=== PATIENT | female | born 1985 | race Caucasian/White ===

== ENCOUNTER 2019-09-25 16:41 | Outpatient (CLI) | payer OTHER, SELFPAY ==
--- NOTE | ~2019-09-25 | XR_ITS ---
EXAMINATION: XR chest 2V EXAM DATE: 09/25/2019 17:12 INDICATION: Shortness of breath. History of asthma. TECHNIQUE: Frontal and lateral projections of the chest obtained and reviewed. Comparison is made to prior examination from 03/27/2019. FINDINGS: The lungs are clear. There are no pleural effusions. The cardiomediastinal silhouette is within normal limits. There is no pneumothorax suspected. The bones and soft tissues are unremarkab le. There is no significant interval change. IMPRESSION: Normal chest x-ray exam. Reviewed, dictated and finalized at location A. IMPRESSION: Normal chest x-ray exam.
--- NOTE | 2019-09-25 16:51 | ECG_ITS ---
Measurements Intervals [place] Rate: 107 P: 54 MT: 156 QRS: 32 QRSD: 91 T: 44 QT: 311 QTc: 417 Interpretive Statements SINUS TACHYCARDIA NONSPECIFIC T-WAVE ABNORMALITY- INFERIOR LEADS ABNORMAL ECG Electronically Signed On 09-25-2019 17:32:06 CDT by Andrae Hdz D.O.
== END 2019-09-25 16:42 | disposition home or self-care (01) ==
LOC: ANHCARD 16:43
PROVIDERS: PCP Internal Medicine; Visit Provider Nurse Practitioner
DX: R06.02 Shortness of breath (principal); R94.31 Abnormal electrocardiogram [ECG] [EKG]
CPT/HCPCS: 71046; 93005

== ENCOUNTER 2019-10-14 08:39 | Outpatient (CLI) | payer OTHER, SELFPAY ==
--- NOTE | ~2019-10-14 | US_ITS ---
EXAMINATION: US venous doppler UE RT DATE: 10/14/2019 09:33 INDICATION: Acute deep venous thrombosis in the right upper limb. TECHNIQUE: Grayscale images without and with compression and Doppler images of the right upper extrem ity veins were obtained. COMPARISON: 03/27/2019 FINDINGS: The right internal jugular vein, subclavian vein, axillary vein, brachial vein, basilic vein, cephali c vein, radial vein, and ulnar vein are now patent. IMPRESSION: 1. Patent right upper extremity veins. No evidence of venous thrombosis. Reviewed, dictated and finalized at location A.
== END 2019-10-14 08:40 | disposition home or self-care (01) ==
PROVIDERS: PCP Internal Medicine; Visit Provider Internal Medicine Hematology & Oncology
DX: I82.621 Acute embolism and thrombosis of deep veins of right upper extremity (principal)
CPT/HCPCS: 93971

== ENCOUNTER 2019-11-13 13:03 | Outpatient (CLI) | payer OTHER, SELFPAY ==
[2019-11-15 00:50] LABS: Antithrombin III Activity 115 % activity (80-120)
[2019-11-15 13:38] LABS: Anti Cardio Antibody IgM <12 MPL (<=12); Anti Cardiolipin Antibody IgA <11 APL (<=11); Anti Cardiolipin Antibody IgG <14 GPL (<=14)
[2019-11-15 20:49] LABS: Lupus dRVVT 1:1 Mix Interpreta Not Indicated; Lupus dRVVT Screen 33 sec (<=45); PTT-LA Screen 25 sec (<=40)
[2019-11-17 09:44] LABS: Homocysteine 5.4 umol/L (<10.4)
== END 2019-11-13 13:04 | disposition home or self-care (01) ==
LOC: ANHVADLAB 13:07 → ANHLAB 13:29
PROVIDERS: PCP Internal Medicine; Visit Provider Internal Medicine Hematology & Oncology
DX: I82.621 Acute embolism and thrombosis of deep veins of right upper extremity (principal)
CPT/HCPCS: 36415; 83090; 85300; 85613; 85730; 86146; 86147

== ENCOUNTER 2020-10-25 16:39 | Emergency (ER) | payer OTHER, SELFPAY ==
--- NOTE | ~2020-10-25 | CT_ITS ---
EXAMINATION: CTA chest PE protocol DATE: 10/25/2020 18:18 INDICATION: Shortness of breath. Bilateral rib pain. Chest tightness. TECHNIQUE: Computed tomography angiography (CTA) of the chest was performed with 100 mL Omnipaque-350 intravenous contrast timed to evaluate the pulmonary arteries. Coronal maximum intensity projection 3D-reconstructions were created by the technologist. Automated exposure control and iterative reconst ruction technique were employed. The dose-length product was 1021.05 mGy-cm. COMPARISON: Chest CT 05/14/2019, CT abdomen and pelvis 12/16/2018 FINDINGS: There is minimal atelectasis in lingula. No pleural effusion. The heart size is normal. No pericardial effusion. There is no pulmonary embolus. There are changes of cholecystectomy. There is d iffuse hepatic steatosis. There are parenchymal calcifications in left kidney. There is a 16 mm mass in left adrenal gland that measured low-attenuation on prior imaging, consistent with an adenoma. The re is mild thoracic spondylosis. IMPRESSION: 1. No pulmonary embolus. Reviewed, dictated and finalized at location A. IMPRESSION: 1. No pulmonary embolus.
--- NOTE | ~2020-10-25 | XR_ITS ---
EXAMINATION: XR chest 2V DATE: 10/25/2020 17:41 INDICATION: Shortness of breath. Bilateral rib pain. TECHNIQUE: Frontal and lateral views of the chest were obtained. COMPARISON: Sam views 09/25/2019, chest CT 05/14/2019 FINDINGS: The chest demonstrates clear lungs without pneumonia, pleural effusion, or pneumothorax. Th e heart size is normal. IMPRESSION: 1. No acute cardiopulmonary disease. Reviewed, dictated and finalized at location A.
--- NOTE | 2020-10-25 17:06 | ECG_ITS ---
Measurements Intervals [place] Rate: 97 P: 62 MD: 145 QRS: 27 QRSD: 92 T: 41 QT: 310 QTc: 394 Interpretive Statements SINUS RHYTHM LOW QRS VOLTAGE IN PRECORDIAL LEADS BORDERLINE ST-T WAVE ABNORMALITY- INFERIOR LEADS BASELINE ARTIFACT- I, II, AVR BORDERLINE ECG Electronically Signed On 10-25-2020 20:33:48 CDT by Andrae Hdz D.O.
[2020-10-25 17:30] VITALS: PULSE 84; O2SAT 97
[2020-10-25 17:37] VITALS: BP 120/78; PULSE 100; RESP 19; TEMP 36.7; O2SAT 97
[2020-10-25 17:46] LABS: Basophils Absolute Auto 0.1 K/mm3 (0.0-0.1); Basophils Percent Auto 0.6 % (0.2-1.2); Eosinophils Absolute Auto 0.6 K/mm3 (0-0.3); Eosinophils Percent Auto 4.3 % (0-4.4); Hematocrit 39.2 % (37.0-47.0); Immature Granulocyte Absolute 0.08 K/mm3 (0.00-0.031); Immature Granulocyte Percent A 0.6 % (0-0.5); Lymphocytes Absolute Auto 4.53 K/mm3 (0.9-3.2); Lymphocytes Percent Auto 33.7 % (18.3-44.2); Mean Corpuscular HGB Conc 33.2 g/dl (32-36); Mean Corpuscular Volume 93.3 fl (80-100); Mean Platelet Volume 8.9 fl (7.4-10.4); Monocytes Absolute Auto 0.9 K/mm3 (0.1-0.6); Monocytes Percent Auto 6.6 % (2.6-8.5); Neutrophils Absolute Auto 7.3 K/mm3 (1.3-6.7); Neutrophils Percent Auto 54.2 % (45.5-73.1); Platelet Count Result 236 k/mm3 (150-375); Red Cell Distribution Width 12.7 % (11.5-14.5); White Blood Count 13.5 K/mm3 (4.5-10.0)
[2020-10-25 17:55] LABS: Anion Gap 6 mmol/L (8-16); Blood Urea Nitrogen 10 mg/dL (7-17); Calcium 8.6 mg/dL (8.4-10.2); Carbon Dioxide 22 mmol/L (22-30); Chloride 111 mmol/L (98-107); Estimated CRCL calculation 114 ml/min; Estimated Glomerular Filt Rate > 60; Glucose 92 mg/dL (65-105); Potassium 3.9 mmol/L (3.4-5.0); Sodium 139 mmol/L (137-145)
--- NOTE | 2020-10-25 18:05 | ED.GENADULT ---
HPI - General Adult General Chief complaint: Shortness of Breath/Dyspnea Stated complaint: sob Time Seen by Provider: 10/25/20 17:12 Source: patient History of Present Illness HPI narrative: Patient is a 35 y/o female complaining of mild SOB since yesterday. She states that her SOB is worse with exertion or prolonged walking. She has a mild chronic cough. She also has some bilateral rib pain. She denies any fever. She states that she was seen by her PCP and was instructed to come to ED to be evaluated for PE. She has history of arm DVT. Related Data Home Medications Medication Instructions Recorded Confirmed lisdexamfetamine 30 mg capsule 30 mg PO DAILY 05/03/20 10/25/20 vilazodone 20 mg tablet 20 mg PO DAILY 05/03/20 10/25/20 Allergies Allergy/AdvReac Type Severity Reaction Status Date / Time egg Allergy Severe anaphalaxis Verified 10/25/20 17:44 DUST Allergy Intermediate wheezing Uncoded 10/25/20 17:44 MILDEW Allergy Mild Wheezing Uncoded 10/25/20 17:44 MOLD Allergy Mild Wheezing Uncoded 10/25/20 17:44 SMOKE Allergy Mild Wheezing Uncoded 10/25/20 17:44 Review of Systems Constitutional: Constitutional: Denies chills, Denies fever(s), Denies headache(s) and Denies weakness Eyes: Eyes: Denies blurry vision ENT: Denies headache(s) and Denies neck pain Cardiovascular: Cardiovascular: Reports chest pain and Reports dyspnea Respiratory: Respiratory: Denies cough and Reports dyspnea Gastrointestinal: Gastrointestinal: Denies abdominal pain, Denies diarrhea, Denies nausea and Denies vomiting Genitourinary: Genitourinary: Denies hematuria and Denies dysuria Musculoskeletal: Musculoskeletal: Denies back pain and Denies neck pain Neurologic: Denies headache(s) and Denies weakness PMFSH Past Medical History Medical History Allergies Asthma Back pain Cholecystectomy planned Depression DVT (deep venous thrombosis) Migraine Surgical History Surgical History Previous section 2008, 2012 Family History Family History Father Hypertension Diabetes mellitus Mother Hypertension Diabetes mellitus Social History Social History Smoking status: Former smoker Smoking end date: 06/25/13 Alcohol intake: current Gender identity (if verbalized by the patient): Female Exam Const: General: no acute distress and well developed Orientation/consciousness: oriented to person, oriented to place, oriented to time and patient oriented x3 HENMT: Head: normocephalic Ears: external ears normal General nose exam: Normal external nose present Eyes: General: appearance normal, both eyes and all related structures Conjunctivae: conjunctivae normal Neck: Neck: normal visual inspection and full ROM Chest: Chest palpation & inspection: normal inspection of the chest and no tenderness Resp: Effort & Inspection: normal respiratory effort Auscultation: clear to auscultation bilaterally Cardio: Rate: regular rate Rhythm: regular rhythm GI: GI Palp: No abdominal tenderness and Yes Soft to palpation Skin: General skin exam: normal color and turgor normal Neuro: General: oriented to person, oriented to place, oriented to time and patient oriented x3 Cognition (Neuro): normal cognition Extrem: General: normal to inspection, full ROM and no pedal edema Psych: Appearance: grossly normal Mental Status: mental status grossly normal Affect: normal affect Course Vital Signs Vital signs: Vital Signs Pulse Rate 84 10/25/20 17:30 Pulse Oximetry 97 10/25/20 17:30 Temperature 36.7 C 10/25/20 17:37 Pulse Rate 100 10/25/20 17:37 Respiratory Rate 19 10/25/20 17:37 Blood Pressure 120/78 10/25/20 17:37 Pulse Oximetry 97 10/25/20 17:37 Medical Decision Making Vital Signs V
== END 2020-10-25 18:54 | disposition home or self-care (01) ==
PROVIDERS: Emergency Provider Emergency Medicine; PCP Internal Medicine
DX: R06.02 Shortness of breath (principal); J45.909 Unspecified asthma, uncomplicated; F32.9 Major depressive disorder, single episode, unspecified; Z86.718 Personal history of other venous thrombosis and embolism; Z87.891 Personal history of nicotine dependence
CPT/HCPCS: 36415; 71046; 71275; 80048; 81025; 85025; 93005; 99284; Q9967

== ENCOUNTER 2021-07-15 09:58 | Outpatient (CLI) | payer OTHER, SELFPAY ==
--- NOTE | ~2021-07-15 | XR_ITS ---
XR ankle LT 2V DATE: 07/15/2021 10:15 INDICATION: Left ankle pain TECHNIQUE: AP and lateral views COMPARISON: None FINDINGS: No fracture or dislocation of the ankle or disruption of the ankle mortise. Plantar calcaneal enthesopathy. IMPRESSION: Plantar calcaneal enthesopathy Reviewed, dictated and finalized at location A. C EDUCATOR
== END 2021-07-15 09:59 | disposition home or self-care (01) ==
LOC: ANHIMG 10:02
PROVIDERS: PCP Internal Medicine; Visit Provider Nurse Practitioner
DX: M25.572 Pain in left ankle and joints of left foot (principal); M77.32 Calcaneal spur, left foot
CPT/HCPCS: 73600

== ENCOUNTER 2021-08-02 17:12 | Outpatient (CLI) | payer OTHER, SELFPAY ==
--- NOTE | ~2021-08-02 | US_ITS ---
EXAMINATION: US venous doppler LE RT DATE: 08/02/2021 17:47 INDICATION: Right lower limb pain. TECHNIQUE: Grayscale ultrasound images without and with compression and Doppler ultrasound images of the right lower extremity veins were obtained. COMPARISON: None. FINDINGS: The visualized portions of right common femoral vein, profunda (deep) femoral vein, femoral vein, pop liteal vein, peroneal veins, posterior tibial veins, and greater saphenous vein outflow are patent. T here is a 3.2 x 1.1 cm predominantly solid hypoechoic mass in right foot. IMPRESSION: 1. No deep venous thrombosis. 2. 3.2 cm mass in right foot, most likely a hematoma. Clinical follow-up is recommended to confirm re solution and exclude rare causes of mass such as malignancy. Reviewed, dictated and finalized at location A. AN IMPRESSION: 1. No deep venous thrombosis. 2. 3.2 cm mass in right foot, most likely a hematoma. Clinical follow-up is rec ommended to confirm resolution and exclude rare causes of mass such as malignan cy.
== END 2021-08-02 17:13 | disposition home or self-care (01) ==
PROVIDERS: PCP Internal Medicine; Visit Provider Internal Medicine
DX: M79.606 Pain in leg, unspecified (principal); M79.89 Other specified soft tissue disorders
CPT/HCPCS: 93971

== ENCOUNTER 2022-01-24 07:49 | Outpatient (CLI) | payer OTHER, SELFPAY ==
--- NOTE | ~2022-01-24 | XR_ITS ---
EXAMINATION: XR chest 2V 01/24/2022 08:00 INDICATION: Cough PROCEDURE: 2 view chest COMPARISON: Comparison to multiple prior studies sequentially, with oldest reviewed study dated 10/19. FINDINGS: The lungs are clear. The cardiomediastinal silhouette is within normal limits. There are no pleural effusions. There is no pneumothorax suspected. IMPRESSION: 1: NO ACUTE CARDIOPULMONARY DISEASE. Reviewed, dictated and finalized at location A.
== END 2022-01-24 07:50 | disposition home or self-care (01) ==
LOC: ANHIMG 07:50
PROVIDERS: PCP Internal Medicine; Visit Provider Nurse Practitioner
DX: R05.9 Cough, unspecified (principal)
CPT/HCPCS: 71046

== ENCOUNTER 2022-03-13 08:57 | Outpatient (CLI) | payer OTHER, SELFPAY ==
--- NOTE | 2022-03-13 14:29 | WPDPFTINT ---
PFT Procedure Performed PFT Procedure Performed Spirometry with Pre/Post Bronchodilator Plethysmography (Lung Vol) Diffusing Cap (DLCO) Flow Vol Loop PFT Interpretation This is a pulmonary function test with pre and post-bronchodilator spirometry, plethysmography and diffusing capacity. The test was performed and results interpreted in accordance with the 2019 and 2005 ATS/ERS Task Force guidelines respectively using the Global Lung Function Initiative-2012 reference equations. Patient demonstrated good effort and cooperation. Reproducibility criteria were met. The quality of the pre bronchodilator spirometry maneuver was Grade A and post bronchodilator spirometry maneuver was Grade A. Findings: Spirometry: The contour the inspiratory and expiratory flow tracing are normal. The pre bronchodilator FVC is 3.38 L, 94% predicted. The pre bronchodilator FEV1 is 2.72 L, 91% predicted. The pre bronchodilator FEV1: FVC ratio was 80%. The post bronchodilator FVC is 3.43 L, representing 1% increase. The post bronchodilator FEV1 is 2.79 L, representing a 2% increase. The post bronchodilator FEV1: FVC ratio was 81%. Plethysmography: The total lung capacity is 4.49 L, 91% predicted. The functional residual capacity is 1.78 L, 66% predicted. The residual volume is 1.11 L, 75% predicted. Diffusion capacity: The diffusion capacity unadjusted for hemoglobin and carboxyhemoglobin is 20.8, 87% predicted. The diffusing capacity adjusted for alveolar volume is 5.17, 107% predicted. Impression: The spirometry is normal without evidence of an obstructive abnormality. There is no significant improvement after inhaling a single dose of albuterol. The lung volumes are normal. The diffusing capacity is normal. There are no prior studies for comparison
== END 2022-03-13 08:58 | disposition home or self-care (01) ==
PROVIDERS: PCP Internal Medicine; Visit Provider Physician Assistant
DX: J45.909 Unspecified asthma, uncomplicated (principal); R05.9 Cough, unspecified
CPT/HCPCS: 94060; 94726; 94729

== ENCOUNTER 2022-05-08 07:34 | Outpatient (CLI) | payer OTHER, SELFPAY ==
--- NOTE | 2022-05-08 07:46 | ECHO_ITS ---
Patient Info Name: Sarai Marie Age: 36 years : 1985 Gender: Female Ht: 63 in Wt: 300 lbs BSA: 2.55 m2 HR: 94 bpm BP: 131 / 93 mmHg Technical Quality: Poor Exam Date: 05/08/2022 8:23 AM Exam Location: [facility] Patient Status: Outpatient Admit Date: 05/08/2022 Staff Ordering Physician: Annita Key MD Piece Work Checker: Rob Mckinley RDCS, RT Attending Provider: Annita Key MD Referring Physician: Shahid VELASQUEZ; Exam Type: CA echo doppler color flow Study Info Indications R06.02 - Shortness of breath Complete two-dimensional, color flow and Doppler transthoracic echocardiogram is performed. Strain analysis performed. Summary 1. Complete two-dimensional, color flow and Doppler transthoracic echocardiogram is performed. 2. Technically suboptimal study due to poor sonographic images. 3. Left ventricular chamber dimension is normal. 4. Left ventricular systolic function is normal, estimated at 60-65%. 5. There is moderately increased left ventricular wall thickness. 6. The left ventricular diastolic function is grade I diastolic dysfunction. 7. E/e' 8 is minimally elevated. 8. Global longitudinal strain is abnormal at -15.9%. 9. There is trivial pericardial effusion. Left Ventricle E/e' 8 is minimally elevated. Global longitudinal strain is abnormal at -15.9%. Technically suboptimal study due to poor sonographic images. Left ventricular chamber dimension is normal. Left ventricular systolic function is normal, estimated at 60-65%. There is moderately increased left ventricular wall thickness. The left ventricular diastolic function is grade I diastolic dysfunction. Right Ventricle Right ventricular systolic function is normal and with normal TAPSE 2.2 cm. Right ventricular chamber dimension is normal. Left Atria Left atrial chamber dimension is normal. Right Atria Right atrial chamber dimension is normal. Aortic Valve The aortic valve is probable trileaflet. There is no aortic valve stenosis. There is no aortic valve regurgitation. Pulmonic Valve There is no pulmonic regurgitation. Mitral Valve There is no mitral valve stenosis. There is no mitral valve regurgitation. Tricuspid Valve There is no tricuspid valve regurgitation. Pericardium/Pleural There is trivial pericardial effusion. Inferior Vena Cava Normal inferior vena cava with >50% collapse upon inspiration consistent with normal right atrial pressure, 5 mmHg. Aorta The aortic root size at the sinus of Valsalva is normal. Left Ventricular Outflow Tract Name Value Normal LVOT 2D LVOT Diameter 1.9 cm LVOT Doppler LVOT Peak Gradient 6 mmHg LVOT Mean Gradient 4 mmHg LVOT VTI 25 cm LVOT VTI/AV VTI Ratio 0.9 LVOT Stroke Volume 74 ml LVOT CO 7.2 l/min LVOT CI 2.8 l/min/m2 Mitral Valve Name
== END 2022-05-08 07:35 | disposition home or self-care (01) ==
LOC: ANHCARD 07:36
PROVIDERS: PCP Internal Medicine; Visit Provider Internal Medicine Critical Care Medicine
DX: R06.02 Shortness of breath (principal)
CPT/HCPCS: 93306

== ENCOUNTER 2022-05-31 08:08 | Outpatient (CLI) | payer OTHER, SELFPAY ==
--- NOTE | ~2022-05-31 | CT_ITS ---
EXAMINATION: CT abdomen wo/w con DATE: 05/31/2022 09:05 INDICATION: Adrenal mass TECHNIQUE: Computed tomography (CT) of the abdomen and pelvis was performed without and with 100 mL O mnipaque-350 intravenous contrast. Automated exposure control and iterative reconstruction technique were employed. The dose-length product was 2334.15 mGy-cm. COMPARISON: None FINDINGS: Minimal atelectasis at the bilateral lung bases. Heart size is normal. No pericardial or pleural effu lamar. Cholecystectomy clips the gallbladder fossa. Diffuse hepatic steatosis. Spleen, pancreas and ri ght adrenal gland are normal. 1.3 cm left adrenal nodule with noncontrast Hounsfield units of 4, abso lute washout of 73% and relative washout of 66%, each individually diagnostic of adrenal adenoma. Rig ht kidney is normal. A couple 4-5 mm calcifications at a small region of cortical scarring at the upp er pole of the left kidney. Visualized portion of the bowels including the appendix are normal. No pa thologically enlarged abdominal lymphadenopathy. IMPRESSION: 1. 1.3 cm left adrenal adenoma. 2. A couple 4-5 mm nonobstructing stones versus dystrophic calcification related to cortical scarring at the upper pole the left kidney. Reviewed, dictated and finalized at location A. L COURT JUSTICE IMPRESSION: 1. 1.3 cm left adrenal adenoma. 2. A couple 4-5 mm nonobstructing stones versus dystrophic calcification relate d to cortical scarring at the upper pole the left kidney.
[2022-05-31 08:31] LABS: Estimated Glomerular Filt Rate > 60
== END 2022-05-31 08:09 ==
LOC: MICIMG 08:09
PROVIDERS: PCP Internal Medicine; Visit Provider Nurse Practitioner
DX: E27.8 Other specified disorders of adrenal gland (principal); D35.02 Benign neoplasm of left adrenal gland; N20.0 Calculus of kidney
CPT/HCPCS: 74170; Q9967

== ENCOUNTER 2022-06-20 16:35 | Emergency (ER) | payer OTHER, SELFPAY ==
[2022-06-20 17:09] VITALS: BP 107/77; PULSE 102; RESP 16; TEMP 36.4; O2SAT 98
--- NOTE | 2022-06-20 17:44 | ED.URI ---
HPI - URI/Sore Throat General Chief Complaint: Upper Respiratory Infection Stated Complaint: congestion Time Seen by Provider: 06/20/22 17:44 Source: patient and RN notes reviewed Mode of arrival: ambulatory Limitations: no limitations History of Present Illness HPI Narrative: 36-year-old female with a history of asthma presented for complaint of chest congestion and sinus drainage worsening over the past 4 days. She endorses hoarse voice and fatigue. she is taking Trelegy as directed. She denies severe shortness of breath or wheezing. States her congestion is worsening her asthma, but states she feels ok. Also denies, vomiting, diarrhea, fever chills. Reports sick contacts. MD elicited complaint: cough Related Data Home Medications Medication Instructions Recorded Confirmed aripiprazole 5 mg tablet (Abilify) 7.5 mg PO DAILY 07/14/21 06/20/22 aspirin 81 mg tablet,delayed 81 mg PO DAILY 08/02/21 06/20/22 release (Adult Low Dose Aspirin) vilazodone 20 mg tablet 40 mg PO DAILY 01/12/22 06/20/22 lisdexamfetamine 30 mg capsule 60 mg PO DAILY 04/25/22 06/20/22 (Vyvanse) Allergies Allergy/AdvReac Type Severity Reaction Status Date / Time egg Allergy Severe anaphalaxis Verified 06/20/22 17:54 DUST Allergy Intermediate wheezing Uncoded 06/20/22 17:54 MILDEW Allergy Mild Wheezing Uncoded 06/20/22 17:54 MOLD Allergy Mild Wheezing Uncoded 06/20/22 17:54 SMOKE Allergy Mild Wheezing Uncoded 06/20/22 17:54 Review of Systems Review of Systems: per HPI PMF Past Medical History Medical History Allergies Asthma Back pain Cholecystectomy planned Depression DVT (deep venous thrombosis) Migraine Morbid obesity with BMI of 50.0-59.9, adult Surgical History Surgical History Previous section 2008, 2012 Family History Family History Father Hypertension Diabetes mellitus Mother Hypertension Diabetes mellitus Social History Social History Social History: Caffeine-daily Smoking packs per day: 1 Smoking cigarettes per day: 20.0 Years smoked: 5 Smoking pack-years: 5.00 Smoking status: Former smoker Tobacco type: cigarettes Second hand tobacco smoke exposure: Yes Smoking end date: 06/25/13 Alcohol intake: current Alcohol use details: rarely Lack of Transportation: No Lack of Food: Sometimes True Current Housing: I Have Housing Concerned About Future Housing: No Difficulty Paying Gas/Electric Bills: YES Difficulty Paying for Meds: No Currently Unemployed: No Education: High School Diploma/GED Difficulty w/ Childcare or Family Care: No Gender identity (if verbalized by the patient): Female Exam Narrative: GENERAL: Ill-appearing, nontoxic EYES: PERRLA, conjunctivae clear ENT: Mucous membranes moist. TMs pearly banks with dull light reflex bilaterally; no tragal tenderness. Oropharynx erythematous without lesions or exudate, no drooling, no hoarseness, no trismus, uvula midline. No tripod positioning, muffled voice, soft palate or pharyngeal wall bulging NECK: Supple. No lymphadenopathy CHEST: Lungs coarse with wheezing throughout. Right mid and lower lobe wheezing worse than left. No respiratory distress, speaks in full sentences. HEART: Regular rate and rhythm. No murmur heard. SKIN: Warm, dry, no rash. NEURO: Alert and oriented x3. PSYCH: Normal mood and affect Course Course Emergency Course: Patient is aware of diagnosis, understands and agrees to treatment plan. Anticipatory guidance given. Patient agrees to follow-up as directed and is aware of reasons to seek care at the emergency department. Portions of this record may have been created with voice recognition software Level of Care: Express Care Visit Vital Signs Vital
== END 2022-06-20 18:03 | disposition home or self-care (01) ==
PROVIDERS: Emergency Provider Nurse Practitioner Family; PCP Internal Medicine
DX: J40 Bronchitis, not specified as acute or chronic (principal); J45.909 Unspecified asthma, uncomplicated; Z86.718 Personal history of other venous thrombosis and embolism; E66.01 Morbid (severe) obesity due to excess calories; Z68.43 Body mass index [BMI] 50.0-59.9, adult; F32.A Depression, unspecified; Z79.82 Long term (current) use of aspirin; Z87.891 Personal history of nicotine dependence
CPT/HCPCS: 99213; G0463

== ENCOUNTER 2022-10-18 15:24 | Outpatient (CLI) | payer OTHER, SELFPAY ==
--- NOTE | 2022-10-23 16:26 | WPDHOLTEREM ---
Holter/Event Monitor Holter/Event Monitor Date of procedure: 10/18/22 Holter/Event Procedure: 48 Hr Holter Monitor Indications: Tachycardia Conclusion: 1. 48 hour holter monitor on 10/18/22. 2. Underlying rhythm is sinus rhythm. HR range 66-152 bpm; average HR 109 bpm. HR at 152 bpm was at 08:04. 3. No premature supraventricular complexes. No supraventricular tachycardia. 4. No premature ventricular complex. No ventricular tachycardia. 5. No sinoatrial or atrioventricular blocks. No significant pauses greater than 2 seconds. 6. No symptoms available for correlation.
== END 2022-10-18 15:25 | disposition home or self-care (01) ==
LOC: ANHCARD 15:25
PROVIDERS: PCP Internal Medicine; Visit Provider Nurse Practitioner
DX: R00.0 Tachycardia, unspecified (principal)
CPT/HCPCS: 93225; 93226

== ENCOUNTER 2022-11-02 09:30 | Outpatient (CLI) | payer OTHER, SELFPAY ==
--- NOTE | ~2022-11-02 | CT_ITS ---
CT Scan of the Chest without Contrast: Clinical Indication: Lung nodule Technique: Contiguous sections were acquired throughout the chest without intravenous contrast. Dose reduction technique was used on this scan by utilizing automated exposure control and iterative recon struction technique. The dose-length product (DLP) was 329.40 mGy-cm. COMPARISON: 10/25/2020 Findings: There is no evidence of any significant mediastinal, hilar or axillary lymphadenopathy. The mediastin al soft tissues appear normal. There is no evidence of pleural or pericardial effusion. Stable 2 mm right upper lobe pulmonary nodule. Right middle lobe scarring or atelectasis is noted. Images through the upper abdomen reveal no abnormalities. Impression: 2 mm upper lobe pulmonary nodule, unchanged. Right middle lobe scarring or atelectasis. Reviewed, dictated and finalized at [facility]. Impression: 2 mm upper lobe pulmonary nodule, unchanged. Right middle lobe scarring or atelectasis.
== END 2022-11-02 09:31 | disposition home or self-care (01) ==
PROVIDERS: PCP Internal Medicine; Visit Provider Nurse Practitioner Family
DX: R91.1 Solitary pulmonary nodule (principal)
CPT/HCPCS: 71250

== ENCOUNTER 2022-12-07 11:18 | Observation (INO) | payer OTHER, SELFPAY ==
[2022-12-07] VITALS (10 sets, daily range): BP systolic 118–143; BP diastolic 50–99; PULSE 102–121; RESP 13–34; TEMP 36.1–36.4; O2SAT 95–100
--- NOTE | ~2022-12-07 | XR_ITS ---
XR chest 2V 12/07/2022 12:02 Indication: Shortness of breath for one week. History of blood clots. Procedure: PA and lateral views of the chest Comparison: 01/24/2022 Findings: There is right middle lobe and lingular airspace disease, compatible with pneumonia. Heart size normal. No pleural effusion, edema or pneumothorax. No acute osseous abnormality. Impression: 1: Lingular and right middle lobe airspace disease, compatible with pneumonia. Reviewed, dictated and finalized at location L. Impression: 1: Lingular and right middle lobe airspace disease, compatible with pneumonia.
--- NOTE | ~2022-12-07 | CT_ITS ---
EXAMINATION: CTA chest PE protocol DATE: 12/07/2022 14:44 INDICATION: hx of DVT/factor V; tachy, SOB, CP TECHNIQUE: Computed tomography angiography (CTA) of the chest was performed with 100 mL Omnipaque-350 intravenous contrast timed to evaluate the pulmonary arteries. Coronal maximum intensity projection 3D-reconstructions were created by the technologist. The dose-length product (DLP) was 881.81 mGy-cm. Automated exposure control and iterative reconstruction technique were employed. COMPARISON: CT chest 11/02/2022 and 05/14/2019. FINDINGS: Lung parenchyma and airways: Centrilobular groundglass and tree-in-bud opacities affecting all lobes, most severe in the lower lobes. Right upper lobe fissural lymph node. Pleura: Unremarkable. Thoracic inlet, axillae and chest wall: Unremarkable. Thoracic aorta: Normal. Mediastinum: Borderline bilateral hilar and mediastinal lymphadenopathy. Heart and pericardium: Normal. Coronary artery calcifications: None. Upper abdomen: 16 mm 12 Hounsfield unit density left adrenal mass, likely adenoma. Bones: No acute osseous finding. Pulmonary arteries: Study quality: Adequate. No pulmonary emboli detected. IMPRESSION: No CT evidence of acute pulmonary embolus. Pulmonary opacities may represent infectious airways disea se/atypical infection, respiratory bronchiolitis, or hypersensitivity pneumonitis. Reviewed, dictated and finalized at location K. IMPRESSION: No CT evidence of acute pulmonary embolus. Pulmonary opacities may represent in fectious airways disease/atypical infection, respiratory bronchiolitis, or hype rsensitivity pneumonitis.
--- NOTE | 2022-12-07 11:20 | ECG_ITS ---
Measurements Intervals [place] Rate: 121 P: 53 UT: 131 QRS: 7 QRSD: 89 T: 31 QT: 338 QTc: 480 Interpretive Statements SINUS TACHYCARDIA LOW QRS VOLTAGE IN PRECORDIAL LEADS [QRS DEFLECTION < 1.0 mV IN CHEST LEADS] NONSPECIFIC T-WAVE ABNORMALITY ABNORMAL RHYTHM ECG COMPARED TO ECG 10/25/2020 17:17:41 SINUS TACHYCARDIA NOW PRESENT Electronically Signed On 12-07-2022 14:05:31 CDT by Annalisa Galvan M.D.
[2022-12-07 11:50] LABS: Basophils Absolute Auto 0.1 K/mm3 (0.0-0.1); Basophils Percent Auto 0.7 % (0.2-1.2); Eosinophils Absolute Auto 0.5 K/mm3 (0-0.3); Hematocrit 42.1 % (37.0-47.0); Hemoglobin 13.9 g/dL (12.0-15.0); Immature Granulocyte Absolute 0.12 K/mm3 (0.00-0.031); Immature Granulocyte Percent A 0.7 % (0-0.5); Lymphocytes Absolute Auto 4.08 K/mm3 (0.9-3.2); Lymphocytes Percent Auto 24.3 % (18.3-44.2); Mean Corpuscular Hemoglobin 30.5 pg (26-34); Mean Corpuscular Volume 92.5 fl (80-100); Mean Platelet Volume 8.6 fl (7.4-10.4); Monocytes Absolute Auto 1.1 K/mm3 (0.1-0.6); Monocytes Percent Auto 6.6 % (2.6-8.5); Neutrophils Absolute Auto 10.8 K/mm3 (1.3-6.7); Neutrophils Percent Auto 64.7 % (45.5-73.1); Platelet Count Result 270 k/mm3 (150-375); Red Blood Count 4.55 M/mm3 (4.2-5.4); Red Cell Distribution Width 12.6 % (11.5-14.5); White Blood Count 16.8 K/mm3 (4.5-10.0)
[2022-12-07 12:05] LABS: Alanine Aminotransferase 24 U/L (6-35); Alkaline Phosphatase 65 U/L (38-126); Anion Gap 7 mmol/L (8-16); Aspartate Amino Transferase 24 U/L (14-36); Bilirubin,Total 0.3 mg/dL (0.2-1.3); Blood Urea Nitrogen 8 mg/dL (7-17); Calcium 8.2 mg/dL (8.4-10.2); Carbon Dioxide 23 mmol/L (22-30); Chloride 107 mmol/L (98-107); Estimated CRCL calculation 117 ml/min; Estimated Glomerular Filt Rate > 60; Glucose 101 mg/dL (65-110); Potassium 4.1 mmol/L (3.4-5.0); Sodium 137 mmol/L (137-145)
--- NOTE | 2022-12-07 13:33 | ED.ARRPALP ---
HPI - Arrhythmia/Palpitations General Chief Complaint: Arrhythmia/Palpitations Stated Complaint: tachycardia Time Seen by Provider: 12/07/22 12:29 History of Present Illness HPI narrative: Patient is a 37-year-old female with a history of factor V Leiden on daily aspirin, DVT, hypertension, depression, asthma, GERD presenting with high heart rate and shortness of breath. Patient states that for the last several days her heart rate has been spiking up to the 140s and 150s with normal activity. States that she has been feeling increasingly short of breath. States that she has chest pain with deep breathing. Saw her PCP today who advised she come in for evaluation. States that she has had a productive cough as well. Denies headache, numbness or weakness, abdominal pain, nausea or vomiting, diarrhea, dysuria, leg swelling. Related Data Home Medications Medication Instructions Recorded Confirmed aripiprazole 5 mg tablet (Abilify) 7.5 mg PO DAILY 07/14/21 12/14/22 aspirin 81 mg tablet,delayed 81 mg PO DAILY 08/02/21 12/14/22 release (Adult Low Dose Aspirin) epinephrine 0.3 mg/0.3 mL 0.3 ml IM ONCE PRN 10/04/22 12/14/22 injection, auto-injector hypersensitivity reaction atomoxetine 25 mg capsule 25 mg PO BID 12/07/22 12/14/22 trazodone 100 mg tablet 200 mg PO HS 12/07/22 12/14/22 vilazodone 40 mg tablet 40 mg PO DAILY 12/07/22 12/14/22 Allergies Allergy/AdvReac Type Severity Reaction Status Date / Time egg Allergy Severe anaphalaxis Verified 12/14/22 08:27 DUST Allergy Intermediate wheezing Uncoded 12/14/22 08:27 MILDEW Allergy Mild Wheezing Uncoded 12/14/22 08:27 MOLD Allergy Mild Wheezing Uncoded 12/14/22 08:27 SMOKE Allergy Mild Wheezing Uncoded 12/14/22 08:27 Review of Systems Review of Systems: All systems reviewed & are unremarkable except as noted in HPI and below PMFSH Past Medical History Medical History Allergies Asthma Attention deficit Back pain Cholecystectomy planned Depression DVT (deep venous thrombosis) Factor V Leiden Migraine Morbid obesity with BMI of 50.0-59.9, adult Surgical History Surgical History Hx of cholecystectomy Previous section 2008, 2012 Family History Family History Father Hypertension Diabetes mellitus Mother Hypertension Diabetes mellitus Social History Social History Social History: Caffeine-daily the patient is single and she has 2 children. She works at [employer]. The patient continues to smoke. code status full code Smoking packs per day: 1 Smoking cigarettes per day: 20.0 Years smoked: 5 Smoking pack-years: 5.00 Smoking status: Never smoker Tobacco type: cigarettes Second hand tobacco smoke exposure: Yes Smoking end date: 06/25/13 Alcohol intake: never Alcohol use details: rarely Substance use: never Substance use type: does not use Lack of Transportation: No Lack of Food: Never True Current Housing: I Have Housing Concerned About Future Housing: No Difficulty Paying Gas/Electric Bills: No Difficulty Paying for Meds: No Currently Unemployed: No Education: Associate Degree Difficulty w/ Childcare or Family Care: No Gender identity (if verbalized by the patient): Female Spiritual care concerns: No Exam Narrative: GENERAL: Well-appearing, well-nourished, and in no acute distress. Pleasant and cooperative HEAD: Normocephalic, atraumatic. EYES: PERRLA and EOMI. ENT: Nares clear, no rhinorrhea or epistaxis. Mucous membranes moist. NECK: Supple. CHEST: Crackles bilaterally, worse in the lower lobes, no wheezing, no respiratory distress HEART: Tachycardic, regular rhythm, no murmur heard. Normal peripheral pulses. ABDOMEN: Soft, nontender, nondistended EXTREMITIES: Normal range of
[2022-12-07] MEDS: SODIUM CHLORIDE 0.9% IV 1,000 ML 999 ML IV CONT (14:26)
--- NOTE | 2022-12-07 14:28 | PC.NURSE ---
Pt to CT scan via stretcher at this time.
[2022-12-07 14:43] LABS: Lactic Acid Reflex 0.9 mmol/L (0.7-2.0)
[2022-12-07] MEDS: AZITHROMYCIN 500 MG/NS 250 ML 500 MG/250 ML BAG 250 MG IVPB (14:53)
[2022-12-07 17:56] LABS: Influenza A QL RT-PCR Negative (Negative); Influenza B QL RT-PCR Negative (Negative); SARS-CoV-2 RNA PCR Negative (Negative)
[2022-12-07 20:19] LABS: Glucose Point of Care 93 mg/dl (65-105)
--- NOTE | 2022-12-07 21:40 | PM.IMHP ---
H&P: HPI History of Present Illness Date/Time: 12/07/22 21:40 Chief Complaint: Arrhythmia palpitation Narrative: This is a 29-year-old female patient who has a history of DVT due to factor v leiden, hypertension depression asthma and GERD. The patient came to the emergency room due to a rapid heart rate and shortness of breath. She noticed that several days her heart rate was spiking up to 140s and 150s with arm activity. She had increasing shortness of breath. She also had some chest pain with deep breathing. And she came to the emergency room to be of it evaluated. She denied any fever chills. The patient stated that she has had less energy than normal. She has had a productive cough as well. Her white count is 16.8. Influenza A/B and COVID are all negative.chest x ray Lingular and right middle lobe airspace disease, compatible with pneumonia.chest cta Lung parenchyma and airways: Centrilobular groundglass and tree-in-bud opacities affecting all lobes, most severe in the lower lobes. Right upper lobe fissural lymph node. The patient was given IV fluids Rocephin and azithromycin. The patient is being admitted to observation status on the date of service 12/07/22. Review of Systems Review of Systems: All systems reviewed & are unremarkable except as noted in HPI and below Constitutional: Constitutional: Reports as per HPI and Reports no additional constitutional complaints Eyes: Eyes: Reports as per HPI and Reports no additional eye complaints ENT: Reports system reviewed and no additional complaints, except as documented and Reports Normal hearing present Cardiovascular: Cardiovascular: Reports no additional cardiovascular complaints Respiratory: Respiratory: Reports no additional respiratory complaints and Reports no additional respiratory complaints Gastrointestinal: Gastrointestinal: Reports as per HPI and Reports no additional gastrointestinal complaints Musculoskeletal: Musculoskeletal: Reports no additional musculoskeletal complaints Integumentary/Breasts: Skin/Breast: Reports system reviewed and no additional complaints, except as docu and Reports as per HPI Neurologic: Reports system reviewed and no additional complaints, except as documented, Reports as per HPI and Reports Normal hearing present Psychiatric: Psychiatric: Reports no additional psychiatric complaints and Reports as per HPI Endocrine: Endocrine: Reports no additional endocrine complaints Hematologic/Lymphatic: Hematologic/Lymphatic: Reports no additional hematologic/lymphatic complaints Allergic/Immunologic: Allergic/Immunologic: Reports no additional allergic/immunologic complaints [facility] Past Medical History Medical History (Updated 12/08/22 @ 00:48 by Terri Huitron NP) Allergies Asthma Attention deficit Back pain Cholecystectomy planned Depression DVT (deep venous thrombosis) Factor V Leiden Migraine Morbid obesity with BMI of 50.0-59.9, adult Surgical History Surgical History (Updated 12/08/22 @ 00:30 by Terri Huitron NP) Hx of cholecystectomy Previous section 2008, 2012 Family History Family History Father Hypertension Diabetes mellitus Mother Hypertension Diabetes mellitus Social History Social History (Updated 12/08/22 @ 00:31 by Terri Huitron NP) Social History: Caffeine-daily the patient is single and she has 2 children. She works at [employer]. The patient continues to smoke. code status full code Smoking packs per day: 1 Smoking cigarettes per day: 20.0 Years smoked: 5 Smoking pack-years: 5.00 Smoking status: Never smoker Tobacco type: cigarettes Second hand tobacco smoke exposure: Yes Smoking end date: 06/25/13 Alcohol intake: never Alcohol use details: rarely Substance use: never Substance use type: does not use Lack of Transportation: No Lack of Food: Never True Current Housing: I Have Hous
[2022-12-08] VITALS (11 sets, daily range): BP systolic 114–116; BP diastolic 67–81; PULSE 100–122; RESP 18–22; TEMP 36.6; O2SAT 92–96
[2022-12-08] MEDS: TOPIRAMATE 25 MG TABLET PO ×2 (01:15→09:04)
[2022-12-08] MEDS: busPIRone HCL 10 MG TABLET 20 MG PO ×4 (01:15→17:00)
[2022-12-08] MEDS: traZODone HCL 50 MG TABLET 200 MG PO (01:15)
[2022-12-08] MEDS: IPRATROPIUM BR 0.02% INH SOLN 0.5 MG/2.5 ML VIAL INHALATION ×3 (02:07→13:10)
[2022-12-08] MEDS: LEVALBUTEROL NEB 1.25 MG/3 ML INHALATION ×3 (02:07→13:10)
[2022-12-08 06:19] LABS: Basophils Absolute Auto 0.1 K/mm3 (0.0-0.1); Basophils Percent Auto 0.7 % (0.2-1.2); Eosinophils Absolute Auto 0.5 K/mm3 (0-0.3); Eosinophils Percent Auto 3.7 % (0-4.4); Hematocrit 39.5 % (37.0-47.0); Hemoglobin 12.8 g/dL (12.0-15.0); Immature Granulocyte Absolute 0.08 K/mm3 (0.00-0.031); Immature Granulocyte Percent A 0.6 % (0-0.5); Lymphocytes Absolute Auto 3.86 K/mm3 (0.9-3.2); Lymphocytes Percent Auto 29.9 % (18.3-44.2); Mean Corpuscular HGB Conc 32.4 g/dl (32-36); Mean Corpuscular Hemoglobin 30.6 pg (26-34); Mean Corpuscular Volume 94.5 fl (80-100); Mean Platelet Volume 8.8 fl (7.4-10.4); Monocytes Absolute Auto 0.9 K/mm3 (0.1-0.6); Monocytes Percent Auto 6.6 % (2.6-8.5); Neutrophils Absolute Auto 7.5 K/mm3 (1.3-6.7); Neutrophils Percent Auto 58.5 % (45.5-73.1); Platelet Count Result 262 k/mm3 (150-375); Red Blood Count 4.18 M/mm3 (4.2-5.4); Red Cell Distribution Width 12.7 % (11.5-14.5); White Blood Count 12.9 K/mm3 (4.5-10.0)
[2022-12-08 06:28] LABS: Alanine Aminotransferase 22 U/L (6-35); Albumin Level 3.7 g/dL (3.5-5.1); Alkaline Phosphatase 63 U/L (38-126); Anion Gap 6 mmol/L (8-16); Aspartate Amino Transferase 25 U/L (14-36); Bilirubin,Total 0.3 mg/dL (0.2-1.3); Blood Urea Nitrogen 8 mg/dL (7-17); Carbon Dioxide 19 mmol/L (22-30); Chloride 111 mmol/L (98-107); Estimated CRCL calculation 117 ml/min; Estimated Glomerular Filt Rate > 60; Glucose 91 mg/dL (65-110); Lactate Dehydrogenase 183 U/L (120-246); Magnesium 2.2 mg/dL (1.6-2.3); Sodium 136 mmol/L (137-145)
[2022-12-08 06:59] LABS: Thyroid Stimulating Hormone Reflex 0.682 uIU/mL (0.465-4.68)
[2022-12-08 07:30] LABS: Glucose Point of Care 95 mg/dl (65-105)
[2022-12-08] MEDS: ASPIRIN 81 MG ENTERIC TABLET PO (09:03)
[2022-12-08] MEDS: ARIPiprazole 2.5 MG TABLET 7.5 MG PO (09:03)
[2022-12-08] MEDS: MULTIVITAMINS THERAPEUTIC TAB (*BKC) 1 TABLET PO (09:04)
[2022-12-08] MEDS: PANTOPRAZOLE 40 MG TABLET PO (09:04)
[2022-12-08] MEDS: lisinopriL 5 MG TABLET BY MOUTH (09:04)
[2022-12-08] MEDS: lisinopriL 10 MG TABLET BY MOUTH (09:04)
--- NOTE | 2022-12-08 11:47 | PM.IMPN ---
Progress Note: A&P Assessment and Plan (1) Pneumonia: Code(s): J18.9 - Pneumonia, unspecified organism Status: Acute Assessment and Plan: Continue with DuoNeb Continue with azithromycin Rocephin Sputum and blood culture (2) Asthma: Qualifiers: Asthma severity: mild Asthma persistence: intermittent Asthma complication type: with acute exacerbation Qualified Code(s): J45.21 - Mild intermittent asthma with (acute) exacerbation Code(s): J45.909 - Unspecified asthma, uncomplicated Status: Acute Assessment and Plan: Continue with DuoNebs and her inhalers from home. (3) History of DVT (deep vein thrombosis): Code(s): Z86.718 - Personal history of other venous thrombosis and embolism Status: Acute Assessment and Plan: The patient is not currently on any anticoagulation. (4) Factor V Leiden: Code(s): D68.51 - Activated protein C resistance Status: Acute Assessment and Plan: The patient is not currently on any anticoagulation. (5) Attention deficit: Code(s): R41.840 - Attention and concentration deficit Status: Acute Assessment and Plan: Medications are on hold at this time. (6) Depression: Code(s): F32.9 - Major depressive disorder, single episode, unspecified Status: Acute Assessment and Plan: Continue with her home medications. Her home medications are non formulary she may bring those from home. Plan DVT prophylaxis with SCDs GI prophylaxis not indicated Code status full code Subjective Date/time seen: 12/08/22 11:47 Interval history: No overnight events noted. No chest pain or shortness of breath. No nausea, vomiting or diarrhea. No fevers or chills. Review of Systems Review of Systems: 12 point review of systems was assessed and was negative except as noted in the HPI Exam Narrative: General: No acute distress, alert and oriented per baseline HEENT: Atraumatic, normocephalic, mucous membranes moist CV: Sinus tachycardia, S1, S2 Lungs: Crackles heard throughout right side, diminished at bases, no wheeze Abdomen: Soft, nontender, nondistended Extremities: Normal to inspection Skin: No rashes noted, no lesions or wounds seen Psych: Euthymic, normal affect Objective Data Vital Signs Vital Signs: Vital Signs - 24 hr 12/07/22 13:22 12/07/22 14:04 12/07/22 14:58 Temperature Pulse Rate 118 H 114 H 112 H Respiratory Rate 25 H 29 H 34 H Blood Pressure 119/80 127/69 Pulse Oximetry 99 95 98 Oxygen Delivery 12/07/22 13:30 12/07/22 16:28 12/07/22 17:52 Temperature Pulse Rate 108 H 104 H Respiratory Rate 18 13 Blood Pressure 121/78 125/50 L Pulse Oximetry 96 99 99 Oxygen Delivery Room Air 12/07/22 20:18 12/07/22 20:00 12/08/22 02:08 Temperature 97 F L Pulse Rate 102 H 105 H Respiratory Rate 18 18 Blood Pressure 118/78 Pulse Oximetry 97 98 Oxygen Delivery Room Air 12/08/22 02:10 12/08/22 02:22 12/08/22 05:41 Temperature 97.9 F Pulse Rate 109 H 103 H Respiratory Rate 18 18 Blood Pressure 116/67 Pulse Oximetry 94 96 Oxygen Delivery Room Air 12/08/22 08:20 12/08/22 08:27 12/08/22 08:36 Temperature Pulse Rate 102 H 100 Respiratory Rate 18 18 Blood Pressure Pulse Oximetry 95 Oxygen Delivery Room Air 12/08/22 09:05 Temperature Pulse Rate 122 H Respiratory Rate Blood Pressure Pulse Oximetry 92 Oxygen Delivery Room Air Intake/Output Intake/Output: Intake & Output 12/05/22 12/06/22 12/07/22 12/08/22 23:59 23:59 23:59 23:59 Intake Total 1300 360 Balance 1300 360 Meds/Results Medications: Active Medications Generic Name Dose Route Start Last Admin Trade Name Irvin PRN Reason Stop Dose Admin Aripiprazole 7.5 mg 12/08/22 09:00 12/08/22 09:03 Aripiprazole 2.5 Mg Tablet PO 7.5 mg DAILY COLLEEN Administration Aspirin 81 mg 12/08/22 09:
[2022-12-08] MEDS: FLUTICASONE/UMECLIDIN/VILANTER 200-62.5-25 MCG ELLIPTA 1 PUFF INHALATION (13:10)
[2022-12-08] MEDS: SODIUM CHLORIDE 0.9% IV 1,000 ML 999 ML IV CONT (13:23)
[2022-12-08] MEDS: AZITHROMYCIN 500 MG/NS 250 ML 500 MG/250 ML BAG 250 MG IVPB (15:10)
[2022-12-08] MEDS: ACETAMINOPHEN 500 MG TABLET 1000 MG PO (15:58)
--- NOTE | 2022-12-09 08:49 | PM.DS ---
DS: Admitting Diagnosis Discharge Date 12/08/22 Admitting Diagnosis sob DS: Discharge Diagnosis Discharge Diagnosis (1) Pneumonia: Code(s): J18.9 - Pneumonia, unspecified organism Status: Acute Assessment and Plan: Continue with DuoNeb Continue with azithromycin Rocephin Sputum and blood culture (2) Asthma: Qualifiers: Asthma severity: mild Asthma persistence: intermittent Asthma complication type: with acute exacerbation Qualified Code(s): J45.21 - Mild intermittent asthma with (acute) exacerbation Code(s): J45.909 - Unspecified asthma, uncomplicated Status: Acute Assessment and Plan: Continue with DuoNebs and her inhalers from home. (3) History of DVT (deep vein thrombosis): Code(s): Z86.718 - Personal history of other venous thrombosis and embolism Status: Acute Assessment and Plan: The patient is not currently on any anticoagulation. (4) Factor V Leiden: Code(s): D68.51 - Activated protein C resistance Status: Acute Assessment and Plan: The patient is not currently on any anticoagulation. (5) Attention deficit: Code(s): R41.840 - Attention and concentration deficit Status: Acute Assessment and Plan: Medications are on hold at this time. (6) Depression: Code(s): F32.9 - Major depressive disorder, single episode, unspecified Status: Acute Assessment and Plan: Continue with her home medications. Her home medications are non formulary she may bring those from home. Plan DVT prophylaxis with SCDs GI prophylaxis not indicated Code status full code DS: Summary Hospital Course Hospital Course: 37-year-old female with history factor 5 Leiden, hypertension, depression, asthma and GERD is presenting with palpitations and shortness of breath. She was found to have multifocal pneumonia. She completed a course of Augmentin outpatient and got a little better. However, a few days after stopping the antibiotics, her symptoms got worse. Chest x-ray positive for multifocal pneumonia. She was started on Rocephin azithromycin and symptoms improved significantly. She also was noted to have supraventricular tachycardia that resolved with IV fluid administration. She was discharged in stable condition on azithromycin. Rocephin was not continued since she had completed a course of Augmentin and the etiology was thought to be due to an atypical pneumonia. Time Spent with Patient Time attestation: Total time spent providing and/or coordinating discharge services: Exam Narrative: General: No acute distress, alert and oriented per baseline HEENT: Atraumatic, normocephalic, mucous membranes moist CV: Sinus tachycardia, S1, S2 Lungs: Crackles heard throughout right side, diminished at bases, no wheeze Abdomen: Soft, nontender, nondistended Extremities: Normal to inspection Skin: No rashes noted, no lesions or wounds seen Psych: Euthymic, normal affect DS: Data Data Completed and Pending Labs on day of discharge: Preliminary micro results at discharge 12/07/22 14:26 Blood Culture - Preliminary Blood 12/07/22 14:26 Blood Culture - Preliminary Blood Discharge Plan Discharge Attending physician on discharge: Mamie Beasley Discharging Clinician: Mamie Beasley Patient Disposition: Home, Self-Care Activity: as tolerated Diet: regular Discharge Instructions: push oral fluids. come back to the emergency room if symptoms don't resolve. Patient Instructions: Antibiotic Form, How to Stop Smoking (DC) Stand Alone Forms: General Discharge Information Follow-up/Referrals: Heraclio Cleveland DO [Primary Care Provider] - 1 Week Discharge Medications: New azithromycin [Zithromax] 250 mg Tablet 250 mg PO DAILY Qty: 4 0RF Continued omeprazole 20 mg capsule,delayed release(DR/EC) 20 mg PO DAILY Qty: 180 1RF multi
== END 2022-12-08 18:45 | disposition home or self-care (01) ==
LOC: ANHED 12:36 → ANH3MEDSUR 12-08 01:24
PROVIDERS: General Practice; Nurse Practitioner; Admitting Provider Internal Medicine; Emergency Provider Emergency Medicine; PCP Internal Medicine; Visit Provider Student in an Organized Health Care Education/Training Program
DX: J18.9 Pneumonia, unspecified organism (principal); J45.21 Mild intermittent asthma with (acute) exacerbation; Z86.718 Personal history of other venous thrombosis and embolism; D68.51 Activated protein C resistance; R41.840 Attention and concentration deficit; F32.9 Major depressive disorder, single episode, unspecified; R00.0 Tachycardia, unspecified; Z20.822 Contact with and (suspected) exposure to COVID-19; R06.02 Shortness of breath; R07.1 Chest pain on breathing; I82.409 Acute embolism and thrombosis of unspecified deep veins of unspecified lower extremity; R07.9 Chest pain, unspecified; R05.9 Cough, unspecified; I10 Essential (primary) hypertension; R09.3 Abnormal sputum; B96.89 Other specified bacterial agents as the cause of diseases classified elsewhere; G43.909 Migraine, unspecified, not intractable, without status migrainosus; E66.01 Morbid (severe) obesity due to excess calories; Z68.42 Body mass index [BMI] 45.0-49.9, adult; F32.A Depression, unspecified; R94.31 Abnormal electrocardiogram [ECG] [EKG]; K21.9 Gastro-esophageal reflux disease without esophagitis; Z87.891 Personal history of nicotine dependence; F10.90 Alcohol use, unspecified, uncomplicated; Z79.82 Long term (current) use of aspirin; Z79.899 Other long term (current) drug therapy
CPT/HCPCS: 36415; 71046; 71275; 80053; 82948; 83605; 83615; 83735; 84443; 85025; 87040; 87070; 87077; 87186; 87205; 87636; 93005; 94640; 96365; 96367; 96375; 99285; A9270; G0378; J0456; J0696; J7030; Q9967

== ENCOUNTER → 2023-03-01 11:14 | Outpatient (CLI) | payer OTHER, SELFPAY ==
--- NOTE | ~2023-03-01 | XR_ITS ---
EXAMINATION: XR chest 2V DATE: 03/01/2023 11:23 INDICATION: Cough, congestion and shortness of breath TECHNIQUE: frontal and lateral views of the chest were obtained. COMPARISON: Chest radiograph dated 11/27/22 and 01/24/2022 FINDINGS: The lungs are clear with no focal airspace opacities, pulmonary edema, pleural effusion or pneumothor ax. The cardiomediastinal silhouette is normal. Visualized bones and soft tissues are unremarkable. IMPRESSION: 1. No acute cardiopulmonary disease. Reviewed, dictated and finalized at location A.
== END ==
PROVIDERS: PCP Nurse Practitioner; Visit Provider Nurse Practitioner
DX: R05.9 Cough, unspecified (principal); R06.02 Shortness of breath
CPT/HCPCS: 71046

== ENCOUNTER 2023-03-14 08:11 | Emergency (ER) | payer OTHER, SELFPAY ==
--- NOTE | 2023-03-14 08:15 | ED.FEMALEGU ---
HPI - Female Genitourinary General Chief complaint: Urogenital-Female Stated complaint: UTI Source: patient and RN notes reviewed Mode of arrival: ambulatory Limitations: no limitations History of Present Illness MD elicited complaint: UTI Related Data Home Medications Medication Instructions Recorded Confirmed aripiprazole 5 mg tablet (Abilify) 7.5 mg PO DAILY 07/14/21 03/14/23 aspirin 81 mg tablet,delayed 81 mg PO DAILY 08/02/21 03/14/23 release (Adult Low Dose Aspirin) epinephrine 0.3 mg/0.3 mL 0.3 ml IM ONCE PRN 10/04/22 03/14/23 injection, auto-injector hypersensitivity reaction atomoxetine 25 mg capsule 25 mg PO BID 12/07/22 03/14/23 trazodone 100 mg tablet 200 mg PO HS 12/07/22 03/01/23 vilazodone 40 mg tablet 40 mg PO DAILY 12/07/22 03/01/23 Allergies Allergy/AdvReac Type Severity Reaction Status Date / Time egg Allergy Severe anaphalaxis Verified 03/14/23 08:14 DUST Allergy Intermediate wheezing Uncoded 03/14/23 08:14 MILDEW Allergy Mild Wheezing Uncoded 03/14/23 08:14 MOLD Allergy Mild Wheezing Uncoded 03/14/23 08:14 SMOKE Allergy Mild Wheezing Uncoded 03/14/23 08:14 Review of Systems Review of Systems: CONSTITUTIONAL: Denies malaise, chills, sweats, or fever. CARDIOVASCULAR: Denies chest pain, palpitations, or edema. RESPIRATORY: Denies cough or dyspnea. GASTROINTESTINAL: Denies abdominal pain, nausea, vomiting, diarrhea GENITOURINARY: Reports dysuria, frequency, urgency, suprapubic pressure. Denies flank pain or hematuria. SKIN: Denies rash or itching. MUSCULOSKELETAL: Denies back pain or myalgia. All systems reviewed & are unremarkable except as noted in HPI and below PMFSH Past Medical History Medical History Allergies Asthma Attention deficit Back pain Cholecystectomy planned Depression DVT (deep venous thrombosis) Factor V Leiden Migraine Morbid obesity with BMI of 50.0-59.9, adult Surgical History Surgical History Hx of cholecystectomy Previous section 2012 Family History Family History (Updated 03/01/23 @ 10:55 by Mckenna Cruz CMA) Father Hypertension Diabetes mellitus Mother Hypertension Diabetes mellitus Other Breast cancer Social History Social History (Updated 03/01/23 @ 11:04 by Mckenna Cruz [facility]) Social History: Caffeine-daily the patient is single and she has 2 children. She works at [employer]. code status full code Smoking packs per day: 1 Smoking cigarettes per day: 20.0 Years smoked: 5 Smoking pack-years: 5.00 Smoking status: Former smoker Tobacco type: cigarettes Second hand tobacco smoke exposure: Yes Smoking end date: 06/25/13 Alcohol intake: never Alcohol use details: rarely Substance use: never Substance use type: does not use Lack of Transportation: No Lack of Food: Never True Current Housing: I Have Housing Concerned About Future Housing: No Difficulty Paying Gas/Electric Bills: YES Difficulty Paying for Meds: No Currently Unemployed: No Education: Associate Degree Difficulty w/ Childcare or Family Care: No Gender identity (if verbalized by the patient): Female Spiritual care concerns: No Comments At time of signature, agree with nursing past medical, surgical, social and family history. There is no relevant family history pertinent to the presenting complaint Exam Narrative: GENERAL: Well-appearing, well-nourished, and in no acute distress. HEAD: Normocephalic. EYES: PERRLA, conjunctivae clear. NECK: Supple. No lymphadenopathy CHEST: Clear to auscultation. No respiratory distress. HEART: Regular rate and rhythm. ABDOMEN: Soft, nontender upon palpation, nondistended, normal active bowel sounds, no palpable or pulsatile masses, no guarding. No CVA tenderness SKIN: Warm, dry, no rash. NEURO: Alert and oriented x3. PSYCH: Normal mood and aff
[2023-03-14 08:22] VITALS: BP 144/99; PULSE 111; RESP 18; TEMP 37.6; O2SAT 100
--- NOTE | 2023-03-14 08:25 | ED.FEMALEGU ---
HPI - Female Genitourinary General Chief complaint: Urogenital-Female Stated complaint: UTI Source: patient and RN notes reviewed Mode of arrival: ambulatory Limitations: no limitations History of Present Illness HPI Narrative: 37-year-old female presenting for complaint of cloudy urine today. Endorses pain across the lower back for a few days. Denies history of frequent UTIs. Denies abdominal pain, flank pain, nausea, vomiting, diarrhea, fevers or chills. Denies hematuria, urgency, hematuria or concern for STD. Not taking anything for symptoms. Related Data Home Medications Medication Instructions Recorded Confirmed aripiprazole 5 mg tablet (Abilify) 7.5 mg PO DAILY 07/14/21 03/14/23 aspirin 81 mg tablet,delayed 81 mg PO DAILY 08/02/21 03/14/23 release (Adult Low Dose Aspirin) epinephrine 0.3 mg/0.3 mL 0.3 ml IM ONCE PRN 10/04/22 03/14/23 injection, auto-injector hypersensitivity reaction atomoxetine 25 mg capsule 25 mg PO BID 12/07/22 03/14/23 trazodone 100 mg tablet 200 mg PO HS 12/07/22 03/14/23 vilazodone 40 mg tablet 40 mg PO DAILY 12/07/22 03/14/23 Allergies Allergy/AdvReac Type Severity Reaction Status Date / Time egg Allergy Severe anaphalaxis Verified 03/14/23 08:14 DUST Allergy Intermediate wheezing Uncoded 03/14/23 08:14 MILDEW Allergy Mild Wheezing Uncoded 03/14/23 08:14 MOLD Allergy Mild Wheezing Uncoded 03/14/23 08:14 SMOKE Allergy Mild Wheezing Uncoded 03/14/23 08:14 Review of Systems Review of Systems: CONSTITUTIONAL: Denies body aches, fever, chills, or sweats. CARDIOVASCULAR: Denies chest pain, palpitations, or edema. RESPIRATORY: Denies cough or dyspnea. GASTROINTESTINAL: Denies abdominal pain, nausea, vomiting, or diarrhea. GENITOURINARY: Reports cloudy urine denies dysuria, frequency, urgency, hematuria, flank pain SKIN: Denies rash, itching, or wounds. MUSCULOSKELETAL: Denies back pain or myalgia. [facility] Past Medical History Medical History Allergies Asthma Attention deficit Back pain Cholecystectomy planned Depression DVT (deep venous thrombosis) Factor V Leiden Migraine Morbid obesity with BMI of 50.0-59.9, adult Surgical History Surgical History Hx of cholecystectomy Previous section 2008, 2012 Family History Family History Father Hypertension Diabetes mellitus Mother Hypertension Diabetes mellitus Other Breast cancer Social History Social History Social History: Caffeine-daily the patient is single and she has 2 children. She works at [employer] code status full code Smoking packs per day: 1 Smoking cigarettes per day: 20.0 Years smoked: 5 Smoking pack-years: 5.00 Smoking status: Former smoker Tobacco type: cigarettes Second hand tobacco smoke exposure: Yes Smoking end date: 06/25/13 Alcohol intake: never Alcohol use details: rarely Substance use: never Substance use type: does not use Lack of Transportation: No Lack of Food: Never True Current Housing: I Have Housing Concerned About Future Housing: No Difficulty Paying Gas/Electric Bills: YES Difficulty Paying for Meds: No Currently Unemployed: No Education: Associate Degree Difficulty w/ Childcare or Family Care: No Gender identity (if verbalized by the patient): Female Spiritual care concerns: No Comments At time of signature, I have reviewed and agree with nursing past medical, surgical, social and family history unless otherwise noted. Please see nursing chart for further information. There is no relevant family history pertinent to the presenting complaint Exam Narrative: GENERAL: Well-appearing and in no acute distress. HEAD: Normocephalic EYES: EOMI. . ENT: Mucous membranes pink and moist. NECK
== END 2023-03-14 08:25 | disposition home or self-care (01) ==
PROVIDERS: Emergency Provider Nurse Practitioner Family; PCP Nurse Practitioner
DX: R30.0 Dysuria (principal); Z79.899 Other long term (current) drug therapy; Z79.82 Long term (current) use of aspirin; Z86.718 Personal history of other venous thrombosis and embolism; Z87.891 Personal history of nicotine dependence
CPT/HCPCS: 81003; 99212; G0463

== ENCOUNTER 2023-05-16 08:11 | Emergency (ER) | payer OTHER, SELFPAY ==
[2023-05-16 08:23] VITALS: BP 111/81; PULSE 103; RESP 16; TEMP 37.2; O2SAT 100
--- NOTE | 2023-05-16 08:42 | ED.URI ---
HPI - URI/Sore Throat General Chief Complaint: Upper Respiratory Infection Stated Complaint: wheezing , white blood cells high Time Seen by Provider: 05/16/23 08:18 Source: patient Mode of arrival: ambulatory Limitations: no limitations History of Present Illness HPI Narrative: 37-year-old female with a history of asthma presented for complaints of increased wheezing and sob with exertion, over the past few days. Reports occasional productive cough. She states she had double pneumonia in the spring, and since has had increased wheezing and shortness of breath intermittently throughout the year, requiring antibiotics or steroids. She states symptoms appear to be worse with allergies. She has been compliant with Zyrtec and nasal spray. Compliant with Trelegy and albuterol inhaler. Denies increased use of albuterol. Denies Fatigue or lethargy, chest pain, palpitations, nausea, vomiting, fevers or chills. Related Data Home Medications Medication Instructions Recorded Confirmed aripiprazole 5 mg tablet (Abilify) 7.5 mg PO DAILY 07/14/21 05/16/23 aspirin 81 mg tablet,delayed 81 mg PO DAILY 08/02/21 05/16/23 release (Adult Low Dose Aspirin) epinephrine 0.3 mg/0.3 mL 0.3 ml IM ONCE PRN 10/04/22 05/16/23 injection, auto-injector hypersensitivity reaction trazodone 100 mg tablet 200 mg PO HS 12/07/22 05/16/23 vilazodone 40 mg tablet 40 mg PO DAILY 12/07/22 05/16/23 Allergies Allergy/AdvReac Type Severity Reaction Status Date / Time egg Allergy Severe anaphalaxis Verified 05/16/23 08:28 DUST Allergy Intermediate wheezing Uncoded 05/16/23 08:28 MILDEW Allergy Mild Wheezing Uncoded 05/16/23 08:28 MOLD Allergy Mild Wheezing Uncoded 05/16/23 08:28 SMOKE Allergy Mild Wheezing Uncoded 05/16/23 08:28 Review of Systems Review of Systems: CONSTITUTIONAL: Denies body aches, fever, chills, or sweats. EYES: Denies visual changes, redness, or discharge. ENT: Denies rhinorrhea, congestion, sore throat, or otalgia. CARDIOVASCULAR: Denies chest pain, palpitations, or edema. RESPIRATORY: Reports cough, sob, wheezing. GASTROINTESTINAL: Denies abdominal pain, nausea, vomiting, or diarrhea. GENITOURINARY: Denies dysuria or hematuria. SKIN: Denies rash, itching, or wounds. MUSCULOSKELETAL: Denies back pain, joint pain, or myalgia. NEUROLOGIC: Denies headache, numbness, tingling, or weakness. All systems reviewed & are unremarkable except as noted in HPI and below PMFSH Past Medical History Medical History Allergies Asthma Attention deficit Back pain Cholecystectomy planned Depression DVT (deep venous thrombosis) Factor V Leiden Migraine Morbid obesity with BMI of 50.0-59.9, adult Surgical History Surgical History Hx of cholecystectomy Previous section 2012 Family History Family History Father Hypertension Diabetes mellitus Mother Hypertension Diabetes mellitus Other Breast cancer Social History Social History Social History: Caffeine-daily the patient is single and she has 2 children. She works at [employer]. code status full code Smoking packs per day: 1 Smoking cigarettes per day: 20.0 Years smoked: 5 Smoking pack-years: 5.00 Smoking status: Former smoker Tobacco type: cigarettes Second hand tobacco smoke exposure: Yes Smoking end date: 06/25/13 Alcohol intake: never Alcohol use details: rarely Substance use: never Substance use type: does not use Lack of Transportation: No Lack of Food: Never True Current Housing: I Have Housing Concerned About Future Housing: No Difficulty Paying Gas/Electric Bills: YES Difficulty Paying for Meds: No Currently Unemployed: No Education: Associate Degree Difficulty w/ Childcare or Family C
== END 2023-05-16 08:49 | disposition home or self-care (01) ==
PROVIDERS: Emergency Provider Nurse Practitioner Family; PCP Nurse Practitioner
DX: J40 Bronchitis, not specified as acute or chronic (principal); Z79.82 Long term (current) use of aspirin; Z79.899 Other long term (current) drug therapy; Z86.718 Personal history of other venous thrombosis and embolism; Z87.891 Personal history of nicotine dependence
CPT/HCPCS: 99213; G0463

== ENCOUNTER 2023-07-16 16:13 | Emergency (ER) | payer OTHER, SELFPAY ==
[2023-07-16 16:21] VITALS: BP 117/63; PULSE 91; RESP 16; TEMP 36.3; O2SAT 100
--- NOTE | 2023-07-16 17:43 | ED.FEMALEGU ---
HPI - Female Genitourinary General Chief complaint: Urogenital-Female Stated complaint: Left Side Body Pain Time Seen by Provider: 07/16/23 17:27 Source: patient and RN notes reviewed Mode of arrival: ambulatory Limitations: no limitations History of Present Illness HPI Narrative: Patient presents today with a one-week history of left flank pain, dark and malodorous urine. Denies any additional symptoms to include fever, nausea vomiting, sweats or chills, abdominal pain. She has not tried any [id number] medication for symptoms prior to arrival. Patient had gastric bypass approximately 1 month ago. 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 Related Data Home Medications Medication Instructions Recorded Confirmed aripiprazole 5 mg tablet (Abilify) 7.5 mg PO DAILY 07/14/21 07/10/23 epinephrine 0.3 mg/0.3 mL 0.3 ml IM ONCE PRN 10/04/22 07/10/23 injection, auto-injector hypersensitivity reaction trazodone 100 mg tablet 200 mg PO HS 12/07/22 07/10/23 vilazodone 40 mg tablet 40 mg PO DAILY 12/07/22 07/10/23 pantoprazole 40 mg tablet,delayed 40 mg PO QAM 06/20/23 07/10/23 release bupropion HCl 100 mg tablet,12 hr 100 mg PO DAILY 07/10/23 07/10/23 sustained-release lisinopril 5 mg tablet 5 mg PO DAILY 07/10/23 07/10/23 Allergies Allergy/AdvReac Type Severity Reaction Status Date / Time egg Allergy Severe anaphalaxis Verified 07/10/23 09:07 DUST Allergy Intermediate wheezing Uncoded 07/10/23 09:07 MILDEW Allergy Mild Wheezing Uncoded 07/10/23 09:07 MOLD Allergy Mild Wheezing Uncoded 07/10/23 09:07 SMOKE Allergy Mild Wheezing Uncoded 07/10/23 09:07 Review of Systems Review of Systems: CONSTITUTIONAL: Denies body aches, fever, chills, or sweats. EYES: Denies visual changes, redness, or discharge. ENT: Denies rhinorrhea, congestion, sore throat, or otalgia. CARDIOVASCULAR: Denies chest pain, palpitations, or edema. RESPIRATORY: Denies cough or dyspnea. GASTROINTESTINAL: Denies abdominal pain, nausea, vomiting, or diarrhea.+ left flank pain GENITOURINARY: Denies dysuria or hematuria.+ dark and malodorous urine SKIN: Denies rash, itching, or wounds. MUSCULOSKELETAL: Denies back pain, joint pain, or myalgia. NEUROLOGIC: Denies headache, numbness, tingling, or weakness. PSYCH: Denies depression or anxiety. [facility] Past Medical History Medical History Allergies Asthma Attention deficit Back pain Cholecystectomy planned Depression DVT (deep venous thrombosis) Factor V Leiden Migraine Morbid obesity with BMI of 50.0-59.9, adult Surgical History Surgical History Gastric bypass status for obesity Hx of cholecystectomy Previous section 2008, 2012 Family History Family History Father Hypertension Diabetes mellitus Mother Hypertension Diabetes mellitus Other Breast cancer Social History Social History Social History: Caffeine-daily the patient is single and she has 2 children. She works at [employer]. code status full code Smoking packs per day: 1 Smoking cigarettes per day: 20.0 Years smoked: 5 Smoking pack-years: 5.00 Smoking status: Former smoker Tobacco type: cigarettes Second hand tobacco smoke exposure: Yes Smoking end date: 06/25/13 Alcohol intake: never Alcohol use details: rarely Substance use: never Substance use type: does not use Lack of Transportation: No Lack of Food: Never True Current Housing: I Have Housing Concerned About Future Housing: No Difficulty Paying Gas/Electric Bills: YES Difficulty Paying for Meds: No Currently Unemployed: No Education: Associate Degree Difficulty w/ Childcare or Family Care:
== END 2023-07-16 17:55 | disposition home or self-care (01) ==
PROVIDERS: Emergency Provider Nurse Practitioner; PCP Internal Medicine
DX: N30.01 Acute cystitis with hematuria (principal); Z87.891 Personal history of nicotine dependence; J45.909 Unspecified asthma, uncomplicated; Z86.718 Personal history of other venous thrombosis and embolism; D68.51 Activated protein C resistance; E66.01 Morbid (severe) obesity due to excess calories; Z68.42 Body mass index [BMI] 45.0-49.9, adult; Z98.84 Bariatric surgery status; F32.A Depression, unspecified
CPT/HCPCS: 81003; 87086; 99213; G0463

== ENCOUNTER 2023-08-21 10:07 | Outpatient (CLI) | payer OTHER, SELFPAY ==
[2023-08-27 16:08] VITALS: BMI 43.9
--- NOTE | 2023-08-27 16:08 | WPDHOMESLEEP ---
Sleep Study - Home Unattended Date of Study: 08/21/23 Ordering Provider: Annita Key MD Interpreting Provider: Sandy Barrera, DO Home Sleep Study Type: Watch PAT Height: 1.6 m Weight: 112.491 kg Body Mass Index: 43.9 Neck Circumference (inches): 14.5 [place]: 10 Reason for Sleep Study Worsening asthma, difficulty staying asleep Sleep History The patient is a 38-year-old female with anxiety, depression, ADHD, asthma, GERD, seasonal allergies, morbid obesity and history of tobacco use that had a sleep study ordered by her mixer pigment for evaluation of sleep apnea. 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 The patient denies awakening from sleep short of breath. She denies awakening at night with heartburn, belching or cough. She rarely snores but it is never loud enough that others complain. She occasionally has trouble sleeping when she has a cold. She denies waking up gasping for air throughout the night. She denies having breathing problems at night observed by herself or others. She denies sweating excessively at night. She denies having heart palpitations or irregular heartbeats during the night. She constantly falls asleep during the day but never while driving. She denies cataplexy. She rarely has trouble at school or work due to sleepiness. She rarely feels unable to move while waking up or falling asleep. She rarely experiences vivid dreamlike scenes upon awakening or falling asleep. She denies feeling afraid of going to sleep. She occasionally has nightmares. She constantly remembers her dreams. She occasionally has thoughts racing through her mind. She occasionally feels sad, depressed and anxious. She denies having muscular tension. She occasionally notices parts of her body jerk. She denies kicking during the night. She occasionally has crawling and aching feelings in her legs and occasionally has leg pain during the night. She rarely grinds her teeth during sleep but never awakens with morning jaw pain. She denies being bothered by pain during the day and denies being awakened by pain during the night. She denies waking up feeling stiff in the morning. She denies waking up with sore or achy muscles. She denies waking up with pain in the neck, spine and other joints. She goes to bed at 9:00 p.m. on weekdays and at 10:00 p.m. on the weekends. It takes her 5 minutes to fall asleep. She wakes up 6-7 times throughout the night to adjust position and is able to fall back asleep immediately. She wakes up at 5:00 a.m. on weekdays and at 7:00 a.m. on the weekends. She typically gets 8 hours of sleep per night. She will stay in bed for 5-15 minutes after waking up in the morning. She currently lives with her 2 children. She denies consuming any caffeinated beverages within 2 hours of bedtime. She denies engaging in physical exercise before bedtime. He denies reading and watching television before falling asleep. She will take naps in the afternoon or the evening but they are not refreshing. She denies consuming caffeinated beverages throughout the day. She quit smoking cigarettes 10 years ago. She denies alcohol and recreational drug use. [facility] Past Medical History Medical History Allergies Asthma Attention deficit Back pain Cholecystectomy planned Depression DVT (deep venous thrombosis) Factor V Leiden Migraine Morbid obesity with BMI of 50.0-59.9, adult Surgical History Surgical History Gastric bypass status for obesity Hx of cholecystectomy Previous section 2008, 2012 Family History Family History Father Hypertension Diabetes mellitus Mother Hypertension Diabetes mellitus Other Breast cancer Social History Social History Social Histor
== END 2023-08-22 07:30 | disposition home or self-care (01) ==
LOC: ANHCSM 10:09
PROVIDERS: PCP Internal Medicine; Visit Provider Internal Medicine Critical Care Medicine
DX: G47.10 Hypersomnia, unspecified (principal)
CPT/HCPCS: 95800

== ENCOUNTER 2023-09-06 09:48 | Outpatient (CLI) | payer OTHER, SELFPAY ==
--- NOTE | 2023-09-24 16:29 | WPDSLEEPSTUD ---
Sleep Study Date of Study: 09/06/23 Ordering Provider: Annita Key MD Interpreting Physician: Sandy Barrera, Sleep Study Type: Polysomnogram Height: 1.6 m Weight: 114.305 kg Body Mass Index: 44.6 Neck Circumference (inches): 14.5 [place]: 10 Reason for Sleep Study Home sleep test on 08/21/2023 showed AHI of 1.1 but RDI of 11 Sleep History The patient is a 38-year-old female with anxiety, depression, ADHD, asthma, GERD, seasonal allergies, morbid obesity and history of tobacco use that had a sleep study ordered by her water proofer for evaluation of sleep apnea.? 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 The patient denies awakening from sleep short of breath.? She denies awakening at night with heartburn, belching or cough.? She rarely snores but it is never loud enough that others complain.? She occasionally has trouble sleeping when she has a cold.? She denies waking up gasping for air throughout the night.? She denies having breathing problems at night observed by herself or others.? She denies sweating excessively at night.? She denies having heart palpitations or irregular heartbeats during the night.? She constantly falls asleep during the day but never while driving.? She denies cataplexy.? She rarely has trouble at school or work due to sleepiness.? She rarely feels unable to move while waking up or falling asleep.? She rarely experiences vivid dreamlike scenes upon awakening or falling asleep.? She denies feeling afraid of going to sleep.? She occasionally has nightmares.? She constantly remembers her dreams.? She occasionally has thoughts racing through her mind.? She occasionally feels sad, depressed and anxious.? She denies having muscular tension.? She occasionally notices parts of her body jerk.? She denies kicking during the night.? She occasionally has crawling and aching feelings in her legs and occasionally has leg pain during the night.? She rarely grinds her teeth during sleep but never awakens with morning jaw pain.? She denies being bothered by pain during the day and denies being awakened by pain during the night.? She denies waking up feeling stiff in the morning.? She denies waking up with sore or achy muscles.? She denies waking up with pain in the neck, spine and other joints.? She goes to bed at 9:00 p.m. on weekdays and at 10:00 p.m. on the weekends.? It takes her 5 minutes to fall asleep.? She wakes up 6-7 times throughout the night to adjust position and is able to fall back asleep immediately.? She wakes up at 5:00 a.m. on weekdays and at 7:00 a.m. on the weekends.? She typically gets 8 hours of sleep per night.? She will stay in bed for 5-15 minutes after waking up in the morning.? She currently lives with her 2 children.? She denies consuming any caffeinated beverages within 2 hours of bedtime.? She denies engaging in physical exercise before bedtime.? He denies reading and watching television before falling asleep.? She will take naps in the afternoon or the evening but they are not refreshing.? She denies consuming caffeinated beverages throughout the day.? She quit smoking cigarettes 10 years ago.? She denies alcohol and recreational drug use. [facility] Past Medical History Medical History Allergies Asthma Attention deficit Back pain Cholecystectomy planned Depression DVT (deep venous thrombosis) Factor V Leiden Migraine Morbid obesity with BMI of 50.0-59.9, adult Surgical History Surgical History Gastric bypass status for obesity Hx of cholecystectomy Previous section 2008, 2012 Family History Family History Father Hypertension Diabetes mellitus Mother Hypertension Diabetes mellitus Other Breast cancer Social History Social History Social History:
[2023-09-24 16:36] VITALS: BMI 44.6
== END 2023-09-07 06:39 | disposition home or self-care (01) ==
LOC: ANHCSM 09:49
PROVIDERS: PCP Internal Medicine; Visit Provider Internal Medicine Critical Care Medicine
DX: G47.10 Hypersomnia, unspecified (principal); R06.83 Snoring
CPT/HCPCS: 95810

== ENCOUNTER 2023-10-03 09:37 | Outpatient (CLI) | payer OTHER, SELFPAY ==
--- NOTE | ~2023-10-03 | CT_ITS ---
EXAMINATION: CT abdomen pelvis w con DATE: 10/03/2023 10:40 INDICATION: Left lower quadrant abdominal pain. TECHNIQUE: Computed tomography (CT) of the abdomen and pelvis was performed with 100 mL Omnipaque 350 intravenous contrast. Automated exposure control and iterative reconstruction technique were employe d. The dose-length product was 1145.69 mGy-cm. COMPARISON: CT abdomen 05/31/2022 FINDINGS: The visualized portions of the lung bases demonstrate centrilobular nodules, tree-in-bud op acities, groundglass opacities, and airspace opacities in the lower lobes and right middle lobe and t ree-in-bud opacities in right upper lobe, consistent with pneumonia. No pleural effusion. The heart s ize is normal. No pericardial effusion. There are changes of gastric bypass procedure. The liver is n ormal. There are changes of cholecystectomy. The spleen, pancreas, and right adrenal gland are normal . There is a chronic 1.7 cm mass in left adrenal gland measuring soft tissue attenuation, likely an a denoma. Right kidney is normal. There is a parenchymal calcification in left kidney. There is a 4 mm cyst in left kidney. There are no dilated loops of bowel. The appendix is normal. There are no pathol ogically enlarged lymph nodes. There is no free intraperitoneal fluid. There is mild thoracic and lum bar spondylosis. IMPRESSION: 1. Bilateral pneumonia. Reviewed, dictated and finalized at location A. IMPRESSION: 1. Bilateral pneumonia.
== END 2023-10-03 09:38 | disposition home or self-care (01) ==
PROVIDERS: PCP Internal Medicine; Visit Provider Clinical Nurse Specialist
DX: R10.32 Left lower quadrant pain (principal); Z98.84 Bariatric surgery status; J18.9 Pneumonia, unspecified organism
CPT/HCPCS: 74177; Q9967

== ENCOUNTER 2023-10-24 15:14 | Outpatient (CLI) | payer OTHER, SELFPAY ==
--- NOTE | ~2023-10-24 | XR_ITS ---
EXAMINATION: XR chest 2V 10/24/2023 15:25 INDICATION: Pneumonia PROCEDURE: 2 view chest COMPARISON: Comparison to multiple prior studies sequentially, with oldest reviewed study dated 08/2020. FINDINGS: The lungs are clear. The cardiomediastinal silhouette is within normal limits. There are no pleural effusions. There is no pneumothorax suspected. IMPRESSION: 1: NO ACUTE CARDIOPULMONARY DISEASE. Reviewed, dictated and finalized at location B.
== END 2023-10-24 15:15 | disposition home or self-care (01) ==
LOC: ANHIMG 15:16
PROVIDERS: PCP Internal Medicine; Visit Provider Clinical Nurse Specialist
DX: J18.9 Pneumonia, unspecified organism (principal)
CPT/HCPCS: 71046

== ENCOUNTER 2023-12-07 14:59 | Emergency (ER) | payer OTHER, SELFPAY ==
[2023-12-07 15:08] VITALS: BP 136/86; PULSE 94; RESP 18; TEMP 36.6; O2SAT 100
[2023-12-07 15:09] VITALS: BP 136/86; PULSE 94; RESP 18; TEMP 36.6; O2SAT 100
--- NOTE | 2023-12-07 15:23 | ED.BACK ---
HPI - Back Pain/Injury General Chief Complaint: Back Pain/Injury Stated Complaint: back pain Time Seen by Provider: 12/07/23 15:17 Source: patient and RN notes reviewed Mode of arrival: ambulatory Limitations: no limitations History of Present Illness HPI Narrative: Patient presents today complaining of a 3 day history of low back pain. Patient states it might have started due to lifting some heavy boxes at work from height below her waist. Denies radiation of the pain, loss of bowel or bladder control, numbness or tingling in the extremities or genitalia. Currently rates her pain 5/10 and has been taking Tylenol with mild relief. Describes the pain as a dull ache. Related Data Home Medications Medication Instructions Recorded Confirmed aripiprazole 5 mg tablet (Abilify) 7.5 mg PO DAILY 07/14/21 12/07/23 epinephrine 0.3 mg/0.3 mL 0.3 ml IM ONCE PRN 10/04/22 12/07/23 injection, auto-injector hypersensitivity reaction trazodone 100 mg tablet 200 mg PO HS 12/07/22 12/07/23 vilazodone 40 mg tablet 40 mg PO DAILY 12/07/22 12/07/23 viloxazine 100 mg capsule,extended 100 mg PO DAILY 08/10/23 12/07/23 release 24 hr (Qelbree) Allergies Allergy/AdvReac Type Severity Reaction Status Date / Time egg Allergy Severe anaphalaxis Verified 12/07/23 15:07 DUST Allergy Intermediate wheezing Uncoded 12/07/23 15:07 MILDEW Allergy Mild Wheezing Uncoded 12/07/23 15:07 MOLD Allergy Mild Wheezing Uncoded 12/07/23 15:07 SMOKE Allergy Mild Wheezing Uncoded 12/07/23 15:07 Review of Systems Review of Systems: CONSTITUTIONAL: Denies body aches, fever, chills, or sweats. EYES: Denies visual changes, redness, or discharge. ENT: Denies rhinorrhea, congestion, sore throat, or otalgia. CARDIOVASCULAR: Denies chest pain, palpitations, or edema. RESPIRATORY: Denies cough or dyspnea. GASTROINTESTINAL: Denies abdominal pain, nausea, vomiting, or diarrhea. GENITOURINARY: Denies dysuria or hematuria. SKIN: Denies rash, itching, or wounds. MUSCULOSKELETAL: Denies joint pain, or myalgia.+ low back pain NEUROLOGIC: Denies headache, numbness, tingling, or weakness. PSYCH: Denies depression or anxiety. [facility] Past Medical History Medical History Allergies Asthma Attention deficit Back pain Cholecystectomy planned Depression DVT (deep venous thrombosis) Factor V Leiden Migraine Morbid obesity with BMI of 50.0-59.9, adult Surgical History Surgical History Gastric bypass status for obesity Hx of cholecystectomy Previous section 2008, 2012 Family History Family History Father Hypertension Diabetes mellitus Mother Hypertension Diabetes mellitus Other Breast cancer Social History Social History Social History: Caffeine-daily the patient is single and she has 2 children. She works at [employer]. code status full code Smoking packs per day: 1 Smoking cigarettes per day: 20.0 Years smoked: 5 Smoking pack-years: 5.00 Smoking status: Former smoker Tobacco type: cigarettes Second hand tobacco smoke exposure: Yes Smoking end date: 06/25/13 Alcohol intake: never Alcohol use details: rarely Substance use: never Substance use type: does not use Lack of Transportation: No Lack of Food: Never True Current Housing: I Have Housing Concerned About Future Housing: No Difficulty Paying Gas/Electric Bills: YES Difficulty Paying for Meds: No Currently Unemployed: No Education: Associate Degree Difficulty w/ Childcare or Family Care: No Gender identity (if verbalized by the patient): Female Spiritual care concerns: No Comments At time of signature, I have reviewed and agree with nursing past medical, surgical, social and family history unless
== END 2023-12-07 15:25 | disposition home or self-care (01) ==
PROVIDERS: Emergency Provider Nurse Practitioner; PCP Internal Medicine
DX: S39.012A Strain of muscle, fascia and tendon of lower back, initial encounter (principal); X58.XXXA Exposure to other specified factors, initial encounter; Z87.891 Personal history of nicotine dependence; J45.909 Unspecified asthma, uncomplicated; F98.8 Other specified behavioral and emotional disorders with onset usually occurring in childhood and adolescence; F32.A Depression, unspecified; Z86.718 Personal history of other venous thrombosis and embolism; D68.51 Activated protein C resistance; E66.01 Morbid (severe) obesity due to excess calories; Z68.41 Body mass index [BMI] 40.0-44.9, adult; Z98.84 Bariatric surgery status
CPT/HCPCS: 99213; G0463

== ENCOUNTER 2023-12-13 13:51 | Outpatient (CLI) | payer OTHER, SELFPAY ==
--- NOTE | ~2023-12-13 | XR_ITS ---
EXAMINATION: XR lumbar spine min 4V DATE: 12/13/2023 14:07 INDICATION: Low back pain after picking up box one week prior TECHNIQUE: Anteroposterior, lateral, and bilateral oblique views of the lumbar spine, and cone-down l ateral view of the lumbosacral junction were obtained. COMPARISON: CT abdomen and pelvis dated 10/03/2023 FINDINGS: Alignment is normal. Vertebral body heights are normal. Disc heights are normal. Moderate left and se rg right facet osteoarthritis at L5-S1. Minimal to mild facet osteoarthritis in the more cephalad l umbar spine. No pars interarticularis defects. Sacral arches are intact. Mild right sacroiliac osteoa rthritis. A couple 4-5 mm left renal stones. Cholecystectomy clips in right upper quadrant. IMPRESSION: 1. Moderate left and severe right facet osteoarthritis at L5-S1. Reviewed, dictated and finalized at location A.
== END 2023-12-13 13:52 ==
LOC: GOSHIMG 13:52
PROVIDERS: PCP Internal Medicine; Visit Provider Nurse Practitioner
DX: M47.897 Other spondylosis, lumbosacral region (principal)
CPT/HCPCS: 72110

== ENCOUNTER 2024-03-10 08:43 | Emergency (ER) | payer OTHER, SELFPAY ==
--- NOTE | ~2024-03-10 | XR_ITS ---
XR chest 2V Ordering provider: Rubens Bruno APRN History: 38 years Female with . Chest pain/cough/congestion . Comparison: October 24, 2023 FINDINGS: MEDIASTINUM: The cardiac silhouette is not enlarged. Slightly prominent left hilum LUNGS: No effusions or pneumothorax. Minimal opacification in the lung bases more on the left side me dially suggestive of atelectasis versus pneumonia. OTHER: No free air under the diaphragm. IMPRESSION: Bibasilar atelectasis versus pneumonia. Reviewed, dictated and finalized at location A.
[2024-03-10 08:48] VITALS: BP 136/89; PULSE 101; RESP 20; TEMP 36.6; O2SAT 98
--- NOTE | 2024-03-10 08:52 | ED.URI ---
HPI - URI/Sore Throat General Chief Complaint: Upper Respiratory Infection Stated Complaint: cough,chest tight Time Seen by Provider: 03/10/24 08:55 Source: patient Mode of arrival: ambulatory Limitations: no limitations History of Present Illness HPI Narrative: Sarai is a 38-year-old female patient presenting to the clinic today with complaints of chest tightness, chest burning/aching with inspiration, and cough. She reports the cough/shortness breath is worse when lying flat. Has been taking her albuterol inhaler and this has helped her symptoms. History of asthma, factor 5 Leiden, and DVT. MD elicited complaint: cough, nasal congestion and other (Chest tightness, chest pain) Related Data Home Medications Medication Instructions Recorded Confirmed aripiprazole 5 mg tablet (Abilify) 7.5 mg PO DAILY 07/14/21 03/10/24 epinephrine 0.3 mg/0.3 mL 0.3 ml IM ONCE PRN 10/04/22 03/10/24 injection, auto-injector hypersensitivity reaction vilazodone 40 mg tablet 40 mg PO DAILY 12/07/22 03/10/24 viloxazine 100 mg capsule,extended 100 mg PO DAILY 08/10/23 03/10/24 release 24 hr (Qelbree) trazodone 100 mg tablet 100 mg PO HS 12/13/23 03/10/24 omeprazole 20 mg capsule,delayed 20 mg PO DAILY 01/22/24 03/10/24 release benralizumab 30 mg/mL subcutaneous 30 mg subcut .Q2mo 02/07/24 03/10/24 syringe (Fasenra) Allergies Allergy/AdvReac Type Severity Reaction Status Date / Time egg Allergy Severe anaphalaxis Verified 03/10/24 08:55 DUST Allergy Intermediate wheezing Uncoded 03/10/24 08:55 MILDEW Allergy Mild Wheezing Uncoded 03/10/24 08:55 MOLD Allergy Mild Wheezing Uncoded 03/10/24 08:55 SMOKE Allergy Mild Wheezing Uncoded 03/10/24 08:55 Review of Systems Review of Systems: Pertinent positives per HPI. Patient denies any fever, chills, rash, headache, visual changes, dizziness, palpitations, nausea, vomiting, diarrhea, constipation, abdominal pain, or any urinary issues. [facility] Past Medical History Medical History Allergies Asthma Attention deficit Back pain Cholecystectomy planned Depression DVT (deep venous thrombosis) Factor V Leiden Migraine Morbid obesity with BMI of 50.0-59.9, adult Surgical History Surgical History Gastric bypass status for obesity Hx of cholecystectomy Previous section 2008, 2012 Family History Family History Father Hypertension Diabetes mellitus Mother Hypertension Diabetes mellitus Other Breast cancer Social History Social History Social History: Caffeine-daily the patient is single and she has 2 children. She works at [employer]. code status full code Smoking packs per day: 1 Smoking cigarettes per day: 20.0 Years smoked: 5 Smoking pack-years: 5.00 Smoking status: Former smoker Tobacco type: cigarettes Second hand tobacco smoke exposure: Yes Smoking end date: 06/25/13 Alcohol intake: never Alcohol use details: rarely Substance use: never Substance use type: does not use Do You Feel Safe in your Home?: Yes Lack of Transportation: No Lack of Food: Never True Current Housing: I Have Housing Concerned About Future Housing: No Difficulty Paying Gas/Electric Bills: YES Difficulty Paying for Meds: No Currently Unemployed: No Education: Associate Degree Difficulty w/ Childcare or Family Care: No Gender identity (if verbalized by the patient): Female Spiritual care concerns: No Comments At the time of my signature, I reviewed and agree with the nursing past medical, surgical, social, and family history. There is no relevant family history pertinent to the patient complaint. Exam Narrative: General: Well-developed, obese, in no apparent distress Head: Normocephalic, atraum
[2024-03-10 08:55] VITALS: PULSE 101; RESP 20; O2SAT 98
--- NOTE | 2024-03-10 08:57 | ECG_ITS ---
Test Date: 2024-03-10 09:13:09 Measurements Intervals [place] Rate: 94 P: 54 MA: 146 QRS: 31 QRSD: 93 T: 37 QT: 345 QTc: 432 Interpretive Statements SINUS RHYTHM BORDERLINE ST-T WAVE ABNORMALITY- INFERIOR LEADS BORDERLINE ECG No previous ECG available for comparison Electronically Signed On 03-10-2024 09:37:26 CDT by Andrae Hdz D.O.
== END 2024-03-10 09:30 | disposition home or self-care (01) ==
PROVIDERS: Emergency Provider Nurse Practitioner Family; PCP Internal Medicine
DX: R07.89 Other chest pain (principal); J45.909 Unspecified asthma, uncomplicated; Z86.718 Personal history of other venous thrombosis and embolism; D68.51 Activated protein C resistance; Z98.84 Bariatric surgery status; Z87.891 Personal history of nicotine dependence
CPT/HCPCS: 71046; 93005; 99213; G0463

== ENCOUNTER 2024-03-10 09:52 | Emergency (ER) | payer OTHER, SELFPAY ==
--- NOTE | ~2024-03-10 | CT_ITS ---
EXAMINATION: CTA chest PE protocol DATE: 03/10/2024 13:00 INDICATION: Shortness of breath. TECHNIQUE: Computed tomography angiography (CTA) of the chest was performed with 100 mL Omnipaque-350 intravenous contrast timed to evaluate the pulmonary arteries. Coronal maximum intensity projection 3D-reconstructions were created by the technologist. Automated exposure control and iterative reconst ruction technique were employed. The dose-length product was 332.70 mGy-cm. COMPARISON: Chest CT 12/07/2022 FINDINGS: There are patchy airspace opacities and centrilobular nodules in the lower lobes, right mid dle lobe, lingula, and right upper lobe, consistent with pneumonia. No pleural effusion. The heart si ze is normal. No pericardial effusion. There is mild mediastinal and bilateral hilar lymphadenopathy, likely reactive. There is no pulmonary embolus. There are surgical changes in the stomach. Partially visualized is a 1.7 cm mass in left adrenal gland without change in size, likely an adenoma. There i s mild thoracic spondylosis. IMPRESSION: 1. No pulmonary embolus. 2. Bilateral pneumonia, worst in the lower lobes. 3. Mild mediastinal and bilateral hilar lymphadenopathy, likely reactive. Reviewed, dictated and finalized at location A.
--- NOTE | 2024-03-10 10:04 | ECG_ITS ---
Test Date: 2024-03-10 09:58:43 Measurements Intervals [place] Rate: 99 P: 47 MO: 141 QRS: 24 QRSD: 102 T: 26 QT: 334 QTc: 429 Interpretive Statements SINUS RHYTHM NONSPECIFIC T-WAVE ABNORMALITY- INFERIOR LEADS BASELINE ARTIFACT- I, II, III, AVR, AVL BORDERLINE ECG Compared to ECG 03/10/2024 09:13:09 NO SIGNIFICANT CHANGE Electronically Signed On 03-10-2024 10:29:46 CDT by Andrae Hdz D.O.
[2024-03-10 10:05] VITALS: BP 135/66; PULSE 97; RESP 14; TEMP 36.6; O2SAT 98
[2024-03-10 10:27] LABS: Basophils Percent Auto 0.2 % (0.2-1.2); Hemoglobin 14.1 g/dL (12.0-15.0); Immature Granulocyte Absolute 0.06 K/mm3 (0.00-0.031); Immature Granulocyte Percent A 0.4 % (0-0.5); Lymphocytes Absolute Auto 3.84 K/mm3 (0.9-3.2); Mean Corpuscular HGB Conc 34.4 g/dl (32-36); Mean Corpuscular Hemoglobin 31.8 pg (26-34); Mean Corpuscular Volume 92.3 fl (80-100); Mean Platelet Volume 9.1 fl (7.4-10.4); Monocytes Absolute Auto 1.2 K/mm3 (0.1-0.6); Monocytes Percent Auto 7.7 % (2.6-8.5); Neutrophils Absolute Auto 10.3 K/mm3 (1.3-6.7); Neutrophils Percent Auto 66.7 % (45.5-73.1); Platelet Count Result 238 k/mm3 (150-375); Red Blood Count 4.44 M/mm3 (4.2-5.4); White Blood Count 15.4 K/mm3 (4.5-10.0)
[2024-03-10 10:39] LABS: Alanine Aminotransferase 15 U/L (6-35); Albumin Level 4.1 g/dL (3.5-5.1); Alkaline Phosphatase 100 U/L (38-126); Anion Gap 10 mmol/L (4-12); Aspartate Amino Transferase 21 U/L (14-36); Bilirubin,Total 0.3 mg/dL (0.2-1.3); Blood Urea Nitrogen 7 mg/dL (7-17); Calcium 8.4 mg/dL (8.4-10.2); Carbon Dioxide 17 mmol/L (22-30); Chloride 112 mmol/L (98-107); Estimated CRCL calculation 101 ml/min; Estimated Glomerular Filt Rate > 60; Glucose 96 mg/dL (65-110); Lipase 49 U/L (23-300); Potassium 3.7 mmol/L (3.4-5.0); Sodium 139 mmol/L (137-145)
[2024-03-10 10:43] LABS: INR 1.1; Partial Thromboplastin Time 30.3 Seconds (22.3-36.8)
[2024-03-10 10:50] LABS: Troponin I < 0.012 ng/mL (0.000-0.034)
[2024-03-10 10:59] VITALS: O2SAT 98
[2024-03-10 11:02] VITALS: BP 117/81; PULSE 92; PULSE 96; RESP 16; O2SAT 99
[2024-03-10] MEDS: ASPIRIN 81 MG CHEWABLE TABLET 324 MG PO (11:05)
[2024-03-10 12:04] LABS: D Dimer 0.62 ug/mL (<0.48)
--- NOTE | 2024-03-10 13:02 | ECG_ITS ---
Test Date: 2024-03-10 13:26:25 Measurements Intervals [place] Rate: 85 P: 46 MA: 146 QRS: 18 QRSD: 91 T: 19 QT: 349 QTc: 416 Interpretive Statements SINUS RHYTHM NONSPECIFIC T-WAVE ABNORMALITY- INFERIOR LEADS BASELINE ARTIFACT- I, II, III, AVR, AVL, AVF, V1 BORDERLINE ECG Compared to ECG 03/10/2024 09:58:43 NO SIGNIFICANT CHANGE Electronically Signed On 03-10-2024 13:32:34 CDT by Andrae Hdz D.O.
[2024-03-10] MEDS: SODIUM CHLORIDE 0.9% IV 1,000 ML 999 ML IV CONT (13:41)
--- NOTE | 2024-03-10 13:42 | ED.SOB ---
HPI - SOB/Dyspnea General Chief Complaint: Shortness of Breath/Dyspnea Stated Complaint: SOB, CP, COUGH Time Seen by Provider: 03/10/24 10:47 Source: patient Mode of arrival: ambulatory Limitations: no limitations History of Present Illness HPI Narrative: Patient is a 38-year-old female presents to the ER shortness of breath. She reports her symptoms started Sunday. Her symptoms have included cough, shortness of breast, and chest tightness. She denies any fevers. Patient has a history Factor 5 Leiden, blood clots, and gastric bypass surgery. She is not on blood thinners d/t her gastric bypass and has no history of asthma. Patient went to urgent care this morning in the advised her to come into the ER for evaluation. Related Data Home Medications Medication Instructions Recorded Confirmed aripiprazole 5 mg tablet (Abilify) 7.5 mg PO DAILY 07/14/21 03/10/24 epinephrine 0.3 mg/0.3 mL 0.3 ml IM ONCE PRN 10/04/22 03/10/24 injection, auto-injector hypersensitivity reaction vilazodone 40 mg tablet 40 mg PO DAILY 12/07/22 03/10/24 viloxazine 100 mg capsule,extended 100 mg PO DAILY 08/10/23 03/10/24 release 24 hr (Qelbree) trazodone 100 mg tablet 100 mg PO HS 12/13/23 03/10/24 omeprazole 20 mg capsule,delayed 20 mg PO DAILY 01/22/24 03/10/24 release benralizumab 30 mg/mL subcutaneous 30 mg subcut .Q2mo 02/07/24 03/10/24 syringe (Fasenra) Allergies Allergy/AdvReac Type Severity Reaction Status Date / Time egg Allergy Severe anaphalaxis Verified 03/10/24 08:55 DUST Allergy Intermediate wheezing Uncoded 03/10/24 08:55 MILDEW Allergy Mild Wheezing Uncoded 03/10/24 08:55 MOLD Allergy Mild Wheezing Uncoded 03/10/24 08:55 SMOKE Allergy Mild Wheezing Uncoded 03/10/24 08:55 Review of Systems Review of Systems: All systems reviewed & are unremarkable except as noted in HPI and below PMFSH Past Medical History Medical History Allergies Asthma Attention deficit Back pain Cholecystectomy planned Depression DVT (deep venous thrombosis) Factor V Leiden Migraine Morbid obesity with BMI of 50.0-59.9, adult Surgical History Surgical History Gastric bypass status for obesity Hx of cholecystectomy Previous section 2008, 2012 Family History Family History Father Hypertension Diabetes mellitus Mother Hypertension Diabetes mellitus Other Breast cancer Social History Social History Social History: Caffeine-daily the patient is single and she has 2 children. She works at [employer]. code status full code Smoking packs per day: 1 Smoking cigarettes per day: 20.0 Years smoked: 5 Smoking pack-years: 5.00 Smoking status: Former smoker Tobacco type: cigarettes Second hand tobacco smoke exposure: Yes Smoking end date: 06/25/13 Alcohol intake: never Alcohol use details: rarely Substance use: never Substance use type: does not use Do You Feel Safe in your Home?: Yes Lack of Transportation: No Lack of Food: Never True Current Housing: I Have Housing Concerned About Future Housing: No Difficulty Paying Gas/Electric Bills: YES Difficulty Paying for Meds: No Currently Unemployed: No Education: Associate Degree Difficulty w/ Childcare or Family Care: No Gender identity (if verbalized by the patient): Female Spiritual care concerns: No Exam Narrative: GENERAL: Well appearing, well-nourished, non-toxic, in no acute distress. HEAD: Normocephalic, atraumatic. NECK: Supple. No adenopathy, no masses. RESPIRATORY: Airway patent, respirations mildly labored. Coarse bilateral lower lung sounds. CARDIOVASCULAR: Mildly tachycardic regular rhythm without murmurs, rubs, or gallops. Peripheral pulses 2+ and equal bilaterally
[2024-03-10 14:00] LABS: Lactic Acid Reflex 0.7 mmol/L (0.7-2.0)
[2024-03-10 14:07] LABS: Troponin I < 0.012 ng/mL (0.000-0.034)
[2024-03-10 14:58] VITALS: BP 122/70; PULSE 87; RESP 18; TEMP 36.6; O2SAT 100
== END 2024-03-10 14:58 | disposition home or self-care (01) ==
PROVIDERS: Emergency Medicine; Emergency Provider Registered Nurse; PCP Internal Medicine
DX: J18.9 Pneumonia, unspecified organism (principal); D68.51 Activated protein C resistance; F98.8 Other specified behavioral and emotional disorders with onset usually occurring in childhood and adolescence; F32.A Depression, unspecified; Z98.84 Bariatric surgery status; Z90.49 Acquired absence of other specified parts of digestive tract; Z86.718 Personal history of other venous thrombosis and embolism; Z87.891 Personal history of nicotine dependence; Z79.899 Other long term (current) drug therapy; R94.31 Abnormal electrocardiogram [ECG] [EKG]
CPT/HCPCS: 36415; 71046; 71275; 80053; 83605; 83690; 84484; 85025; 85380; 85610; 85730; 87040; 93005; 96365; 99284; A9270; J0696; J7030; Q9967

== ENCOUNTER 2024-03-13 00:35 | Inpatient (IN) | payer OTHER, SELFPAY ==
[2024-03-13] VITALS (24 sets, daily range): BP systolic 105–124; BP diastolic 68–82; PULSE 84–128; RESP 16–31; TEMP 36.6–37; O2SAT 94–100; BMI 36.4
--- NOTE | ~2024-03-13 | XR_ITS ---
Clinical Indication: Shortness of breath PA and lateral views of the chest: Comparison: 03/10/2024 Findings: There is bibasilar airspace disease, left worse than right. Cardiomediastinal silhouette i s within normal limits. Bones and soft tissues are unremarkable. Impression: Bibasilar atelectasis versus pneumonia. Correlate clinically. Reviewed, dictated and finalized at location . Impression: Bibasilar atelectasis versus pneumonia. Correlate clinically.
--- NOTE | 2024-03-13 00:46 | ECG_ITS ---
Test Date: 2024-03-13 00:49:58 Measurements Intervals [place] Rate: 116 P: 46 [place]: 145 QRS: 16 QRSD: 96 T: 31 QT: 275 QTc: 383 Interpretive Statements SINUS TACHYCARDIA NONSPECIFIC ST & T-WAVE ABNORMALITY- DIFFUSE LEADS ABNORMAL ECG Compared to ECG 03/10/2024 13:26:25 HEART RATE HAS INCREASED Electronically Signed On 03-13-2024 05:37:40 CDT by Andrae Hdz D.O.
[2024-03-13 00:55] LABS: Basophils Absolute Auto 0.1 K/mm3 (0.0-0.1); Basophils Percent Auto 0.3 % (0.2-1.2); Hematocrit 36.3 % (37.0-47.0); Hemoglobin 12.4 g/dL (12.0-15.0); Immature Granulocyte Absolute 0.15 K/mm3 (0.00-0.031); Immature Granulocyte Percent A 0.6 % (0-0.5); Lymphocytes Absolute Auto 4.61 K/mm3 (0.9-3.2); Mean Corpuscular HGB Conc 34.2 g/dl (32-36); Mean Corpuscular Hemoglobin 31.2 pg (26-34); Mean Corpuscular Volume 91.4 fl (80-100); Monocytes Absolute Auto 1.6 K/mm3 (0.1-0.6); Monocytes Percent Auto 7.1 % (2.6-8.5); Neutrophils Absolute Auto 16.6 K/mm3 (1.3-6.7); Platelet Count Result 246 k/mm3 (150-375); Red Blood Count 3.97 M/mm3 (4.2-5.4); White Blood Count 23.1 K/mm3 (4.5-10.0)
--- NOTE | 2024-03-13 01:01 | ED.URI ---
HPI - URI/Sore Throat General Chief Complaint: Upper Respiratory Infection <CHARISMA Pham Last Filed: 03/13/24 02:57> Stated Complaint: cough, cp, pneumonia <Zohreh Britton PA-C - Last Filed: 03/13/24 02:57> Time Seen by Provider: 03/13/24 00:40 <CHARISMA Pham Last Filed: 03/13/24 02:57> Source: patient and old records reviewed <CHARISMA hPam Last Filed: 03/13/24 02:57> Mode of arrival: ambulatory <CHARISMA Pham Last Filed: 03/13/24 02:57> Limitations: no limitations <CHARISMA Pham Last Filed: 03/13/24 02:57> History of Present Illness HPI Narrative: Patient is a 38-year-old female who presents to the ED with report of shortness of breath. Patient reports she was seen in the ED here on Sunday for cough, shortness of breath, chest tightness. She was diagnosed with bilateral pneumonia. Given dose of IV antibiotics in the ED and discharged on doxycycline with a steroid dose pack. Patient reports she has been taking the antibiotics as prescribed, but is feeling better. She reports having worsening shortness breath, persistent chest tightness, persistent cough. Denies known fevers. Denies lower extremity pain or swelling. Patient has history of asthma. Has been using her inhaler and nebulizer at home without much improvement. She does also have history of factor 5 Leiden. Has had 1 previous blood clot in her arm. She is not currently on any anticoagulation. <CHARISMA Pham Last Filed: 03/13/24 02:57> Related Data Home Medications: Home Medications Medication Instructions Recorded Confirmed aripiprazole 5 mg tablet (Abilify) 7.5 mg PO DAILY 07/14/21 03/13/24 epinephrine 0.3 mg/0.3 mL 0.3 ml IM ONCE PRN 10/04/22 03/13/24 injection, auto-injector hypersensitivity reaction vilazodone 40 mg tablet 40 mg PO DAILY 12/07/22 03/13/24 viloxazine 100 mg capsule,extended 100 mg PO DAILY 08/10/23 03/13/24 release 24 hr (Qelbree) trazodone 100 mg tablet 100 mg PO HS 12/13/23 03/13/24 omeprazole 20 mg capsule,delayed 20 mg PO DAILY 01/22/24 03/13/24 release benralizumab 30 mg/mL subcutaneous 30 mg subcut .Q2mo 02/07/24 03/13/24 syringe (Fasenra) <Zohreh Britton PA-C - Last Filed: 03/13/24 02:57> Allergies/Adverse Reactions: Allergies Allergy/AdvReac Type Severity Reaction Status Date / Time egg Allergy Severe anaphalaxis Verified 03/13/24 00:47 DUST Allergy Intermediate wheezing Uncoded 03/13/24 00:47 MILDEW Allergy Mild Wheezing Uncoded 03/13/24 00:47 MOLD Allergy Mild Wheezing Uncoded 03/13/24 00:47 SMOKE Allergy Mild Wheezing Uncoded 03/13/24 00:47 <Zohreh Britton PA-C - Last Filed: 03/13/24 02:57> Review of Systems Review of Systems: All systems reviewed & are unremarkable except as noted in HPI. <Zohreh Britotn PA-C - Last Filed: 03/13/24 02:57> All systems reviewed & are unremarkable except as noted in HPI and below <Zohreh Britton PA-C - Last Filed: 03/13/24 02:57> [facility] Past Medical History Medical History: Medical History Allergies Asthma Attention deficit Back pain Cholecystectomy planned Depression DVT (deep venous thrombosis) Factor V Leiden Migraine Morbid obesity with BMI of 50.0-59.9, adult <CHARISMA Pham Last Filed: 03/13/24 02:57> Surgical History Surgical History: Surgical History Gastric bypass status for obesity Hx of cholecystectomy Previous section 2008, 2012 <CHARISMA Pham Last Filed: 03/13/24 02:57> Family History Family History: Family History Father Hypertension Diabetes mellitus Mother Hypertension Diabetes mellitus Other Breast cancer <Zohreh Kramer
[2024-03-13] MEDS: SODIUM CHLORIDE 0.9% IV 1,000 ML 999 ML IV CONT (01:11)
[2024-03-13 01:23] LABS: Alanine Aminotransferase 15 U/L (6-35); Albumin Level 3.9 g/dL (3.5-5.1); Alkaline Phosphatase 93 U/L (38-126); Anion Gap 13 mmol/L (4-12); Aspartate Amino Transferase 22 U/L (14-36); Bilirubin,Total 0.3 mg/dL (0.2-1.3); Blood Urea Nitrogen 9 mg/dL (7-17); Calcium 8.9 mg/dL (8.4-10.2); Carbon Dioxide 15 mmol/L (22-30); Chloride 110 mmol/L (98-107); Estimated CRCL calculation 102 ml/min; Estimated Glomerular Filt Rate > 60; Glucose 112 mg/dL (65-110); Potassium 3.1 mmol/L (3.4-5.0); Sodium 138 mmol/L (137-145)
[2024-03-13 01:32] LABS: Influenza A QL RT-PCR Negative (Negative); Influenza B QL RT-PCR Negative (Negative); RSV RNA, RT-PCR Negative (Negative); SARS-CoV-2 RNA PCR Negative (Negative)
[2024-03-13] MEDS: KCL 20 MEQ/SW 100 ML 100 ML 50 MEQ IVPB (01:45)
[2024-03-13] MEDS: SODIUM CHLORIDE 0.9% IV 1,000 ML 100 ML (01:46)
[2024-03-13] MEDS: POTASSIUM CHLORIDE 20 MEQ ER TABLET 40 MEQ PO (01:46)
--- NOTE | 2024-03-13 01:46 | PC.NURSE ---
ns given with iv potassium as it was burning the iv site.
[2024-03-13 01:48] LABS: Magnesium 1.8 mg/dL (1.6-2.3)
[2024-03-13] MEDS: IPRATROPIUM BR 0.02% INH SOLN 0.5 MG/2.5 ML VIAL 1.5 MG INHALATION (01:52)
[2024-03-13] MEDS: LEVALBUTEROL NEB 1.25 MG/3 ML 2.5 MG INHALATION (01:52)
[2024-03-13 02:01] LABS: NT Pro B Type Natriuretic Pept 28 pg/mL (19.9-100); Troponin I < 0.012 ng/mL (0.000-0.034)
--- NOTE | 2024-03-13 02:30 | PC.NURSE ---
blood cultures drawn x 2 with kurin device and sent to lab. ABX started after blood drawn.
[2024-03-13] MEDS: AZITHROMYCIN 500 MG/NS 250 ML 500 MG/250 ML BAG 250 MG IVPB (02:31)
[2024-03-13 02:45] LABS: Lactic Acid Reflex 1.1 mmol/L (0.7-2.0)
--- NOTE | 2024-03-13 04:38 | PC.NURSE ---
This patient, Sarai Marie, was admitted to [facility] Surg Room 326-01. Patient/family oriented to hospital policies and general routines including ID bracelet, bed and alarms, visiting hours, pain management, procedures, bathroom and other care routines, personal items, smoking policy, room service/diet, and visiting hours. Information on how to activate the Rapid Response Team has been discussed. Patient/Family are encouraged to report perceived risks to care and to ask questions if they do not understand what they are told or what they should do.
[2024-03-13] MEDS: LEVALBUTEROL NEB 1.25 MG/3 ML 0.63 MG INHALATION ×3 (07:06→20:32)
[2024-03-13] MEDS: IPRATROPIUM BR 0.02% INH SOLN 0.5 MG/2.5 ML VIAL INHALATION ×3 (07:07→20:32)
[2024-03-13 07:48] LABS: Anion Gap 7 mmol/L (4-12); Blood Urea Nitrogen 7 mg/dL (7-17); Calcium 7.9 mg/dL (8.4-10.2); Carbon Dioxide 18 mmol/L (22-30); Chloride 111 mmol/L (98-107); Estimated CRCL calculation 116 ml/min; Estimated Glomerular Filt Rate > 60; Glucose 109 mg/dL (65-110); Magnesium 1.8 mg/dL (1.6-2.3); Potassium 3.9 mmol/L (3.4-5.0); Sodium 136 mmol/L (137-145)
[2024-03-13 08:22] LABS: Basophils Absolute Auto 0.1 K/mm3 (0.0-0.1); Basophils Percent Auto 0.3 % (0.2-1.2); Hematocrit 32.5 % (37.0-47.0); Hemoglobin 10.6 g/dL (12.0-15.0); Immature Granulocyte Percent A 0.6 % (0-0.5); Lymphocytes Absolute Auto 3.65 K/mm3 (0.9-3.2); Lymphocytes Percent Auto 21.2 % (18.3-44.2); Mean Corpuscular HGB Conc 32.6 g/dl (32-36); Mean Corpuscular Hemoglobin 30.8 pg (26-34); Mean Corpuscular Volume 94.5 fl (80-100); Mean Platelet Volume 9.4 fl (7.4-10.4); Monocytes Absolute Auto 1.3 K/mm3 (0.1-0.6); Monocytes Percent Auto 7.6 % (2.6-8.5); Neutrophils Absolute Auto 12.1 K/mm3 (1.3-6.7); Neutrophils Percent Auto 70.3 % (45.5-73.1); Platelet Count Result 220 k/mm3 (150-375); Red Blood Count 3.44 M/mm3 (4.2-5.4); Red Cell Distribution Width 13.3 % (11.5-14.5); White Blood Count 17.2 K/mm3 (4.5-10.0)
--- NOTE | 2024-03-13 08:30 | PM.IMHP ---
H&P: HPI History of Present Illness Date/Time: 03/13/24 08:30 Chief Complaint: shortness of breath Narrative: Patient is a 38 year old female with past medical history of Asthma, Factor V leiden, blood clot in arm, Anxiety, ADHD, and Depression. Patient presented to the ED with report of shortness of breath. Patient reports she was seen in the ED here on Sunday for cough, shortness of breath, chest tightness. She was diagnosed with bilateral pneumonia. Given dose of IV antibiotics in the ED and discharged on doxycycline with a steroid dose pack. Patient reports she has been taking the antibiotics as prescribed, but is feeling better. She reports having worsening shortness breath, persistent chest tightness, persistent cough. Denies known fevers. Denies lower extremity pain or swelling. Patient has history of asthma. Has been using her inhaler and nebulizer at home without much improvement. She does also have history of factor 5 Leiden. Has had 1 previous blood clot in her arm. She is not currently on any anticoagulation. Patient reports that she has been coughing up yellow phlegm. Reports feeling better with IV antibiotics and fluids. WBC trending down from 23.1 to 17.2. Review of Systems Review of Systems: All systems reviewed & are unremarkable except as noted in HPI and below PMFSH Past Medical History Medical History Allergies Asthma Attention deficit Back pain Cholecystectomy planned Depression DVT (deep venous thrombosis) Factor V Leiden Migraine Morbid obesity with BMI of 50.0-59.9, adult Surgical History Surgical History Gastric bypass status for obesity Hx of cholecystectomy Previous section 2008, 2012 Family History Family History Father Hypertension Diabetes mellitus Mother Hypertension Diabetes mellitus Other Breast cancer Social History Social History Social History: Caffeine-daily the patient is single and she has 2 children. She works at [employer]. code status full code Smoking packs per day: 0.5 Smoking cigarettes per day: 10.0 Years smoked: 5 Smoking pack-years: 2.50 Smoking status: Former smoker Tobacco type: cigarettes Second hand tobacco smoke exposure: Yes Smoking end date: 06/25/13 Alcohol intake: never Alcohol use details: rarely Substance use: never Substance use type: does not use Do You Feel Safe in your Home?: Yes Lack of Transportation: No Lack of Food: Never True Current Housing: I Have Housing Concerned About Future Housing: No Difficulty Paying Gas/Electric Bills: No Difficulty Paying for Meds: No Currently Unemployed: No Education: High School Diploma/GED Difficulty w/ Childcare or Family Care: No Gender identity (if verbalized by the patient): Female Spiritual care concerns: No Meds Home Medications and Allergies Home Medications Medication Instructions Recorded Confirmed Type buspirone 10 mg tablet 20 mg PO TID #90 tabs 04/28/19 03/13/24 Rx multivitamin 1 tablet PO DAILY #30 tabs 04/28/19 03/13/24 Rx aripiprazole 5 mg tablet (Abilify) 7.5 mg PO DAILY 07/14/21 03/13/24 History albuterol sulfate 90 mcg/actuation 2 puff inhalation Q4-6H PRN 02/21/22 03/13/24 Rx aerosol inhaler shortness of breath or wheezing #8.5 grams epinephrine 0.3 mg/0.3 mL 0.3 ml IM ONCE PRN 10/04/22 03/13/24 History injection, auto-injector hypersensitivity reaction vilazodone 40 mg tablet 40 mg PO DAILY 12/07/22 03/13/24 History viloxazine 100 mg capsule,extended 400 mg PO DAILY 08/10/23 03/13/24 History release 24 hr (Qelbree) trazodone 100 mg tablet 100 mg PO HS 12/13/23 03/13/24 History topiramate 25 mg tablet (Topamax) 25 mg PO BID #60 tabs 01/15
[2024-03-13 09:52] LABS: Procalcitonin 0.1 ng/mL
[2024-03-13] MEDS: FLUTICASONE PROPIONATE 0.05% NA SPR 16 GM BTL (*BKC) 1 SPRAY NASAL (10:10)
[2024-03-13] MEDS: AZELASTINE HCL NASAL 0.1% 137 MCG/SPR 30 ML BTL 1 SPRAY NASAL (10:11)
[2024-03-13] MEDS: PANTOPRAZOLE 40 MG TABLET PO (10:13)
[2024-03-13] MEDS: LORATADINE 10 MG TABLET PO (10:13)
[2024-03-13] MEDS: TOPIRAMATE 25 MG TABLET PO ×2 (10:13→16:32)
[2024-03-13] MEDS: MULTIVITAMINS THERAPEUTIC TAB (*BKC) 1 TABLET PO (10:13)
[2024-03-13] MEDS: busPIRone HCL 10 MG TABLET 20 MG PO ×3 (10:14→16:32)
[2024-03-13] MEDS: ARIPiprazole 2.5 MG TABLET 7.5 MG PO (10:14)
[2024-03-13 12:44] LABS: MRSA (PCR) NOT DETECTED (NOT DETECTE)
[2024-03-13] MEDS: SODIUM CHLORIDE 0.9% IV 1,000 ML 100 ML IV CONT (15:51)
[2024-03-13] MEDS: traZODone HCL 50 MG TABLET 100 MG PO (20:25)
[2024-03-14] VITALS (16 sets, daily range): BP systolic 129–133; BP diastolic 82–88; PULSE 75–97; RESP 16–20; TEMP 36–36.9; O2SAT 96–99
[2024-03-14] MEDS: AZITHROMYCIN 500 MG/NS 250 ML 500 MG/250 ML BAG 250 MG IVPB (01:27)
[2024-03-14] MEDS: SODIUM CHLORIDE 0.9% IV 1,000 ML 100 ML IV CONT (01:28)
[2024-03-14] MEDS: LEVALBUTEROL NEB 1.25 MG/3 ML 0.63 MG INHALATION ×4 (02:04→20:41)
[2024-03-14] MEDS: IPRATROPIUM BR 0.02% INH SOLN 0.5 MG/2.5 ML VIAL INHALATION ×4 (02:04→20:41)
[2024-03-14 06:36] LABS: Basophils Absolute Auto 0.1 K/mm3 (0.0-0.1); Basophils Percent Auto 0.4 % (0.2-1.2); Hematocrit 34.8 % (37.0-47.0); Hemoglobin 11.3 g/dL (12.0-15.0); Immature Granulocyte Absolute 0.08 K/mm3 (0.00-0.031); Immature Granulocyte Percent A 0.6 % (0-0.5); Lymphocytes Absolute Auto 3.91 K/mm3 (0.9-3.2); Lymphocytes Percent Auto 30.1 % (18.3-44.2); Mean Corpuscular HGB Conc 32.5 g/dl (32-36); Mean Corpuscular Hemoglobin 30.6 pg (26-34); Mean Corpuscular Volume 94.3 fl (80-100); Mean Platelet Volume 9.1 fl (7.4-10.4); Monocytes Absolute Auto 0.9 K/mm3 (0.1-0.6); Monocytes Percent Auto 6.9 % (2.6-8.5); Neutrophils Absolute Auto 8.1 K/mm3 (1.3-6.7); Platelet Count Result 233 k/mm3 (150-375); Red Blood Count 3.69 M/mm3 (4.2-5.4); Red Cell Distribution Width 13.2 % (11.5-14.5)
[2024-03-14 06:47] LABS: Sodium 133 mmol/L (137-145)
[2024-03-14 06:50] LABS: Alanine Aminotransferase 12 U/L (6-35); Albumin Level 3.2 g/dL (3.5-5.1); Alkaline Phosphatase 85 U/L (38-126); Anion Gap 10 mmol/L (4-12); Aspartate Amino Transferase 22 U/L (14-36); Bilirubin,Total 0.2 mg/dL (0.2-1.3); Blood Urea Nitrogen 5 mg/dL (7-17); Calcium 8.1 mg/dL (8.4-10.2); Carbon Dioxide 17 mmol/L (22-30); Chloride 106 mmol/L (98-107); Estimated CRCL calculation 116 ml/min; Estimated Glomerular Filt Rate > 60; Glucose 88 mg/dL (65-110); Potassium 3.7 mmol/L (3.4-5.0)
[2024-03-14] MEDS: PANTOPRAZOLE 40 MG TABLET PO (08:19)
[2024-03-14] MEDS: ARIPiprazole 2.5 MG TABLET 7.5 MG PO (08:19)
[2024-03-14] MEDS: TOPIRAMATE 25 MG TABLET PO ×2 (08:20→16:33)
[2024-03-14] MEDS: LORATADINE 10 MG TABLET PO (08:20)
[2024-03-14] MEDS: MULTIVITAMINS THERAPEUTIC TAB (*BKC) 1 TABLET PO (08:20)
[2024-03-14] MEDS: busPIRone HCL 10 MG TABLET 20 MG PO ×3 (08:20→16:33)
[2024-03-14] MEDS: ACETAMINOPHEN 325 MG TABLET 650 MG PO (08:45)
[2024-03-14] MEDS: FLUTICASONE/UMECLIDIN/VILANTER 100-62.5-25 MCG ELLIPTA 1 PUFF INHALATION (09:09)
--- NOTE | 2024-03-14 09:30 | PM.IMPN ---
Progress Note: A&P Assessment and Plan (1) Pneumonia: Qualifiers: Laterality: bilateral Lung location: lower lobe of lung Pneumonia type: due to unspecified organism Qualified Code(s): J18.9 - Pneumonia, unspecified organism Code(s): J18.9 - Pneumonia, unspecified organism Status: Acute Assessment and Plan: - Azithromycin 500 mg IVPB daily. - Ceftriaxone 1 gm IVPB daily. - NS @ 100 cc/hr. - Nebulizer treatment q 6. - PEP therapy - Blood cultures pending. --Sputum sent, growing GNB's--follow culture (2) Hypokalemia: Code(s): E87.6 - Hypokalemia Status: Acute Assessment and Plan: -Potassium 3.1 in the ER. Patient supplemented with Potassium Chloride 20 meq IVPB and Potassium chloride 40 meq PO. -Repeat potassium 3.9. -Monitor labs. (3) Acute dehydration: Code(s): E86.0 - Dehydration Status: Acute Assessment and Plan: -NS @ 100cc/hr--stop -Encourage hydration. Time Spent With Patient Time: 48 minutes Subjective Date/time seen: 03/14/24 17:05 Interval history: Coughing frequently, breathing treatments helping. Mild shortness of breath with activity Otherwise no fevers, nausea, vomiting, or diarrhea. Review of Systems Review of Systems: 12 point ROS negative except as noted above All systems reviewed & are unremarkable except as noted in HPI and below Exam Narrative: General - Awake and alert. No acute distress Eyes - PERRLA, EOM intact ENT - No thrush, No erythema Neck - No noticeable or palpable swelling Lymph Nodes - No lymphadenopathy Cardiovascular - RRR no m/r/g, no JVD Lungs: Crackles, some expiratory wheezing, use of accessory muscles Skin - Skin warm and dry, no wounds or rashes Abdomen - Normal bowel sounds, abdomen soft and nontender Extremities - No edema, cyanosis or clubbing Musculoskeletal - 5/5 strength, normal range of motion, no swollen or erythematous joints. Neurological ? Alert and oriented x 3, CN 2-12 grossly intact. Psych: Normal mood and affect Objective Data Vital Signs Vital Signs: Vital Signs - 24 hr 03/13/24 12:00 03/13/24 13:05 03/13/24 13:15 Temperature Pulse Rate 96 84 88 Respiratory Rate 18 18 Blood Pressure Pulse Oximetry Oxygen Delivery 03/13/24 14:00 03/13/24 15:58 03/13/24 20:33 Temperature 98.3 F Pulse Rate 90 92 Respiratory Rate 16 Blood Pressure 111/81 Pulse Oximetry 98 96 Oxygen Delivery Room Air 03/13/24 20:33 03/13/24 20:00 03/13/24 20:35 Temperature 98.1 F Pulse Rate 86 86 Respiratory Rate 18 18 Blood Pressure 124/73 Pulse Oximetry 100 Oxygen Delivery Room Air 03/14/24 02:06 03/13/24 20:43 03/14/24 02:14 Temperature Pulse Rate 87 89 88 Respiratory Rate 16 18 16 Blood Pressure Pulse Oximetry Oxygen Delivery 03/13/24 20:00 03/14/24 00:00 03/14/24 04:00 Temperature Pulse Rate 89 91 84 Respiratory Rate Blood Pressure Pulse Oximetry Oxygen Delivery 03/14/24 05:30 03/14/24 09:00 03/14/24 09:17 Temperature 98.5 F Pulse Rate 96 90 88 Respiratory Rate 20 16 16 Blood Pressure 133/88 Pulse Oximetry 97 Oxygen Delivery Intake/Output Intake/Output: Intake & Output 03/11/24 03/12/24 03/13/24 03/14/24 23:59 23:59 23:59 23:59 Intake Total 2764.3 1611.7 Output Total 800 Balance 1964.3 1611.7 Meds/Results Medications: Active Medications Generic Name Dose Route Start Last Admin Trade Name Freq PRN Reason Stop Dose Admin Acetaminophen 650 mg 03/13/24 02:46 03/14/24 08:45 Acetaminophen 325 Mg Tablet PO 650 mg Q4H PRN Administration Mild Pain (1-3) or Fever Albuterol 2 puff 03/13/24 08:26 Albuterol Sulfate (*Sp) Aerosol 1 Puff INHALATION Q4-6H PRN shortness of breath or wheezing Aripiprazole 7.5 mg 03/13/24 09:00 03/14/24 08:19 Aripiprazole 2.5 Mg Tablet PO 7.5 mg DAILY COLLEEN Administration
--- NOTE | 2024-03-14 11:20 | PHAR ---
Pharmacy verified home meds: * Use from home * Vilazodone 40 mg tablet take 1 tablet by mouth once daily * Use from home * Viloxazine [Qelbree] 200 mg capsule,extended release 24hr take 2 capsules by mouth once daily in the morning
[2024-03-14] MEDS: SUMAtriptan SUCCINATE 25 MG TABLET 50 MG PO (11:53)
[2024-03-14] MEDS: traZODone HCL 50 MG TABLET 100 MG PO (20:41)
[2024-03-14] MEDS: ENOXAPARIN 40 MG/0.4 ML SYRINGE SUB-Q (20:45)
[2024-03-15] VITALS (8 sets, daily range): BP systolic 109; BP diastolic 63; PULSE 73–110; RESP 16–20; TEMP 36.1; O2SAT 96–97
[2024-03-15] MEDS: IPRATROPIUM BR 0.02% INH SOLN 0.5 MG/2.5 ML VIAL INHALATION ×2 (01:39→08:49)
[2024-03-15] MEDS: LEVALBUTEROL NEB 1.25 MG/3 ML 0.63 MG INHALATION ×2 (01:40→08:50)
[2024-03-15] MEDS: AZITHROMYCIN 500 MG/NS 250 ML 500 MG/250 ML BAG 250 MG IVPB (02:18)
[2024-03-15 06:18] LABS: Basophils Percent Auto 0.3 % (0.2-1.2); Hematocrit 34.6 % (37.0-47.0); Hemoglobin 11.5 g/dL (12.0-15.0); Immature Granulocyte Absolute 0.08 K/mm3 (0.00-0.031); Immature Granulocyte Percent A 0.7 % (0-0.5); Lymphocytes Absolute Auto 3.85 K/mm3 (0.9-3.2); Lymphocytes Percent Auto 34.9 % (18.3-44.2); Mean Corpuscular HGB Conc 33.2 g/dl (32-36); Mean Corpuscular Hemoglobin 31.3 pg (26-34); Mean Corpuscular Volume 94.3 fl (80-100); Monocytes Absolute Auto 0.7 K/mm3 (0.1-0.6); Monocytes Percent Auto 6.1 % (2.6-8.5); Neutrophils Absolute Auto 6.4 K/mm3 (1.3-6.7); Platelet Count Result 237 k/mm3 (150-375); Red Blood Count 3.67 M/mm3 (4.2-5.4)
[2024-03-15 06:31] LABS: Alanine Aminotransferase 11 U/L (6-35); Albumin Level 3.2 g/dL (3.5-5.1); Alkaline Phosphatase 72 U/L (38-126); Anion Gap 9 mmol/L (4-12); Aspartate Amino Transferase 16 U/L (14-36); Bilirubin,Total 0.2 mg/dL (0.2-1.3); Blood Urea Nitrogen 7 mg/dL (7-17); Calcium 8.2 mg/dL (8.4-10.2); Carbon Dioxide 18 mmol/L (22-30); Chloride 108 mmol/L (98-107); Estimated CRCL calculation 116 ml/min; Estimated Glomerular Filt Rate > 60; Glucose 88 mg/dL (65-110); Magnesium 2.1 mg/dL (1.6-2.3); Potassium 3.7 mmol/L (3.4-5.0); Sodium 135 mmol/L (137-145)
[2024-03-15] MEDS: FLUTICASONE/UMECLIDIN/VILANTER 100-62.5-25 MCG ELLIPTA 1 PUFF INHALATION (09:02)
[2024-03-15] MEDS: MULTIVITAMINS THERAPEUTIC TAB (*BKC) 1 TABLET PO (09:22)
[2024-03-15] MEDS: ARIPiprazole 2.5 MG TABLET 7.5 MG PO (09:22)
[2024-03-15] MEDS: TOPIRAMATE 25 MG TABLET PO (09:22)
[2024-03-15] MEDS: PANTOPRAZOLE 40 MG TABLET PO (09:22)
[2024-03-15] MEDS: busPIRone HCL 10 MG TABLET 20 MG PO (09:22)
[2024-03-15] MEDS: LORATADINE 10 MG TABLET PO (09:22)
[2024-03-15] MEDS: SUMAtriptan SUCCINATE 25 MG TABLET 50 MG PO (09:28)
--- NOTE | 2024-03-15 10:01 | PM.DS ---
DS: Admitting Diagnosis Discharge Date 03/15/2024 Admitting Diagnosis pneumonia DS: Discharge Diagnosis Discharge Diagnosis (1) Pneumonia: Qualifiers: Laterality: bilateral Lung location: lower lobe of lung Pneumonia type: due to unspecified organism Qualified Code(s): J18.9 - Pneumonia, unspecified organism Code(s): J18.9 - Pneumonia, unspecified organism Status: Acute Assessment and Plan: - Azithromycin 500 mg IVPB daily + Ceftriaxone 1 gm IVPB daily 03/14-03/15. --Sputum sent, growing GNB's -- 03/15 cefdinir and doxycycline 03/16-03/18 (5 days total antibx therapy) (2) Hypokalemia: Code(s): E87.6 - Hypokalemia Status: Acute Assessment and Plan: Resolved (3) Asthma: Qualifiers: Asthma severity: severe Asthma persistence: persistent Asthma complication type: with acute exacerbation Qualified Code(s): J45.51 - Severe persistent asthma with (acute) exacerbation Code(s): J45.909 - Unspecified asthma, uncomplicated Status: Acute Assessment and Plan: - Added Prednisone 40 mg 03/15, then 20 mg daily for 5 days due to hx of asthma and continued dry cough and coarse BS (recently completed Medrol Dosepak). (4) Acute dehydration: Code(s): E86.0 - Dehydration Status: Acute Assessment and Plan: Resolved Plan I have confirmed that the patient's Advanced Care Plan is present, code status is documented, or surrogate decision maker is listed in patient medical record.: Yes DS: Summary Hospital Course Hospital Course: 38-year-old female presented with cough burning and chest shortness of breath on March 13. Had been seen in ED March 10 atelectasis versus was admitted treated with ceftriaxone and azithromycin which were started in the digital solution architect hours of March 14. She also received nebulizer therapy potassium supplementation for hypokalemia and IV fluids for dehydration. By March 15 she was feeling much better, tolerating her diet, up and about in the room without dyspnea. Dry cough persisted but was much to go home and complete her antibiotics as an outpatient. 03/15 K 3.7, WBC 11.0 03/13 CXR: Bibasilar atelectasis versus pneumonia. Time Spent with Patient Time attestation: Total time spent providing and/or coordinating discharge services: Exam Narrative: General - Awake and alert. No acute distress Eyes - PERRLA, sclerae anicteric ENT - No thrush, No erythema Neck - No JVD Cardiovascular - RRR no m/r/g, no JVD Lungs: Slightly coarse BS w/o crackles or wheezes Skin - Skin warm and dry, no wounds or rashes Abdomen - Normal bowel sounds, abdomen soft and nontender Extremities - No edema, cyanosis or clubbing Musculoskeletal - 5/5 strength, no swollen or erythematous joints. Neurological ? Alert and oriented x 3, CN 2-12 grossly intact to visual inspection. Psych: Normal mood and affect. A/O x 4. DS: Data Data Completed and Pending Labs on day of discharge: Labs from last 24 hours 03/15/24 06:02 WBC 11.0 H RBC 3.67 L Hgb 11.5 L Hct 34.6 L MCV 94.3 MCH 31.3 MCHC 33.2 RDW 13.0 Plt Count 237 MPV 9.0 Immature Gran % (Auto) 0.7 H Neut % (Auto) 58.0 Lymph % (Auto) 34.9 [place] % (Auto) 6.1 Eos % (Auto) 0.0 Baso % (Auto) 0.3 Lymph # (Auto) 3.85 H [place] # (Auto) 0.7 H Eos # (Auto) 0.0 Baso # (Auto) 0.0 Abs Immat Gran (auto) 0.08 H Absolute Neuts (auto) 6.4 Absolute Nucleated RBC 0.000 Nucleated RBC % 0.0 Sodium 135 L Potassium 3.7 Chloride 108 H Carbon Dioxide 18 L Anion Gap 9 BUN 7 Creatinine 0.60 L Estim Creat Clear Calc 116 Estimated GFR > 60 Glucose 88 Calcium 8.2 L Magnesium 2.1 Total Bilirubin 0.2 AST 16 ALT 11 Alkaline Phosphatase 72 Total Protein 6.0 L Albumin 3.2 L Preliminary micro results at discharge 03/13/24 18:10 Sputum Culture - Preliminary Sputum Pseudomonas aeruginosa 03/13/24 02:29 Blood Culture - Preliminar
[2024-03-15] MEDS: predniSONE 20 MG TABLET 40 MG PO (11:25)
[2024-03-17 18:28] LABS: Pneumococcal Antigen Urine NOT DETECTED
[2024-03-18 02:38] LABS: Legionella pneumophila Ag Ur NOT DETECTED
== END 2024-03-15 14:14 | disposition home or self-care (01) | DRG 194 ==
LOC: ANHED 02:57 → ANH3MEDSUR 04:22
PROVIDERS: Nurse Practitioner Family; Admitting Provider General Practice; Emergency Provider Physician Assistant; PCP Internal Medicine; Visit Provider Nurse Practitioner Acute Care
DX: J18.9 Pneumonia, unspecified organism (principal); D68.51 Activated protein C resistance; E87.6 Hypokalemia; J45.909 Unspecified asthma, uncomplicated; E86.0 Dehydration; F41.9 Anxiety disorder, unspecified; F32.A Depression, unspecified; F90.9 Attention-deficit hyperactivity disorder, unspecified type; E66.01 Morbid (severe) obesity due to excess calories; Z68.36 Body mass index [BMI] 36.0-36.9, adult; Z86.718 Personal history of other venous thrombosis and embolism; Z90.49 Acquired absence of other specified parts of digestive tract; Z98.84 Bariatric surgery status; Z87.891 Personal history of nicotine dependence
CPT/HCPCS: 36415; 71046; 80048; 80053; 83605; 83735; 83880; 84145; 84484; 85025; 87040; 87070; 87077; 87186; 87205; 87449; 87637; 87641; 87899; 93005; 94640; 94667; 96360; 99285; A9270; J0456; J0696; J1650; J3480; J7030; J7512

== ENCOUNTER 2024-04-07 09:52 | Outpatient (CLI) | payer OTHER, SELFPAY ==
[2024-04-07 14:50] LABS: Basophils Percent Auto 0.3 % (0.2-1.2); Hematocrit 42.7 % (37.0-47.0); Hemoglobin 13.6 g/dL (12.0-15.0); Immature Granulocyte Absolute 0.04 K/mm3 (0.00-0.031); Immature Granulocyte Percent A 0.3 % (0-0.5); Lymphocytes Absolute Auto 3.44 K/mm3 (0.9-3.2); Lymphocytes Percent Auto 29.6 % (18.3-44.2); Mean Corpuscular HGB Conc 31.9 g/dl (32-36); Mean Corpuscular Hemoglobin 30.2 pg (26-34); Mean Corpuscular Volume 94.9 fl (80-100); Mean Platelet Volume 10.6 fl (7.4-10.4); Monocytes Absolute Auto 0.8 K/mm3 (0.1-0.6); Monocytes Percent Auto 6.7 % (2.6-8.5); Neutrophils Absolute Auto 7.3 K/mm3 (1.3-6.7); Neutrophils Percent Auto 63.1 % (45.5-73.1); Platelet Count Result 234 k/mm3 (150-375); Red Cell Distribution Width 13.2 % (11.5-14.5); White Blood Count 11.6 K/mm3 (4.5-10.0)
== END 2024-04-07 09:53 | disposition home or self-care (01) ==
LOC: ANHGOSHLAB 09:53
PROVIDERS: PCP Internal Medicine; Visit Provider Nurse Practitioner
DX: J18.9 Pneumonia, unspecified organism (principal); J45.901 Unspecified asthma with (acute) exacerbation
CPT/HCPCS: 36415; 85025

== ENCOUNTER 2024-04-07 10:14 | Outpatient (CLI) | payer OTHER, SELFPAY ==
--- NOTE | ~2024-04-07 | XR_ITS ---
Clinical Indication: Pneumonia PA and lateral views of the chest: Comparison: 03/13/2024 Findings: The lungs are clear, without evidence of focal consolidation or pleural effusion. Cardiome diastinal silhouette is within normal limits. Bones and soft tissues are unremarkable. Impression: Normal chest. Reviewed, dictated and finalized at location . Impression: Normal chest.
== END 2024-04-07 10:15 | disposition home or self-care (01) ==
LOC: GOSHIMG 10:16
PROVIDERS: PCP Internal Medicine; Visit Provider Nurse Practitioner
DX: J18.9 Pneumonia, unspecified organism (principal); J45.901 Unspecified asthma with (acute) exacerbation
CPT/HCPCS: 71046

== ENCOUNTER 2024-04-15 07:45 | Outpatient (CLI) | payer OTHER, SELFPAY ==
--- NOTE | 2024-05-05 11:01 | P.SLEEP_ITS ---
Sleep Study Date of Study: 04/15/24 Ordering Provider: Annita Key MD Interpreting Physician: Annita Key MD Sleep Study Type: Multiple Sleep Latency Test Height: 1.6 m Weight: 92.986 kg Body Mass Index: 36.3 Neck Circumference (inches): 14 [place]: 10 Reason for Sleep Study Hypersomnia * 09/06/2023 polysomnogram; apnea-hypopnea index 2.3, desaturation 89%, snoring with arousals * 08/21/2023, home sleep test with apnea-hypopnea index 1.1, RDI 11 Sleep History Sarai Marie is a 38-year-old female who had a basic nocturnal polysomnogram on September 06, 2023 for excessive daytime sleepiness. Her apnea-hypopnea index was 2.3 with desaturation to 89%, not consistent with sleep disordered breathing although she did have snoring. She has anxiety and depression. She returns now for a basic nocturnal polysomnogram and multiple sleep latency test for evaluation of narcolepsy a, and was referred by her psychiatrist specifically for this testing. 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 She gets 8-10 hours of sleep at night yet still feels sleepy during the day. Weight loss has not helped her hypersomnolence. There is a strong family history of narcolepsy without cataplexy in family members including her father, brother and cousin. The remainder of her sleep history is taken from her September 05 sleep questionnaire. Other medical co-morbidities include anxiety, depression, ADHD, asthma, GERD, seasonal allergies, morbid obesity and history of tobacco use. 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 The patient denies awakening from sleep short of breath.? She denies awakening at night with heartburn, belching or cough.? She rarely snores but it is never loud enough that others complain.? She occasionally has trouble sleeping when she has a cold.? She denies waking up gasping for air throughout the night.? She denies having breathing problems at night observed by herself or others.? She denies sweating excessively at night.? She denies having heart palpitations or irregular heartbeats during the night.? She constantly falls asleep during the day but never while driving.? She denies cataplexy.? She rarely has trouble at school or work due to sleepiness.? She rarely feels unable to move while waking up or falling asleep.? She rarely experiences vivid dreamlike scenes upon awakening or falling asleep.? She denies feeling afraid of going to sleep.? She occasionally has nightmares.? She constantly remembers her dreams.? She occasionally has thoughts racing through her mind.? She occasionally feels sad, depressed and anxious.? She denies having muscular tension.? She occasionally notices parts of her body jerk.? She denies kicking during the night.? She occasionally has crawling and aching feelings in her legs and occasionally has leg pain during the night.? She rarely grinds her teeth during sleep but never awakens with morning jaw pain.? She denies being bothered by pain during the day and denies being awakened by pain during the night.? She denies waking up feeling stiff in the morning.? She denies waking up with sore or achy muscles.? She denies waking up with pain in the neck, spine and other joints.? She goes to bed at 9:00 p.m. on weekdays and at 10:00 p.m. on the weekends.? It takes her 5 minutes to fall asleep.? She wakes up 6-7 times throughout the night to adjust position and is able to fall back asleep immediately.? She wakes up at 5:00 a.m. on weekdays and at 7:00 a.m. on the weekends.? She typically gets 8 hours of sleep per night.? She will stay in bed for 5-15 minutes after waking up in the morning.? She currently lives with her 2 children.? She denies consuming any caffeinated beverages within 2 hours of bedtime.? She denies engaging in physical exercise before bedtime.? He denies reading and watching television before falling asleep.? She will take naps in the afternoon or the evening but they are not refreshing.? She denies consuming caffeinated beverages throughout the day.? She quit smoking cigarettes 10 years ago.? She denies alcohol and recreational drug use. FOR[facility]LY [facility] Past Medical History Medical History (Updated 05/05/24 @ 11:16 by Annita Key MD) Allergies Asthma Attention deficit Back pain Cholecystectomy planned Depression DVT (deep venous thrombosis) Factor V Leiden Hypersomnolence Migraine Morbid obesity with BMI of 50.0-59.9, adult Surgical History Surgical History Gastric bypass status for obesity Hx of cholecystectomy Previous section 2008, 2012 Family History Family History Father Hypertension Diabetes mellitus Mother Hypertension Diabetes mellitus Other Breast cancer Social History Social History Social History: Caffeine-daily the patient is single and she has 2 children. She works at [employer]. code status full code Smoking packs per day: 0.5 Smoking cigarettes per day: 10.0 Years smoked: 5 Smoking pack-years: 2.50 Smoking status: Former smoker Tobacco type: cigarettes Second hand tobacco smoke exposure: Yes Smoking end date: 06/25/13 Alcohol intake: never Alcohol use details: rarely Substance use: never Substance use type: does not use Do You Feel Safe in your Home?: Yes Lack of Transportation: No Lack of Food: Never True Current Housing: I Have Housing Concerned About Future Housing: No Difficulty Paying Gas/Electric Bills: No Difficulty Paying for Meds: No Currently Unemployed: No Education: High School Diploma/GED Difficulty w/ Childcare or Family Care: No Gender identity (if verbalized by the patient): Female Spiritual care concerns: No Medications Home Medications Medication Instructions Recorded Confirmed Type buspirone 10 mg tablet 20 mg PO TID #90 tabs 04/28/19 03/19/24 Rx multivitamin 1 tablet PO DAILY #30 tabs 04/28/19 03/19/24 Rx aripiprazole 5 mg tablet (Abilify) 7.5 mg PO DAILY 07/14/21 03/19/24 History albuterol sulfate 90 mcg/actuation 2 puff inhalation Q4-6H PRN 02/21/22 03/19/24 Rx aerosol inhaler shortness of breath or wheezing #8.5 grams epinephrine 0.3 mg/0.3 mL 0.3 ml IM ONCE PRN 10/04/22 03/19/24 History injection, auto-injector hypersensitivity reaction vilazodone 40 mg tablet 40 mg PO DAILY 12/07/22 03/19/24 History viloxazine 100 mg capsule,extended 400 mg PO DAILY 08/10/23 03/19/24 History release 24 hr (Qelbree) trazodone 100 mg tablet 100 mg PO HS 12/13/23 03/19/24 History topiramate 25 mg tablet (Topamax) 25 mg PO BID #60 tabs 01/16/24 03/19/24 Rx omeprazole 20 mg capsule,delayed 20 mg PO DAILY 01/22/24 03/19/24 History release ondansetron 4 mg disintegrating 4 mg PO Q8H PRN nausea and 01/22/24 03/19/24 Rx tablet vomiting #20 tabs benralizumab 30 mg/mL subcutaneous 30 mg subcut .Q2mo 02/07/24 03/19/24 History syringe (Fasenra) Trelegy Ellipta 100 mcg-62.5 1 inh inhalation Q24H 1 month #60 02/12/24 03/19/24 Rx mcg-25 mcg powder for inhalation ea (txujssevqtb-ylhkaayrd-rehjwfsh) azelastine 137 mcg-fluticasone 50 1 spray intranasal BID PRN Allergy 03/13/24 03/19/24 History mcg/spray nasal spray Symptoms cetirizine 10 mg tablet (Zyrtec) 10 mg PO DAILY 03/13/24 03/19/24 History prednisone 20 mg tablet 20 mg PO DAILY #5 tabs 03/15/24 03/19/24 Rx sumatriptan succinate 50 mg tablet 50 mg PO DAILY PRN Migraine 05/05/24 Rx Headache #9 tabs Sleep Procedure A full night polysomnogram using the [employer] multi-channel system recorded the standard physiologic parameters including EEG, EOG, submentalis EMG, anterior tibialis EMG, EKG, body position, nasal and oral airflow using nasal pressure sensor and thermistor. Respiratory parameters of chest and abdominal movements were recorded with Respiratory Inductance Plethysmography belts. Oxygen saturation was recorded by pulse oximetry. Video monitoring was also performed. Sleep stages, periodic limb movements, and EEG arousals were scored in 30 second epochs according to the criteria of the AASM Scoring Manual. The Apnea-Hypopnea Index was calculated using CMS guidelines for definition of hypopnea with 4% O2 desaturations while scoring respiratory events. The patient self-administered Trazodone 200 mg at the start of the study. Sleep Architecture The total recording time was 494.5 minutes. The total sleep time was 454.5 m inutes. Sleep latency was 6.5 minutes. REM latency was 197.0 minutes. Sleep efficiency was 91.9%. The patient had 30 awakenings for an awakening index of 4.0. Wake after sleep onset time was 33.5 minutes. The patient spent 37.0 minutes, 8.1% of total sleep time in Stage N1. The patient spent 318.0 minutes, 70.0% in Stage N2. The patient spent 10.0 minutes, 2.2% in Stage N3. The patient spent 89.5 minutes, 19.7% in Stage REM sleep. Respiratory Analysis The patient had no hypopneas, no obstructive apneas, no mixed apneas, and 6 central apneas for an overall Apnea Hypopnea Index of 0.8. The REM Apnea Hypopnea Index was 4.0. The NREM Apnea Hypopnea Index was 0.2. The patient had a Central Apnea Hypopnea Index of 0.8. There were no Respiratory Effort Related Arousals resulting in a RERA index of 0 events per hour. The Respiratory Disturbance Index is 0.9 events per hour. There was no evidence of Jono-Perdomo Respirations. Arousals There were 127 total arousals for an arousal index of 16.8. There were 84 spontaneous arousals for an index of 11.1. There were - arousals due to respiratory events for an index of -. There were 11 arousals due to periodic limb movements for an index of 1.5. There were 31 arousals due to isolated limb movements for an index of 4.1. Periodic Limb Movements The patient had 64 isolated limb movements with an index of 8.4. The patient had 42 periodic limb movements with an index of 5.5. Patient had a total of 106 limb movements with a total limb movement index of 14.0. Oximetry Data The patient had an average oxygen saturation of 95.1% in sleep with a minimum oxygen saturation of 88% and a maximum oxygen saturation of 99%. The patient had 4 oxygen desaturations that were 4% or greater resulting in an Oxygen Desaturation Index of 0.5. The patient spent no time with a saturation below 88%. Snoring Profile Snoring was very mild. Cardiac Profile EKg showed an average pulse rate of 75.8 bpm with a minimum pulse of rate of 57 bpm and a maximum pulse rate of 101 bpm without arrhythmia. EEG Profile EEG did not show seizure activity, however alpha delta sleep was present. Assessment and Plan Assessment and Plan (1) Hypersomnolence: Code(s): G47.10 - Hypersomnia, unspecified Status: Acute Assessment and Plan: This basic nocturnal polysomnogram on Apr 15, 2024 was performed to evaluate for hypersomnolence, and no significant sleep disordered breathing was identified. The apnea-hypopnea index is 0.8, the lowest saturation was 88%. The patient did not have arousals from any cause that were significant enough to lead to excessive daytime sleepiness. The patient proceeded with a multiple sleep latency test the following morning. She has anxiety and depression and alpha delta sleep was found on this study. Alpha delta sleep can be found in people with mood disorders. She is currently being treated for anxiety and depression. Treatment joann underlying mood disorders is the cornerstone of management for alpha delta sleep. BMI is 36, and she had had significant weight loss after bariatric surgery. Data The data obtained during this sleep study is adequate for interpretation. Certification This sleep study has been reviewed by a board certified sleep medicine physician.
[2024-05-05 11:23] VITALS: BMI 36.3
--- NOTE | 2024-05-05 11:23 | WPDSLEEPSTUD ---
Sleep Study Date of Study: 04/15/24 Ordering Provider: Annita Key MD Interpreting Physician: Annita Key MD Sleep Study Type: Multiple Sleep Latency Test Height: 1.6 m Weight: 92.986 kg Body Mass Index: 36.3 Neck Circumference (inches): 14 [place]: 10 Reason for Sleep Study Hypersomnolence, negative overnight polysomnogram Sleep History see history from polysomnogram ON LICENSE OF [facility] Past Medical History Medical History Allergies Asthma Attention deficit Back pain Cholecystectomy planned Depression DVT (deep venous thrombosis) Factor V Leiden Hypersomnolence Migraine Morbid obesity with BMI of 50.0-59.9, adult Surgical History Surgical History Gastric bypass status for obesity Hx of cholecystectomy Previous section 2008, 2012 Family History Family History Father Hypertension Diabetes mellitus Mother Hypertension Diabetes mellitus Other Breast cancer Social History Social History Social History: Caffeine-daily the patient is single and she has 2 children. She works at [employer]. code status full code Smoking packs per day: 0.5 Smoking cigarettes per day: 10.0 Years smoked: 5 Smoking pack-years: 2.50 Smoking status: Former smoker Tobacco type: cigarettes Second hand tobacco smoke exposure: Yes Smoking end date: 06/25/13 Alcohol intake: never Alcohol use details: rarely Substance use: never Substance use type: does not use Do You Feel Safe in your Home?: Yes Lack of Transportation: No Lack of Food: Never True Current Housing: I Have Housing Concerned About Future Housing: No Difficulty Paying Gas/Electric Bills: No Difficulty Paying for Meds: No Currently Unemployed: No Education: High School Diploma/GED Difficulty w/ Childcare or Family Care: No Gender identity (if verbalized by the patient): Female Spiritual care concerns: No Medications Home Medications Medication Instructions Recorded Confirmed Type buspirone 10 mg tablet 20 mg PO TID #90 tabs 04/28/19 03/19/24 Rx multivitamin 1 tablet PO DAILY #30 tabs 04/28/19 03/19/24 Rx aripiprazole 5 mg tablet (Abilify) 7.5 mg PO DAILY 07/14/21 03/19/24 History albuterol sulfate 90 mcg/actuation 2 puff inhalation Q4-6H PRN 02/21/22 03/19/24 Rx aerosol inhaler shortness of breath or wheezing #8.5 grams epinephrine 0.3 mg/0.3 mL 0.3 ml IM ONCE PRN 10/04/22 03/19/24 History injection, auto-injector hypersensitivity reaction vilazodone 40 mg tablet 40 mg PO DAILY 12/07/22 03/19/24 History viloxazine 100 mg capsule,extended 400 mg PO DAILY 08/10/23 03/19/24 History release 24 hr (Qelbree) trazodone 100 mg tablet 100 mg PO HS 12/13/23 03/19/24 History topiramate 25 mg tablet (Topamax) 25 mg PO BID #60 tabs 01/16/24 03/19/24 Rx omeprazole 20 mg capsule,delayed 20 mg PO DAILY 01/22/24 03/19/24 History release ondansetron 4 mg disintegrating 4 mg PO Q8H PRN nausea and 01/22/24 03/19/24 Rx tablet vomiting #20 tabs benralizumab 30 mg/mL subcutaneous 30 mg subcut .Q2mo 02/07/24 03/19/24 History syringe (Fasenra) Trelegy Ellipta 100 mcg-62.5 1 inh inhalation Q24H 1 month #60 02/12/24 03/19/24 Rx mcg-25 mcg powder for inhalation ea (aootjwrdupm-uupxqoscn-pgskfatq) azelastine 137 mcg-fluticasone 50 1 spray intranasal BID PRN Allergy 03/13/24 03/19/24 History mcg/spray nasal spray Symptoms cetirizine 10 mg tablet (Zyrtec) 10 mg PO DAILY 03/13/24 03/19/24 History prednisone 20 mg tablet 20 mg PO DAILY #5 tabs 03/15/24 03/19/24 Rx sumatriptan succinate 50 mg tablet 50 mg PO DAILY PRN Migraine 05/05/24 Rx Headache #9 tabs Sleep Procedure The recording montage for the MSLT includes central EEG (C3-A2, C4-A1) and occipital (O1-A2, O2-A1) derivations, left and right eye electrooculograms (EOGs), mental/submental electromyogram (EMG), and electrocardiogram (EKG). Nap Summary: Study started at 07:15:02 AM. Nap 1 sleep latency was 2.0 minutes, REM sleep was not present. The patient said that sleep occurred. The patient reported dreaming. Nap 2 sleep latency was 4.0 minutes, REM sleep was not present. The patient said that sleep occurred. The patient reported dreaming. Nap 3 sleep latency was 6.3 minutes, REM sleep was not present. The patient said that sleep occurred. The patient reported dreaming. Nap 4 sleep latency was 11.8 minutes, REM sleep was not present. The patient said that sleep occurred. The patient reported dreaming. Nap 5 sleep latency was 14.9 minutes, REM sleep was present. The patient said that sleep occurred however the patient said that she did not dream. There were 5 nap opportunities with a mean sleep latency of 7.8 minutes. The patient slept on 5 naps and REM sleep (SOREM) was present in 1 nap. Sleep Architecture NA Respiratory Analysis NA Arousals NA Periodic Limb Movements NA Oximetry Data Na Snoring Profile NA Cardiac Profile NA EEG Profile NA Assessment and Plan Assessment and Plan (1) Hypersomnolence: Code(s): G47.10 - Hypersomnia, unspecified Status: Acute Assessment and Plan: The patient had a mean sleep latency of 7.8 minutes which is marginally below the limit of normal, and is consistent with excessive daytime sleepiness. She slept on 5 with REM on the 5th nap only. This is not consistent with narcolepsy. Her REM latency on the nocturnal polysomnogram the night before was not short, her REM latency was 197 minutes. The patient is on medications that may have suppressed REM and these medications also may be contributing to her daytime sleepiness. She has alpha delta sleep which is seen in people with mood disorders and can be associated with excessive daytime sleepiness. Clinical correlation is recommended. Data The data obtained during this sleep study is adequate for interpretation. Certification This sleep study has been reviewed by a board certified sleep medicine physician.
[2024-05-05 11:30] VITALS: BMI 36.3
== END 2024-04-16 16:35 | disposition home or self-care (01) ==
LOC: ANHCSM 07:46
PROVIDERS: PCP Internal Medicine; Visit Provider Internal Medicine Critical Care Medicine
DX: G47.10 Hypersomnia, unspecified (principal)
CPT/HCPCS: 95805; 95810

== ENCOUNTER 2024-05-19 09:05 | Emergency (ER) | payer OTHER, SELFPAY ==
--- NOTE | ~2024-05-19 | XR_ITS ---
EXAMINATION: XR chest 2V DATE: 05/19/2024 10:06 INDICATION: Cough and wheezing. TECHNIQUE: Frontal and lateral views of the chest were obtained. COMPARISON: Chest 2 views 04/07/2024, chest CT 03/10/2024 FINDINGS: There are airspace opacities in lingula. No pleural effusion or pneumothorax. The heart siz e is normal. Surgical clips in the right upper quadrant are likely from cholecystectomy. IMPRESSION: 1. Airspace opacities in lingula, consistent with atelectasis versus pneumonia. Reviewed, dictated and finalized at location A. TEACHER
[2024-05-19 09:15] VITALS: BP 119/87; PULSE 103; RESP 16; TEMP 35.9; O2SAT 98
--- NOTE | 2024-05-19 09:54 | ED_ITS ---
HPI - URI/Sore Throat General Chief Complaint: Upper Respiratory Infection Stated Complaint: sore throat,chest congestion,sharp pain w/breath Time Seen by Provider: 05/19/24 09:54 Source: patient, RN notes reviewed and old records reviewed Mode of arrival: ambulatory Limitations: no limitations History of Present Illness HPI Narrative: 38-year-old female presents to the [facility] with complaints of sore throat, chest congestion. For 2 days. Patient reports that she has been using her albuterol inhaler. No other treatment prior to arrival Onset (ago): day(s) (2) Treatments prior to arrival: other (Inhaler) Related Data Home Medications Medication Instructions Recorded Confirmed aripiprazole 5 mg tablet (Abilify) 7.5 mg PO DAILY 07/14/21 05/19/24 epinephrine 0.3 mg/0.3 mL 0.3 ml IM ONCE PRN 10/04/22 05/19/24 injection, auto-injector hypersensitivity reaction vilazodone 40 mg tablet 40 mg PO DAILY 12/07/22 05/19/24 viloxazine 100 mg capsule,extended 400 mg PO DAILY 08/10/23 05/19/24 release 24 hr (Qelbree) trazodone 100 mg tablet 100 mg PO HS 12/13/23 05/19/24 omeprazole 20 mg capsule,delayed 20 mg PO DAILY 01/22/24 05/19/24 release benralizumab 30 mg/mL subcutaneous 30 mg subcut .Q2mo 02/07/24 05/19/24 syringe (Fasenra) azelastine 137 mcg-fluticasone 50 1 spray intranasal BID PRN Allergy 03/13/24 05/19/24 mcg/spray nasal spray Symptoms cetirizine 10 mg tablet (Zyrtec) 10 mg PO DAILY 03/13/24 05/19/24 Allergies Allergy/AdvReac Type Severity Reaction Status Date / Time egg Allergy Severe anaphalaxis Verified 05/19/24 09:42 DUST Allergy Intermediate wheezing Uncoded 05/19/24 09:42 MILDEW Allergy Mild Wheezing Uncoded 05/19/24 09:42 MOLD Allergy Mild Wheezing Uncoded 05/19/24 09:42 SMOKE Allergy Mild Wheezing Uncoded 05/19/24 09:42 Review of Systems Review of Systems: All systems reviewed & are unremarkable except as noted in HPI and below Constitutional: Constitutional: Reports no additional constitutional complaints ENT: Reports as per HPI and Reports sore throat Cardiovascular: Cardiovascular: Reports no additional cardiovascular complaints, Denies chest pain and Denies dyspnea Respiratory: Respiratory: Reports as per HPI, Reports chest congestion, Reports cough and Denies dyspnea Gastrointestinal: Gastrointestinal: Reports no additional gastrointestinal complaints, Denies abdominal pain, Denies nausea and Denies vomiting Musculoskeletal: Musculoskeletal: Reports no additional musculoskeletal complaints Integumentary/Breasts: Skin/Breast: Reports system reviewed and no additional complaints, except as docu [facility] Past Medical History Medical History Allergies Asthma Attention deficit Back pain Cholecystectomy planned Depression DVT (deep venous thrombosis) Factor V Leiden Hypersomnolence Migraine Morbid obesity with BMI of 50.0-59.9, adult Surgical History Surgical History Gastric bypass status for obesity Hx of cholecystectomy Previous section 2008, 2012 Family History Family History Father Hypertension Diabetes mellitus Mother Hypertension Diabetes mellitus Other Breast cancer Social History Social History Social History: Caffeine-daily the patient is single and she has 2 children. She works at [employer]. code status full code Smoking packs per day: 0.5 Smoking cigarettes per day: 10.0 Years smoked: 5 Smoking pack-years: 2.50 Smoking status: Former smoker Tobacco type: cigarettes Second hand tobacco smoke exposure: Yes Smoking end date: 06/25/13 Alcohol intake: never Alcohol use details: rarely Substance use: never Substance use type: does not use Do You Feel Safe in your Home?: Yes Lack of Transportation: No Lack of Food: Never True Current Housing: I Have Housing Concerned About Future Housing: No Difficulty Paying Gas/Electric Bills: No Difficulty Paying for Meds: No Currently Unemployed: No Education: High School Diploma/GED Difficulty w/ Childcare or Family Care: No Gender identity (if verbalized by the patient): Female Spiritual care concerns: No Comments At the time of my signature, I reviewed and agree with the nursing past medical, surgical, social, and family history. There is no relevant family history pertinent to the patient complaint. Exam Const: General: cooperative, healthy appearing, comfortable, no acute distress, well developed, alert and well nourished Nutritional Appearance: well nourished Orientation/consciousness: patient oriented x3 Limitations: no limitations HENMT: Head: normal to inspection Ears: hearing grossly normal bilaterally, external ears normal, TM's normal bilaterally, EAC's normal, mastoids normal and no periauricular adenopathy Face/Nose/Sinus: Normal external nose present, normal facial exam and face symmetric Face and sinus: normal facial exam and face symmetric Mouth: Yes Normal oral and palatal mucosa present, Yes lip normal and Yes tongue normal Throat: uvula midline, postnasal drainage and no uvular edema Eyes: General: appearance normal, both eyes and all related structures Alignment and Position: alignment normal Periorbital: periorbital findings normal Neck: Neck: normal visual inspection, full ROM, no lymphadenopathy and no meningeal signs Chest: Chest palpation & inspection: normal inspection of the chest Resp: Effort & Inspection: normal respiratory effort and able to speak in co mplete sentences Auscultation: clear to auscultation bilaterally, no crackles, no rales, no rhonchi and wheezes expiratory wheezes and throughout Cardio: Rate: regular rate Skin: General skin exam: normal color and no rashes or lesions noted Lesions: no lesions Rashes: no rashes Wounds: no wounds Neuro: General: patient oriented x3, gait normal, tone normal, moves all extremities and no meningeal signs Cognition (Neuro): normal cognition Speech: normal speech Gait exam (Neuro): Normal gait present Extrem: General: normal to inspection, full ROM, capillary refill normal and normal gait Psych: Appearance: grossly normal and well kempt Mental Status: mental status grossly normal Speech and movement: Normal speech and movement present and Clear speech present Affect: normal affect Attitude: cooperative Course Course Level of Care: Express Care Visit Vital Signs Vital signs: Vital Signs Temperature 96.7 F L 05/19/24 09:15 Pulse Rate 103 H 05/19/24 09:15 Respiratory Rate 16 05/19/24 09:15 Blood Pressure 119/87 05/19/24 09:15 Pulse Oximetry 98 05/19/24 09:15 Oxygen Delivery Room Air 05/19/24 09:15 Temperature 96.7 F L 05/19/24 09:15 Pulse Rate 103 H 05/19/24 09:15 Respiratory Rate 16 05/19/24 09:15 Blood Pressure 119/87 05/19/24 09:15 Pulse Oximetry 98 05/19/24 09:15 Oxygen Delivery Room Air 05/19/24 09:15 Reviewed MDM - URI/Sore Throat MDM Narrative Medical decision making narrative: Patient sitting comfortably in exam room. Patient is nontoxic, vitals stable. Patient in no acute distress Patient presents with 2 day history of sore throat, cough Chest x-ray shows atelectasis pneumonia, will treat with antibiotic patient reports that she has enough albuterol at home to continue to use. Strep test is negative, culture sent Patient appropriate for outpatient treatment with follow-up. Strict signs and symptoms go the emergency room discussed with patient which she verbalized understand Discharge instructions reviewed with patient, as well as provided in writing per nursing staff. The instructions also include specific and strict return/GO TO THE ER as well as f/u information. All questions have been answered, and the patient deny any further questions with discharge and discharge plan. Some parts of this dictation were generated by voice recognition software and may contain typographical and/or grammatical inaccuracies. Differential Diagnosis Differential diagnosis: Likely upper respiratory infection, otitis media, sinusitis, viral infection, bronchitis, influenza and pharyngitis Lab Data Labs: Lab Results 05/19/24 Range/Units 10:23 POC Grp A Strep Screen Negative (Negative) Reviewed Imaging Data Radiologist's impression: EXAMINATION: XR chest 2V DATE: 05/19/2024 10:06 INDICATION: Cough and wheezing. TECHNIQUE: Frontal and lateral views of the chest were obtained. COMPARISON: Chest 2 views 04/07/2024, chest CT 03/10/2024 FINDINGS: There are airspace opacities in lingula. No pleural effusion or pneumothorax. The heart size is normal. Surgical clips in the right upper quadrant are likely from cholecystectomy. IMPRESSION: 1. Airspace opacities in lingula, consistent with atelectasis versus pneumonia. Critical Care Time Critical Care Time Critical Care Time: No Discharge Plan Discharge Clinical Impression: Pneumonia, Atelectasis Patient Disposition: Home, Self-Care Condition: Stable Instructions: Antibiotic Form, Pneumonia (ED), Atelectasis (ED) Additional Instructions: Your rapid strep swab was negative today at [facility]. A throat culture will be sent to the laboratory for further testing. If the test is positive, you will receive a phone call within 48 hours and an appropriate antibiotic will be initiated at that time. Your x-ray showed both pneumonia and atelectasis. Is important that you take 10 deep breaths every hour while awake. Unfortunately the cough from this can li nger for couple of weeks. It is very important to treat your symptoms. Drink Plenty of water, Gatorade, Pedialyte, ice pops or Jell-O. -Alternate Tylenol and Motrin per package directions for fever or pain. You can alternate every 4 hours -Antihistamine medication such as Benadryl at night and Zyrtec/Claritin/Vanessa during the day can help improve symptoms. -doing daily nasal irrigations can help relieve pressure your sinuses. Things like a Neti pot -Use Flonase twice a day for 5 days then daily to help reduce the inflammation and dry up your sinuses. -You can also use Mucinex. Be sure to drink plenty of water with this medication at least 8 ounces with every dose and it is important to drink 8 to 10 glasses of water per day. Water is a natural decongestant -Eat and drink things that are easy to swallow, like tea or soup, or popsicles. -Oral rinses such as: Salt water gargles and/or may use topical anesthetic (eg. Chloraseptic spray) or lozenges to relieve dryness or throat pain). -Frequent hand washing or hand coffee break attendant is one of the best ways to prevent spread of infection. -Using a vaporizer or humidifier at night will also help thin secretions and help with coughing up phlegm. -Follow up with primary care provider in 7-10 days if condition is not improving - For new or worsening symptoms go directly to the nearest ER Patient Language: Mohawk Prescriptions: New prednisone 20 mg tablet See Rx Instructions .Route .COMPLEX Qty: 9 0RF Rx Instructions: Take 40 mg daily for 3 days, 20 mg daily for 3 days doxycycline monohydrate 100 mg tablet 100 mg PO BID Qty: 14 0RF No Action Fasenra 30 mg/mL syringe 30 mg subcut .Q2mo Rx Instructions: Prescribed by Dr. Altamirano: Senior Corporate Strategy Manager omeprazole 20 mg capsule,delayed release(DR/EC) 20 mg PO DAILY ondansetron 4 mg tablet,disintegrating 4 mg PO Q8H PRN (Reason: nausea and vomiting) Qty: 20 2RF trazodone 100 mg tablet 100 mg PO HS multivitamin Tablet 1 tablet PO DAILY Qty: 30 0RF buspirone 10 mg tablet 20 mg PO TID Qty: 90 0RF aripiprazole [Abilify] 5 mg tablet 7.5 mg PO DAILY albuterol sulfate 90 mcg/actuation HFA aerosol inhaler 2 puff INHALATION Q4-6H PRN (Reason: shortness of breath or wheezing) Qty: 8.5 2RF epinephrine 0.3 mg/0.3 mL auto-injector 0.3 ml IM ONCE PRN (Reason: hypersensitivity reaction) Qelbree 100 mg capsule,extended release 24hr 400 mg PO DAILY Trelegy Ellipta 100-62.5-25 mcg blister with device 1 inh inhalation Q24H 30 Days Qty: 60 5RF Rx Instructions: rinse and spit after use vilazodone 40 mg tablet 40 mg PO DAILY cetirizine [Zyrtec] 10 mg Tablet 10 mg PO DAILY azelastine-fluticasone 137-50 mcg/spray spray,non-aerosol 1 spray intranasal BID PRN (Reason: Allergy Symptoms) prednisone 20 mg tablet 20 mg PO DAILY Qty: 5 0RF topiramate [Topamax] 25 mg tablet 25 mg PO BID Qty: 60 5RF sumatriptan succinate 50 mg tablet 50 mg PO DAILY PRN (Reason: Migraine Headache) Qty: 9 5RF Follow-up/Referrals: Heraclio [place] DO [Primary Care Provider] - 1 Week ([facility] follow-up) Stand Alone Forms: Work/School Release IP Time of Disposition: 10:39
[2024-05-19 10:25] LABS: EDSTREPNEGPOS1 Negative (Negative)
== END 2024-05-19 10:45 | disposition home or self-care (01) ==
PROVIDERS: Emergency Provider Nurse Practitioner; PCP Internal Medicine
DX: J18.9 Pneumonia, unspecified organism (principal); J98.11 Atelectasis; Z87.891 Personal history of nicotine dependence; J45.909 Unspecified asthma, uncomplicated; F32.A Depression, unspecified; Z86.718 Personal history of other venous thrombosis and embolism; D68.51 Activated protein C resistance; E66.01 Morbid (severe) obesity due to excess calories; Z68.35 Body mass index [BMI] 35.0-35.9, adult; Z98.84 Bariatric surgery status
CPT/HCPCS: 71046; 87081; 87880; 99213; G0463

== ENCOUNTER 2024-09-04 09:12 | Outpatient (CLI) | payer OTHER, SELFPAY ==
--- NOTE | ~2024-09-04 | XR_ITS ---
CHEST RADIOGRAPH, PA AND LATERAL CLINICAL HISTORY: J18.9 - Pneumonia, unspecified organism FOLLOW UP . COMPARISON: 05/19/2024 TECHNIQUE: PA and lateral views of the chest. FINDINGS The cardiomediastinal silhouette is unremarkable. Patchy opacification of the left lung base for which dense atelectasis versus an infiltrate is suspec salma. The remainder of the lungs are clear. IMPRESSION: Dense atelectasis versus infiltrate within the left lung base, as detailed above. This was not present on the April 2024 examination. Reviewed, dictated and finalized at location A. IMPRESSION: Dense atelectasis versus infiltrate within the left lung base, as detailed abov lety. This was not present on the April 2024 examination.
--- OUTSIDE RECORDS SUMMARY | 2024-09-04 10:21 | XMS_ITS ---
Author Organization [facility] Address [address] [place] [address] Care Team Providers Care Vice President Of Consulting Services Name Role Phone RadhaHeraclio jefferson Primary Care Provider Unavailab Mely Esquivel Unavailable [phone] REASON FOR VISIT RX Encounters Encounter Location Date Provider Diagnosis [address] [address] 07/08/2024 Mely Jay Plan Of Treatment Next Appt Details Provider Name:Mely hallman, 09/10/2024 08:15:00 AM, [address] [facility], [address], [address], Progress Notes * Sarai MOYERDOB:[birth year] (38 yo F)Acc No.[id number]:07/08/2024 Patient: Eder Sarai BACA :1985 A ge:38 Y S ex:Female Address:[address] [place] [address], [id number] * true * Date: Generated for Printi ng/Faxing/eTransmitting on: 0 09/04/2024 10:21 AM CDT
--- OUTSIDE RECORDS SUMMARY | 2024-09-04 10:21 | XMS_ITS ---
Author Organization [facility] Address [address] [place] [address] Care Team Providers Care Stock Letterer Name Role Phone Svetlanalui Heraclio Primary Care Provider Unavailab Mely Esquivel Unavailable [phone] Allergies No Known Allergies Results Component Value Reference Range Notes -Pneumococcal Ab (23 Serotyp e) Reviewed date:06/04/2024 04:13:38 PM Interpretation:Normal Performing Lab:[facility], [address] [place] [address], [facility] [address], [place] [id number], Phone - [phone], Director - PhDBCNeil Notes/Report: Pneumo Ab Type 1* 0.3 >1.3 ug/mL Pneumo Ab Type 3* 0.7 >1.3 ug/mL Pneumo Ab Type 4* 1.8 >1.3 ug/mL Pneumo Ab Type 8* 18.2 >1.3 ug/mL Pneumo Ab Type 9 (9N)* 11.2 >1.3 ug/mL Pneumo Ab Type 12 (12F)* 4.8 >1.3 ug/mL Pneumo Ab Type 14* 16.1 >1.3 ug/mL Pneumo Ab Type 17 (17F)* 2.0 >1.3 ug/mL Pneumo Ab Type 19 (19F)* 10.8 >1.3 ug/mL Pneumo Ab Type 2* 5.9 >1.3 ug/mL Pneumo Ab Type 20* 26.5 >1.3 ug/mL Pneumo Ab Type 22 (22F)* 6.8 >1.3 ug/mL Pneumo Ab Type 23 (23F)* 4.6 >1.3 ug/mL Pneumo Ab Type 26 (6B)* 5.1 >1.3 ug/mL Pneumo Ab Type 34 (10A)* 4.3 >1.3 ug/mL Pneumo Ab Type 43 (11A)* 1.5 >1.3 ug/mL Pneumo Ab Type 5* 1.3 >1.3 ug/mL Pneumo Ab Type 51 (7F)* 6.1 >1.3 ug/mL Pneumo Ab Type 54 (15B)* 25.5 >1.3 ug/mL Pneumo Ab Type 56 (18C)* 0.3 >1.3 ug/mL Pneumo Ab Type 57 (19A)* 2.0 >1.3 ug/mL Pneumo Ab Type 68 (9V)* 8.2 >1.3 ug/mL Pneumo Ab Type 70 (33F)* 8.7 >1.3 ug/mL *This test was developed and its performance characteristics determined by [facility]. It has not been cleared or approved by the U.S. Food and Drug Administration. FLAG Interpretation: A = Abnormal, H = High, L = Low REASON FOR VISIT Asthma follow-up - recent diagnosis of walking pneumonia Medications Medication SIG (Take, Route, Frequency, Duration) Notes Start Date End Date Status ASPIRIN 81 mg 1 tab(s) chewed once a day for 30 day(s) Not-Taking VYVANSE 60 mg 1 cap(s) orally once a day (in the morning) for 30 day(s) Not-Taking OMEPRAZOLE 20 mg 1 cap(s) orally once a day for 30 day(s) Not-Taking LISINOPRIL 5 mg 1 tab(s) orally once a day for 30 day(s) takes 15mg daily Not-Taking MOUNJARO 2.5 mg/0.5 mL as directed subcutaneously once a week Not-Taking TOPIRAMATE 25 mg 1 tab(s) orally 2 times a day for 30 day(s) Not-Taking ABILIFY 5 mg 1.5 tab(s) orally once a day for 30 days takes 7.5mg daily Not-Taking ZYRTEC 10 mg 1 tab(s) orally once a day Not-Taking ZYRTEC 10 mg 1 tab(s) orally once a day Not-Taking TRAZADONE 50MG 1 BY MOUTH AT BEDTIME 200mg nightly *Please review for potential replacement for e-prescription and drug interaction check* Not-Taking QELBREE 100 mg 1 cap(s) orally once a day 200 mg Not-Taking PRILOSEC Not-Taking TRELEGY ELLIPTA 200 mcg/62.5mcg/25mcg 1 puff inhaled once a day Not-Taking VIIBRYD 40 mg 1 tab(s) orally once a day for 8 week(s) Not-Taking BUSPIRONE 10 mg 1 tab(s) orally 2 times a day for 30 day(s) 20mg three times daily Not-Taking Abilify 5 MG 1.5 tab(s) orally once a day for 30 days takes 7.5mg daily Active Viibryd 40 MG 1 tab(s) orally once a day for 8 week(s) Active Dymista 137-50 MCG/ACT 1 spray(s) intranasally 2 times a day Active Topiramate 25 MG 1 tab(s) orally 2 times a day for 30 day(s) Active TRAZODONE 100 mg 1 by mouth at bedtime 200mg nightly Not-Taking Doxycycline Monohydrate 100 MG 1 capsule Orally Once a day Active ALBUTEROL (EQV-PROAIR HFA) 90 mcg/inh 2 puff(s) inhaled every 6 hours for 30 days Active FASENRA PREFILLED SYRINGE 30 mg/mL inject, as directed subcutaneously every 8 weeks for 365 days Active predniSONE 20 MG 1 tablet Orally Once a day Active Trelegy Ellipta 200-62.5-25 MCG/ACT 1 puff Inhalation Once a day Active Mounjaro 2.5 MG/0.5 ML DIRECTED SUBCUTANEOUSLY ONCE A WEEK *Please review and pick correct strength-formula tion from [employer] options. If intended option is not shown, discontinue and re-order from Quick Search* Not-Taking TRELEGY ELLIPTA 200 mcg/62.5mcg/25mcg 1 puff inhaled once a day Active CETIRIZINE HYDROCHLORIDE 10 mg 1 tab(s) orally once a day Active DYMISTA 137 mcg-50 mcg/inh 1 spray(s) intranasally 2 times a day Active EPINEPHRINE AUTO-INJECTOR 0.3 mg as directed intramuscularly once for 1 days Active Aspirin 81 MG 1 tab(s) chewed once a day for 30 day(s) Not-Taking ZyrTEC Allergy 10 MG 1 tab(s) orally once a day Not-Taking Omeprazole 20 MG 1 cap(s) orally once a day for 30 day(s) Not-Taking Lisinopril 5 MG 1 tab(s) orally once a day for 30 day(s) takes 15mg daily Not-Taking Vyvanse 60 MG 1 cap(s) orally once a day (in the morning) for 30 day(s) Not-Taking EPINEPHRINE AUTO-INJECTOR 0.3 MG DIRECTED INTRAMUSCULARLY ONCE for 1 DAY *Please review for potential replacement for e-prescription and drug interaction check* Not-Taking traZODone HCl 100 MG 1 by mouth at bedtime 200mg nightly Not-Taking Social History Tobacco Use: Social History Observation Description Date Details (start date - stop date) Never Smoker NA - NA Smoking Smart Form: Question Answer Notes Are you a: former smoker Tobacco Control (Standard) Question Answer Notes Tobacco use: Nonsmoker Vital Signs Blood pressure systolic 132 mm Hg 05/21/20 24 Blood pressure diastolic 89 mm Hg 024 Height 63 in 05/21/2024 Weight 197.4 lbs 05/21/2024 BMI 34.96 kg/m2 05/21/2024 Oximetry 99 % 05/21/2024 Encounters Encounter Location Date Provider Diagnosis [facility] [address] [place] [id number] 05/21/2024 Mely Jay Allergic rhinitis du e to pollen J30.1 ; Severe persistent asthma, uncomplicated J45.50 ; 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 Accordingly, we have introduced a new, aggressive medication regimen, discussed nasal washes and allergy-specific avoidance measures. We also discussed adjunctive therapies including subcutaneous, specific allergen immunotherapy as relates to the treatment and prevention of atopic disease. Recommend mold intradermal testing before starting immunotherapy in the future. 05/21/2024 Severe persistent asthma, uncomplicated (ICD-10 - J45.50) Spirometry earlier this year showed obstruction with FEV1 74%. ACT 22. Due to continued symptoms and use of prednisone 2-3 times a year despite high dose therapy with Trelegy and albuterol, started Fasenra. IgE 727, AEC 300, PFTs normal in 2021. Immunodeficiency evaluation was normal, but needs pneumococcal titers rechecked. Consider switching biologics since two recent episodes of pneumonia. 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 If symptoms persist, consider adding additional medications including intraocular antihistamine/mast cell stabilizer, PRN 05/21/2024 Allergy to eggs (ICD-10 - Z91.012) History of asthma flares with exposure to lightly cooked egg products. Skin testing to egg negative at her initial visit. We discussed having EpiPen available at all times given history. 05/21/2024 Other pneumonia, unspecified organism (ICD-10 - J18.8) 05/21/2024 Other Plan Of Treatment Medication Medication Name Sig Start Date Stop Date Notes ALBUTEROL (EQV-PROAIR HFA) 90 mcg/inh 2 puff(s) inhaled every 6 hours for 30 days FASENRA PREFILLED SYRINGE 30 mg/mL inject, as directed subcutaneously every 8 weeks for 365 days TRELEGY ELLIPTA 200 mcg/62.5mcg/25mcg 1 puff inhaled once a day CETIRIZINE HYDROCHLORIDE 10 mg 1 tab(s) orally once a day DYMISTA 137 mcg-50 mcg/inh 1 spray(s) in tranasally 2 times a day EPINEPHRINE AUTO-INJECTOR 0.3 mg as directed intramuscularly once for 1 days Treatment Notes Assessment Notes Allergic rhinitis due to pollen Sarai clearly suffers from atopic disease based upon our skin testing and clinical history. Accordingly, we have introduced a new, aggressive medication regimen, discussed nasal washes and allergy-specific avoidance measures. We also discussed adjunctive therapies including subcutaneous, specific allergen immunotherapy as relates to the treatment and prevention of atopic disease. Recommend mold intradermal testing before starting immunotherapy in the future. Severe persistent asthma, uncomplicated Spirometry earlier this year showed obstruction with FEV1 74%. ACT 22. Due to continued symptoms and use of prednisone 2-3 times a year despite high dose therapy with Trelegy and albuterol, started Fasenra. IgE 727, AEC 300, PFTs normal in 2021. Immunodeficiency evaluation was normal, but needs pneumococcal titers rechecked. Consider switching biologics since two recent episodes of pneumonia. 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 The patient has had inadequate control of asthma symptoms after a minimum of 3 months of compliant use of inhaled corticosteriods and long-acting beta2-agonist or inhaled corticosteroids The patient has had an eosinophil count in the past 90 days or 12 months as documented in this medical record, Other chronic allergic conjunctivitis Gi tanner ocular signs and symptoms I encouraged allergy avoidance measures and meds as above. If symptoms persist, consider adding additional medications including intraocular antihistamine/mast cell stabilizer, PRN Allergy to eggs History of asthma fl rambo with exposure to lightly cooked egg products. Skin testing to egg negative at her initial visit. We discussed having EpiPen available at all times given history. Next Appt Details Follow Up: 8 weeks, Reason: Fasenra,Spirometry/Flow Volume Loop Provider Name:Mely hallman, 09/10/2024 08:15:00 AM, [address] [employer], [address], [address], Procedure Notes * Category Sub-Category Detail Notes FASENRA (benralizumab) Administration Dosage Subcutaneous administration: : 30 mg (30 units) Frequency Interval: every 4 weeks x 3 Location Arm: Left upper Dosing Time / Lot Number / Expiration Ti me of administration; Nallely Henry 05/21/2024 08:54 AM [employer] >; Lot Number: [id number]; Expiration Date03/2026 Reaction Local: None Post-procedural check-out: Vitals taken 30 minutes after dosing administration: BP: , P: , O2: Medication Source FASENRA Source: Spec ialty Pharmacy (Insurance-provided) Medical necessity for in-off ice administration: The patient or caregiver is not suitable , not competent or is physically unable to administer the FASENRA product FDA-labeled for self-administration for the following reason(s):: patient or caregiver needs initial training on device Progress Notes * Sarai MOYERDOB:[birth year] (38 yo F)Acc No.[id number]:05/21/2024 FASENRA 2 Patient: Sarai SPENCER Provider: Angel Jay MD :[id number] A ge:38 Y S ex:Female Date:05/21/2024 Address:[address] [place], [place] [id number] Pcp:Heraclio [place] Subjective: * Chief Complaints: * A sthma follow-up - recent diagnosis of walking pneumonia * HPI: * Introduction: I had the pleasure of seeing Angel Moyer, a 38 year old with Factor V Leiden deficiency, Asthma, egg allergy and depression presenting for f/u evaluation of asthma. She was last evaluated 03-26-2024. She was evaluated in urgent care and diagnosed with walking pneumonia. She is currently taking doxycycline and prednisone. She was also hospitalized at [facility] February [address] pneumonia. CXR and CT confirmed pneumonia per her report. She continues Fasenra, Trelegy and prn albuterol. She was also diagnosed with pneumonia in September [address] chest for left sided pain. She did not require steroids. She has received Prevnar. Prior to starting Fasenra, she was treated with s teroids 2-3 times a year for asthma. She follows with Dr. Key and recommended immunotherapy or a biologic to help with asthma control.? S he was diagnosed with asthma at 18 months of age. P FTs were performed in 2021 and normal per her normal. She has a history of constant congestion and rhinorrhea which is occurring throughout the year without regard to season. No decrease in sense of smell. Drainage is clear. S he has cats at home which sleep in her bedroom. Skin testing at a young age showed sensitivity to egg, dust mite, and pollen. She eats baked egg products, but avoids scrambled and raw egg products. She developed wheezing after eating funnel cake and raw egg touching her skin causes a rash. Today, she reports no fevers, chills, night sweats or other constitutional symptoms,. * ROS: A LLERGY: Positive p er the HPI and history, otherwise unremarkable.? S PECIAL SENSES: Positve for n one. C ONSTITUTIONAL: Positive for n one. E NT: Positive p er the HPI and history, otherwise unremarkable.? R ESPIRATORY: Positive p er the HPI and history, otherwise unremakable.? O PHTHALMOLOGY: Positive for p er the HPI and history, otherwise unremarkable. E NDOCRINOLOGY: Positive for n one. C ARDIOLOGY: Positive for n one. G ASTROENTEROLOGY: Positive for n one. U ROLOGY: Positive for n one. D ERMATOLOGY: Positive for p er the HPI and history, otherwise unremakable. N EUROLOGY: Positive for n one. H EMATOLOGY/LYMPH: Positive for n one. M USCULOSKELETAL: Positive for n one. P SYCHOLOGY: Positive for n one. A ll other review of systems per the HPI and history, otherwise unremarkable. * Medical History: * Surgical History: C section 2013Csection 2006cholecystectomy 2013gastric bypass 06/06/23 * Hospitalization/Major Diagno stic Procedure: A sthma 1986pneumonia 3pneumonia 02/2024 * Family History: F ather: alive, diagnosed with Diabetes, Hypertension. M other: alive, diagnosed with Diabetes, Hypertension. Mom and Dad Hypercholesterolemia Mom has COPD. * Social History: M arital Status What is your marital status? d ivorced A lcohol Screening Do you ever drink alcoholic beverages? N o S moking Are you a : n ever smoker S moking Smart Form Are you a: f ormer smoker R ecreational drug use Have you ever used recreational drugs? Y es What kind of drugs? m arijuana,cocaine D etails on consumption of certain products? Do you regularly consume products with aspartame; Equal or NutraSweet? N o Do you regularly consume products with artificial coloring??Yes Have you ever noticed worsening of your rash with these food items? N o E xercise What kind(s) of exercise do you perform regularly? w alking How often do you perform this exercise? m onthly A re any of the following personal care products containing fragrance, dye or preservatives used regularly? Shampoo: Y es Conditioner: N o Soap: Y es Laundry Detergent: Y es Fabric Softener: Y es Deodorant: Y es Perfume, cologne, after shave: Y es Air freshners or other scented products: Y es Hair coloring dyes or rinses: Y es Other: N o O ccupation Are you currenly employed? Y es Employment status? 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 number of years?2 Do you believe that your current or previous occupation has any bearing on your illness? N o How much work have you missed due to breathing difficulty within the past year? 1 or 2 days Do you have any pending or planned legal action against your current or former employer which pertains to your medical illness? N o Do you anticipate that your evaluation will be used in any legal action against your current employer or former employer? N o Have you had any job with high exposure to fumes, chemicals, dust or other noxious substances? N o Are you currently a student? N o E nvironmental History Living environment: p rivate home Where is the home located? [place] Age of home: 4 0 How long have you lived there? 2 -4 years How many people live in the home? 3 H ome description Basement: N o Any water damage in basement? N o Smokers in the home? N o Smokers outside the home? N o Air Conditioning? Y es Central Air? Y es Forced air heating? Y es Gas or electric? e lectric Fireplace? N o Wood burning stove? N o Do you vacuum the home? Y es Air purification systems? N o Pillow and mattress dust-proof encasings? N o Do you use a humidifier? N o Do you own any pets? Y es What kind(s)? (click all that apply) c ats Where do your pets sleep? a nywhere in the house Fabric softeners used? Y es Plants in the home? N o Is there carpeting in your bedroom? Y es Age of carpet? 5 Do you have xjmh-op-bryc carpeting? N o What is the age of your mattress (years)? 3 What material(s) are used to manufacture your bedding and pillow? s ynthetic What is the age of your pillow (years)? 2 What material are your bedding items made of? s ynthetic Do you sleep with quilts or blankets or a duvet? Y es What material? n atural fiber (e.g. cotton) How many cats? 2 T obacco Control (Standard) Tobacco use: N onsmoker * Medications: T akingTrelegy Ellipta 200-62.5-25 MCG/ACT Aerosol Powder Breath Activated 1 puff Inhalation Once a day predniSONE 20 MG Tablet 1 tablet Orally Once a day Doxycycline Monohydrate 100 MG Capsule 1 capsule Orally Once a day Dymista 137-50 MCG/ACT Suspension 1 spray(s) intranasally 2 times a day Viibryd 40 MG Tablet 1 tab(s) orally once a day Abilify 5 MG Tablet 1.5 tab(s) orally once a day , Notes to Pharmacist: takes 7.5mg dailyTopiramate 25 MG Tablet 1 tab(s) orally 2 times a day Taking Trelegy Ellipta 200-62.5-25 MCG/ACT Aerosol Powder Breath Activated 1 puff Inhalation Once a day Taking predniSONE 20 MG Tablet 1 tablet Orally Once a day Taking Doxycycline Monohydrate 100 MG Capsule 1 capsule Orally Once a day Taking Dymista 137-50 MCG/ACT Suspension 1 spray(s) intranasally 2 times a day Taking Viibryd 40 MG Tablet 1 tab(s) orally once a day Taking Abilify 5 MG Tablet 1.5 tab(s) orally once a day , Notes to Pharmacist: takes 7.5mg dailyTaking Topiramate 25 MG Tablet 1 tab(s) orally 2 times a day Not-Taking/PRNEPINEPHRINE AUTO-INJECTOR 0.3 mg kit as directed intramuscularly once DYMISTA 137 mcg-50 mcg/inh spray 1 spray(s) intranasally 2 times a day CETIRIZINE HYDROCHLORIDE 10 mg tablet 1 tab(s) orally once a day TRELEGY ELLIPTA 200 mcg/62.5mcg/25mcg powder 1 puff inhaled once a day FASENRA PREFILLED SYRINGE 30 mg/mL solution inject, as directed subcutaneously every 8 weeks ALBUTEROL (EQV-PROAIR HFA) 90 mcg/inh aerosol 2 puff(s) inhaled every 6 hours TRAZODONE 100 mg tablet 1 by mouth at bedtime , Notes to Pharmacist: 200mg nightlyTRELEGY ELLIPTA 200 mcg/62.5mcg/25mcg powder 1 puff inhaled once a day PRILOSEC QELBREE 100 mg capsule, extended release 1 cap(s) orally once a day 200 mgBUSPIRONE 10 mg tablet 1 tab(s) orally 2 times a day , Notes to Pharmacist: 20mg three times dailyVIIBRYD 40 mg tablet 1 tab(s) orally once a day ABILIFY 5 mg tablet 1.5 tab(s) orally once a day , Notes to Pharmacist: takes 7.5mg dailyTOPIRAMATE 25 mg tablet 1 tab(s) orally 2 times a day TRAZADONE 50MG 1 BY MOUTH AT BEDTIME , Notes to Pharmacist: 200mg nightly *Please review for potential replacement for e-prescription and drug interaction check*ZYRTEC 10 mg tablet 1 tab(s) orally once a day ZYRTEC 10 mg tablet 1 tab(s) orally once a day LISINOPRIL 5 mg tablet 1 tab(s) orally once a day , Notes to Pharmacist: takes 15mg dailyOMEPRAZOLE 20 mg delayed release capsule 1 cap(s) orally once a day VYVANSE 60 mg capsule 1 cap(s) orally once a day (in the morning) ASPIRIN 81 mg tablet, chewable 1 tab(s) chewed once a day MOUNJARO 2.5 mg/0.5 mL solution as directed subcutaneously once a week traZODone HCl 100 MG Tablet 1 by mouth at bedtime , Notes to Pharmacist: 200mg nightlyEPINEPHRINE AUTO-INJECTOR 0.3 MG KIT DIRECTED INTRAMUSCULARLY ONCE , Notes to Pharmacist: *Please review for potential replacement for e-prescription and drug interaction check*ZyrTEC Allergy 10 MG Tablet 1 tab(s) orally once a day Lisinopril 5 MG Tablet 1 tab(s) orally once a day , Notes to Pharmacist: takes 15mg dailyOmeprazole 20 MG Capsule Delayed Release 1 cap(s) orally once a day Vyvanse 60 MG Capsule 1 cap(s) orally once a day (in the morning) Aspirin 81 MG Tablet Chewable 1 tab(s) chewed once a day Mounjaro 2.5 MG/0.5 ML SOLUTION DIRECTED SUBCUTANEOUSLY ONCE A WEEK , Notes to Pharmacist: *Please review and pick correct strength-formulation from [facility] options. If intended option is not shown, discontinue and re-order from Quick Search*Medication List reviewed and reconciled with the patientNot-Taking/PRN EPINEPHRINE AUTO-INJECTOR 0.3 mg kit as directed intramuscularly once Not-Taking/PRN DYMISTA 137 mcg-50 mcg/inh spray 1 spray(s) intranasally 2 times a day Not-Taking/PRN CETIRIZINE HYDROCHLORIDE 10 mg tablet 1 tab(s) orally once a day Not-Taking/PRN TRELEGY ELLIPTA 200 mcg/62.5mcg/25mcg powder 1 puff inhaled once a day Not-Taking/PRN FASENRA PREFILLED SYRINGE 30 mg/mL solution inject, as directed subcutaneously every 8 weeks Not-Taking/PRN ALBUTEROL (EQV- PROAIR HFA) 90 mcg/inh aerosol 2 puff(s) inhaled every 6 hours Not-Taking/PRN TRAZODONE 100 mg tablet 1 by mouth at bedtime , Notes to Pharmacist: 200mg nightlyNot- Taking/PRN TRELEGY ELLIPTA 200 mcg/62.5mcg/25mcg powder 1 puff inhaled once a day Not- Taking/PRN PRILOSEC Not-Taking/PRN QELBREE 100 mg capsule, extended release 1 cap(s) orally once a day 200 mgNot-Taking/PRN BUSPIRONE 10 mg tablet 1 tab(s) orally 2 times a day , Notes to Pharmacist: 20mg three times dailyNot-Taking/PRN VIIBRYD 40 mg tablet 1 tab(s) orally once a day Not-Taking/PRN ABILIFY 5 mg tablet 1.5 tab(s) orally once a day , Notes to Pharmacist: takes 7.5mg dailyNot-Taking/PRN TOPIRAMATE 25 mg tablet 1 tab(s) orally 2 times a day Not-Taking/PRN TRAZADONE 50MG 1 BY MOUTH AT BEDTIME , Notes to Pharmacist: 200mg nightly *Please review for potential replacement for e-prescription and drug interaction check*Not-Taking/PRN ZYRTEC 10 mg tablet 1 tab(s) orally once a day Not-Taking/PRN ZYRTEC 10 mg tablet 1 tab(s) orally once a day Not-Taking/PRN LISINOPRIL 5 mg tablet 1 tab(s) orally once a day , Notes to Pharmacist: takes 15mg dailyNot-Taking/PRN OMEPRAZOLE 20 mg delayed release capsule 1 cap(s) orally once a day Not-Taking/PRN VYVANSE 60 mg capsule 1 cap(s) orally once a day (in the morning) Not-Taking/PRN ASPIRIN 81 mg tablet, chewable 1 tab(s) chewed once a day Not-Taking/PRN MOUNJARO 2.5 mg/0.5 mL solution as directed subcutaneously once a week Not-Taking/PRN traZODone HCl 100 MG Tablet 1 by mouth at bedtime , Notes to Pharmacist: 200mg nightlyNot-Taking/PRN EPINEPHRINE AUTO-INJECTOR 0.3 MG KIT DIRECTED INTRAMUSCULARLY ONCE , Notes to Pharmacist: *Please review for potential replacement for e-prescription and drug interaction check*Not-Taking/PRN ZyrTEC Allergy 10 MG Tablet 1 tab(s) orally once a day Not-Taking/PRN Lisinopril 5 MG Tablet 1 tab(s) orally once a day , Notes to Pharmacist: takes 15mg dailyNot-Taking/PRN Omeprazole 20 MG Capsule Delayed Release 1 cap(s) orally once a day Not- Taking/PRN Vyvanse 60 MG Capsule 1 cap(s) orally once a day (in the morning) Not-Taking/PRN Aspirin 81 MG Tablet Chewable 1 tab(s) chewed once a day Not-Taking/PRN Mounjaro 2.5 MG/0.5 ML SOLUTION DIRECTED SUBCUTANEOUSLY ONCE A WEEK , Notes to Pharmacist: *Please review and pick correct strength-formulation from [employer] options. If intended option is not shown, discontinue and re-order from Quick Search*Medication List reviewed and reconciled with the patient * Allergies: N .K.D.A.no[Allergies Verified] Objective: * Vitals: B P:132/89mm Hg, HR:94/min, Pulse Oximetry:99%, ACT:22, Ht: 63 in, Wt: 197.4 lbs, BMI:34.96Index. * Examination: G eneral examination: General appearance: p leasant, well-developed, well-nourished. HEENT: c onjunctiva are clear bilaterally, no tenderness to palpation of the sinuses, TM's without evidence of acute infection, turbinates with pink mucosa, clear rhinorrhea is present, no polyps noted, no septal perforation, posterior oropharynx is clear, no exudates, no tongue swelling, and uvula is midline. Oral cavity: n ormal, no lesions. Neck, thyroid : s upple, non-tender, no anterior cervical lymphadenopathy. Breasts : n ot performed. Heart: R RR, S1-S2, no murmurs, no rubs, no gallops. Lungs: c lear to auscultation and percussion in all lung ruiz, no wheezes or crackles. Neurologic exam: u nremarkable. Skin: n ormal, no rash, dermatographism, urticaria, angioedema. Peripheral pulses: n ormal (2+) bilaterally. Back: n ormal. Extremities: n ormal ROM, no clubbing, no cyanosis, no edema. Genitalia: n ot performed. Assessment: * Assessment: 1. S evere persistent asthma, uncomplicated - J45.50 (Primary) 2 . A llergic rhinitis due to pollen - J30.1 3 . 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 A llergic rhinitis due to animal (cat) (dog) hair and dander - J30.81 5 . Other allergic rhinitis - J30.89 6 . O ther chronic allergic conjunctivitis - H10.45 7 . A llergy to eggs - Z91.012 8 . O ther pneumonia, unspecified organism - J18.8 Plan: * Treatment: 2. A llergic rhinitis due to pollen Continue DYMISTA spray, 137 mcg-50 mcg/inh, 1 spray(s), intranasally, 2 times a day; C ontinue CETIRIZINE HYDROCHLORIDE tablet, 10 mg, 1 tab(s), orally, once a day. Notes: Sraai clearly suffers from atopic disease based upon our skin testing and clinical history. Accordingly, we have introduced a new, aggressive medication regimen, discussed nasal washes and allergy-specific avoidance measures. We also discussed adjunctive therapies including subcutaneous, specific allergen immunotherapy as relates to the treatment and prevention of atopic disease. Recommend mold intradermal testing before starting immunotherapy in the future. 3. O ther chronic allergic conjunctivitis Notes: Given ocular signs and symptoms I encouraged allergy avoidance measures and meds as above. If symptoms persist, consider adding additional medications including intraocular antihistamine/mast cell stabilizer, PRN 4. A llergy to eggs Continue EPINEPHRINE AUTO-INJECTOR kit, 0.3 mg, as directed, intramuscularly, once, 1 days, 1, Refills 0. Notes: History of asthma flares with exposure to lightly cooked egg products. Skin testing to egg negative at her initial visit. We discussed having EpiPen available at all times given history. 5. 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 Reaction L ocal N one Post-procedural check-out: V itals taken 30 minutes after dosing administration: BP: , P: , O2: . Medication Source F ASENRA [facility] (Insurance-provided) Medical necessity for in-office machines sales representative: T he patient or caregiver is not suitable, not competent or is physically unable to administer the FASENRA product FDA-labeled for self-administration for the following reason(s): p atient or caregiver needs initial training on device * Procedure Codes: 9 6160 PT-FOCUSED HLTH RISK [id number] DOC MEDS VERIFIED W/PT OR [id number] CHEMO, ANTI-NEOPL, SQ/IM * Preventive Medicine: Counseling: M edication instruction: W atch for side effects of prescribed medications, Nasal steroid/antihistamine instruction: avoid septum. E ducation: G ENERAL EDUCATION: Our staff spent an additional 30 minutes in direct contact with the patient educating them on their current diagnoses and proper treatment and prevention of symptoms and the proper use of medications. E ducation 2: A RC EDUCATION: Our staff discussed the appropriate allergen avoidance measures and medication utilization including upper airway hygiene with daily nasal washes given the patient's clinical status and diagnoses.. P atient education material sent to portal? Y es C are goal follow up plan BMI management provided Y es Exercise Counseling Provided- Y es Nutrition/Dietary Counseling provided?Yes Above Normal BMI Follow-up D ietary management education, guidance, and counseling B P Management: FIRST HYPERTENSIVE BP READING FOLLOW-UP PLAN: F ollow-up 1 month REFERRAL TO ALTERNATIVE / PRIMARY CARE PROVIDER: Shelbi batesal to general physician * Follow Up: 8 weeks (Reason: Fasenra,Spirometry/Flow Volume Loop) * Billing Information: * Visit Code: 79526 Office Visit, Est Pt., Level 4. Modifiers: 25 * Procedure Codes: 80888 PT-FOCUSED HLTH RISK ASSMT. G8427 DOC MEDS VERIFIED W/[place]. [address] CHEMO, ANTI-NEOPL, SQ/IM. * D WASTE ENGINEER Sign off status: Completed true * Provider: Angel Jay MD Date: 1 07/21/2023 Generated for Printi ng/Falinhg/eTransmitting on: 0 09/04/2024 10:21 AM CDT History and Physical Notes * HPI (History of Present Illness) Category Sub-Category Detail Notes Category Not es *Introduction I had the pleasure o f seeing Sarai Moyer, a 38 year old with Factor V Leiden deficiency, Asthma, egg allergy and depression presenting for f/u evaluation of asthma. She was last evaluated 03-26-2024. She was evaluated in urgent care and diagnosed with walking pneumonia. She is currently taking doxycycline and prednisone. She was also hospitalized at [facility] February [address] for pneumonia. CXR and CT confirmed pneumonia per her report. She continues Fasenra, Trelegy and prn albuterol. She was also diagnosed with pneumonia in September [address] chest for left sided pain. She did not require steroids. She has received Prevnar. Prior to starting Fasenra, she was treated with steroids 2-3 times a year for asthma. She follows with Dr. Key and recommended immunotherapy or a biologic to help with asthma control. She was diagnosed with asthma at 18 months of age. PFTs were performed in 2021 and normal per her normal. She has a history of constant congestion and rhinorrhea which is occurring throughout the year without regard to season. No decrease in sense of smell. Drainage is clear. She has cats at home which sleep in her bedroom. Skin testing at a young age showed sensitivity to egg, dust mite, and pollen. She eats baked egg products, but avoids scrambled and raw egg products. She developed wheezing after eating funnel cake and raw egg touching her skin causes a rash. Today, she reports no fevers, chills, night sweats or other constitutional symptoms, Examination Category Sub-Category Detail Notes Category Not es General examination HEENT: conjunctiva are clear bilaterally, no tenderness to palpation of the sinuses, TM's without evidence of acute infection, turbinates with pink mucosa, clear rhinorrhea is present, no polyps noted, no septal perforation, posterior oropharynx is clear, no exudates, no tongue swelling, and uvula is midline Neck, thyroid : supple, non-tender, no anterior cervical lymphadenopathy Heart: RRR, S1-S2, no murmu rs, no rubs, no gallops Lungs: clear to auscultatio n and percussion in all lung ruiz, no wheezes or crackles Abdomen: Extremities: normal ROM, no clubb ing, no cyanosis, no edema General appearance: pleasant, well-devel oped, well-nourished Skin: normal, no rash, av matographism, urticaria, angioedema Neurologic exam: unremarkable Oral cavity: normal, no lesions Breasts : not performed Peripheral pulses: normal (2+) bilatera lly Back: normal Genitalia: not performed
--- OUTSIDE RECORDS SUMMARY | 2024-09-04 10:21 | XMS_ITS ---
Author Organization [facility] Address [address] [place] [address] Care Team Providers Care Environmental Engineering Technician Name Role Phone Heraclio Cleveland DO Primary Care Provider Edith Barrios Unavailable [phone] Allergies Allergen (clinical drug ingredient) Drug/Non Drug Allergy documented on EMR Reaction Allergy Type Onset Date Status Eggs or Egg-derived Products Unknown Drug Allergy Active REASON FOR VISIT Follow-up for medication management Medications Medication SIG (Take, Route, Frequency, Duration) Notes Start Date End Date Status Albuterol Sulfate HFA 108 (90 Base) MCG/ACT INHALE 2 PUFFS BY MOUTH EVERY 6 HOURS FOR 30 DAYS Inhalation for 25 Days Active SUMAtriptan Succinate 50 MG Oral for 30 Days Active Topiramate 25 MG Oral for 30 Days Active Trelegy Ellipta 200-62.5-25 MCG/ACT Inhalation for 30 Days Active Fasenra 30 MG/ML Subcutaneous for 30 Days Active Amphetamine-Dextroamphet ER 10 MG 1 capsule in the morning Orally Once a day for 30 days 08/04/2024 Active Vilazodone HCl 40 MG 1 tablet with food Oral Once a day Active traZODone HCl 100 MG 2 tablet at bedtime Oral Once a day As needed Active Ondansetron 4 MG DISSOLVE 1 TABLET IN MOUTH EVERY 8 HOURS NEEDED FOR NAUSEA AND VOMITING Oral for 6 Days Active Modafinil 100 MG 1 tablet in the morn ing Orally Once a day Active busPIRone HCl 10 MG 2 tablets Oral three times a day Active ARIPiprazole 5 MG 1 tablet Oral Once a day for 30 days Active Social History Tobacco Use: Social History Observation Description Date Details (start date - stop date) Former Smoker 11/24/2003 - 11/23/2009 Sex Assigned At : Social History Observation Description Sex Assigned At Female Tobacco Control (Standard) Question Answer Notes Tobacco use: Former smoker When did you start smoking? 11/24/2003 When did you stop smoking? 11/23/2009 How long has it been since you last smoked? Grea ter than 10 years AUDIT-C (Standard) Question Answer Notes Did you have a drink contain ing alcohol in the past year? Yes How often did you have six o r more drinks on one occasion in the past year? Never (0 point) How many drinks did you have on a typical day when you were drinking in the past year? 1 or 2 drinks (0 point) How often did you have a dri nk containing alcohol in the past year? Monthly or less (1 point) Section Notes: Lives in [place] with 2 kids. Grew up in [place], has 1 sister. 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 Vital Signs Blood pressure systolic 109 mm Hg 08/04/19 25 Blood pressure diastolic 75 mm Hg 025 Heart Rate 81 /min 08/04/2024 Height 63 in 08/04/2024 Weight 182 lbs 08/04/2024 BMI 32.24 kg/m2 08/04/2024 Height-cm 160.02 cm 08/04/2024 Weight-kg 82.55 kg 08/04/2024 Encounters Encounter Location Date Provider Diagnosis [facility] [address] [address] 08/04/2024 Edith Molina Major depressive disorder, recurrent, mild F33.0 ; Attention-deficit hyperactivity disorder, combined type F90.2 ; Generalized anxiety disorder F41.1 ; Panic attacks F41.0 ; Chronic fatigue syndrome G93.32 and Chronic insomnia F51.04 Assessments Encounter Date Diagnosis (ICD Code) Assessment Notes Treatment Notes Treatment Clinical Notes Section Notes 08/04/2024 Major depressive disorder, recurrent, mild (ICD-10 - F33.0) Depression - Reports mood has iproved since last visit, content with current medication regimen Plan: - Continue Abilify 5 mg daily - Cont Vilazodone 40 mg daily ADHD - Stable Plan: - Cont Adderall XR 10 mg daily Anxiety - Good control with occasional anxiety but manageable, no panic attacks Plan: - Continue buspirone 10 mg twice a day - Cont other current medications as discussed Insomnia - Difficulty staying asleep, trazodone helpful Plan: - Continue trazodone 100 mg at bedtime for sleep Chronic Fatigue - Improved slightly, has pulmonology appointment next month - Alarm Installation Technician encouraged continuing Adderall with modafinil Plan: - Continue treatment plan with auto appraiser Follow-up in 2 months, sooner if concerns arise 08/04/2024 Attention-deficit hyperactivity disorder, combined type (ICD-10 - F90.2) Depression - Reports mood has iproved since last visit, content with current medication regimen Plan: - Continue Abilify 5 mg daily - Cont Vilazodone 40 mg daily ADHD - Stable Plan: - Cont Adderall XR 10 mg daily Anxiety - Good control with occasional anxiety but manageable, no panic attacks Plan: - Continue buspirone 10 mg twice a day - Cont other current medications as discussed Insomnia - Difficulty staying asleep, trazodone helpful Plan: - Continue trazodone 100 mg at bedtime for sleep Chronic Fatigue - Improved slightly, has pulmonology appointment next month - Alarm Installation Technician encouraged continuing Adderall with modafinil Plan: - Continue treatment plan with auto appraiser Follow-up in 2 months, sooner if concerns arise 08/04/2024 Generalized anxiety disorder (ICD-10 - F41.1) Depression - Reports mood has iproved since last visit, content with current medication regimen Plan: - Continue Abilify 5 mg daily - Cont Vilazodone 40 mg daily ADHD - Stable Plan: - Cont Adderall XR 10 mg daily Anxiety - Good control with occasional anxiety but manageable, no panic attacks Plan: - Continue buspirone 10 mg twice a day - Cont other current medications as discussed Insomnia - Difficulty staying asleep, trazodone helpful Plan: - Continue trazodone 100 mg at bedtime for sleep Chronic Fatigue - Improved slightly, has pulmonology appointment next month - Alarm Installation Technician encouraged continuing Adderall with modafinil Plan: - Continue treatment plan with auto appraiser Follow-up in 2 months, sooner if concerns arise 08/04/2024 Panic attacks (ICD-10 - F41.0) Depression - Reports mood has iproved since last visit, content with current medication regimen Plan: - Continue Abilify 5 mg daily - Cont Vilazodone 40 mg daily ADHD - Stable Plan: - Cont Adderall XR 10 mg daily Anxiety - Good control with occasional anxiety but manageable, no panic attacks Plan: - Continue buspirone 10 mg twice a day - Cont other current medications as discussed Insomnia - Difficulty staying asleep, trazodone helpful Plan: - Continue trazodone 100 mg at bedtime for sleep Chronic Fatigue - Improved slightly, has pulmonology appointment next month - Alarm Installation Technician encouraged continuing Adderall with modafinil Plan: - Continue treatment plan with auto appraiser Follow-up in 2 months, sooner if concerns arise 08/04/2024 Chronic fatigue syndrome (ICD-10 - G93.32) Depression - Reports mood has iproved since last visit, content with current medication regimen Plan: - Continue Abilify 5 mg daily - Cont Vilazodone 40 mg daily ADHD - Stable Plan: - Cont Adderall XR 10 mg daily Anxiety - Good control with occasional anxiety but manageable, no panic attacks Plan: - Continue buspirone 10 mg twice a day - Cont other current medications as discussed Insomnia - Difficulty staying asleep, trazodone helpful Plan: - Continue trazodone 100 mg at bedtime for sleep Chronic Fatigue - Improved slightly, has pulmonology appointment next month - Alarm Installation Technician encouraged continuing Adderall with modafinil Plan: - Continue treatment plan with auto appraiser Follow-up in 2 months, sooner if concerns arise 08/04/2024 Chronic insomnia (ICD-10 - F51.04) Depression - Reports mood has iproved since last visit, content with current medication regimen Plan: - Continue Abilify 5 mg daily - Cont Vilazodone 40 mg daily ADHD - Stable Plan: - Cont Adderall XR 10 mg daily Anxiety - Good control with occasional anxiety but manageable, no panic attacks Plan: - Continue buspirone 10 mg twice a day - Cont other current medications as discussed Insomnia - Difficulty staying asleep, trazodone helpful Plan: - Continue trazodone 100 mg at bedtime for sleep Chronic Fatigue - Improved slightly, has pulmonology appointment next month - Alarm Installation Technician encouraged continuing Adderall with modafinil Plan: - Continue treatment plan with auto appraiser Follow-up in 2 months, sooner if concerns arise 08/04/2024 Other no refills needed except on adderall Depression - Reports mood has iproved since last visit, content with current medication regimen Plan: - Continue Abilify 5 mg daily - Cont Vilazodone 40 mg daily ADHD - Stable Plan: - Cont Adderall XR 10 mg daily Anxiety - Good control with occasional anxiety but manageable, no panic attacks Plan: - Continue buspirone 10 mg twice a day - Cont other current medications as discussed Insomnia - Difficulty staying asleep, trazodone helpful Plan: - Continue trazodone 100 mg at bedtime for sleep Chronic Fatigue - Improved slightly, has pulmonology appointment next month - Alarm Installation Technician encouraged continuing Adderall with modafinil Plan: - Continue treatment plan with auto appraiser Follow-up in 2 months, sooner if concerns arise Plan Of Treatment Medication Medication Name Sig Start Date Stop Date Notes Amphetamine-Dextroamphet ER 10 MG 1 capsule in the morning Orally Once a day for 30 days 08/04/2024 Vilazodone HCl 40 MG 1 tablet with food Oral Once a day traZODone HCl 100 MG 2 tablet at bedtime Oral Once a day busPIRone HCl 10 MG 2 tablets Oral three times a day ARIPiprazole 5 MG 1 tablet Oral Once a day for 30 days Treatment Notes Assessment Notes Other no refills needed ex cept on adderall Next Appt Details Follow Up: 2 Months, Reason: Provider Name:Edith gabriel, 09/29/2024 08:30:00 AM, [facility] [address], [facility] [address], [address], Progress Notes * Sarai MOYERDOB:[birth year] (38 yo F)Acc No.[id number]:08/04/2024 Patient: Sarai SPENCER Provider: Michael Molina :1985 A ge:38 Y S ex:Female Date:08/04/2024 Phone: Address:[address] [place], [place] [id number] Pcp:Heraclio Cleveland DO Subjective: * Chief Complaints: * F ollow-up for medication management * HPI: D epression Screening: MARY-7 (2018 Edition) F eeling nervous, anxious, or on edge?Not at all, N ot being able to stop or control worrying N ot at all, W orrying too much about different things N ot at all, T rouble relaxing N ot at all, B eing so restless that it is hard to sit still S ever, B ecoming easily annoyed or irritable?Several days, F eeling afraid as if something awful might happen N ot at all, T otal MARY-7 Score 2 , I f you checked any problems, how difficult have they made it for you to do your work, take care of things at home, or get along with other people? N ot difficult at all,?Interpretation of Total ( 0 to 4) No Anxiety. C [place]-Suicide Severity Rating Scale: Suicide Risk (CSRS-screener) i n the past one month Have you wished you were or wished you could go to sleep and not wake up? N o, i n the past one month Have you actually had any thoughts of killing yourself? N o. D epression screening: PHQ-9 L ittle interest or pleasure in doing things N ot at all, F eeling down, depressed, or hopeless S everal , T rouble falling or staying asleep, or sleeping too much N ot at all, F eeling tired or having little energy S ever, P oor appetite or overeating N ot at all, F eeling bad about yourself or that you are a failure, or have let yourself or your family down S everal , T rouble concentrating on things, such as reading the newspaper or watching television S ever, M oving or speaking so slowly that other people could have noticed; or the opposite, being so fidgety or restless that you have been moving around a lot more than usual N ot at all, T houghts that you would be better off or of hurting yourself in some way N ot at all, T otal Score 4 , I nterpretation M inimal Depression. I ntervention D epression Screening Findings N egative, S uicide Risk Assessment Performed . H istory of Presenting Problem: This note is transcribed using speech recognition software. It is a reflection of a visit with the patient. It might have some inaccuracy, including medication names and transcribing errors, though efforts have been made to correct them. 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 Last visit decreased aripiprazole to 5 mg with concerns the 7.5 mg was making her feel dull . Reports overall improvement in mood and energy levels, though still experiences some fatigue, particularly when sedentary. Notes energy is better than previously, but not optimal. Anxiety has been well-controlled. Has not noticed significant changes since decreasing Abilify dose one month ago. Sleep has been adequate with the use of trazodone. Denies current concerns with depressed mood. Reports low energy levels contribute to her low motivation and interest, but overall she feels stable and content Mentions ongoing fatigue, which has been addressed by auto appraiser. Reports some improvement, but still experiences tiredness, especially when inactive. No new pulmonary medications initiated at this time. ongoing notes: - also has topiramate 25mg-for migraines from PCP This note is transcribed using speech recognition software. It is a reflection of a visit with the patient. It might have some inaccuracy, including medication names and transcribing errors, though efforts have been made to correct them. P ast Psychiatric Medications: fluoxetine-made worse, paxil-involuntary muscle movements, citalopram, escitalopram, rexulti-cost. adderall for 4-5 yrs stopped 1.5yrs ago as had pneumonia and heart rate too high, vyvanse, atomoxetine, guanfacine, bupropion, qelbree. The nonstimulants didn't seem to work very well. (no past sertraline, duloxetine, effexor, trintellix, lithium, lamotrigine). * ROS: G eneral / Constitutional: Patient complains of f atigue. C ardiovascular: Patient denies c hest pain, dizziness, palpitations. ? G astrointestinal: Patient denies n ausea, vomiting, change in bowel habits.? N eurologic: Patient denies c onfusion, tic, tremor. P sychiatric: Patient denies s uicidal thoughts, auditory / visual hallucinations, delusions, psychosis, involuntary movements. P erformance Met: N ormal blood pressure reading documented, follow-up not required ( G8783)See HPI. * Medical History: * Surgical History: c sections galbladder removal 2012gastric bypass 05/2023 * Hospitalization/Major Diagno stic Procedure: p neumonia 2022 * Family History: P aternal Grandfather: Alcohol Abuse, diagnosed with Essential hypertension. P aternal Grandmother: Bipolar Disorder, diagnosed with Essential hypertension. M aternal Grandfather: Alcohol Abuse, diagnosed with Essential hypertension. S ister: Major Depressive Episode. S on: ADHD. D aughter: Anxiety Disorder,Major Depressive Episode. F ather: diagnosed with Essential hypertension, Type 2 diabetes mellitus without complication, unspecified whether skilled nursing insulin use. M aternal Grandmother: diagnosed with Essential hypertension. * Social History: T obacco Use: T obacco Control (Standard) T obacco use: F ormer smoker, W hen did you start smoking? 0 11/24/2003, W hen did you stop smoking? 0 11/23/2009, H ow long has it been since you last smoked? G reater than 10 years. D rug/Alcohol: D rugs H ave you used drugs other than those for medical reasons in the past 12 months??No. A RASHEED-C (Standard) D id you have a drink containing alcohol in the past year? Y es, H ow often did you have six or more drinks on one occasion in the past year? N ever (0 point), H ow many drinks did you have on a typical day when you were drinking in the past year? 1 or 2 drinks (0 point), H ow often did you have a drink containing alcohol in the past year? M onthly or less (1 point). 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 Safety issues A re there any firearms in the house? N o. A dvance Care Planning A re you your own decision-maker Y es, D o you have Power of Agronomy Advisor for Health or Medical? N o. S ocial History: H ousehold M ermatal Status: D ivorced, N umber of Adults in household: 1 ,?Number of Children in Household: 2 , L evel of Education: N ot Finished College. L meredith in [place] with 2 kids. Grew up in [place], has 1 sister. 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 * Medications: T akingModafinil 100 MG Tablet 1 tablet in the morning Orally Once a day Ondansetron 4 MG Tablet Disintegrating DISSOLVE 1 TABLET IN MOUTH EVERY 8 HOURS NEEDED FOR NAUSEA AND VOMITING Oral Fasenra 30 MG/ML Solution Prefilled Syringe Subcutaneous Trelegy Ellipta 200-62.5-25 MCG/ACT Aerosol Powder Breath Activated Inhalation Topiramate 25 MG Tablet Oral SUMAtriptan Succinate 50 MG Tablet Oral Albuterol Sulfate HFA 108 (90 Base) MCG/ACT Aerosol Solution INHALE 2 PUFFS BY MOUTH EVERY 6 HOURS FOR 30 DAYS Inhalation ARIPiprazole 5 MG Tablet 0.5 tab Oral Once a day busPIRone HCl 10 MG Tablet 2 tablets Oral three times a day traZODone HCl 100 MG Tablet 2 tablet at bedtime Oral Once a day As neededVilazodone HCl 40 MG Tablet 1 tablet with food Oral Once a day Amphetamine-Dextroamphet ER 10 MG Capsule Extended Release 24 Hour 1 capsule in the morning Orally Once a day Medication List reviewed and reconciled with the patientTaking Modafinil 100 MG Tablet 1 tablet in the morning Orally Once a day Taking Ondansetron 4 MG Tablet Disintegrating DISSOLVE 1 TABLET IN MOUTH EVERY 8 HOURS NEEDED FOR NAUSEA AND VOMITING Oral Taking Fasenra 30 MG/ML Solution Prefilled Syringe Subcutaneous Taking Trelegy Ellipta 200-62.5-25 MCG/ACT Aerosol Powder Breath Activated Inhalation Taking Topiramate 25 MG Tablet Oral Taking SUMAtriptan Succinate 50 MG Tablet Oral Taking Albuterol Sulfate HFA 108 (90 Base) MCG/ACT Aerosol Solution INHALE 2 PUFFS BY MOUTH EVERY 6 HOURS FOR 30 DAYS Inhalation Taking ARIPiprazole 5 MG Tablet 0.5 tab Oral Once a day Taking busPIRone HCl 10 MG Tablet 2 tablets Oral three times a day Taking traZODone HCl 100 MG Tablet 2 tablet at bedtime Oral Once a day As neededTaking Vilazodone HCl 40 MG Tablet 1 tablet with food Oral Once a day Taking Amphetamine-Dextroamphet ER 10 MG Capsule Extended Release 24 Hour 1 capsule in the morning Orally Once a day Medication List reviewed and reconciled with the patient * Allergies: E ggs or Egg-derived Productsno[Allergies Verified] Objective: * Vitals: B P:109/75mm Hg, HR:81/min, Wt:182lbs, Wt-k.55 kg, Ht: 63 in, Ht-cm: 160.02 cm, BMI:32.24Index, Body Surface Area: 1.91. * Examination: P sychiatry: Appearance: a lert, groomed, a ppears well rested. In no acute distress. Abnormal body movements: n one noted. Affect / mood: f ull range, appropriate. Attention: n ormal in conversation. Attitude: c ooperative. Homicidal ideation: n one. Suicidal ideation: n one. Memory status: n o impairment noted. Degree of awareness of surroundings: w ithin normal limits.? Delusions: n o. Hallucinations: n o. Insight: g ood. Intellectual functioning: n o impairment noted. Judgement: g ood. Orientation: a wake, alert and oriented x 3. Psychomotor activity: w ithin normal range. Speech / language: c lear and coherent, appropriate pitch/modulation, normal rate, volume, and articulation (RVR), proper grammar used. Thought content: a ppropriate. Thought process: i ntact. Assessment: * Assessment: 1. M ajor depressive disorder, recurrent, mild - F33.0 (Primary) 2 . A ttention-deficit hyperactivity disorder, combined type - F90.2 3 . G eneralized anxiety disorder - F41.1 4 . P anic attacks - F41.0 5 . C hronic fatigue syndrome - G93.32 6 . C hronic insomnia - F51.04 Depression - Reports mood has iproved since last visit, content with current medication regimen Plan: - Continue Abilify 5 mg daily - Cont Vilazodone 40 mg daily ADHD - Stable Plan: - Cont Adderall XR 10 mg daily Anxiety - Good control with occasional anxiety but manageable, no panic attacks Plan: - Continue buspirone 10 mg twice a day - Cont other current medications as discussed Insomnia - Difficulty staying asleep, trazodone helpful Plan: - Continue trazodone 100 mg at bedtime for sleep Chronic Fatigue - Improved slightly, has pulmonology appointment next month - Alarm Installation Technician encouraged continuing Adderall with modafinil Plan: - Continue treatment plan with auto appraiser Follow-up in 2 months, sooner if concerns arise Plan: * Treatment: 2. A ttention-deficit hyperactivity disorder, combined type Refill Amphetamine-Dextroamphet ER Capsule Extended Release 24 Hour, 10 MG, 1 capsule in the morning, Orally, Once a day, 30 days, 30 Capsule, Refills 0. 3. G eneralized anxiety disorder Continue busPIRone HCl Tablet, 10 MG, 2 tablets, Oral, three times a day. 4. C hronic insomnia Continue traZODone HCl Tablet, 100 MG, 2 tablet at bedtime, Oral, Once a day As needed. 5. O thers Notes: no refills needed except on adderall * Procedure Codes: 9 6127 BEHAV ASSMT W/SCORE & DOCD/STAND [id number] NORMAL BP READING DOC F/U NOT [id number] VISIT COMPLEXITY INHERENT TO ONGOING CARE RELATED TO A PATIENT'S SINGLE, SERIOUS CONDITION OR A COMPLEX [id number] MOST RECENT SYSTOLIC BP < 140MM [id number] MOST RECENT DIASTOLIC BP < 90MM HG * Preventive Medicine: Counseling: P atient Education: G eneral Education A ssessment and plan reviewed with patient.Educated on diagnoses and recommended treatment options.Educated on risks/benefits of medications, including reason for medications and potential side effects.Alternatives and expected course without treatment reviewed.Education given regarding compliance with medication and expectations regarding adherence to or inconsistent usage of medication.Educated that it can take weeks to see full therapeutic benefits of psychotropic medications and encouraged to trust the process.Educated on good sleep hygiene and importance of adequate sleep on both mental and overall health and well-being.Patient asked appropriate questions, verbalized understanding, and agreed to the recommended treatment and to continue to be followed.Encouraged to reach out if problems, questions, or concerns arise.Educated on suicide hotlines, resources, and safety should suicidal thoughts occur.. * Follow Up: 2 Months * Billing Information: * Visit Code: 65805 OFFICE OUTPATIENT VISIT 25 MINUTES DETAILED HISTORY AND EXAM/MODERATE MEDICAL DECISION MAKING. * Procedure Codes: 29455 BEHAV ASSMT W/SCORE & DOCD/STAND INSTRUMENT. G8783 NORMAL BP READING DOC F/U NOT RQR. G2211 VISIT COMPLEXITY INHERENT TO ONGOING CARE RELATED TO A PATIENT'S SINGLE, SERIOUS CONDITION OR A COMPLEX CONDITION. G8752 MOST RECENT SYSTOLIC BP < 140MM HG. G8754 MOST RECENT DIASTOLIC BP < 90MM HG. * TING EQUIPMENT MECHANIC Sign off status: Completed true * Provider: Michael Molina Date: 0 08/04/2024 Generated for Cydney carson/Sylvester/Carlos on: 0 09/04/2024 10:21 AM CDT History and Physical Notes * HPI (History of Present Illness) Category Sub-Category Detail Notes Category Not es Depression screening PHQ-9 Little inte rest or pleasure in doing things: Not at all Feeling down, depressed, or hopeless: Se veral days Trouble falling or staying asleep, or sl eeping too much: Not at all Feeling tired or having little energy: S everal days Poor appetite or overeating: Not at all Feeling bad about yourself o r that you are a failure, or have let yourself or your family down: Several days Trouble concentrating on thi ngs, such as reading the newspaper or watching television: Several days Moving or speaking so slowly that other people could have noticed; or the opposite, being so fidgety or restless that you have been moving around a lot more than usual: Not at all Thoughts that you would be b rakan off or of hurting yourself in some way: Not at all Total Score: 4 Interpretation: Minimal Depression Intervention Depression Screening Findings: N egative Suicide Risk Assessment Performed: ____ Depression Screening MARY-7 (2018 Edition) Hanny g nervous, anxious, or on edge: Not at all Not being able to stop or control worryi ng: Not at all Worrying too much about different things : Not at all Trouble relaxing: Not at all Being so restless that it is hard to sit still: Several days Becoming easily annoyed or irritable: Se veral days Feeling afraid as if something awful mable ht happen: Not at all Total MARY-7 Score: 2 If you checked any problems, how difficult have they made it for you to do your work, take care of things at home, or get along with other people?: Not difficult at all Interpretation of Total: (0 to 4) No Anx iety Ocate-Suicide Severity Rating Scale Suicide Risk (CSRS-screener) in the past one month Have you wished you were or wished you could go to sleep and not wake up?: No in the past one month Have y ou actually had any thoughts of killing yourself?: No Examination Category Sub-Category Detail Notes Category Not es Psychiatry Appearance: alert, groomed, appears well rested. In no acute distress Attitude: cooperative Psychomotor activity: within normal rang e Abnormal body movements: none noted Attention: normal in conversati on Degree of awareness of surroundings: wit hin normal limits Orientation: awake, alert and vita ented x 3 Affect / mood: full range, appropri ate Speech / language: clear and coherent, appropriate pitch/modulation, normal rate, volume, and articulation (RVR), proper grammar used Insight: good Judgement: good Thought process: intact Thought content: appropriate Suicidal ideation: none Homicidal ideation: none Intellectual functioning: no impairment noted Memory status: no impairment noted Delusions: no Hallucinations: no
--- OUTSIDE RECORDS SUMMARY | 2024-09-04 10:21 | XMS_ITS | Clinical Summary ---
Author Organization [facility] Address [address] [place] [address] Care Team Providers Care Audio Visual Specialist Name Role Phone Heraclio Cleveland DO Primary Care Provider [phone] Heraclio Cleveland DO Unavailable [phone] Source Comments [facility],non-owned Affiliates and Associated Physician Practices is amultiple site organization consisting of ambulatory clinics and hospital sitesin [place], [place], [place] and [place]. This disclosure is being madepursuant to the Care Everywhere program and may not contain all information available regarding this patient. Last updated 18.[facility] Allergies Active Allergy Reactions Criticality Noted Date Comments Albumin 10/12/2016 Medications * Be aware that medications may not be up to date on this document. Alwaysverify current medications with the patient. Medication Sig Dispensed Refills Start Date End Date Status lisinopril (PRINIVIL; ZESTRIL) 10 MG tablet Take 10 mg by mouth once daily Active budesonide-formotero l (SYMBICORT) 160-4.5 MCG/ACT inhaler Inhale 2 Puffs by mouth 2 times daily Active omeprazole (PRILOSEC) 20 MG capsule Take 20 mg by mouth daily before breakfast Active citalopram (CELEXA) 40 MG tablet Take 40 mg by mouth once daily Active topiramate (TOPAMAX) 25 MG tablet Take 25 mg by mouth 2 times daily Active BUSPIRONE HCL PO Take by mouth 3 times daily Active SUMAtriptan (IMITREX) 50 MG tablet Take 50 mg by mouth once as needed for Migraine Active ALPRAZolam (XANAX) 0.5 MG tablet Take 0.5 mg by mouth 3 times daily as needed for Anxiety Active albuterol (PROVENTIL;VENTOLIN) (5 MG/ML) 0.5% nebulizer solution Inhale 2.5 mg by mouth 4 times daily as needed for Shortness of Breath or Wheezing Active Amphetamine-Dextroam phetamine (ADDERALL PO) Active albuterol HFA (VENTOLIN HFA) 108 (90 BASE) MCG/ACT inhalerIndications:A cute bronchitis, unspecified organism Inhale 2 puffs by mouth every 6 hours as needed 1 Inhaler 5 05/14/2017 Active norethindrone-ethiny l estradiol-iron (ESTROSTEP FE) 07-14/-30/1-35 MG-MCG tablet Take 1 tablet by mouth once daily Active ARIPiprazole (ABILIFY) 5 MG tablet Take 5 mg by mouth once daily Active Active Problems No known active problems Social History Tobacco Use Types Packs/Day Years Used Date Smoking Tobacco: Former Cigarettes Q uit: 2010 Smokeless Tobacco: Never Sex and Gender Information Value Date Recorded Sex Assigned at Not on file Gender Identity Not on file Sexual Orientation Not on file Last Filed Vital Signs Vital Sign Reading Time Taken Comments Blood Pressure 106/80 02/13/2020 6:26 PM CDT Pulse 115 02/13/2020 6:26 PM CDT Temperature 37.2 C (98.9 F) 02/13/2020 6:26 PM CDT Respiratory Rate 15 02/13/2020 6:26 PM CDT Oxygen Saturation 98% 02/13/2020 6:26 PM CDT Inhaled Oxygen Concentration - - Weight 117.9 kg (260 lb) 02/13/2020 6:26 PM CDT Height 160 cm (5' 3 ) 02/13/2020 6:26 PM CDT Body Mass Index 46.06 02/13/2020 6:26 PM CDT Plan of Treatment Health Maintenance Due Date Last Done Comments LIPID TESTING 1985 MAMMOGRAM 1985 PAP SMEAR 1985 HIV SCREENING 1999 HEPATITIS C SCREENING 08/16/2002 DTAP/TDAP/TD VACCINES (1 - Tdap) 2003 HEPATITIS B VACCINE (1 of 3 - 19+ 3-dose series) 2003 COVID-19 VACCINE (2023-2 5 season) 2024 INFLUENZA VACCINE (#1) 2024 DEPRESSION SCREENING 06/25/2024 ZOSTER VACCINE (1 of 2) 2034 HIB VACCINE Aged Out No longer eligi ble based on patient's age to complete this topic HPV VACCINE Aged Out No longer eligi ble based on patient's age to complete this topic MENINGOCOCCAL (Group B) VACC INE SHARED DECISION-MAKING Aged Out No longer eligibl e based on patient's age to complete this topic MENINGOCOCCAL GROUPS A/C/Y/W VACCINE Aged Out No longer eligible b ased on patient's age to complete this topic PNEUMOCOCCAL VACCINE Aged Out No long er eligible based on patient's age to complete this topic Care Teams Audio Visual Specialist Relationship Specialty Start Date End Date Heraclio Cleveland DO PCP - General Internal Medicine 10/12/16 Heraclio Cleveland DO Internal Medicine 10/12/16
--- OUTSIDE RECORDS SUMMARY | 2024-09-04 10:21 | XMS_ITS | Clinical Summary ---
[facility] Address [address] [place] [address] [place] [address] Care Team Providers Care Global Ceo Name Role Phone Heraclio Cleveland DO Primary Care Provider Allergies Active Allergy Reactions Criticality Noted Date Comments Egg Derived Anaphylaxis High 10/08/2019 Egg White Anaphylaxis High 10/12/2016 Shellfish Containing Products Anaphylaxis High 10/07 Medications traZODone (DESYREL) 100 mg tablet 0 Active topiramate (TOPAMAX) 25 mg tablet 0 Active SUMAtriptan (IMITREX) 50 mg tablet 0 Active omeprazole (PriLOSEC) 20 mg Capsule, Delayed Release(E.C.) 0 Active lisinopriL (PRINIVIL) 10 mg tablet 0 Active fluticasone propionate (FLONASE) 50 mcg/spray Hines, Suspension nasal inhaler fluticasone propionate 50 mcg/actuation nasal spray,suspension 9 Active SLYND 4 mg (28) Tablet 0 Active dextroamphetami ne-amphetamine (ADDERALL) 30 mg tablet 0 Active citalopram (CeleXA) 40 mg tablet 0 Active citalopram (CeleXA) 40 mg tablet citalopram 40 mg tablet 9 Active calcium carbonate + vitamin D (CALTRATE+D) 600 mg(1,500mg) -400 unit Tablet 2 times daily. Activ e busPIRone (BUSPAR) 10 mg tablet 0 Active SYMBICORT 160-4.5 mcg/actuation HFA Aerosol Inhaler 0 Active ARIPiprazole (ABILIFY) 5 mg tablet 0 Active ELIQUIS 5 mg tablet 0 Active albuterol HFA 90 mcg inhaler Proventil HFA 90 mcg/actuation aerosol inhaler Inhale 1 or 2 puffs by mouth twice a day to three times a day 7 Active omeprazole (PriLOSEC) 20 mg Capsule, Delayed Release(E.C.) omeprazole 20 mg capsule,delayed release 9 Active multivitamin (DAILY-NARESH) tablet every 24 hours. Acti ve Active Problems Problem Noted Date Diagnosed Date Secondary hypercoagulable state 10/08/2019 Family History Medical History Relation Name Comments Diabetes Father Heart Disease Father Diabetes Mother Heart Disease Mother Relation Name Status Comments Daughter Alive Father Alive Mother Alive Sister Alive Son Alive Social History Tobacco Use Types Packs/Day Years Used Date Smoking Tobacco: Former Cigarettes 0.5 3 0 10/07/2008 - 10/08/2011 Smokeless Tobacco: Never Alcohol Use Standard Drinks/Week Comments Not Currently 0 (1 standard drink = 0.6 oz pur e alcohol) MAYBE A FEW TIMES A YEAR Comments No Sex and Gender Information Value Date Recorded Sex Assigned at Not on file Legal Sex Female 8:28 AM [employer] Gender Identity Not on file Sexual Orientation Not on file Last Filed Vital Signs Vital Sign Reading Time Taken Comments Blood Pressure 122/86 11/14/2019 9:02 AM CDT 1st bp take 143/103 hr 117 Pulse 115 11/14/2019 9:02 AM CDT Temperature 36.6 C (97.9 F) 11/14/2019 9:02 AM CDT Respiratory Rate - - Oxygen Saturation 98% 11/14/2019 9:0 2 AM CDT Inhaled Oxygen Concentration - - Weight 121.3 kg (267 lb 8 oz) 11/14/2019 9:02 AM CDT Height 160 cm (5' 3 ) 11/14/2019 9:02 AM CDT Body Mass Index 47.39 11/14/2019 9:02 AM CDT Plan of Treatment Health Maintenance Due Date Last Done Comments DTAP/TDAP/TD VACCINES (1 - Tdap) 2003 HEPATITIS B VACCINES (1 of 3 - 19+ 3-dose series) 2003 CERVICAL CANCER SCREENING 2014 INFLUENZA VACCINE (#1) 2024 BREAST CANCER SCREENING 2024 HPV VACCINES Aged Out No longer eligi ble based on patient's age to complete this topic Care Teams Global Ceo Relationship Specialty Start Date End Date Heraclio Cleveland DO [facility] [address] [address] PCP - General Internal Medicine 08/29/19
--- OUTSIDE RECORDS SUMMARY | 2024-09-04 10:22 | XMS_ITS ---
Author Organization [facility] Address [facility] [address] [facility] [address] [place] [address] Care Team Providers Care Printer Apprentice Name Role Phone Heraclio Cleveland DO Primary Care Provider Edith Barrios Unavailable [phone] REASON FOR VISIT New Refill Request Medications Medication SIG (Take, Route, Frequency, Duration) Notes Start Date End Date Status Amphetamine-Dextroamphet ER 10 MG 1 capsule in the morning Orally Once a day for 30 days 09/01/2024 Active Social History Sex Assigned At : Social History Observation Description Sex Assigned At Female Encounters Encounter Location Date Provider Diagnosis [facility] [employer] [place] [id number] [facility] [address] [facility] [address] [place] [address] 09/01/2024 Edith Molina Attention-deficit hyperactivity disorder, combined type F90.2 Assessments Encounter Date Diagnosis (ICD Code) Assessment Notes Treatment Notes Treatment Clinical Notes Section Notes 09/01/2024 Attention-deficit hyperactivity disorder, combined type (ICD-10 - F90.2) Plan Of Treatment Medication Medication Name Sig Start Date Stop Date Notes Amphetamine-Dextroamphet ER 10 MG 1 capsule in the morning Orally Once a day for 30 days 09/01/2024 Next Appt Details Provider Name:Edith gabriel, 09/29/2024 08:30:00 AM, [address], [address], [place], [address], Progress Notes * Jami MOYER:[birth year] (39 yo F)Acc No.[id number]:09/01/2024 Patient: Sarai SPENCER :1985 A ge:39 Y S ex:Female Phone: Address:[address] [facility] [address] * Refills Refill Amphetamine-Dextroamphet ER Capsule Extended Release 24 Hour, 10 MG, Orally, 30 Capsule, 1 capsule in the morning, Once a day, 30 days, Refills=0 * true * Date: Generated for Cydney carson/Sylvester/Arnolitting on: 0 09/04/2024 10:22 AM CDT
--- OUTSIDE RECORDS SUMMARY | 2024-09-04 10:22 | XMS_ITS ---
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 Name Role Phone Heraclio Cleveland DO Primary Care Provider Edith Barrios Unavailable [phone] Allergies Allergen (clinical drug ingredient) Drug/Non Drug Allergy documented on EMR Reaction Allergy Type Onset Date Status Eggs or Egg-derived Products Unknown Drug Allergy Active Results Component Value Reference Range Notes UDT Reviewed date:07/07/2024 02:12:54 PM Interpretation: Performing Lab: Notes/Report: THC N 0 - 50 ng/ml Cocaine N 0 - 300 ng/ml Amphetamine N 0 - 1000 ng/ml Buprenorphine (BUP) N 0 - 10 ng/ml Secobarbital (Bar) N 0 - 300 ng/ml Oxazepam (BZO) N 0 - 300 ng/ml 9-ncfyzywpuv-5,2-oihlptas-3,3-diphenylpyrrolidine (GENEVIEVE P) N 0 - 300 ng/ml Methamphetamine (MET) N 0 - 1000 ng/ml Methylenedioxymethamphetamine (MDMA) N 0 - 500 ng/ml Morphine (MOP 300/[id number]) N 0 - 300 ng/ml Methadone (MTD) N 0 - 300 ng/ml Phencyclidine (PCP) N 0 - 25 ng/ml Nortriptyline (TCA) N 0 - 1000 ng/ml Oxycodone N 0 - 300 ng/ml x N 0 - 300 ng/ml REASON FOR VISIT Follow-up for medication management Medications Medication SIG (Take, Route, Frequency, Duration) Notes Start Date End Date Status Topiramate 25 MG Oral for 30 Days Active SUMAtriptan Succinate 50 MG Oral for 30 Days Active Ondansetron 4 MG DISSOLVE 1 TABLET IN MOUTH EVERY 8 HOURS NEEDED FOR NAUSEA AND VOMITING Oral for 6 Days Active Fasenra 30 MG/ML Subcutaneous for 30 Days Active Trelegy Ellipta 200-62.5-25 MCG/ACT Inhalation for 30 Days Active traZODone HCl 100 MG 2 tablet at bedtime Oral Once a day As needed Active Vilazodone HCl 40 MG 1 tablet with food Oral Once a day Active Amphetamine-Dextroamphet ER 10 MG 1 capsule in the morning Orally Once a day for 30 days 07/07/2024 Active Modafinil 100 MG 1 tablet in the morn ing Orally Once a day Active busPIRone HCl 10 MG 2 tablets Oral three times a day Active Albuterol Sulfate HFA 108 (90 Base) MCG/ACT INHALE 2 PUFFS BY MOUTH EVERY 6 HOURS FOR 30 DAYS Inhalation for 25 Days Active ARIPiprazole 5 MG 0.5 tab Oral Once a day for 30 days Active Social History Tobacco Use: Social History Observation Description Date Details (start date - stop date) Former Smoker 11/24/2003 - 12/23/2009 Sex Assigned At : Social History Observation Description Sex Assigned At Female Tobacco Control (Standard) Question Answer Notes Tobacco use: Former smoker When did you start smoking? 11/24/2003 When did you stop smoking? 12/23/2009 How long has it been since you last smoked? oSphie ter than 10 years AUDIT-C (Standard) Question [...] less (1 point) Section Notes: Lives in [place] with 2 kids. G[place] up in [place], has 1 sister. 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 Vital Signs Blood pressure systolic 113 mm Hg 07/07/19 25 Blood pressure diastolic 79 mm Hg 025 Heart Rate 83 /min 07/07/2024 Height 63 in 07/07/2024 Weight 185.0 lbs 07/07/2024 BMI 32.77 kg/m2 07/07/2024 Height-cm 160.02 cm 07/07/2024 Weight-kg 83.91 kg 07/07/2024 Encounters Encounter Location Date Provider Diagnosis [facility] [address] [place] [address] 07/07/2024 Edith Molina Attention-deficit hyperactivity disorder, combined type F90.2 ; Major depressive disorder, recurrent, mild F33.0 ; Generalized anxiety disorder F41.1 ; Panic attacks F41.0 ; Chronic fatigue syndrome G93.32 and Chronic insomnia F51.04 Assessments Encounter Date Diagnosis (ICD Code) Assessment Notes Treatment Notes Treatment Clinical Notes Section Notes 07/07/2024 Attention-deficit hyperactivity disorder, combined type (ICD-10 - F90.2) Depression - Feeling lonely and isolated, not necessarily depressed, but some lingering feelings of disinterst - Therapist believes patient may still be experiencing depression Plan: - Decrease Abilify to 5 mg daily - Cont Vilazodone 40 mg daily - Encourage patient to set goals for increased social interaction and discuss with therapist ADHD - Improvement with Adderall - No changes to current regimen Plan: - Cont Adderall XR 10 mg daily Anxiety - Good control with occasional amxiety but manageable, no panic attacks Plan: - Continue buspirone 10 mg twice a day - Cont other current medications as discussed Insomnia - Difficulty staying asleep, trazodone helpful Plan: - Continue trazodone for sleep Chroni c Fatigue - Recently started modafinil by a/c tech - [employer] encouraged continuing Adderall with modafinil Plan: - Continue modafinil as prescribed by a/c tech Follow-up in 6 weeks, sooner if concerns arise 07/07/2024 Major depressive disorder, recurrent, mild (ICD-10 - F33.0) Depression - Feeling lonely and isolated, not necessarily depressed, but some lingering feelings of disinterst - Therapist believes patient may still be experiencing depression Plan: - Decrease Abilify to 5 mg daily - Cont Vilazodone 40 mg daily - Encourage patient to set goals for increased social interaction and discuss with therapist ADHD - Improvement with Adderall - No changes to current regimen Plan: - Cont Adderall XR 10 mg daily Anxiety - Good control with occasional amxiety but manageable, no panic attacks Plan: - Continue buspirone 10 mg twice a day - Cont other current medications as discussed Insomnia - Difficulty staying asleep, trazodone helpful Plan: - Continue trazodone for sleep Chroni c Fatigue - Recently started modafinil by a/c tech - [employer] encouraged continuing Adderall with modafinil Plan: - Continue modafinil as prescribed by a/c tech Follow-up in 6 weeks, sooner if concerns arise 07/07/2024 Generalized anxiety disorder (ICD-10 - F41.1) Depression - Feeling lonely and isolated, not necessarily depressed, but some lingering feelings of disinterst - Therapist believes patient may still be experiencing depression Plan: - Decrease Abilify to 5 mg daily - Cont Vilazodone 40 mg daily - Encourage patient to set goals for increased social interaction and discuss with therapist ADHD - Improvement with Adderall - No changes to current regimen Plan: - Cont Adderall XR 10 mg daily Anxiety - Good control with occasional amxiety but manageable, no panic attacks Plan: - Continue buspirone 10 mg twice a day - Cont other current medications as discussed Insomnia - Difficulty staying asleep, trazodone helpful Plan: - Continue trazodone for sleep Chroni c Fatigue - Recently started modafinil by a/c tech - [employer] encouraged continuing Adderall with modafinil Plan: - Continue modafinil as prescribed by a/c tech Follow-up in 6 weeks, sooner if concerns arise 07/07/2024 Panic attacks (ICD-10 - F41.0) Depression - Feeling lonely and isolated, not necessarily depressed, but some lingering feelings of disinterst - Therapist believes patient may still be experiencing depression Plan: - Decrease Abilify to 5 mg daily - Cont Vilazodone 40 mg daily - Encourage patient to set goals for increased social interaction and discuss with therapist ADHD - Improvement with Adderall - No changes to current regimen Plan: - Cont Adderall XR 10 mg daily Anxiety - Good control with occasional amxiety but manageable, no panic attacks Plan: - Continue buspirone 10 mg twice a day - Cont other current medications as discussed Insomnia - Difficulty staying asleep, trazodone helpful Plan: - Continue trazodone for sleep Chroni c Fatigue - Recently started modafinil by a/c tech - [employer] encouraged continuing Adderall with modafinil Plan: - Continue modafinil as prescribed by a/c tech Follow-up in 6 weeks, sooner if concerns arise 07/07/2024 Chronic fatigue syndrome (ICD-10 - G93.32) Depression - Feeling lonely and isolated, not necessarily depressed, but some lingering feelings of disinterst - Therapist believes patient may still be experiencing depression Plan: - Decrease Abilify to 5 mg daily - Cont Vilazodone 40 mg daily - Encourage patient to set goals for increased social interaction and discuss with therapist ADHD - Improvement with Adderall - No changes to current regimen Plan: - Cont Adderall XR 10 mg daily Anxiety - Good control with occasional amxiety but manageable, no panic attacks Plan: - Continue buspirone 10 mg twice a day - Cont other current medications as discussed Insomnia - Difficulty staying asleep, trazodone helpful Plan: - Continue trazodone for sleep Chroni c Fatigue - Recently started modafinil by a/c tech - [employer] encouraged continuing Adderall with modafinil Plan: - Continue modafinil as prescribed by a/c tech Follow-up in 6 weeks, sooner if concerns arise 07/07/2024 Chronic insomnia (ICD-10 - F51.04) Depression - Feeling lonely and isolated, not necessarily depressed, but some lingering feelings of disinterst - Therapist believes patient may still be experiencing depression Plan: - Decrease Abilify to 5 mg daily - Cont Vilazodone 40 mg daily - Encourage patient to set goals for increased social interaction and discuss with therapist ADHD - Improvement with Adderall - No changes to current regimen Plan: - Cont Adderall XR 10 mg daily Anxiety - Good control with occasional amxiety but manageable, no panic attacks Plan: - Continue buspirone 10 mg twice a day - Cont other current medications as discussed Insomnia - Difficulty staying asleep, trazodone helpful Plan: - Continue trazodone for sleep Chroni c Fatigue - Recently started modafinil by a/c tech - [employer] encouraged continuing Adderall with modafinil Plan: - Continue modafinil as prescribed by a/c tech Follow-up in 6 weeks, sooner if concerns arise Plan Of Treatment Medication Medication Name Sig Start Date Stop Date Notes traZODone HCl 100 MG 2 tablet at bedtime Oral Once a day Vilazodone HCl 40 MG 1 tablet with food Oral Once a day Amphetamine-Dextroamphet ER 10 MG 1 capsule in the morning Orally Once a day for 30 days 07/07/2024 busPIRone HCl 10 MG 2 tablets Oral three times a day ARIPiprazole 5 MG 0.5 tab Oral Once a day for 30 days Next Appt Details Follow Up: 6 Weeks, Reason: Provider Name:Edith gabriel, 09/29/2024 08:30:00 AM, [address] [facility], [facility] [address], [place], [address], Progress Notes * Sarai MOYERDOB:[birth year] (38 yo F)Acc No.[id number]:07/07/2024 Patient: Eder ABHIANJU Sarai Provider: Michael Molina :1985 A ge:38 Y S ex:Female Date:07/07/2024 Phone: Address:[address] [place], [place] [id number] Pcp:Heraclio Cleveland DO Subjective: * Chief Complaints: * F ollow-up for medication management * HPI: H istory of Presenting Problem: This note is transcribed using speech recognition software. It is a reflection of a visit with the patient. It might have some inaccuracy, including medication names and transcribing errors, though efforts have been made to correct them. 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, here to follow up r/t depression, anxiety, panic attacks, insomnia, and ADHD, context chronic fatigue. Started Adderall for ADHD last visit, reports today t hat i s going pretty good. Recently started on modafinil by a/c tech to help with sleep, he encouraged her continue to take Adderall and discuss with me. Had taken Adderall with modafinil a few times before running out w ithout issues. Describes mood as pretty good, though therapist believes she may still be experiencing depression due to limited activities outside work and minimal social interaction. Acknowledges feeling lonely at times but struggles with making friends. Denies thoughts of self-harm. Reports anxiety has been good for the most part, with occasional paranoid thoughts but no panic attacks. No concerns with sleep or appetite. Mentions waking up frequently during the night, but trazodone helps. Acknowledges medications may be causing some dulling effect. Work going well, but does endorse limited social interaction. F eels she tends to be r eclusive and shy, lacks social interaction. Doesn't feel depressed but lacks interest in activities and feels lonely at times. Online therapy through her work with Susan Cheng, who notes her behaviors and feels it is still lingering depression. ongoing notes: - also has topiramate 25mg-for migraines from PCP. D epression Screening: MARY-7 (2018 Edition) F eeling nervous, anxious, or on edge?Several days, N ot being able to stop or control worrying N ot at all, W orrying too much about different things N ot at all, T rouble relaxing N ot at all, B eing so restless that it is hard to sit still N ot at all, B ecoming easily annoyed or irritable?Not at all, F eeling afraid as if something awful might happen S everal days, T otal MARY-7 Score 2 , I nterpretation of Total ( 0 to 4) No Anxiety. C [place]-Suicide Severity Rating Scale: Suicide Risk (CSRS-screener) i n the past one month Have you wished you were or wished you could go to sleep and not wake up? N o, i n the past one month Have you actually had any thoughts of killing yourself? N o, H ave you ever done anything, started to do anything, or prepared to do anything to end your life? N o. D epression screening: PHQ-9 L ittle interest or pleasure in doing things S everal days, F eeling down, depressed, or hopeless N ot at all, T rouble falling or staying asleep, or sleeping too much S everal days, F eeling tired or having little energy S everal days, P oor appetite or overeating N ot at all, F eeling bad about yourself or that you are a failure, or have let yourself or your family down S everal days, T rouble concentrating on things, such as reading the newspaper or watching television S , M oving or speaking so slowly that other people could have noticed; or the opposite, being so fidgety or restless that you have been moving around a lot more than usual N ot at all, T houghts that you would be better off or of hurting yourself in some way N ot at all, T otal Score 5, I nterpretation M ild Depression. I ntervention D epression Screening Findings?Positve, F ollow-Up for Depression M ental health treatment assessment, Patient follow-up to return when and if necessary, S uicide Risk Assessment Performed 0 07/07/2024 , A dditional Evaluation for Depression P sychiatric interview and evaluation, N joey of the standardized tool used for adult depression screening: [facility] (PHQ-9). P ast Psychiatric Hospitalizations: Previous psychiatric hospitalizations P revious Psychiatric Hospitalization Y es, H ow Many Psychiatry Hospitalizations Have You Had in the past? 1 , W hen were you last hospitalized? month and year 0 02/2004, W hat was the cause of your psychiatric hospitalizations? S uicidal attempt. P ast History of Suicidal attempt H ave you ever attempted suicide in the past Y es, M ethod of suicide attempt H anging.? P ast Psychiatric Medications: fluoxetine-made worse, paxil-involuntary [...] / visual hallucinations, delusions, psychosis, involuntary movements. [facility] for details. ? P atient not eligible due to active diagnosis of hypertension: Jennifer [phone]. * Medical History: * Surgical History: c [...] 2 diabetes mellitus without complication, unspecified whether [facility] insulin use. M aternal Grandmother: diagnosed with Essential hypertension. * Social History: T obacco Use: T obacco Control (Standard) T obacco use: F ormer smoker, W hen did you start smoking? 0 11/24/2003, W hen did you stop smoking? 0 12/23/2009, H ow long has it been since [...] less (1 point). 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 Safety issues A re there any firearms in the house? N o. A dvance Care Planning A re you your own decision-maker Y es, D o you have Power of Motion Picture Director for Health or Medical? N o. S ocial History: H ousehold M arital Status: D ivorced, N umber of Adults in household: 1 ,?Number of Children in Household: 2 , L evel of Education: N ot Finished College. L meredith in [place] with 2 kids. G[place] up in [place], has 1 sister. 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 * Medications: T akingModafinil [...] EVERY 6 HOURS FOR 30 DAYS Inhalation Amphetamine-Dextroamphet ER 10 MG Capsule Extended Release 24 Hour 1 capsule in the morning Orally Once a day ARIPiprazole 15 MG Tablet 0.5 tab Oral Once a day Vilazodone HCl 40 MG Tablet 1 tablet with food Oral Once a day traZODone HCl 100 MG Tablet 2 tablet at bedtime Oral Once a day As neededbusPIRone HCl 10 MG Tablet 2 tablets Oral three times a day , stop date 08/26/2024Medication List reviewed and reconciled with the patientTaking [...] 6 HOURS FOR 30 DAYS Inhalation Taking Amphetamine-Dextroamphet ER 10 MG Capsule Extended Release 24 Hour 1 capsule in the morning Orally Once a day Taking ARIPiprazole 15 MG Tablet 0.5 tab Oral Once a day Taking Vilazodone HCl 40 MG Tablet 1 tablet with food Oral Once a day Taking traZODone HCl 100 MG Tablet 2 tablet at bedtime Oral Once a day As neededTaking busPIRone HCl 10 MG Tablet 2 tablets Oral three times a day , stop date 08/26/2024Medication List reviewed and reconciled with the patient * Allergies: E ggs or Egg-derived Productsno[Allergies Verified] Objective: * Vitals: B P:113/79mm Hg, HR:83/min, Wt:185.0lbs, Wt-k.91 kg, Ht: 63 in, Ht-cm: 160.02 cm, BMI:32.77Index, Body Surface Area: 1.93. * Examination: P sychiatry: Appearance: a lert, groomed, a ppears well rested. In no acute distress. Abnormal body movements: n one noted. Affect / mood: f ull range, appropriate. Attention: n ormal in conversation. Attitude: c ooperative, open-minded with collaborative approach. Homicidal ideation: n one. Suicidal ideation: n [...] C hronic insomnia - F51.04 Depression - Feeling lonely and isolated, not necessarily depressed, but some lingering feelings of disinterst - Therapist believes patient may still be experiencing depression Plan: - Decrease Abilify to 5 mg daily - Cont Vilazodone 40 mg daily - Encourage patient to set goals for increased social interaction and discuss with therapist ADHD - Improvement with Adderall - No changes to current regimen Plan: - Cont Adderall XR 10 mg daily Anxiety - Good control with occasional amxiety but manageable, no panic attacks Plan: - Continue buspirone 10 mg twice a day - Cont other current medications as discussed Insomnia - Difficulty staying asleep, trazodone helpful Plan: - Continue trazodone for sleep Chroni c Fatigue - Recently started modafinil by a/c tech - [employer] encouraged continuing Adderall with modafinil Plan: - Continue modafinil as prescribed by a/c tech Follow-up in 6 weeks, sooner if concerns arise Plan: * Treatment: [...] bedtime, Oral, Once a day As needed. * Labs: * L ab: UDT (Collection Date & Time - 07/07/2024) Value Reference Range T HC N 0 - 50 ng/ml * C ocaine N 0 - 300 ng/ml * A mphetamine N 0 - 1000 ng/ml * B uprenorphine (BUP) N 0 - 10 ng/ml * S ecobarbital (Bar) N 0 - 300 ng/ml * O xazepam (BZO) N 0 - 300 ng/ml * 2 -ethylidene-1,4-cldcecdj-9,3-diphenylpyrrolidine (EDDP) N 0 - 300 ng/ml * M ethamphetamine (MET) N 0 - 1000 ng/ml * M ethylenedioxymethamphetamine (MDMA) N 0 - 500 ng/ml * M orphine (MOP 300/[id number]) N 0 - 300 ng/ml * M ethadone (MTD) N 0 - 300 ng/ml * P hencyclidine (PCP) N 0 - 25 ng/ml * P ropoxyphene (PPX) N 0 - 300 ng/ml * N ortriptyline (TCA) N 0 - 1000 ng/ml * O xycodone N 0 - 300 ng/ml * Procedure Codes: 9 6127 BEHAV ASSMT W/SCORE & DOCD/STAND [id number] Pt not markos d/t act dig [id number] DRUG TST PRSMV READ INSTRMNT ASSTD DIR OPT [id number] VISIT COMPLEXITY INHERENT TO ONGOING CARE RELATED TO A PATIENT'S SINGLE, SERIOUS CONDITION OR A COMPLEX CONDITION * Preventive Medicine: Counseling: P atient Education: [...] should suicidal thoughts occur.. * Follow Up: 6 Weeks * Billing Information: * Visit Code: [id number] OFFICE OUTPATIENT VISIT 25 MINUTES DETAILED HISTORY AND EXAM/MODERATE MEDICAL DECISION MAKING. * Procedure Codes: 02977 BEHAV ASSMT W/SCORE & DOCD/STAND INSTRUMENT. G9744 Pt [place] markos d/[place]. [address] DRUG TST PRSMV READ INSTRMNT ASSTD DIR OPT OBS. G2211 VISIT COMPLEXITY INHERENT TO ONGOING CARE RELATED TO A PATIENT'S SINGLE, SERIOUS CONDITION OR A COMPLEX CONDITION. * LEDGE MANAGEMENT ADVISOR Electronically co-signed by Jevon Ray MD on 07/09/2024 at 08:08 PM KNOWLEDGE MANAGEMENT ADVISOR Sign off status: Completed Addendum: * true * Provider: Michael Molina Date: 07/07/2024 Generated for Cydney Ibarra/Carlos on: 09/04/2024 10:21 AM CDT History and Physical Notes * HPI (History of Present Illness) Category Sub-Category Detail Notes Category Not es Past Psychiatric Hospitalizations Previous psychiatric hospitalizations Previous Psychiatric Hospitalization: Yes How Many Psychiatry Hospitalizations Have You Had in the past?: 1 When were you last hospitalized? month a nd year: 02/2004 What was the cause of your psychiatric h ospitalizations?: Suicidal attempt Past History of Suicidal attempt Have yo u ever attempted suicide in the past: Yes Method of suicide attempt: Hanging Depression screening PHQ-9 Little inte rest or pleasure in doing things: Several days Feeling down, depressed, or hopeless: No t at all Trouble falling or staying asleep, or sl eeping too much: Several days Feeling tired or having little energy: S [...] some way: Not at all Total Score: 5 Interpretation: Mild Depression Intervention Depression Screening Findings: P ositve Follow-Up for Depression: [facility] treatment assessment, Patient follow-up to return when and if necessary Suicide Risk Assessment Performed: 07/07 Additional Evaluation for De pression: Psychiatric interview and evaluation Name of the standardized too l used for adult depression screening:: Patient Health Questionnaire (PHQ-9) Depression Screening MARY-7 (2018 Edition) Feelin g nervous, anxious, or on edge: Several days Not being able to stop or control worryi ng: Not at all Worrying too much about different things : Not at all Trouble relaxing: Not at all Being so restless that it is hard to sit still: Not at all Becoming easily annoyed or irritable: No t at all Feeling afraid as if something awful mable ht happen: Several days Total MARY-7 Score: 2 Interpretation of Total: (0 to 4) No Anx iety [place]-Suicide Severity Rating Scale Suicide Risk (CSRS-screener) in the past one month Have you wished you were or wished you could go to sleep and not wake up?: No in the past one month Have y ou actually had any thoughts of killing yourself?: No Have you ever done anything, started to do anything, or prepared to do anything to end your life?: No Examination Category Sub-Category Detail Notes Category Not es Psychiatry Appearance: alert, groomed, appears well rested. In no acute distress Attitude: cooperative, open-mi nded with collaborative approach Psychomotor activity: within normal rang e Abnormal [...]
--- OUTSIDE RECORDS SUMMARY | 2024-09-04 10:22 | XMS_ITS | Patient Health Record ---
Author Organization [facility] [email or web address] Address [address] [place] [address] Care Team Providers Care Parole Board Member Name Role Phone Heraclio Cleveland DO Primary Care Provider Edith Barrios Unavailable [phone] Jevon Ray Unavailable [phone] Cleo Peters Unavailable [phone] Allergies Allergen (clinical drug ingredient) Drug/Non Drug [...] Oxazepam (BZO) N 0 - 300 ng/ml 5-pifirqijdz-3,5-oyqwsahm-6,3-diphenylpyrrolidine (GENEVIEVE P) N 0 - 300 ng/ml Methamphetamine (MET) N 0 - 1000 ng/ml Methylenedioxymethamphetamine (MDMA) N 0 - 500 ng/ml Morphine (MOP 300/[id number]) N 0 - 300 ng/ml Methadone (MTD) N 0 - 300 ng/ml Phencyclidine (PCP) N 0 - 25 ng/ml Nortriptyline (TCA) N 0 - 1000 ng/ml Oxycodone N 0 - 300 ng/ml x N 0 - 300 ng/ml UDT Reviewed date:02/28/2024 02:15:48 PM Interpretation: Performing Lab: Notes/Report: THC n 0 - 50 ng/ml Cocaine n 0 - 300 ng/ml Amphetamine p 0 - 1000 ng/ml Buprenorphine (BUP) n 0 - 10 ng/ml Secobarbital (Bar) n 0 - 300 ng/ml Oxazepam (BZO) p 0 - 300 ng/ml 3-qlgtbtamvy-0,4-dyxabyue-5,3-diphenylpyrrolidine (GENEVIEVE P) n 0 - 300 ng/ml Methamphetamine (MET) n 0 - 1000 ng/ml Methylenedioxymethamphetamine (MDMA) n 0 - 500 ng/ml Morphine (MOP 300/[id number]) n 0 - 300 ng/ml Methadone (MTD) n 0 - 300 ng/ml Phencyclidine (PCP) n 0 - 25 ng/ml Nortriptyline (TCA) n 0 - 1000 ng/ml Oxycodone n 0 - 300 ng/ml UDT Reviewed date:01/31/2024 10:13:50 AM Interpretation: Performing Lab: Notes/Report: THC neg 0 - 50 ng/ml Cocaine neg 0 - 300 ng/ml Amphetamine neg 0 - 1000 ng/ml Buprenorphine (BUP) neg 0 - 10 ng/ml Secobarbital (Bar) neg 0 - 300 ng/ml Oxazepam (BZO) neg 0 - 300 ng/ml 4-aoyzcvgsnf-4,5-qpivikdh-8,3-diphenylpyrrolidine (GENEVIEVE P) neg 0 - 300 ng/ml Methamphetamine (MET) neg 0 - 1000 ng/ml Methylenedioxymethamphetamine (MDMA) neg 0 - 500 ng/ml Morphine (MOP 300/[id number]) neg 0 - 300 ng/ml Methadone (MTD) neg 0 - 300 ng/ml Phencyclidine (PCP) neg 0 - 25 ng/ml Nortriptyline (TCA) neg 0 - 1000 ng/ml Oxycodone neg 0 - 300 ng/ml x neg 0 - 300 ng/ml Test, Urine Reviewed date:01/31/2024 10:13:50 AM Interpretation: Performing Lab: Notes/Report: Test, Urine neg Reason For Referral No Information Medications Medication SIG (Take, Route, Frequency, Duration) Notes Start Date End Date Status Vilazodone HCl 40 MG 1 tablet with food Oral Once a day Active traZODone HCl 100 MG 2 tablet at bedtime Oral Once a day As needed Active Amphetamine-Dextroamphet ER 10 MG 1 capsule in the morning Orally Once a day for 30 days 09/01/2024 Active busPIRone HCl 10 MG 2 tablets Oral three times a day Active ARIPiprazole 5 MG 1 tablet Oral Once a day for 30 days Active Albuterol Sulfate HFA 108 (90 Base) MCG/ACT INHALE 2 PUFFS BY MOUTH EVERY 6 HOURS FOR 30 DAYS Inhalation for 25 Days Active SUMAtriptan Succinate 50 MG Oral for 30 Days Active Topiramate 25 MG Oral for 30 Days Active Trelegy Ellipta 200-62.5-25 MCG/ACT Inhalation for 30 Days Active Fasenra 30 MG/ML Subcutaneous for 30 Days Active Ondansetron 4 MG DISSOLVE 1 TABLET IN MOUTH EVERY 8 HOURS NEEDED FOR NAUSEA AND VOMITING Oral for 6 Days Active Modafinil 100 MG 1 tablet in the morn ing Orally Once a day Active Social History Tobacco Use: Social History [...] has it been since you last smoked? Sophie ter than 10 years AUDIT-C (Standard) Question [...] less (1 point) Section Notes: Lives in [place] with 2 kids. Grew up in [place], has 1 sister. 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 Lives in [place] with 2 kids. Grew up in [place], has 1 sister. 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 Lives in [place] with 2 kids. Grew up in [place], has 1 sister. 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 Lives in [place] with 2 kids. Grew up in [place], has 1 sister. 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 Lives in [place] with 2 kids. Grew up in [place], has 1 sister. 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 Lives in [place] with 2 kids. Grew up in [place], has 1 sister. 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 Problems Problem Type SNOMED Code ICD Code Onset Dates Problem Status W/U Status Risk Notes Problem Mild recurrent major depression (69962016) Major depressive disorder, recurrent, mild (F33.0) Active confirmed Problem Moderate recurrent major depression (95377464) Major depressive disorder, recurrent, moderate (F33.1) Active confirmed Problem Generalized anxiety disorder (34228465) Generalized anxiety disorder (F41.1) Active confirmed Problem Attention deficit hyperactivity disorder, combined type (13980750) Attention-deficit hyperactivity disorder, combined type (F90.2) Active confirmed Problem Chronic insomnia (000241083) Chronic insomnia (F51.04) Active confirmed Problem Chronic fatigue syndrome (16779495) Chronic fatigue syndrome (G93.32) Active confirmed Problem Panic disorder (759324448) Panic attacks (F41.0) Active confirmed Problem Gastroesophageal reflux disease (862443562) Gastroesophageal reflux disease (K21.9) 022 Active confirmed Vital Signs Heart Rate 81 /min 08/04/2024 Height-cm 160.02 cm 08/04/2024 Blood pressure diastolic 75 mm Hg 08/04/2024 Weight-kg 82.55 kg 08/04/2024 Height 63 in 08/04/2024 Blood pressure systolic 109 mm Hg 08/04/2024 Weight 182 lbs 08/04/2024 BMI 32.24 kg/m2 08/04/2024 Encounters Encounter Location Date Provider Diagnosis [facility] [address] [facility] [address] [place] [address] 01/31/2024 Cleo Peters Major depressive disorder, recurrent, moderate F33.1 ; Generalized anxiety disorder F41.1 ; Attention-deficit hyperactivity disorder, combined type F90.2 ; Chronic insomnia F51.04 ; Panic attacks F41.0 and Chronic fatigue syndrome G93.32 [place] [id number] [facility] [address] [address] 02/26/2024 Jevon Ray ADHD (attention deficit hyperactivity disorder), combined type F90.[address] [address] 03/03/2024 Cleo Peters Major depressive disorder, recurrent, moderate F33.1 ; Attention-deficit hyperactivity disorder, combined type F90.2 ; Generalized anxiety disorder F41.1 ; Chronic insomnia F51.04 ; Panic attacks F41.0 and Chronic fatigue syndrome G93.[address] [address] 03/31/2024 Cleo Peters Major depressive disorder, recurrent, mild F33.0 ; Attention-deficit hyperactivity disorder, combined type F90.2 ; Generalized anxiety disorder F41.1 ; Chronic insomnia F51.04 ; Panic attacks F41.0 and Chronic fatigue syndrome G93.[address] [address] 04/23/2024 Cleo Peters Major depressive disorder, recurrent, mild F33.0 ; Attention-deficit hyperactivity disorder, combined type F90.2 ; Generalized anxiety disorder F41.1 ; Chronic insomnia F51.04 ; Panic attacks F41.0 and Chronic fatigue syndrome G93.[address] [address] 05/27/2024 Edith Molina Attention-deficit hyperactivity disorder, combined type F90.2 ; Major depressive disorder, recurrent, mild F33.0 ; Generalized anxiety disorder F41.1 ; Panic attacks F41.0 ; Chronic insomnia F51.04 and Chronic fatigue syndrome G93.[address] [address] 07/07/2024 Edith Molina Attention-deficit hyperactivity disorder, combined type F90.2 ; Major depressive disorder, recurrent, mild F33.0 ; Generalized anxiety disorder F41.1 ; Panic attacks F41.0 ; Chronic fatigue syndrome G93.32 and Chronic insomnia F51.04 [facility], [facility] [address] [place] [address] 08/04/2024 Edith Molina Major depressive disorder, recurrent, mild F33.0 ; Attention-deficit hyperactivity disorder, combined type F90.2 ; Generalized anxiety disorder F41.1 ; Panic attacks F41.0 ; Chronic fatigue syndrome G93.32 and Chronic insomnia F51.04 [facility], [facility] [address] [place] [address] 02/04/2024 Cleo Peters Attention-deficit hyperactivity disorder, combined type F90.2 [facility], [facility] [address] [place] [address] 02/04/2024 Cleo Peters [facility], [facility] [address] [place] [address] 02/05/2024 Cleo [email or web address][email or web address], [facility] [address] [place] [address] 02/08/2024 [email or web address], [facility] [address] [place] [address] 02/15/2024 Cleo Conyacs[facility]debhavana [facility], [facility] [address] [place] [address] 01/31/2024 Cleo Conyacsergio [facility], [facility] [address] [place] [address] 02/05/2024 Cleo Peters [facility], [facility] [address] [place] [address] 02/05/2024 Cleo [email or web address][email or web address] [facility], [facility] [address] [place] [address] 04/09/2024 Cleo Conyacsergio [facility], [facility] [address] [place] [address] 04/09/2024 Cleo Conyacsam[facility][email or web address] [facility], [facility] [address] [place] [address] 05/28/2024 Edith Molina [facility], [facility] [address] [place] [address] 05/28/2024 Edithalfredo Molina [facility] [employer] [address] [facility] [address] [place] [address] 09/01/2024 Edithalfredo Oakleyjose Attention-deficit hyperactivity disorder, combined type F90.2 Assessments Encounter Date Diagnosis (ICD Code) Assessment Notes Treatment Notes Treatment Clinical Notes Section Notes 01/31/2024 Major depressive disorder, recurrent, moderate (ICD-10 - F33.1) cont abilify 15mg, takes 1/2 tab daily cont vilazodone 40mg daily cont therapy dx: MDD, chronic insomnia, MARY, panic attacks diff: adhd, ptsd, bipolar (unclear hx dx) remote substance abuse hx chronic fatigue, hx gastric bypass reports hx of seizure with THC-never dx hx OD on xanax UDS neg discuss dx and tx considerations, usually taper off buspar if adding vilazodone, though has been on and is tolerating current combo. She wants to keep mood and anxiety medications the same and adjust ADHD if possible. Has tried a few meds, taken off adderall for medical that seems resolved per pt but wasn't put back on. Hold on this. Also has taken vyvanse, atomoxetine, guanfacine. For now stay with qelbree, is low dose so can increase. Will do ADHD testing as per policy. Review r/b/se of meds. cont therapy schedule adhd test ~4 wks (so used to med change), and f/u 6 wks; earlier if concerns 01/31/2024 Generalized anxiety disorder (ICD-10 - F41.1) cont buspar 20mg TID meds, therapy as above 02/26/2024 ADHD (attention deficit hyperactivity disorder), combined type (ICD-10 - F90.2) 03/03/2024 Major depressive disorder, recurrent, moderate (ICD-10 - F33.1) more mild cont abilify 15mg, takes 1/2 tab daily cont vilazodone 40mg daily cont therapy dx: MDD, chronic insomnia, MARY, panic attacks diff: adhd, ptsd, bipolar (unclear hx dx) remote substance abuse hx chronic fatigue, hx gastric bypass reports hx of seizure with THC-never dx hx OD on xanax initial UDS neg 03/31/2024 Major depressive disorder, recurrent, mild (ICD-10 - F33.0) cont abilify 15mg, takes 1/2 tab daily cont vilazodone 40mg daily cont therapy 03/03/2024 Attention-defic it hyperactivity disorder, combined type (ICD-10 - F90.2) cont qelbree 400mg qam-allow more time for benefit has adequate supply/refills of meds from last month visit ADHD/KHUSHBU testing supports ADHD dx had issue with insurance filling qelbree, so on 400mg for about 2.5wks only. Does feel improvement over no meds, but not as robust as stimulant. Also has been inadequate amount of time for full benefit on qelbree. Decision to cont, allow time, and if good benefit but not enough may try increase again, or if lacking considerable improvement may revisit stimulant. Had been on in past, reports taken off adderall due to high pulse when also had pneumonia, has also tried vyvanse. Could retry lower dose or methylphenidate product and monitor for side effects. cont other meds, cont therapy f/u 1 month, earlier if concerns 04/23/2024 Major depressive disorder, recurrent, mild (ICD-10 - F33.0) cont abilify 15mg, takes 1/2 tab daily cont vilazodone 40mg daily cont therapy 05/27/2024 Major depressive disorder, recurrent, mild (ICD-10 - F33.0) Assessment and Plan: 1. ADHD - Patient reports inadequate response to Qelbree, despite increase last visit - States adderall seemed to be most beneficial, was on it for years prior. But stopped because of HR issues. She states she was on Adderall 30 mg IR twice a day. Discussed the immediate release and high doses, more likely to have side effects. Plan: - Discontinue Qelbree, instructed to taper. - Start Adderall XR 10 mg daily. - Monitor heart rate 2. Depression - Patient reports stable mood with occasional mild depressed mood, manageable Plan: - Continue vilazodone 40 mg daily - continue Abilify 7.5 mg daily. 3. Anxiety/panic - Patient reports stable and minimal, manageable anxiety levels. Plan: - Continue BuSpar 20 mg three times daily. 4. Insomnia - reports adequate sleep with trazodone Plan: - Continue trazodone 200 mg nightly. 5. Fatigue - Patient reports ongoing fatigue and excessive daytime sleepiness. Plan: - follow up with qa automation architect and any recommeneded testing/provide rs recommended - monitor fatigue follow up 6 weeks, sooner if concerns arise 05/27/2024 Attention-defic it hyperactivity disorder, combined type (ICD-10 - F90.2) Assessment and Plan: 1. ADHD - Patient reports inadequate response to Qelbree, despite increase last visit - States adderall seemed to be most beneficial, was on it for years prior. But stopped because of HR issues. She states she was on Adderall 30 mg IR twice a day. Discussed the immediate release and high doses, more likely to have side effects. Plan: - Discontinue Qelbree, instructed to taper. - Start Adderall XR 10 mg daily. - Monitor heart rate 2. Depression - Patient reports stable mood with occasional mild depressed mood, manageable Plan: - Continue vilazodone 40 mg daily - continue Abilify 7.5 mg daily. 3. Anxiety/panic - Patient reports stable and minimal, manageable anxiety levels. Plan: - Continue BuSpar 20 mg three times daily. 4. Insomnia - reports adequate sleep with trazodone Plan: - Continue trazodone 200 mg nightly. 5. Fatigue - Patient reports ongoing fatigue and excessive daytime sleepiness. Plan: - follow up with qa automation architect and any recommeneded testing/provide rs recommended - monitor fatigue follow up 6 weeks, sooner if concerns arise 07/07/2024 [...] c Fatigue - Recently started modafinil by qa automation architect - Senior Account Director encouraged continuing Adderall with modafinil Plan: - Continue modafinil as prescribed by qa automation architect Follow-up in 6 weeks, sooner if concerns arise 07/07/2024 Attention-defic it hyperactivity disorder, combined type (ICD-10 - F90.2) [...] c Fatigue - Recently started modafinil by qa automation architect - Senior Account Director encouraged continuing Adderall with modafinil Plan: - Continue modafinil as prescribed by qa automation architect Follow-up in 6 weeks, sooner if concerns arise 08/04/2024 Major depressive disorder, recurrent, mild (ICD-10 [...] slightly, has pulmonology appointment next month - Senior Account Director encouraged continuing Adderall with modafinil Plan: - Continue treatment plan with qa automation architect Follow-up in 2 months, sooner if concerns arise 09/01/2024 Attention-defic it hyperactivity disorder, combined type (ICD-10 - F90.2) 08/04/2024 Attention-defic it hyperactivity disorder, combined type (ICD-10 - F90.2) [...] slightly, has pulmonology appointment next month - Senior Account Director encouraged continuing Adderall with modafinil Plan: - Continue treatment plan with qa automation architect Follow-up in 2 months, sooner if concerns arise 07/07/2024 Generalized anxiety [...] c Fatigue - Recently started modafinil by qa automation architect - Senior Account Director encouraged continuing Adderall with modafinil Plan: - Continue modafinil as prescribed by qa automation architect Follow-up in 6 weeks, sooner if concerns arise 05/27/2024 Generalized anxiety disorder (ICD-10 - F41.1) Assessment and Plan: 1. ADHD - Patient reports inadequate response to Qelbree, despite increase last visit - States adderall seemed to be most beneficial, was on it for years prior. But stopped because of HR issues. She states she was on Adderall 30 mg IR twice a day. Discussed the immediate release and high doses, more likely to have side effects. Plan: - Discontinue Qelbree, instructed to taper. - Start Adderall XR 10 mg daily. - Monitor heart rate 2. Depression - Patient reports stable mood with occasional mild depressed mood, manageable Plan: - Continue vilazodone 40 mg daily - continue Abilify 7.5 mg daily. 3. Anxiety/panic - Patient reports stable and minimal, manageable anxiety levels. Plan: - Continue BuSpar 20 mg three times daily. 4. Insomnia - reports adequate sleep with trazodone Plan: - Continue trazodone 200 mg nightly. 5. Fatigue - Patient reports ongoing fatigue and excessive daytime sleepiness. Plan: - follow up with qa automation architect and any recommeneded testing/provide rs recommended - monitor fatigue follow up 6 weeks, sooner if concerns arise 04/23/2024 Attention-defic it hyperactivity disorder, combined type (ICD-10 - F90.2) did not tolerate concerta 18mg qam-elevated heart rate increase qelbree to 600mg qam (also gave sample box) *if need PA again, note: currently already on qelbree, did not tolerate methylphenidate /concerta, past taken off adderall for tachycardia, also tried atomoxetine in past 100mg-reports ineffective *sent 90 day refills of other meds on 03/31 did not tolerate methylphenidate-t achycardia. attention complaints, discuss option to try qelbree increase. she agrees; review r/b/se. cont other meds cont therapy f/u 1 month, earlier if concerns -discussed transition to new provider here as I am leaving the practice after this month notes: ADHD/KHUSHBU testing supports ADHD dx diff: ptsd, bipolar (unclear hx dx) remote substance abuse hx chronic fatigue, hx gastric bypass reports hx of seizure with THC-never dx with seizure hx OD on xanax 03/31/2024 Generalized anxiety disorder (ICD-10 - F41.1) manageable cont buspar 20mg TID meds, therapy as above 03/31/2024 Attention-defic it hyperactivity disorder, combined type (ICD-10 - F90.2) start concerta 18mg qam cont qelbree 400mg qam some benefit but not much with qelbree, discuss options, will retry a stimulant, but concerta instead, review r/b/se, what to monitor for, controlled substance policy, monitor pulse if elevated/high or regularly over 100, then stop the stimulant and call office. Depending on response may increase and possibly taper qelbree cont other meds, cont therapy f/u 1 month, earlier if concerns notes: ADHD/KHUSHBU testing supports ADHD dx diff: ptsd, bipolar (unclear hx dx) remote substance abuse hx chronic fatigue, hx gastric bypass reports hx of seizure with THC-never dx hx OD on xanax initial UDS neg 03/03/2024 Generalized anxiety disorder (ICD-10 - F41.1) manageable cont buspar 20mg TID meds, therapy as above 01/31/2024 Attention-defic it hyperactivity disorder, combined type (ICD-10 - F90.2) increase qelbree to 400mg qam help rule in/out with KHUSHBU/ROSENBAUM testing per policy 01/31/2024 Chronic insomnia (ICD-10 - F51.04) cont trazodone 200mg qhs prn practice good sleep hygiene 02/04/2024 Attention-defic it hyperactivity disorder, combined type (ICD-10 - F90.2) Electronic Prior Authorization was requested for Qelbree 200 MG Capsule Extended Release 24 Hour. Provider can order medication once approval received. 03/31/2024 Chronic insomnia (ICD-10 - F51.04) cont trazodone 200mg qhs prn practice good sleep hygiene 03/03/2024 Chronic insomnia (ICD-10 - F51.04) cont trazodone 200mg qhs prn practice good sleep hygiene 04/23/2024 Generalized anxiety disorder (ICD-10 - F41.1) manageable cont buspar 20mg TID meds, therapy as above 05/27/2024 Panic attacks (ICD-10 - F41.0) Assessment and Plan: 1. ADHD - Patient reports inadequate response to Qelbree, despite increase last visit - States adderall seemed to be most beneficial, was on it for years prior. But stopped because of HR issues. She states she was on Adderall 30 mg IR twice a day. Discussed the immediate release and high doses, more likely to have side effects. Plan: - Discontinue Qelbree, instructed to taper. - Start Adderall XR 10 mg daily. - Monitor heart rate 2. Depression - Patient reports stable mood with occasional mild depressed mood, manageable Plan: - Continue vilazodone 40 mg daily - continue Abilify 7.5 mg daily. 3. Anxiety/panic - Patient reports stable and minimal, manageable anxiety levels. Plan: - Continue BuSpar 20 mg three times daily. 4. Insomnia - reports adequate sleep with trazodone Plan: - Continue trazodone 200 mg nightly. 5. Fatigue - Patient reports ongoing fatigue and excessive daytime sleepiness. Plan: - follow up with qa automation architect and any recommeneded testing/provide rs recommended - monitor fatigue follow up 6 weeks, sooner if concerns arise 07/07/2024 [...] c Fatigue - Recently started modafinil by qa automation architect - Senior Account Director encouraged continuing Adderall with modafinil Plan: - Continue modafinil as prescribed by qa automation architect Follow-up in 6 weeks, sooner if concerns arise 08/04/2024 Generalized anxiety [...] slightly, has pulmonology appointment next month - Senior Account Director encouraged continuing Adderall with modafinil Plan: - Continue treatment plan with qa automation architect Follow-up in 2 months, sooner if concerns [...] slightly, has pulmonology appointment next month - Senior Account Director encouraged continuing Adderall with modafinil Plan: - Continue treatment plan with qa automation architect Follow-up in 2 months, sooner if concerns arise 07/07/2024 Chronic fatigue [...] c Fatigue - Recently started modafinil by qa automation architect - Senior Account Director encouraged continuing Adderall with modafinil Plan: - Continue modafinil as prescribed by qa automation architect Follow-up in 6 weeks, sooner if concerns arise 04/23/2024 Chronic insomnia (ICD-10 - F51.04) cont trazodone 200mg qhs prn practice good sleep hygiene 05/27/2024 Chronic insomnia (ICD-10 - F51.04) Assessment and Plan: 1. ADHD - Patient reports inadequate response to Qelbree, despite increase last visit - States adderall seemed to be most beneficial, was on it for years prior. But stopped because of HR issues. She states she was on Adderall 30 mg IR twice a day. Discussed the immediate release and high doses, more likely to have side effects. Plan: - Discontinue Qelbree, instructed to taper. - Start Adderall XR 10 mg daily. - Monitor heart rate 2. Depression - Patient reports stable mood with occasional mild depressed mood, manageable Plan: - Continue vilazodone 40 mg daily - continue Abilify 7.5 mg daily. 3. Anxiety/panic - Patient reports stable and minimal, manageable anxiety levels. Plan: - Continue BuSpar 20 mg three times daily. 4. Insomnia - reports adequate sleep with trazodone Plan: - Continue trazodone 200 mg nightly. 5. Fatigue - Patient reports ongoing fatigue and excessive daytime sleepiness. Plan: - follow up with qa automation architect and any recommeneded testing/provide rs recommended - monitor fatigue follow up 6 weeks, sooner if concerns arise 03/03/2024 Panic attacks (ICD-10 - F41.0) manageable meds, therapy as above 03/31/2024 Panic attacks (ICD-10 - F41.0) manageable meds, therapy as above 01/31/2024 Panic attacks (ICD-10 - F41.0) manageable meds, therapy as above 01/31/2024 Chronic fatigue syndrome (ICD-10 - G93.32) impacts other sx 03/03/2024 Chronic fatigue syndrome (ICD-10 - G93.32) impacts other sx 03/31/2024 Chronic fatigue syndrome (ICD-10 - G93.32) impacts other sx 05/27/2024 Chronic fatigue syndrome (ICD-10 - G93.32) Assessment and Plan: 1. ADHD - Patient reports inadequate response to Qelbree, despite increase last visit - States adderall seemed to be most beneficial, was on it for years prior. But stopped because of HR issues. She states she was on Adderall 30 mg IR twice a day. Discussed the immediate release and high doses, more likely to have side effects. Plan: - Discontinue Qelbree, instructed to taper. - Start Adderall XR 10 mg daily. - Monitor heart rate 2. Depression - Patient reports stable mood with occasional mild depressed mood, manageable Plan: - Continue vilazodone 40 mg daily - continue Abilify 7.5 mg daily. 3. Anxiety/panic - Patient reports stable and minimal, manageable anxiety levels. Plan: - Continue BuSpar 20 mg three times daily. 4. Insomnia - reports adequate sleep with trazodone Plan: - Continue trazodone 200 mg nightly. 5. Fatigue - Patient reports ongoing fatigue and excessive daytime sleepiness. Plan: - follow up with qa automation architect and any recommeneded testing/provide rs recommended - monitor fatigue follow up 6 weeks, sooner if concerns arise 07/07/2024 [...] c Fatigue - Recently started modafinil by qa automation architect - Senior Account Director encouraged continuing Adderall with modafinil Plan: - Continue modafinil as prescribed by qa automation architect Follow-up in 6 weeks, sooner if concerns arise 04/23/2024 Panic attacks (ICD-10 - F41.0) manageable meds, therapy as above 08/04/2024 Chronic fatigue syndrome (ICD-10 - G93.32) [...] slightly, has pulmonology appointment next month - Senior Account Director encouraged continuing Adderall with modafinil Plan: - Continue treatment plan with qa automation architect Follow-up in 2 months, sooner if concerns [...] slightly, has pulmonology appointment next month - Senior Account Director encouraged continuing Adderall with modafinil Plan: - Continue treatment plan with qa automation architect Follow-up in 2 months, sooner if concerns arise 04/23/2024 Chronic fatigue syndrome (ICD-10 - G93.32) impacts other sx 01/31/2024 Other 08/04/2024 Other no refills needed except on [...] slightly, has pulmonology appointment next month - Senior Account Director encouraged continuing Adderall with modafinil Plan: - Continue treatment plan with qa automation architect Follow-up in 2 months, sooner if concerns arise Plan Of Treatment Next Appt Details Provider Name:Edith Oakleypawelamarjit harvey, 09/29/2024 08:30:00 AM, [address] [facility] [address], [facility] [address], [place], [address], Insurance Providers Payer Name Payer Address Payer Phone Subscriber Number Group Number Insured Name Patient Relationship to Insured Coverage Start Date Coverage End Date [facility] [address] [place] [phone] [id number] Sarai Marie Self - patient is the insured Medical (General) History Medical History History ICD Code chronic fatigue syndrome asthma hx DVT hx seizures Past Psychiatric History: Anxiety Disord er,Major Depressive Episode undefined Surgical History Surgery Date(Month/Year) c sections 2008- galbladder removal 2012 gastric bypass 05/2023 Hospitalization History Reason Date(Month/Year) pneumonia 2022
--- OUTSIDE RECORDS SUMMARY | 2024-09-04 10:22 | XMS_ITS | Clinical Summary ---
Author Organization [facility] Address [place] [address] Care Team Providers Care Telephone Cleaner Name Role Phone Heraclio Cleveland DO Primary Care Provider [phone] Allergies Active Allergy Reactions Criticality Noted Date Comments Egg Shellfish Containing Products Anaphylaxis High 10/07 Medications traZODone (DESYREL) 100 mg tablet Take 100 mg by mouth 2 (two) times a day Active topiramate (TOPAMAX) 25 mg tablet 9 Active omeprazole (PriLOSEC) 20 mg capsule 9 Active LORazepam (ATIVAN) 0.5 mg tablet 9 Active lisinopril (PRINIVIL,ZESTR IL) 10 mg tablet 9 Active cetirizine (ZyrTEC) 10 mg tablet Zyrtec 10 mg tablet Take 1 tablet as needed by oral route for 30 days. Active busPIRone (BUSPAR) 10 mg tablet 20 mg 9 Active SUMAtriptan (IMITREX) 50 mg tablet Imitrex 50 mg tablet Take by oral route. migraine headaches Active omeprazole (PriLOSEC) 20 mg capsule Take 1 capsule (20 mg total) by mouth every 12 (twelve) hours for 7 days 14 capsule 9 Active busPIRone (BUSPAR) 10 mg tablet Take by mouth 3 (three) times a day Active albuterol HFA (PROVENTIL HFA) 90 mcg/actuation inhaler Proventil HFA 90 mcg/actuation aerosol inhaler Inhale 1 or 2 puffs by mouth twice a day to three times a day 7 Active ARIPiprazole (ABILIFY) 15 mg tablet TAKE 1/2 (ONE-HALF) TABLET BY MOUTH NIGHTLY FOR 90 DAYS 2 Active Rexulti 1 mg tablet Take 1 mg by mouth daily for 30 days 2 Active calcium carbonate-vitam in D3 (CALTRATE 600 + D) 1500 mg (600 mg elemental) -400 units per tablet every 12 hours Activ e cyclobenzaprine (FLEXERIL) 5 mg tablet TAKE 1 TABLET BY MOUTH AT NIGHT NEEDED FOR MUSCLE SPASM 2 Active escitalopram (LEXAPRO) 20 mg tablet 0 Active fluticasone propion-salmete roL (AirDuo Digihaler) 113 mcg-14 mcg/actuation aero powdr breath act w/sensor 0 Active lisdexamfetamin e (Vyvanse) 40 mg capsule Vyvanse 40 mg capsule TAKE 1 CAPSULE BY MOUTH ONCE DAILY IN THE MORNING FOR 30 DAYS Active valACYclovir (VALTREX) 1 gram tablet valacyclovir 1 gram tablet Active Active Problems Problem Noted Date Diagnosed Date Gastroesophageal reflux disease 12/08/2021 Primary hypertension 12/08/2021 Other specified anxiety disorders 12/08/2021 Major depressive disorder, recurrent episode, mo derate 12/08/2021 BMI 50.0-59.9, adult 11/03/2021 Morbid obesity 01/22/2019 Surgical History Surgery Date Site/Laterality Comments CHOLECYSTECTOMY SECTION Medical History Medical History Date Comments Asthma Anxiety Depression GERD (gastroesophageal reflux disease) Hypertension ADD (attention deficit disorder) DVT of upper extremity (deep vein thrombosis) (H CC) 02/2019 Bipolar disorder (HCC) 2021 Morbid obesity (HCC) Family History Medical History Relation Name Comments Diabetes Father Bhavin Hypertension Father Bhavin Obesity Father Bhavin Sleep apnea Father Bhavin Diabetes Mother Marisel Hypertension Mother Marisel Obesity Mother Marisel Miscarriages / Stillbirths Sister Kimmie Mental illness Honorio Cuellar Relation Name Status Comments Father Bhavin Mother Marisel Sister Kimmie Cuellar Social History Tobacco Use Types Packs/Day Years Used Date Smoking Tobacco: Never Smokeless Tobacco: Never Alcohol Use Standard Drinks/Week Comments Yes 0 (1 standard drink = 0.6 oz pur e alcohol) rarely AUDIT-C Answer Date Recorded Frequency of Alcohol Consumption Never 01/22/2019 Average Number of Drinks Not on file 019 Frequency of Binge Drinking Not on file 12/25 Personal Safety Answer Date Recorded Getting School Help Needed Not on file 08/18 Comments Unknown Sex and Gender Information Value Date Recorded Sex Assigned at Not on file Legal Sex Female 8:29 AM GLOBAL PRESIDENT Gender Identity Female 10/31/2021 1:29 PM CDT Sexual Orientation Straight 10/31/2021 1: 29 PM CDT Obstetrics History Last Filed Vital Signs Vital Sign Reading Time Taken Comments Blood Pressure 114/81 11/11/2021 4:05 PM CDT Pulse 105 11/11/2021 4:05 PM CDT Temperature 36.6 C (97.8 F) 05/15/2019 2:01 PM GLOBAL PRESIDENT Respiratory Rate - - Oxygen Saturation 96% 11/11/2021 4:05 PM CDT Inhaled Oxygen Concentration - - Weight 118.8 kg (261 lb 12.8 oz) 05/15/2019 2:01 PM GLOBAL PRESIDENT Height 159.5 cm (5' 2.8 ) 05/15/2019 2:01 PM GLOBAL PRESIDENT Body Mass Index 46.67 05/15/2019 2:01 PM GLOBAL PRESIDENT Plan of Treatment Health Maintenance Due Date Last Done Comments Breast Cancer Screening-Mammogram 1984 Cervical Cancer Screening 1984 Depression Screening 1984 Hepatitis C Screening 1984 DTaP/Tdap/Td Vaccine (1 - Tdap) 1995 Varicella Vaccines (1 of 2 - 13+ 2-dose series) 1997 Hepatitis B Screening 2002 Regular Well Visit/Exam 18-64 2002 Pneumococcal vaccine <65 (1 of 2 - PCV) 2003 Influenza Vaccine (#1) 2024 HPV Vaccines Aged Out No longer eligi ble based on patient's age to complete this topic Insurance [facility] C[facility] Care Teams Telephone Cleaner Relationship Specialty Start Date End Date Heraclio Cleveland DO PCP - General Internal Medicine 12/10/18
--- OUTSIDE RECORDS SUMMARY | 2024-09-04 10:22 | XMS_ITS ---
Author Organization [facility] Address [address] [place] [id number] Care Team Providers Care Wharf Attendant Name Role Phone Heraclio Cleveland Primary Care Provider Unavailab Mely Esquivel Unavailable [phone] Allergies No Known Allergies Results Component Value Reference Range Notes Spirometry Reviewed date: Interpretation:Normal Performing Lab: Notes/Report: Normal SpiroPreBronchodilator_FVC 3.36 SpiroPostBronchodilator_FEF25_75 0 SpiroPreBronchodilator_FEF25_75 2.68 SpiroPreBronchodilator_FEV1 2.7 SpiroPrecentPredictionPost_FEF25_75 0 SpiroPrecentPredictionPost_FEV1 0 SpiroPrecentPredictionPost_FEV1_OVER_FVC 0 SpiroPrecentPredictionPost_FVC 0 SpiroPrecentPredictionPre_FEF25_75 80 SpiroPrecentPredictionPre_FEV1 93.1 SpiroPrecentPredictionPre_FEV1_OVER_FVC 94.9 SpiroPrecentPredictionPre_FVC 98.2 SpiroPredicted_FEF25_75 3.35 SpiroPreBronchodilator_FEV1_OVER_FVC 80.16 SpiroPreBronchodilator_PEF 4.67 SpiroPostBronchodilator_FVC 0 SpiroPostBronchodilator_FEV1 0 SpiroPostBronchodilator_FEV1_OVER_FVC 0 SpiroPostBronchodilator_PEF 0 SpiroPredicted_FVC 3.42 SpiroPredicted_FEV1 2.9 SpiroPredicted_FEV1_OVER_FVC 84.43 SpiroPredicted_PEF 6.13 REASON FOR VISIT Asthma follow-up - better control, no interval steroids Medications Medication SIG (Take, Route, Frequency, Duration) Notes Start Date End Date Status ALBUTEROL (EQV-PROAIR HFA) 90 mcg/inh 2 puff(s) inhaled every 6 hours for 30 days Active FASENRA PREFILLED SYRINGE 30 mg/mL inject, as directed subcutaneously every 8 weeks for 365 days Active DYMISTA 137 mcg-50 mcg/inh 1 spray(s) intranasally 2 times a day Active TRELEGY ELLIPTA 200 mcg/62.5mcg/25mcg 1 puff inhaled once a day Active CETIRIZINE HYDROCHLORIDE 10 mg 1 tab(s) orally once a day Active Mounjaro 2.5 MG/0.5 ML DIRECTED SUBCUTANEOUSLY ONCE A WEEK *Please review and pick correct strength-formula tion from [employer] options. If intended option is not shown, discontinue and re-order from Quick Search* Not-Taking EPINEPHRINE AUTO-INJECTOR 0.3 mg as directed intramuscularly once for 1 days Active Vyvanse 60 MG 1 cap(s) orally once a day (in the morning) for 30 day(s) Not-Taking Aspirin 81 MG 1 tab(s) chewed once a day for 30 day(s) Not-Taking traZODone HCl 100 MG 1 by mouth at bedtime 200mg nightly Not-Taking EPINEPHRINE AUTO-INJECTOR 0.3 MG DIRECTED INTRAMUSCULARLY ONCE for 1 DAY *Please review for potential replacement for e-prescription and drug interaction check* Not-Taking ZyrTEC Allergy 10 MG 1 tab(s) orally once a day Not-Taking Lisinopril 5 MG 1 tab(s) orally once a day for 30 day(s) takes 15mg daily Not-Taking Omeprazole 20 MG 1 cap(s) orally once a day for 30 day(s) Not-Taking OMEPRAZOLE 20 mg 1 cap(s) orally once a day for 30 day(s) Not-Taking VYVANSE 60 mg 1 cap(s) orally once a day (in the morning) for 30 day(s) Not-Taking ASPIRIN 81 mg 1 tab(s) chewed once a day for 30 day(s) Not-Taking MOUNJARO 2.5 mg/0.5 mL as directed subcutaneously once a week Not-Taking LISINOPRIL 5 mg 1 tab(s) orally once a day for 30 day(s) takes 15mg daily Not-Taking ABILIFY 5 mg 1.5 tab(s) orally once a day for 30 days takes 7.5mg daily Not-Taking TOPIRAMATE 25 mg 1 tab(s) orally 2 times a day for 30 day(s) Not-Taking TRAZADONE 50MG 1 BY MOUTH AT BEDTIME 200mg nightly *Please review for potential replacement for e-prescription and drug interaction check* Not-Taking ZYRTEC 10 mg 1 tab(s) orally once a day Not-Taking ZYRTEC 10 mg 1 tab(s) orally once a day Not-Taking TRELEGY ELLIPTA 200 mcg/62.5mcg/25mcg 1 puff inhaled once a day Not-Taking PRILOSEC Not-Taking QELBREE 100 mg 1 cap(s) orally once a day 200 mg Not-Taking BUSPIRONE 10 mg 1 tab(s) orally 2 times a day for 30 day(s) 20mg three times daily Not-Taking VIIBRYD 40 mg 1 tab(s) orally once a day for 8 week(s) Not-Taking Abilify 5 MG 1.5 tab(s) orally once a day for 30 days takes 7.5mg daily Active Topiramate 25 MG 1 tab(s) orally 2 times a day for 30 day(s) Active predniSONE 20 MG 1 tablet Orally Once a day Not-Taking Doxycycline Monohydrate 100 MG 1 capsule Orally Once a day Not-Taking TRAZODONE 100 mg 1 by mouth at bedtime 200mg nightly Not-Taking Trelegy Ellipta 200-62.5-25 MCG/ACT 1 puff Inhalation Once a day Active Dymista 137-50 MCG/ACT 1 spray(s) intranasally 2 times a day Active Viibryd 40 MG 1 tab(s) orally once a day for 8 week(s) Active traZODone HCl 100 MG 1 tablet at bedtime Orally Once a day Active busPIRone HCl 10 MG 1 tablet Orally Twice a day Active Adderall 10 MG 1 tablet Orally Twice a day Active Social History Tobacco Use: Social History Observation Description Date Details (start date - stop date) Never Smoker NA - NA Smoking Smart Form: Question Answer Notes Are you a: former smoker Tobacco Control (Standard) Question Answer Notes Tobacco use: Nonsmoker Vital Signs Blood pressure systolic 116 mm Hg 07/16/19 25 Blood pressure diastolic 81 mm Hg 025 Height 63 in 07/16/2024 Weight 186.8 lbs 07/16/2024 BMI 33.09 kg/m2 07/16/2024 Oximetry 98 % 07/16/2024 Encounters Encounter Location Date Provider Diagnosis [facility] [address] [address] 07/16/2024 Mely Jay Allergic rhinitis du e to [...] Treatment Notes Treatment Clinical Notes Section Notes 07/16/2024 Allergic rhinitis due to pollen (ICD-10 - J30.1) Sarai clearly suffers from atopic disease based upon our skin testing and clinical history. Accordingly, we have introduced a new, aggressive medication regimen, discussed nasal washes and allergy-specific avoidance measures. We also discussed adjunctive therapies including subcutaneous, specific allergen immunotherapy as relates to the treatment and prevention of atopic disease. Recommend mold intradermal testing before considering immunotherapy in the future. 07/16/2024 Severe persistent asthma, uncomplicated (ICD-10 - J45.50) Spirometry in 2023 showed obstruction with FEV1 74%. Spirometry is normal today. ACT 20. Due to continued symptoms and use of prednisone 2-3 times a year despite high dose therapy with Trelegy and albuterol, started Fasenra. IgE 727, AEC 300, PFTs normal in 2021. Immunodeficiency evaluation was normal after receiving Prevar and titers check. Consider switching biologics since two recent episodes of pneumonia. We discussed switching to Xolair. 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 If symptoms persist, consider adding additional medications including intraocular antihistamine/mast cell stabilizer, PRN 07/16/2024 Allergy to eggs (ICD-10 - Z91.012) History of asthma flares with exposure to lightly cooked egg products. Skin testing to egg negative at her initial visit. We discussed having EpiPen available at all times given history. 07/16/2024 Other pneumonia, unspecified organism (ICD-10 - J18.8) 07/16/2024 Other Plan Of Treatment Medication Medication Name Sig Start Date Stop Date Notes ALBUTEROL (EQV-PROAIR HFA) 90 mcg/inh 2 puff(s) inhaled every 6 hours for 30 days FASENRA PREFILLED SYRINGE 30 mg/mL inject, as directed subcutaneously every 8 weeks for 365 days DYMISTA 137 mcg-50 mcg/inh 1 spray(s) in tranasally 2 times a day TRELEGY ELLIPTA 200 mcg/62.5mcg/25mcg 1 puff inhaled once a day CETIRIZINE HYDROCHLORIDE 10 mg 1 tab(s) orally once a day EPINEPHRINE AUTO-INJECTOR 0.3 mg as [...] atopic disease. Recommend mold intradermal testing before considering immunotherapy in the future. Severe persistent asthma, uncomplicated Spirometry in 2023 showed obstruction with FEV1 74%. Spirometry is normal today. ACT 20. Due to continued symptoms and use of prednisone 2-3 times a year despite high dose therapy with Trelegy and albuterol, started Fasenra. IgE 727, AEC 300, PFTs normal in 2021. Immunodeficiency evaluation was normal after receiving Prevar and titers check. Consider switching biologics since two recent episodes of pneumonia. We discussed switching to Xolair. Sarai has severe asthma with an eosinophilic [...] Provider Name:Mely hallman, 09/10/2024 08:15:00 AM, [address] [facility], [address], [address], Procedure Notes * Category Sub-Category Detail Notes FASENRA (benralizumab) Administration Dosage Subcutaneous administration: : 30 mg (30 units) Frequency Interval: every 8 weeks Location Arm: Left upper Dosing Time / Lot Number / Expiration Ti me of administration, Jenn Chacon 07/16/2024 09:28:43 AM TILE LAYER DRAINAGE >, Lot [id number], Expiration [id number] Reaction Local: None Post-procedural check-out: Patient was d ischarged 30 minutes after dosing administration BP: 119/85 HR: 84 02:99 Medication Source FASENRA Source: [facility] (Insurance-provided) Source Verfication:: Who pulled drug (pl ease type name in notes)? JENN/LEE Progress Notes * Sarai MOYERDOB:[birth year] (38 yo F)Acc No.[id number]:07/16/2024 FASENRA 2 Patient: Sarai SPENCER Provider: Angel Jay MD :1985 A ge:38 Y S ex:Female Date:07/16/2024 Address:[address] [place] [address] [id number] Pcp:Heraclio Cleveland Subjective: * Chief Complaints: * A sthma follow-up - better control, no interval steroids * HPI: * Introduction: I had the pleasure of seeing Angel Moyer, a 38 year old with Factor V Leiden deficiency, Asthma, egg allergy and depression presenting for f/u evaluation of asthma. She was last evaluated 05-21-2024. Asthma has been flaring with cold weather. She is using albuterol a few times a week and continues Trelegy. No interval steroids. Two months ago, she was evaluated i n urgent care and diagnosed with walking pneumonia. She was also hospitalized at [facility] February [address]24 for pneumonia. CXR and CT confirmed pneumonia per her report. She was also diagnosed with pneumonia in September [address] chest for left sided pain. She did not require steroids.? She has received Prevnar. Prior to starting [...] * Surgical History: C section 2013Csection 2006cholecystectomy 2012gastric bypass 06/06/23 * Hospitalization/Major Diagno stic Procedure: [...] Age of carpet? 4 Do you have cijr-vv-zolp carpeting? N o What is the age [...] Tobacco use: N onsmoker * Medications: T akingAdderall 10 MG Tablet 1 tablet Orally Twice a day traZODone HCl 100 MG Tablet 1 tablet at bedtime Orally Once a day busPIRone HCl 10 MG Tablet 1 tablet Orally Twice a day EPINEPHRINE AUTO-INJECTOR 0.3 mg kit as directed intramuscularly once DYMISTA 137 mcg-50 mcg/inh spray 1 spray(s) intranasally 2 times a day CETIRIZINE HYDROCHLORIDE 10 mg tablet 1 tab(s) orally once a day FASENRA PREFILLED SYRINGE 30 mg/mL solution inject, as directed subcutaneously every 8 weeks ALBUTEROL (EQV- PROAIR HFA) 90 mcg/inh aerosol 2 puff(s) inhaled every 6 hours Trelegy Ellipta 200-62.5-25 MCG/ACT Aerosol Powder Breath Activated 1 puff Inhalation Once a day Dymista 137-50 MCG/ACT Suspension 1 spray(s) intranasally 2 times a day Viibryd 40 MG Tablet 1 tab(s) orally once a day Abilify 5 MG Tablet 1.5 tab(s) orally once a day , Notes to Pharmacist: takes 7.5mg dailyTopiramate 25 MG Tablet 1 tab(s) orally 2 times a day Taking Adderall 10 MG Tablet 1 tablet Orally Twice a day Taking traZODone HCl 100 MG Tablet 1 tablet at bedtime Orally Once a day Taking busPIRone HCl 10 MG Tablet 1 tablet Orally Twice a day Taking EPINEPHRINE AUTO-INJECTOR 0.3 mg kit as directed intramuscularly once Taking DYMISTA 137 mcg-50 mcg/inh spray 1 spray(s) intranasally 2 times a day Taking CETIRIZINE HYDROCHLORIDE 10 mg tablet 1 tab(s) orally once a day Taking FASENRA PREFILLED SYRINGE 30 mg/mL solution inject, as directed subcutaneously every 8 weeks Taking ALBUTEROL (EQV-PROAIR HFA) 90 mcg/inh aerosol 2 puff(s) inhaled every 6 hours Taking Trelegy Ellipta 200-62.5-25 MCG/ACT Aerosol Powder Breath Activated 1 puff Inhalation Once a day Taking Dymista 137-50 MCG/ACT Suspension 1 spray(s) intranasally 2 times a day Taking Viibryd 40 MG Tablet 1 tab(s) orally once a day Taking Abilify 5 MG Tablet 1.5 tab(s) orally once a day , Notes to Pharmacist: takes 7.5mg dailyTaking Topiramate 25 MG Tablet 1 tab(s) orally 2 times a day Not-Taking/PRNpredniSONE 20 MG Tablet 1 tablet Orally Once a day Doxycycline Monohydrate 100 MG Capsule 1 capsule Orally Once a day TRAZODONE 100 mg tablet 1 by mouth [...] *Please review and pick correct strength-formulation from [employer] options. If intended option is not shown, discontinue and re-order from Quick Search*Not-Taking/PRN predniSONE 20 MG Tablet 1 tablet Orally Once a day Not-Taking/PRN Doxycycline Monohydrate 100 MG Capsule 1 capsule Orally Once a day Not-Taking/PRN TRAZODONE 100 mg tablet 1 by mouth at bedtime , Notes to Pharmacist: 200mg nightlyNot-Taking/PRN TRELEGY ELLIPTA 200 mcg/62.5mcg/25mcg powder 1 puff inhaled once a day Not-Taking/PRN PRILOSEC Not-Taking/PRN QELBREE 100 mg capsule, extended [...] nightly *Please review for potential replacement for e- prescription and drug interaction check*Not-Taking/PRN ZYRTEC 10 mg [...] not shown, discontinue and re-order from Quick Search*DiscontinuedTRELEGY ELLIPTA 200 mcg/62.5mcg/25mcg powder 1 puff inhaled once a day Medication List reviewed and reconciled with the patientDiscontinued TRELEGY ELLIPTA 200 mcg/62.5mcg/25mcg powder 1 puff inhaled once a day Medication List reviewed and reconciled with the patient * Allergies: N .K.D.A.no[Allergies Verified] Objective: * Vitals: B P:116/81mm Hg, HR:91/min, Pulse Oximetry:98%, ACT:20, Ht: 63 in, Wt: 186.8 lbs, BMI:33.09Index. * Examination: G eneral examination: General appearance: [...] unspecified organism - J18.8 Plan: * Treatment: Value Reference Range S piroPreBronchodilator_FVC 3.36 * S piroPreBronchodilator_FEF25_75 2.68 * S piroPreBronchodilator_FEV1 2.7 * S piroPrecentPredictionPre_FEF25_75 80 * S piroPrecentPredictionPre_FEV1 93.1 * S piroPrecentPredictionPre_FEV1_OVER_FVC 94.9 * S piroPrecentPredictionPre_FVC 98.2 * S piroPredicted_FEF25_75 3.35 * S piroPreBronchodilator_FEV1_OVER_FVC 80.16 * S piroPreBronchodilator_PEF 4.67 * S piroPredicted_FVC 3.42 * S piroPredicted_FEV1 2.9 * S piroPredicted_FEV1_OVER_FVC 84.43 * S piroPredicted_PEF 6.13 * FEV1 and FVC within normal l imits. Normal FVL. Impression; normal spirometry Notes: Spirometry in 2023 showed obstruction with FEV1 74%. Spirometry is normal today. ACT 20. Dueto continued symptoms and use of prednisone 2-3 times a year despite high dose therapy with Trelegyand albuterol, started Fasenra. IgE 727, AEC 300, PFTs normal in 2021. Immunodeficiency evaluation was normal after receiving Prevar and titers check. Consider switching biologics since two recent episodes of pneumonia. We discussed switching to Xolair. 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 The patient has had inadequate control ofasthma symptoms after a minimum of 3 months of compliant use of inhaled corticosteriods and long-acting beta2-agonist or inhaled corticosteroids The patient has had an eosinophil count in the past 90days or 12 months as documented in this medical record, ??2.?Allergic rhinitis due to pollen? Continue DYMISTA spray, 137 mcg-50 mcg/inh, 1 spray(s), intranasally, 2 times a day;?Continue CETIRIZINE HYDROCHLORIDE tablet, 10 mg, 1 tab(s), orally, once a day.?? Notes: Sarai clearly suffers from atopic disease based upon our skin testing and clinical history. Accordingly, we have introduced a new, aggressive medication regimen, discussed nasal washes and allergy-specific avoidance measures. We also discussed adjunctive therapies including subcutaneous, sp ecific allergen immunotherapy as relates to the treatment and prevention of atopic disease. Recommend mold intradermal testing before considering immunotherapy in the future.??3.?Other chronic allergic conjunctivitis? Notes: Given ocular signs and symptoms I encouraged allergy avoidance measures and meds as above. If symptoms persist, consider adding additional medications including intraocular antihistamine/mast cell stabilizer, PRN ??4.?Allergy to eggs? Continue EPINEPHRINE AUTO-INJECTOR kit, 0.3 mg, as directed, intramuscularly, once, 1 days, 1, Refills 0.?? Notes: History of asthma flares with exposure to lightly cooked egg products. Skin testing to egg negative at her initial visit. We discussed having EpiPen available at all times given history. ?? * Procedures: F ASENRA (benralizumab) Administration: Dosage S ubcutaneous administration: 3 0 mg (30 units) Frequency I nterval e very 8 weeks Location A rm L eft upper Dosing Time / Lot Number / Expiration T lenny of administration, Jenn Chacon 07/16/2024 09:28:43 AM TILE LAYER DRAINAGE >, Lot [id number], Expiration [id number]. Reaction L ocal N one Post-procedural check-out: P atient was discharged 30 minutes after dosing administration BP: 119/85 H R: 84 02:99.? Medication Source F ASENRA Source S [facility] (Insurance-provided) S ource Verfication: W ho pulled drug (please type name in notes)? JENN/LEE * Procedure Codes: 9 6160 PT-FOCUSED HLTH RISK [id number] DOC MEDS VERIFIED W/PT OR [id number] CHEMO, ANTI-NEOPL, [id number] RESPIRATORY FLOW VOLUME LOOP * Preventive Medicine: Counseling: M edication instruction: [...] REFERRAL TO ALTERNATIVE / PRIMARY CARE PROVIDER: R eferral to general physician * Follow Up: 8 weeks (Reason: Fasenra,Spirometry/Flow Volume Loop) * Billing Information: * Visit Code: 80372 Office Visit, Est Pt., Level 4. Modifiers: 25 * Procedure Codes: 82650 PT-FOCUSED HLTH RISK ASSMT. G8427 DOC MEDS VERIFIED W/[place]. [address] CHEMO, ANTI-NEOPL, SQ/IM. A4617 Mouthpiece. 63052 RESPIRATORY FLOW VOLUME LOOP. * LAYER DRAINAGE Sign off status: Completed true * Provider: Angel Jay MD Date: 0 07/16/2024 Generated for Cydney carson/Sylvester/Arnolitting on: 0 09/04/2024 10:22 AM CDT History and Physical Notes * HPI (History of Present Illness) Category Sub-Category Detail Notes Category Not es *Introduction I had the pleasure o f seeing Sarai Moyer, a 38 year old with Factor V Leiden deficiency, Asthma, egg allergy and depression presenting for f/u evaluation of asthma. She was last evaluated 05-21-2024. Asthma has been flaring with cold weather. She is using albuterol a few times a week and continues Trelegy. No interval steroids. Two months ago, she was evaluated in urgent care and diagnosed with walking pneumonia. She was also hospitalized at [place] February 2024 for pneumonia. CXR and CT confirmed pneumonia per her report. She was also diagnosed with pneumonia in [...]
--- OUTSIDE RECORDS SUMMARY | 2024-09-04 10:22 | XMS_ITS | Referral Summary ---
Author Organization [facility] Address [facility] [place] [address] Care Team Providers Care Laminator Hand Name Role Phone Heraclio Cleveland DO Primary Care Provider [phone] Allergies Active Allergy Reactions Criticality Noted Date [...] BMI 50.0-59.9, adult 11/03/2021 Morbid obesity 01/22/2019 Social History Tobacco Use Types Packs/Day Years [...] on file Legal Sex Female 8:29 AM [employer] Gender Identity Female 10/31/2021 1:29 PM CDT Sexual Orientation Straight 10/31/2021 1: 29 PM CDT Last Filed Vital Signs Vital Sign Reading Time Taken Comments Blood Pressure 114/81 11/11/2021 4:05 PM CDT Pulse 105 11/11/2021 4:05 PM CDT Temperature 36.6 C (97.8 F) 05/15/2019 2:01 PM [employer] Respiratory Rate - - Oxygen Saturation 96% 11/11/2021 4:05 PM CDT Inhaled Oxygen Concentration - - Weight 118.8 kg (261 lb 12.8 oz) 05/15/2019 2:01 PM [employer] Height 159.5 cm (5' 2.8 ) 05/15/2019 2:01 PM [employer] Body Mass Index 46.67 05/15/2019 2:01 PM [employer] Plan of Treatment Not on file Insurance [facility] H[facility]/PPO Address: [address] [place] [address] Care Teams Laminator Hand Relationship Specialty Start Date End Date Heraclio Cleveland DO PCP - General Internal Medicine 12/10/18
--- OUTSIDE RECORDS SUMMARY | 2024-09-04 10:22 | XMS_ITS | Patient Health Record ---
Author Organization [facility] Address [address] [place] [address] Care Team Providers Care Chemist Physical Name Role Phone SvetlanaHeraclio poe Primary Care Provider Unavailab le Mely Jay Unavailable [phone] [facility], Provider Unavailable Unavailab le Allergies No Known Allergies Results Component Value Reference Range Notes -Pneumococcal Ab (23 Serotyp e) Reviewed date:06/04/2024 04:13:38 PM Interpretation:Normal Performing Lab:[facility], [address] [place] [address], [facility] [address], [place] [id number], Phone - [phone], Director - PhDBCNeil Notes/Report: Pneumo Ab Type [...] developed and its performance characteristics determined by [employer]. It has not been cleared or approved by the U.S. Food and Drug Administration. FLAG Interpretation: A = Abnormal, H = High, L = Low Spirometry Reviewed date: Interpretation:Normal Performing Lab: Notes/Report: Normal SpiroPreBronchodilator_FVC 3.36 SpiroPostBronchodilator_FEF25_75 0 SpiroPreBronchodilator_FEF25_75 2.68 SpiroPreBronchodilator_FEV1 2.7 SpiroPrecentPredictionPost_F EF25_ 75 0 SpiroPrecentPredictionPost_FEV1 0 SpiroPrecentPredictionPost_F EV1_O VER_FVC 0 SpiroPrecentPredictionPost_FVC 0 SpiroPrecentPredictionPre_FE F25_7 5 80 SpiroPrecentPredictionPre_FEV1 93.1 SpiroPrecentPredictionPre_FE V1_OV ER_FVC 94.9 SpiroPrecentPredictionPre_FVC 98.2 SpiroPredicted_FEF25_75 3.35 SpiroPreBronchodilator_FEV1_ OVER_ FVC 80.16 SpiroPreBronchodilator_PEF 4.67 SpiroPostBronchodilator_FVC 0 SpiroPostBronchodilator_FEV1 0 SpiroPostBronchodilator_FEV1 _OVER _FVC 0 SpiroPostBronchodilator_PEF 0 SpiroPredicted_FVC 3.42 SpiroPredicted_FEV1 2.9 SpiroPredicted_FEV1_OVER_FVC 84.43 SpiroPredicted_PEF 6.13 -Immunoglobulins A/E/G/M, Se rum Reviewed date:04/03/2024 12:25:32 PM Interpretation:Normal [facility]forming Lab[facility], [address], [place] [id number], Phone - [phone], Director - [facility] Notes/Report: Immunoglobulin G, Qn, Serum 513 131-3162 mg/d L Immunoglobulin A, Qn, Serum 296 87-352 mg/dL Immunoglobulin M, Qn, Serum 88 26-217 mg/dL Immunoglobulin E, Total 534 6-495 IU/mL -Haemophilus influenzae B Ig G Reviewed date:04/03/2024 12:37:02 PM Interpretation:Normal Performing Lab:[facility], [address] [place] [id number], Phone - [phone], Director - [facility] Notes/Report: Haemophilus influenzae B IgG 1.86 NOTE: An anti-Hib level of 0.15 ug/mL is generally accepted as the minimum level for protection. Optimal protection post-vaccination requires a level greater than 1.00 ug/mL. -Tetanus Antitoxoid IgG Ab Reviewed date:04/03/2024 12:25:18 PM Interpretation:Normal Performing Lab:[facility], [address] [place] [id number], Phone - [phone], Director - [facility] Notes/Report: Tetanus Antitoxoid IgG Ab 2.67 <0.10 IU/mL Interpretation: Non-Protective <0.10 Protective >=0.10 Results for this test are for research purposes only by the assay's health insurance assessor. The performance characteristics of this product have not been established. Results should not be used as a diagnostic procedure without confirmation of the diagnosis by another medically established diagnostic product or procedure. -Pneumococcal Ab (23 Serotyp e) Reviewed date:04/03/2024 12:25:10 PM Interpretation:Abnormal Performing Lab:[employer] [facility], [address], [address], [place], [place] [id number], Phone - [phone], Director - [facility] Notes/Report: Pneumo Ab Type 1* 0.3 >1.3 ug/mL Pneumo Ab Type 3* 0.2 >1.3 ug/mL Pneumo Ab Type 4* 0.8 >1.3 ug/mL Pneumo Ab Type 8* 3.0 >1.3 ug/mL Pneumo Ab Type 9 (9N)* 0.4 >1.3 ug/mL Pneumo Ab Type 12 (12F)* 0.3 >1.3 ug/mL Pneumo Ab Type 14* 15.4 >1.3 ug/mL Pneumo Ab Type 17 (17F)* 0.2 >1.3 ug/mL Pneumo Ab Type 19 (19F)* 6.9 >1.3 ug/mL Pneumo Ab Type 2* 4.0 >1.3 ug/mL Pneumo Ab Type 20* 1.4 >1.3 ug/mL Pneumo Ab Type 22 (22F)* 1.0 >1.3 ug/mL Pneumo Ab Type 23 (23F)* 1.9 >1.3 ug/mL Pneumo Ab Type 26 (6B)* 1.7 >1.3 ug/mL Pneumo Ab Type 34 (10A)* 1.7 >1.3 ug/mL Pneumo Ab Type 43 (11A)* 0.5 >1.3 ug/mL Pneumo Ab Type 5* 1.2 >1.3 ug/mL Pneumo Ab Type 51 (7F)* 2.7 >1.3 ug/mL Pneumo Ab Type 54 (15B)* 2.9 >1.3 ug/mL Pneumo Ab Type 56 (18C)* 0.2 >1.3 ug/mL Pneumo Ab Type 57 (19A)* 1.1 >1.3 ug/mL Pneumo Ab Type 68 (9V)* 0.8 >1.3 ug/mL Pneumo Ab Type 70 (33F)* 1.1 >1.3 ug/mL *This test was developed and its performance characteristics determined by [employer]. It has not been cleared or approved by the U.S. Food and Drug Administration. FLAG Interpretation: A = Abnormal, H = High, L = Low Reason For Referral Referral Organization [facility] Referring Provider First Name Mely Referring Provider Last Name Pierre Referring Provider Speciality Allergy/Im munology General Notes MonroeKaleigh Manolo 01:35:52 PM > PA submitted on [place], Rubin [id number]. Referral Priority Routine Medications Medication SIG (Take, Route, Frequency, Duration) Notes Start Date End Date Status ALBUTEROL (EQV-PROAIR HFA) 90 mcg/inh 2 puff(s) inhaled every 6 hours for 30 days Active FASENRA PREFILLED SYRINGE 30 mg/mL inject, as directed subcutaneously every 8 weeks for 365 days Active OMEPRAZOLE 20 mg 1 cap(s) orally once a day for 30 day(s) Not-Taking VYVANSE 60 mg 1 cap(s) orally once a day (in the morning) for 30 day(s) Not-Taking Trelegy Ellipta 200-62.5-25 MCG/ACT 1 puff Inhalation Once a day Active BUSPIRONE 10 mg 1 tab(s) orally 2 times a day for 30 day(s) 20mg three times daily Not-Taking VIIBRYD 40 mg 1 tab(s) orally once a day for 8 week(s) Not-Taking ABILIFY 5 mg 1.5 tab(s) orally once a day for 30 days takes 7.5mg daily Not-Taking Adderall 10 MG 1 tablet Orally Twice a day Active TOPIRAMATE 25 mg 1 tab(s) orally 2 times a day for 30 day(s) Not-Taking traZODone HCl 100 MG 1 tablet at bedtime Orally Once a day Active TRAZADONE 50MG 1 BY MOUTH AT BEDTIME 200mg nightly *Please review for potential replacement for e-prescription and drug interaction check* Not-Taking busPIRone HCl 10 MG 1 tablet Orally Twice a day Active ZYRTEC 10 mg 1 tab(s) orally once a day Not-Taking ZYRTEC 10 mg 1 tab(s) orally once a day Not-Taking LISINOPRIL 5 mg 1 tab(s) orally once a day for 30 day(s) takes 15mg daily Not-Taking ASPIRIN 81 mg 1 tab(s) chewed once a day for 30 day(s) Not-Taking TRELEGY ELLIPTA 200 mcg/62.5mcg/25mcg 1 puff inhaled once a day Not-Taking Mounjaro 2.5 MG/0.5 ML DIRECTED SUBCUTANEOUSLY ONCE A WEEK *Please review and pick correct strength-formula tion from Topple Track options. If intended option is not shown, discontinue and re-order from Quick Search* Not-Taking PRILOSEC Not-Taking QELBREE 100 mg 1 cap(s) orally once a day 200 mg Not-Taking DYMISTA 137 mcg-50 mcg/inh 1 spray(s) intranasally 2 times a day Active MOUNJARO 2.5 mg/0.5 mL as directed subcutaneously once a week Not-Taking EPINEPHRINE AUTO-INJECTOR 0.3 mg as directed intramuscularly once for 1 days Active Dymista 137-50 MCG/ACT 1 spray(s) intranasally 2 times a day Active traZODone HCl 100 MG 1 by mouth at bedtime 200mg nightly Not-Taking TRELEGY ELLIPTA 200 mcg/62.5mcg/25mcg 1 puff inhaled once a day Active Viibryd 40 MG 1 tab(s) orally once a day for 8 week(s) Active EPINEPHRINE AUTO-INJECTOR 0.3 MG DIRECTED INTRAMUSCULARLY ONCE for 1 DAY *Please review for potential replacement for e-prescription and drug interaction check* Not-Taking CETIRIZINE HYDROCHLORIDE 10 mg 1 tab(s) orally once a day Active Abilify 5 MG 1.5 tab(s) orally once a day for 30 days takes 7.5mg daily Active ZyrTEC Allergy 10 MG 1 tab(s) orally once a day Not-Taking Topiramate 25 MG 1 tab(s) orally 2 times a day for 30 day(s) Active Lisinopril 5 MG 1 tab(s) orally once a day for 30 day(s) takes 15mg daily Not-Taking predniSONE 20 MG 1 tablet Orally Once a day Not-Taking Omeprazole 20 MG 1 cap(s) orally once a day for 30 day(s) Not-Taking Doxycycline Monohydrate 100 MG 1 capsule Orally Once a day Not-Taking Vyvanse 60 MG 1 cap(s) orally once a day (in the morning) for 30 day(s) Not-Taking TRAZODONE 100 mg 1 by mouth at bedtime 200mg nightly Not-Taking Aspirin 81 MG 1 tab(s) chewed once a day for 30 day(s) Not-Taking Social History Tobacco Use: Social History Observation Description Date Details (start date - stop date) Never Smoker NA - NA Smoking Smart Form: Question Answer Notes Are you a: former smoker Tobacco Control (Standard) Question Answer Notes Tobacco use: Nonsmoker Problems Problem Type SNOMED Code ICD Code Onset Dates Problem Status W/U Status Risk Notes Problem Anxiety disorder (157979863) Anxiety disorder, unspecified (F41.9) Active confirmed Problem Chronic allergic conjunctivitis (38026651) Other chronic allergic conjunctivitis (H10.45) Active confirmed Problem Allergic rhinitis caused by pollen (disorder) (73249937) Allergic rhinitis due to pollen (J30.1) Active confirmed Problem Allergic rhinitis (18300693) Other allergic rhinitis (J30.89) Active confirmed Problem Uncomplicated moderate persistent asthma (817043558) Moderate persistent asthma, uncomplicated (J45.40) Active confirmed Problem Uncomplicated severe persistent asthma (570047813) Severe persistent asthma, uncomplicated (J45.50) Active confirmed Problem Gastro-esophageal reflux disease without esophagitis (480247229) Gastro-esophageal reflux disease without esophagitis (K21.9) Active confirmed Problem Allergic rhinitis caused by animal hair and dander (671647145897161) Allergic rhinitis due to animal (cat) (dog) hair and dander (J30.81) Active confirmed Problem Allergy to eggs (Z91.012) Active confirmed Problem Essential hypertension (01650565) Essential (primary) hypertension (I10) Active confirmed Problem Depression (710263546) Depression, unspecified (F32.A) Active confirmed Problem Eosinophilic asthma (810523976) 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) Active confirmed Vital Signs Respiratory Rate 16 /min 11/07/2023 Oximetry 98 % 07/16/2024 Blood pressure diastolic 81 mm Hg 07/16/2024 Height 63 in 07/16/2024 Blood pressure systolic 116 mm Hg 07/16/2024 Weight 186.8 lbs 07/16/2024 BMI 33.09 kg/m2 07/16/2024 Encounters Encounter Location Date Provider Diagnosis ARNAV Damon [address] [place] [id number] 12/08/2023 Provider [facility] Allergic rhinitis due to pollen J30.1 ; Severe persistent asthma, uncomplicated J45.50 and Allergy to eggs Z91.012 [facility] [address] [place] [address] 09/18/2023 Mely Jay Allergic rhinitis du e to pollen J30.1 ; Severe persistent asthma, uncomplicated J45.50 ; Eosinophilic asthma J82.83 ; Allergic rhinitis due to animal (cat) (dog) hair and dander J30.81 ; Other allergic rhinitis J30.89 ; Other chronic allergic conjunctivitis H10.45 and Allergy to eggs Z91.012 [facility] [address] [place] [address] 10/10/2023 Mely Jay Allergic rhinitis du e to pollen J30.1 ; Severe persistent asthma, uncomplicated J45.50 ; Eosinophilic asthma J82.83 ; Allergic rhinitis due to animal (cat) (dog) hair and dander J30.81 ; Other allergic rhinitis J30.89 ; Other chronic allergic conjunctivitis H10.45 and Allergy to eggs Z91.012 [facility] [address] [place] [phone] 11/07/2023 Mely Jay Allergic rhinitis du e to pollen J30.1 ; Severe persistent asthma, uncomplicated J45.50 ; Eosinophilic asthma J82.83 ; Allergic rhinitis due to animal (cat) (dog) hair and dander J30.81 ; Other allergic rhinitis J30.89 ; Other chronic allergic conjunctivitis H10.45 and Allergy to eggs Z91.012 [facility] [address] [place] [address] [place] [address] [address] 12/05/2023 Mely Jay Allergic rhinitis du e to pollen J30.1 ; Severe persistent asthma, uncomplicated J45.50 ; Eosinophilic asthma J82.83 ; Allergic rhinitis due to animal (cat) (dog) hair and dander J30.81 ; Other allergic rhinitis J30.89 ; Other chronic allergic conjunctivitis H10.45 and Allergy to eggs Z91.[address] [place] [address] [address] 01/30/2024 Mely Jay Allergic rhinitis du e to pollen J30.1 ; Severe persistent asthma, uncomplicated J45.50 ; Eosinophilic asthma J82.83 ; Allergic rhinitis due to animal (cat) (dog) hair and dander J30.81 ; Other allergic rhinitis J30.89 ; Other chronic allergic conjunctivitis H10.45 and Allergy to eggs Z91.012 [facility] [address] [place], [place] [address] [place] [address] [address] 03/26/2024 Mely Jay Allergic rhinitis du e to pollen J30.1 ; Severe persistent asthma, uncomplicated J45.50 ; Eosinophilic asthma J82.83 ; Allergic rhinitis due to animal (cat) (dog) hair and dander J30.81 ; Other allergic rhinitis J30.89 ; Other chronic allergic conjunctivitis H10.45 ; Allergy to eggs Z91.012 and Other pneumonia, unspecified organism J18.8 [facility] [address] [facility] [place] [address] [address] 05/21/2024 Mely Jay Allergic rhinitis du e to pollen J30.1 ; Severe persistent asthma, uncomplicated J45.50 ; Eosinophilic asthma J82.83 ; Allergic rhinitis due to animal (cat) (dog) hair and dander J30.81 ; Other allergic rhinitis J30.89 ; Other chronic allergic conjunctivitis H10.45 ; Allergy to eggs Z91.012 and Other pneumonia, unspecified organism J18.8 [facility] [address] [place] [address] [place] [address] [address] 07/16/2024 Mely Jay Allergic rhinitis du e to pollen J30.1 ; Severe persistent asthma, uncomplicated J45.50 ; Eosinophilic asthma J82.83 ; Allergic rhinitis due to animal (cat) (dog) hair and dander J30.81 ; Other allergic rhinitis J30.89 ; Other chronic allergic conjunctivitis H10.45 ; Allergy to eggs Z91.012 and Other pneumonia, unspecified organism J18.[address] [address] 10/01/2023 Mely Jay [address] [address] 10/03/2023 Mely Jay [facility] [address] [place] [address] 10/03/2023 Mely Jay [facility] [address] [place] [address] 04/03/2024 Mely Jay [facility] [address] [place] [address] 07/08/2024 Mely Jay [facility] [address] [facility] [address] [place] [address] 11/29/2023 Mely Jay Assessments Encounter Date Diagnosis (ICD Code) Assessment Notes Treatment Notes Treatment Clinical Notes Section Notes 09/18/2023 Allergic rhinitis due to pollen (ICD-10 - [...] testing before starting immunotherapy in the future. 09/18/2023 Severe persistent asthma, uncomplicated (ICD-10 - J45.50) Spiometry shows obstruction with FEV1 74%. ACT 20. Due to continued symptoms and use of prednisone 2-3 times a year despite high dose therapy with Trelegy and albuterol, recommend starting Fasenra. IgE 727, AEC 300 10/10/2023 Allergic rhinitis due to pollen (ICD-10 - [...] testing before starting immunotherapy in the future. 10/10/2023 Severe persistent asthma, uncomplicated (ICD-10 - J45.50) Spiometry last month showed obstruction with FEV1 74%. ACT 23. Due to continued symptoms and use of prednisone 2-3 times a year despite high dose therapy with Trelegy and albuterol, recommend starting Fasenra. 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 The patient has had inadequate control of asthma symptoms after a minimum of 3 months of compliant use of inhaled corticosteriods and long-acting beta2-agonist or inhaled corticosteroids The patient has had an eosinophil count in the past 90 days or 12 months as documented in this medical record, 11/07/2023 Allergic rhinitis due to pollen (ICD-10 - [...] testing before starting immunotherapy in the future. 11/07/2023 Severe persistent asthma, uncomplicated (ICD-10 - J45.50) Spiometry earlier this year showed obstruction with FEV1 74%. ACT 23. Due to continued symptoms and use of prednisone 2-3 times a year despite high dose therapy with Trelegy and albuterol, started Fasenra. IgE 727, AEC 300 PFTs normal in 2021. 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 The patient has had inadequate control of asthma symptoms after a minimum of 3 months of compliant use of inhaled corticosteriods and long-acting beta2-agonist or inhaled corticosteroids The patient has had an eosinophil count in the past 90 days or 12 months as documented in this medical record, 12/05/2023 Allergic rhinitis due to pollen (ICD-10 - [...] testing before starting immunotherapy in the future. 12/05/2023 Severe persistent asthma, uncomplicated (ICD-10 - J45.50) Spiometry earlier this year showed obstruction with FEV1 74%. ACT 22. Due to continued symptoms and use of prednisone 2-3 times a year despite high dose therapy with Trelegy and albuterol, started Fasenra. She reports a recent cough and instructed to start using albuterol. If no improvement call office for antibiotics or steroids. IgE 727, AEC 300 PFTs normal in 2021. 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 The patient has had inadequate control of asthma symptoms after a minimum of 3 months of compliant use of inhaled corticosteriods and long-acting beta2-agonist or inhaled corticosteroids The patient has had an eosinophil count in the past 90 days or 12 months as documented in this medical record, 12/08/2023 Allergic rhinitis due to pollen (ICD-10 - J30.1) 12/08/2023 Severe persistent asthma, uncomplicated (ICD-10 - J45.50) 01/30/2024 Allergic rhinitis due to pollen (ICD-10 - [...] testing before starting immunotherapy in the future. 01/30/2024 Severe persistent asthma, uncomplicated (ICD-10 - J45.50) Spiometry earlier this year showed obstruction with FEV1 74%. ACT 24. Due to continued symptoms and use of prednisone 2-3 times a year despite high dose therapy with Trelegy and albuterol, started Fasenra. IgE 727, AEC 300, PFTs normal in 2021. 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 The patient has had inadequate control of asthma symptoms after a minimum of 3 months of compliant use of inhaled corticosteriods and long-acting beta2-agonist or inhaled corticosteroids The patient has had an eosinophil count in the past 90 days or 12 months as documented in this medical record, 03/26/2024 Allergic rhinitis due to pollen (ICD-10 - [...] testing before starting immunotherapy in the future. 03/26/2024 Severe persistent asthma, uncomplicated (ICD-10 - J45.50) Spiometry earlier this year showed obstruction with FEV1 74%. ACT 17. Due to continued symptoms and use of prednisone 2-3 times a year despite high dose therapy with Trelegy and albuterol, started Fasenra. IgE 727, AEC 300, PFTs normal in 2021. Due to recent hospitalization, immunodeficiency evaluation ordered as above. She does not appear to need further steroids at this time. 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 The patient has had inadequate control of asthma symptoms after a minimum of 3 months of compliant use of inhaled corticosteriods and long-acting beta2-agonist or inhaled corticosteroids The patient has had an eosinophil count in the past 90 days or 12 months as documented in this medical record, 05/21/2024 Allergic rhinitis due to pollen (ICD-10 [...] as documented in this medical record, 07/16/2024 Allergic rhinitis due to pollen (ICD-10 [...] record, 05/21/2024 Eosinophilic asthma (ICD-10 - J82.83) 03/26/2024 Eosinophilic asthma (ICD-10 - J82.83) 01/30/2024 Eosinophilic asthma (ICD-10 - J82.83) 12/05/2023 Eosinophilic asthma (ICD-10 - J82.83) 11/07/2023 Eosinophilic asthma (ICD-10 - J82.83) 10/10/2023 Eosinophilic asthma (ICD-10 - J82.83) 09/18/2023 Eosinophilic asthma (ICD-10 - J82.83) 07/16/2024 Eosinophilic asthma (ICD-10 - J82.83) 09/18/2023 Allergic rhinitis due to animal (cat) (dog) hair and dander (ICD-10 - J30.81) 10/10/2023 Allergic rhinitis due to animal (cat) (dog) hair and dander (ICD-10 - J30.81) 11/07/2023 Allergic rhinitis due to animal (cat) (dog) hair and dander (ICD-10 - J30.81) 12/05/2023 Allergic rhinitis due to animal (cat) (dog) hair and dander (ICD-10 - J30.81) 01/30/2024 Allergic rhinitis due to animal (cat) (dog) hair and dander (ICD-10 - J30.81) 03/26/2024 Allergic rhinitis due to animal (cat) (dog) hair and dander (ICD-10 - J30.81) 05/21/2024 Allergic rhinitis due to animal (cat) (dog) hair and dander (ICD-10 - J30.81) 07/16/2024 Allergic rhinitis due to animal (cat) (dog) hair and dander (ICD-10 - J30.81) 07/16/2024 Other allergic rhinitis (ICD-10 - J30.89) 03/26/2024 Other allergic rhinitis (ICD-10 - J30.89) 05/21/2024 Other allergic rhinitis (ICD-10 - J30.89) 01/30/2024 Other allergic rhinitis (ICD-10 - J30.89) 12/05/2023 Other allergic rhinitis (ICD-10 - J30.89) 11/07/2023 Other allergic rhinitis (ICD-10 - J30.89) 09/18/2023 Other allergic rhinitis (ICD-10 - J30.89) 10/10/2023 Other allergic rhinitis (ICD-10 - J30.89) 09/18/2023 Other chronic allergic conjunctivitis (ICD-10 - H10.45) Given ocular signs and symptoms I encouraged allergy avoidance measures and meds as above. If symptoms persist, consider adding additional medications including intraocular antihistamine/mast cell stabilizer, PRN 10/10/2023 Other chronic allergic conjunctivitis (ICD-10 - H10.45) Given ocular signs and symptoms I encouraged allergy avoidance measures and meds as above. If symptoms persist, consider adding additional medications including intraocular antihistamine/mast cell stabilizer, PRN 11/07/2023 Other chronic allergic conjunctivitis (ICD-10 - H10.45) Given ocular signs and symptoms I encouraged allergy avoidance measures and meds as above. If symptoms persist, consider adding additional medications including intraocular antihistamine/mast cell stabilizer, PRN 12/05/2023 Other chronic allergic conjunctivitis (ICD-10 - H10.45) Given ocular signs and symptoms I encouraged allergy avoidance measures and meds as above. If symptoms persist, consider adding additional medications including intraocular antihistamine/mast cell stabilizer, PRN 03/26/2024 Other chronic allergic conjunctivitis (ICD-10 - H10.45) Given ocular signs and symptoms I encouraged allergy avoidance measures and meds as above. If symptoms persist, consider adding additional medications including intraocular antihistamine/mast cell stabilizer, PRN 05/21/2024 Other chronic allergic conjunctivitis (ICD-10 - H10.45) Given ocular signs and symptoms I encouraged allergy avoidance measures and meds as above. If symptoms persist, consider adding additional medications including intraocular antihistamine/mast cell stabilizer, PRN 07/16/2024 Other chronic allergic conjunctivitis (ICD-10 - H10.45) Given ocular signs and symptoms I encouraged allergy avoidance measures and meds as above. If symptoms persist, consider adding additional medications including intraocular antihistamine/mast cell stabilizer, PRN 01/30/2024 Other chronic allergic conjunctivitis (ICD-10 - H10.45) [...] available at all times given history. 07/16/2024 Allergy to eggs (ICD-10 - Z91.012) History of asthma flares with exposure to lightly cooked egg products. Skin testing to egg negative at her initial visit. We discussed having EpiPen available at all times given history. 03/26/2024 Allergy to eggs (ICD-10 - Z91.012) History of asthma flares with exposure to lightly cooked egg products. Skin testing to egg negative at her initial visit. We discussed having EpiPen available at all times given history. 01/30/2024 Allergy to eggs (ICD-10 - Z91.012) History of asthma flares with exposure to lightly cooked egg products. Skin testing to egg negative at her initial visit. We discussed having EpiPen available at all times given history. 12/08/2023 Allergy to eggs (ICD-10 - Z91.012) 12/05/2023 Allergy to eggs (ICD-10 - Z91.012) History of asthma flares with exposure to lightly cooked egg products. Skin testing to egg negative at her initial visit. We discussed having EpiPen available at all times given history. 10/10/2023 Allergy to eggs (ICD-10 - Z91.012) History of asthma flares with exposure to lightly cooked egg products. Skin testing to egg negative at her initial visit. We discussed having EpiPen available at all times given history. 11/07/2023 Allergy to eggs (ICD-10 - Z91.012) History of asthma flares with exposure to lightly cooked egg products. Skin testing to egg negative at her initial visit. We discussed having EpiPen available at all times given history. 09/18/2023 Allergy to eggs (ICD-10 - Z91.012) History of asthma flares with exposure to lightly cooked egg products. Skin testing to egg negative at her initial visit. We discussed having EpiPen available at all times given history. 03/26/2024 Other pneumonia, unspecified organism (ICD-10 - J18.8) 05/21/2024 Other pneumonia, unspecified organism (ICD-10 - J18.8) 07/16/2024 Other pneumonia, unspecified organism (ICD-10 - J18.8) 09/18/2023 Other 10/10/2023 Other 11/07/2023 Other 12/05/2023 Other 01/30/2024 Other 03/26/2024 Other 05/21/2024 Other 07/16/2024 Other Plan Of Treatment Next Appt Details Provider Name:Mely hallman, 09/10/2024 08:15:00 AM, 2022 [facility], [address], [address], Insurance Providers Payer Name Payer Address Payer Phone Subscriber Number Group Number Insured Name Patient Relationship to Insured Coverage Start Date Coverage End Date [facility] [address] [address] [place], [place] [id number] Sarai Marie Self - patient is the insured Medical (General) History Medical History History ICD Code ADHD Migraines insomnia Anxiety disorder, unspecified F41.9 Essential (primary) hypertension I10 Depression, unspecified F32.A Moderate persistent asthma, uncomplicate d J45.40 Gastro-esophageal reflux disease without esophagitis K21.9 Surgical History Surgery Date(Month/Year) C section 2013 Csection 2006 cholecystectomy 2013 gastric bypass 06/06/23 Hospitalization History Reason Date(Month/Year) pneumonia 02/2024 pneumonia 2022 Asthma 1986
--- OUTSIDE RECORDS SUMMARY | 2024-09-04 10:22 | XMS_ITS | Referral Summary ---
Author Organization [facility] Address [address] [place] [address] Care Team Providers Care Brush Washer Name Role Phone Heraclio Cleveland DO Primary Care Provider [phone] Heraclio Cleveland DO Unavailable [phone] Source Comments [facility],non-owned Affiliates and Associated Physician Practices is amultiple site organization consisting of ambulatory clinics and hospital sitesin [place], [place], [place] and [place]. This disclosure is being madepursuant to the Care Everywhere program and may not contain all information available regarding this patient. Last updated 18.[facility] Allergies Active Allergy Reactions Criticality Noted Date [...] 05/14/2017 Active norethindrone-ethiny l estradiol-iron (ESTROSTEP FE) -/-30/1-35 MG-MCG tablet Take 1 tablet by mouth [...] 02/13/2020 6:26 PM CDT Plan of Treatment Not on file Care Teams Brush Washer Relationship Specialty Start Date End Date Heraclio Cleveland DO PCP - General Internal Medicine 10/12/16 Heraclio Cleveland DO Internal Medicine 10/12/16
--- OUTSIDE RECORDS SUMMARY | 2024-09-04 10:22 | XMS_ITS | Data Portability ---
Author Organization [place] [facility] [employer], Main Office Address [address] [place] [address] Assessment No assessment recorded. Plan of Treatment Reminders Order Date Submit Date Provider Last Modified By Organization Details Last Modified Time Details Appointments None record ed. Lab None record ed. Referral None record ed. Procedures None record ed. Surgeries None record ed. Imaging None record ed. Medication Orders None record ed. Patient TargetsNo targets recorded. Patient InstructionsNo instructions recorded. Reason for Referral None Reported. Results Created Date Observation Date Name Description Value Unit Range Abnormal Flag Note LastModifiedBy Organization Detail LastModifiedTime 05/05/20 22 05/05/2022 urina lysis , dipst ick Nitrite (reference rage: negative mg/dl) negati ve Not Available [facility], [address], [address], 05/05/2022 16:45:07 05/05/20 22 05/05/2022 urina lysis , dipst ick Urobilinogen (reference range: 0.2-1 mg/dl) 0.2 Not Available Z_[facility] c_[address], [address], 05/05/2022 16:45:07 05/05/20 22 05/05/2022 urina lysis , dipst ick Protein (reference range: negative mg/dl) Negati ve Not Available Z_[facility]_[address], [address], 05/05/2022 16:45:07 05/05/20 22 05/05/2022 urina lysis , dipst ick pH (reference range: 5-7) 5.5 Not Available [address], [address], [address], 05/05/2022 16:45:07 05/05/20 22 05/05/2022 urina lysis , dipst ick Blood (reference range: negative Jorge/ l) Hemoly zed: Trace Not Available [address], [address], [address], 05/05/2022 16:45:07 05/05/20 22 05/05/2022 urina lysis , dipst ick Specific [place] (reference range: 1.005-1.030) 1.025 Not Available [address], [address], [address], 05/05/2022 16:45:07 07/07/19 23 07/07/2022 urina lysis , dipst ick Leukocytes (reference range: negative maria luisa/ l) Negati ve Not Available [address] [address], [place], [address], 07/07/2022 16:12:36 07/07/19 23 07/07/2022 urina lysis , dipst ick Nitrite (reference rage: negative mg/dl) negati ve Not Available [address], [address], 07/07/2022 16:12:36 07/07/19 23 07/07/2022 urina lysis , dipst ick Urobilinogen (reference range: 0.2-1 mg/dl) 0.2 Not Available [address], [address], 07/07/2022 16:12:36 07/07/19 23 07/07/2022 urina lysis , dipst ick Protein (reference range: negative mg/dl) Negati ve Not Available [address], [address], 07/07/2022 16:12:36 07/07/19 23 07/07/2022 urina lysis , dipst ick pH (reference range: 5-7) 7.5 Not Available Z_[address], [address], 07/07/2022 16:12:36 07/07/19 23 07/07/2022 urina lysis , dipst ick Blood (reference range: negative Jorge/ l) Negati ve Not Available [address] [address], [place], [address], 07/07/2022 16:12:36 07/07/19 23 07/07/2022 urina lysis , dipst ick Specific [place] (reference range: 1.005-1.030) 1.020 Not Available [address], [address], 07/07/2022 16:12:36 07/07/19 23 07/07/2022 urina lysis , dipst ick Ketone (reference range: negative mg/dl) Negati ve Not Available [address] [address], [place], [address], 07/07/2022 16:12:36 07/07/19 23 07/07/2022 urina lysis , dipst ick Bilirubin (reference range: negative mg/dl) Negati ve Not Available [address], [address], 07/07/2022 16:12:36 07/07/19 23 07/07/2022 urina lysis , dipst ick Glucose (reference range: negative mg/dl) Negati ve Not Available [address], [place] [address], [place], [address], 07/07/2022 16:12:36 07/07/19 23 07/07/2022 urina lysis , dipst ick Appearance Clear Not Available _[address], [place] [address], [place], [address], 07/07/2022 16:12:36 07/07/19 23 07/07/2022 urina lysis , dipst ick Color Yellow Not Available [address], [address], 07/07/2022 16:12:36 06/21/20 22 06/21/2022 US, renal No observ ation record ed. [id number] [facility] [address] [place], [address], 08/23/2022 15:57:40 Result Notes None recorded. Problems Name Problem SNOMED Code Status Onset Date Resolution Date Notes Provider Name and Address Organization Details Recorded Time Ureteric stone 76454555 Active 2021 Not Available [facility] 15:55:34 Acute urinary tract infection 256552489 Active 2021 Not Available [facility] 3 15:55:34 Acute cholecystitis 31420827 Active Not Available [facility] 3 15:55:35 Problem Notes None recorded. Procedures Surgical History Date Name Laterality Status Provider Name and Address Organization Details Recorded Time section completed Not Available [facility] 08/23/2022 15:54:13 Imaging Results Imaging Date Name Status LastModified by Organiz ation Details LastModified Time 06/21/2022 US, renal completed [id number] [facility] [address] [place], [address], 08/23/2022 15:57:40 Procedure Notes None recorded. Medical Equipment None Reported. Allergies Allergen ID Allergen Name Allergen Category Reaction Reaction Severity Criticality Documentation Date Start Date Code Code System Note Provider Name and Address Organization Details Recorded Time 87270 shellfish derived food,medi cation Not available Not available Not available 08/23/2022 84406 UNK Not Available [facility] 3 15:57:38 96438 house dust allergeni c extract environme nt,medica tion Not available Not available Not available 08/23/2022 42846 9 RxNorm Not Available [facility] 3 15:57:38 73520 egg extract food,medi cation Not available Not available Not available 08/23/2022 52023 15 RxNorm Not Available [facility] 3 15:57:38 Medications Name Sig Start Date Stop Date Status Note LastModified by Organization Details LastModified Time prednisone 10 mg tablet TAKE FOUR TABLETS BY MOUTH ONCE DAILY FOR 4 DAYS, THREE TABS DAILY FOR 3 DAYS, TWO TABS DAILY FOR 3 DAYS, THEN ONE TAB DAILY FOR 3 DAYS 07/07 completed Not Available Not Available Not Available citalopram 40 mg tablet Take 1 tablet every day by oral route. 07/07 completed Not Available Not Available Not Available fluconazol e 150 mg tablet TAKE 1 TABLET BY MOUTH EVERY 72 HOURS DIRECTED FOR 6 DAYS 07/07 completed Not Available Not Available Not Available ondansetro n HCl 4 mg tablet TAKE 1 TABLET BY MOUTH EVERY 8 HOURS 07/07 completed Not Available Not Available Not Available sumatripta n 50 mg tablet TAKE 1 TABLET BY MOUTH ONCE DAILY NEEDED FOR MIGRAINE HEADACHE active Not Available Not Available No t Available topiramate 25 mg tablet TAKE 1 TABLET BY MOUTH TWICE DAILY active Not Available Not Available No t Available ciprofloxa pio 500 mg tablet TAKE 1 TABLET BY MOUTH EVERY 12 HOURS FOR 7 DAYS 07/07 completed Not Available Not Available Not Available tramadol 50 mg tablet Take 1 tablet as needed by oral route. active Can take every 6 hours as needed for pain Not Available Not Available Not Available tamsulosin 0.4 mg capsule Take 1 capsule every day by oral route for 30 days. 07/07 completed Not Available Not Available Not Available trazodone 100 mg tablet TAKE 2 TABLETS BY MOUTH AT BEDTIME NEEDED FOR 90 DAYS active Not Available Not Available No t Available hydrocodon e 7.5 mg-acetami nophen 325 mg tablet TAKE 1 TABLET BY MOUTH EVERY 4 HOURS NEEDED NEEDED FOR PAIN active Not Available Not Available No t Available buspirone 10 mg tablet TAKE 2 TABLETS BY MOUTH THREE TIMES DAILY active Not Available Not Available No t Available lisinopril 10 mg tablet TAKE 1 TABLET BY MOUTH ONCE DAILY . TAKE WITH 5 MG TABLET TO EQUAL 15 MG DAILY active Not Available Not Available No t Available lisinopril 5 mg tablet TAKE 1 TABLET BY MOUTH ONCE DAILY TAKE WITH 10 MG TO EQUAL 15 MG DAILY active Not Available Not Available No t Available epinephrin e 0.3 mg/0.3 mL injection, auto-injec tor USE DIRECTED active Not Available Not Available No t Available methylpred nisolone 4 mg tablets in a dose pack TAKE BY MOUTH DIRECTED ON INSIDE OF PACKAGE 07/07 completed Not Available Not Available Not Available albuterol sulfate HFA 90 mcg/actuat ion aerosol inhaler active Not Available Not Available Not Available doxycyclin e hyclate 100 mg tablet TAKE 1 TABLET BY MOUTH TWICE DAILY FOR 7 DAYS active Not Available Not Available No t Available naproxen 500 mg tablet TAKE 1 TABLET BY MOUTH TWICE DAILY WITH FOOD FOR 10 DAYS 07/07 completed Not Available Not Available Not Available amoxicilli n 875 mg-potassi um clavulanat e 125 mg tablet TAKE 1 TABLET BY MOUTH TWICE DAILY 07/07 completed Not Available Not Available Not Available escitalopr am 20 mg tablet TAKE 1 TABLET BY MOUTH ONCE DAILY FOR 90 DAYS 07/07 completed Not Available Not Available Not Available aripiprazo le 15 mg tablet TAKE 1/2 (ONE-KELLY F) TABLET BY MOUTH ONCE DAILY active Not Available Not Available No t Available cyclobenza luis 5 mg tablet TAKE 1 TABLET BY MOUTH AT NIGHT NEEDED FOR MUSCLE SPASM 07/07 completed Not Available Not Available Not Available nitrofuran toin monohydrat e/macrocry stals 100 mg capsule TAKE 1 CAPSULE BY MOUTH TWICE DAILY FOR 5 DAYS 07/07 completed Not Available Not Available Not Available Flovent HFA 110 mcg/actuat ion aerosol inhaler Inhale 1 puff twice a day by inhalati on route. 07/07 completed Not Available Not Available Not Available Vyvanse 50 mg capsule TAKE 1 CAPSULE BY MOUTH ONCE DAILY IN THE MORNING FOR 30 DAYS 07/07 completed Not Available Not Available Not Available Vyvanse 60 mg capsule TAKE 1 CAPSULE BY MOUTH ONCE DAILY IN THE MORNING active Not Available Not Available No t Available vilazodone 40 mg tablet TAKE 1 TABLET BY MOUTH ONCE DAILY WITH FOOD active Not Available Not Available No t Available vilazodone 20 mg tablet TAKE 1 TABLET BY MOUTH ONCE DAILY WITH FOOD 07/07 completed Not Available Not Available Not Available azelastine 137 mcg-flutic asone 50 mcg/spray nasal spray USE 1 SPRAY INTRANAS ALLY TWICE DAILY INTO EACH NOSTRIL active Not Available Not Available No t Available Rexulti 1 mg tablet TAKE 1 TABLET BY MOUTH ONCE DAILY FOR 30 DAYS 07/07 completed Not Available Not Available Not Available Rexulti 2 mg tablet TAKE 1 TABLET BY MOUTH AT NIGHT 07/07 completed Not Available Not Available Not Available fluticason e 113 mcg-salmet hermilo 14 mcg/actuat ion breath activated powdr INHALE 1 PUFF EVERY 12 HOURS 07/07 completed Not Available Not Available Not Available Trelegy Ellipta 100 mcg-62.5 mcg-25 mcg powder for inhalation INHALE 1 PUFF ONCE DAILY RINSE AND SPIT AFTER EACH USE 07/07 completed Not Available Not Available Not Available Trelegy Ellipta 200 mcg-62.5 mcg-25 mcg powder for inhalation INHALE 1 PUFF ONCE DAILY RINSE AND SPIT AFTER EACH USE active Not Available Not Available No t Available BinaxNOW COVID-19 Ag Self Test kit Use as Directed on the Package 07/07 completed Not Available Not Available Not Available Mounjaro 7.5 mg/0.5 mL subcutaneo us pen injector INJECT 7.5 MG SUBCUTAN EOUSLY WEEKLY active Not Available Not Available No t Available Mounjaro 5 mg/0.5 mL subcutaneo us pen injector INJECT 5 SUBCUTAN EOUSLY ONCE A WEEK TO BE USED ON WEEKS 5-8 active Not Available Not Available No t Available Mounjaro 2.5 mg/0.5 mL subcutaneo us pen injector INJECT 2.5MG SUBCUTAN EOUSLY ONCE A WEEK FOR 4 WEEKS active Not Available Not Available No t Available Vitals Date Recorded Body mass index (BMI) Body height Oxygen saturation Oxygen saturation in Arterial blood by Pulse oximetry Heart rate Body temperature Body weight Systolic blood pressure Diastolic blood pressure Provider Name and Address Organization Details Last Updated DateTime 2 54.4 kg/m2 160.02 cm 98 % 98 % 84 /min 98.2 [degF] 526342. 86 g 134 mm[Hg] 91 mm[Hg] Not Available [facility] 3 15:55:06 Date Recorded Body mass index (BMI) Body height Oxygen saturation Oxygen saturation in Arterial blood by Pulse oximetry Heart rate Body temperature Body weight Provider Name and Address Organization Details Last Updated DateTime 3 54.2 kg/m2 160.02 cm 99 % 99 % 86 /min 97.7 [degF] 108947. 27 g Not Available [facility] 3 15:55:06 Social History Question Answer Notes LastModified by Organizat ion Details LastModified Time Tobacco Smoking Status Former Smoker Not Available [facility] 08/23/2022 15:54:06 What Is Your Level Of Alcohol Consumption? None [id number] Information not available 08/23/2022 What Is Your Level Of Caffeine Consumption? 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 6-10yearssinc elastcigarett e [id number] Information not available 08/23/2022 What Was The Date Of Your Most Recent Tobacco Screening? 05/05/2022 [id number] Information not available 08/23/2022 Do You Use Any Illicit Or Recreational Drugs? No [id number] Information not available 08/23/2022 Has Tobacco Cessation Counseling Been Provided? No [id number] Information not available 08/23/2022 Do You Or Have You Ever Used Any Other Forms Of Tobacco Or Nicotine? No [id number] Information not available 08/23/2022 Sex: Unknown Functional Status None recorded. Mental Status None recorded. Family History Relationship Description Onset Age of this Age Resolved Age Notes LastModified by Organization Details LastModified Time Father Diabetes mellitus [id number] Not available 08/23/2022 15:54:13 Father Hypertensive disorder [id number] Not available 08/23/2022 15:54:14 Mother Diabetes mellitus [id number] Not available 08/23/2022 15:54:14 Mother Kidney stone MIGRATION.0 30 [id number] Not available 08/23/2022 15:54:14 Mother Hypertensive disorder [id number] Not available 08/23/2022 15:54:14 Sister Kidney stone MIGRATION.0 30 [id number] Not available 08/23/2022 15:54:14 Notes:Both parents have diab etes, HTN. Both grandparents heart disease Medical History Condition Response URINARY/BLADDER/KIDNEY PROBLEMS Y KIDNEY STONES Y DEPRESSION (INCLUDING POST ) Y BLOOD CLOTS Y HYPERTENSION Y ASTHMA Y Gynecological HistoryNo gynecological history recorded. Obstetrics History GPAL:G 0 P 0 0 0 0 Past Encounters Encounter ID Performer Location Encounter Start Date Encounter Closed Date Diagnosis/Indication Diagnosis SNOMED-CT Code Diagnosis ICD10 Code Diagnosis Note [id number] [facility] [address] [address] 05/05/2022 00:00:00 05/05/2022 17:03:51 [id number] [facility] [address] [address] 07/07/2022 00:00:00 07/07/2022 16:29:53 Health Concerns Section Related Observation LastModified by Organization Detai ls LastModified Time None Recorded Concern Status LastModified by Organization Details LastModified Time None Recorded Advance Directives Directive None Recorded Payers None recorded. OBGyn Episode No OBEpisode recorded.
--- OUTSIDE RECORDS SUMMARY | 2024-09-04 10:22 | XMS_ITS | Patient Health Summary ---
Author Organization [facility] Address [address] [place] [address] Care Team Providers Care Developer Prover Upholstering Name Role Phone Heraclio Cleveland DO Primary Care Provider [phone] Heraclio Cleveland DO Unavailable [phone] Note from [facility],non-owned Affiliates and Associated Physician Practices is amultiple site organization consisting of ambulatory clinics and hospital sitesin [place], [place], [place] and [place]. This disclosure is being madepursuant to the Care Everywhere program and may not contain all information available regarding this patient. Last updated 18.[facility] Allergies * Albumin Medications * Be aware that medications may not be up to date on this document. Alwaysverify current medications with the patient. * lisinopril (PRINIVIL; ZESTRIL) 10 MG tablet Take 10 mg by mouth once daily * budesonide-formoterol (SYMBICORT) 160-4.5 MCG/ACT inhaler Inhale 2 Puffs by mouth 2 times daily * omeprazole (PRILOSEC) 20 MG capsule Take 20 mg by mouth daily before breakfast * citalopram (CELEXA) 40 MG tablet Take 40 mg by mouth once daily * topiramate (TOPAMAX) 25 MG tablet Take 25 mg by mouth 2 times daily * BUSPIRONE HCL PO Take by mouth 3 times daily * SUMAtriptan (IMITREX) 50 MG tablet Take 50 mg by mouth once as needed for Migraine * ALPRAZolam (XANAX) 0.5 MG tablet Take 0.5 mg by mouth 3 times daily as needed for Anxiety * albuterol (PROVENTIL;VENTOLIN) (5 MG/ML) 0.5% nebulizer solution Inhale 2.5 mg by mouth 4 times daily as needed for Shortness of Breath or Wheezing * Amphetamine-Dextroamphetamine (ADDERALL PO) * albuterol HFA (VENTOLIN HFA) 108 (90 BASE) MCG/ACT inhaler(Started 05/14/2017) Inhale 2 puffs by mouth every 6 hours as needed 5 refills remaining * norethindrone-ethinyl estradiol-iron (ESTROSTEP FE) 1-20/1-30/1-35 MG-MCG tablet Take 1 tablet by mouth once daily * ARIPiprazole (ABILIFY) 5 MG tablet Take 5 mg by mouth once daily Active Problems No known active problems Social [...] Mass Index 46.06 02/13/2020 6:26 PM CDT Procedures * URINALYSIS AUTO - POINT OF CARE (AMB) STL(Performed 04/22/2018) Performed for Cystitis * STREP A SCREEN - POINT OF CARE (AMB) STL(Performed 04/16/2018) Performed for Acute nasopharyngitis * STREP A SCREEN - POINT OF CARE (AMB) STL(Performed 05/14/2017) Performed for Acute sinusitis, recurrence not specified, unspecified location * STREP A SCREEN - POINT OF CARE (AMB) STL(Performed 04/01/2017) Performed for Acute streptococcal pharyngitis * URINALYSIS AUTO - POINT OF CARE (AMB) STL(Performed 02/25/2016) Performed for Urinary tract infection with hematuria, site unspecified Results * URINALYSIS AUTO - POINT OF CARE (AMB) STL (04/22/2018) Only the most recent of2 resultswithin the time period is included. Clarity UA POCT slighly cloudy Color UA POCT yellow Leukocyte UA 70 Negative Nitrite UA POCT negative Negative Urobilinogen UA 0.2 0.1 - 1.0 Protein UA POCT 15 Negative pH UA 5.0 5.0 - 8.0 pH units Blood UA 50 Negative Specific Drifting UA POCT 1.020 1.002 - 1.030 Ketone UA negative Negative Bilirubin UA POCT negative Negative Glucose UA negative Negative Expiration Date 10/02/19 Lot # [id number] QC Verified Yes Yes Urine URINE / Unknown 04/22/2018 Latrice Manolo Buzz [employer] - POINT OF CA RE ORDERABLES * STREP A SCREEN - POINT OF CARE (AMB) STL (04/16/2018) Only the most recent of3 resultswithin the time period is included. Strep A Rapid POCT Negative Negative Strep A Internal Control Present Lot # [id number] Expiration Date Throat ENTIRE THROAT (SURFACE REGION OF NECK) / Unknown 04/16/2018 Alfredo Zavala [employer] - POINT OF CARE ORDERABLES Care Teams Developer Prover Upholstering Relationship Specialty Start Date End Date Heraclio Cleveland DO PCP - General Internal Medicine 10/12/16 Heraclio Cleveland DO Internal Medicine 10/12/16
== END 2024-09-04 09:13 | disposition home or self-care (01) ==
LOC: ANHIMG 09:16
PROVIDERS: PCP Internal Medicine; Visit Provider Internal Medicine Critical Care Medicine
DX: J18.9 Pneumonia, unspecified organism (principal)
CPT/HCPCS: 71046

== ENCOUNTER 2024-09-25 10:02 | Outpatient (CLI) | payer OTHER, SELFPAY ==
--- NOTE | ~2024-09-25 | CT_ITS ---
CT Scan of the Chest without Contrast: Clinical Indication: Pneumonia Technique: Contiguous sections were acquired throughout the chest without intravenous contrast. Dose reduction technique was used on this scan by utilizing automated exposure control and iterative recon struction technique. The dose-length product (DLP) was 179.48 mGy-cm. COMPARISON: 03/10/2024 Findings: There is no evidence of any significant mediastinal, hilar or axillary lymphadenopathy. The mediastin al soft tissues appear normal. There is no evidence of pleural or pericardial effusion. There is patchy consolidation the left lower lobe with patchy groundglass opacities in tree-in-bud op acities in the bilateral lower lobes. Images through the upper abdomen reveal stable left adrenal nodule, likely adenoma. Impression: Patchy left lower lobe consolidation with additional patchy groundglass opacity and tree-in-bud opaci ties in the bilateral lower lobes. Findings are compatible with pneumonia/infectious process. Finding s overall are mildly improved from prior exam. Reviewed, dictated and finalized at location . Impression: Patchy left lower lobe consolidation with additional patchy groundglass opacity and tree-in-bud opacities in the bilateral lower lobes. Findings are compatibl e with pneumonia/infectious process. Findings overall are mildly improved from prior exam.
--- OUTSIDE RECORDS SUMMARY | 2024-09-25 10:44 | XMS_ITS ---
Author Organization [facility] Address [address] [place] [address] Care Team Providers Care Preassembler Printed Circuit Board Name Role Phone RadhaHeraclio jefferson Primary Care Provider Unavailab Mely Esquivel Unavailable [phone] REASON FOR VISIT RX Encounters Encounter Location Date Provider Diagnosis [address] [address] 07/08/2024 Mely Jay Plan Of Treatment Next Appt Details Provider Name:Mely hallman, 11/05/2024 08:45:00 AM, [address] [facility], [address], [address], Progress Notes * Sarai MOYERDOB:[birth year] (38 yo F)Acc No.[id number]:07/08/2024 Patient: Eder Sarai BACA :1985 A ge:38 Y S ex:Female Address:[address] [place] [address], [address] * true * Date: Generated for Printi ng/Faxing/eTransmitting on: 0 09/25/2024 10:44 AM CDT
--- OUTSIDE RECORDS SUMMARY | 2024-09-25 10:44 | XMS_ITS ---
Author Organization [facility] Address [address] [place] [address] Care Team Providers Care Library Supervisor Name Role Phone Heraclio Cleveland DO Primary Care Provider Edith Barrios Unavailable [phone] Allergies Allergen (clinical drug ingredient) Drug/Non Drug [...] less (1 point) Section Notes: Lives in [place] with 2 kids. Grew up in [place], has 1 sister. 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 Vital Signs Blood pressure systolic 109 mm Hg 08/04/19 25 Blood pressure diastolic 75 mm Hg 025 Heart Rate 81 /min 08/04/2024 Height 63 in 08/04/2024 Weight 182 lbs 08/04/2024 BMI 32.24 kg/m2 08/04/2024 Height-cm 160.02 cm 08/04/2024 Weight-kg 82.55 kg 08/04/2024 Encounters Encounter Location Date Provider Diagnosis [facility] [address] [address] 08/04/2024 Edith Molina Major depressive disorder, recurrent, [...] slightly, has pulmonology appointment next month - Plastic Manager encouraged continuing Adderall with modafinil Plan: - Continue treatment plan with wash oil pump operator helper Follow-up in 2 months, sooner if concerns [...] slightly, has pulmonology appointment next month - Plastic Manager encouraged continuing Adderall with modafinil Plan: - Continue treatment plan with wash oil pump operator helper Follow-up in 2 months, sooner if concerns [...] slightly, has pulmonology appointment next month - Plastic Manager encouraged continuing Adderall with modafinil Plan: - Continue treatment plan with wash oil pump operator helper Follow-up in 2 months, sooner if concerns [...] slightly, has pulmonology appointment next month - Plastic Manager encouraged continuing Adderall with modafinil Plan: - Continue treatment plan with wash oil pump operator helper Follow-up in 2 months, sooner if concerns [...] slightly, has pulmonology appointment next month - Plastic Manager encouraged continuing Adderall with modafinil Plan: - Continue treatment plan with wash oil pump operator helper Follow-up in 2 months, sooner if concerns [...] slightly, has pulmonology appointment next month - Plastic Manager encouraged continuing Adderall with modafinil Plan: - Continue treatment plan with wash oil pump operator helper Follow-up in 2 months, sooner if concerns [...] slightly, has pulmonology appointment next month - Plastic Manager encouraged continuing Adderall with modafinil Plan: - Continue treatment plan with wash oil pump operator helper Follow-up in 2 months, sooner if concerns [...] Follow Up: 2 Months, Reason: Provider Name:Edith gonzalez, 09/29/2024 08:30:00 AM, [address], [facility] [address], [place], [address], Progress Notes * Sarai MOYERDOB:[birth year] (38 yo F)Acc No.[id number]:08/04/2024 Patient: Angie SPENCERica Provider: Michael Molina :1985 A ge:38 Y S ex:Female Date:08/04/2024 Phone: Address:[address] [place], [place] [address] Pcp:Heraclio Cleveland DO Subjective: * Chief Complaints: [...] female, , 2 kids, 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 Reports some improvement, but still experiences tiredness, [...] * Surgical History: c sections galbladder removal 2013gastric bypass 05/2023 * Hospitalization/Major Diagno stic Procedure: [...] 2 diabetes mellitus without complication, unspecified whether medical terminologist insulin use. M aternal Grandmother: diagnosed with [...] less (1 point). 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 Safety issues A re there any firearms in the house? N o. A dvance Care Planning A re you your own decision-maker Y es, D o you have Power of Hospitality Director for Health or Medical? N o. S ocial History: H ousehold M arital Status: D ivorced, N umber of Adults in household: 1 ,?Number of Children in Household: 2 , L evel of Education: N ot Finished College. L meredith in [place] with 2 kids. Grew up in [place], has 1 sister. 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 * Medications: T akingModafinil [...] slightly, has pulmonology appointment next month - Plastic Manager encouraged continuing Adderall with modafinil Plan: - Continue treatment plan with wash oil pump operator helper Follow-up in 2 months, sooner if concerns [...] 9 6127 BEHAV ASSMT W/SCORE & DOCD/STAND [id number] NORMAL BP READING DOC F/U NOT [id number] VISIT COMPLEXITY INHERENT TO ONGOING CARE RELATED TO A PATIENT'S SINGLE, SERIOUS CONDITION OR A COMPLEX [id number] MOST RECENT SYSTOLIC BP < 140MM [id number] MOST RECENT DIASTOLIC BP < 90MM HG [...] Months * Billing Information: * Visit Code: 40969 OFFICE OUTPATIENT VISIT 25 MINUTES DETAILED HISTORY AND EXAM/MODERATE MEDICAL DECISION MAKING. * Procedure Codes: 82962 BEHAV ASSMT W/SCORE & DOCD/STAND INSTRUMENT. G8783 NORMAL BP READING DOC F/U NOT RQR. G2211 VISIT COMPLEXITY INHERENT TO ONGOING CARE RELATED TO A PATIENT'S SINGLE, SERIOUS CONDITION OR A COMPLEX CONDITION. G8752 MOST RECENT SYSTOLIC BP < 140MM HG. G8754 MOST RECENT DIASTOLIC BP < 90MM HG. * DROPPER Sign off status: Completed true * Provider: Michael Molina Date: 0 08/04/2024 Generated for Cydney carson/Sylvester/Carlos on: 0 09/25/2024 10:44 AM CDT History and Physical Notes * [...] Total: (0 to 4) No Anx iety Ness-Suicide Severity Rating Scale Suicide Risk (CSRS-screener) in [...]
--- OUTSIDE RECORDS SUMMARY | 2024-09-25 10:44 | XMS_ITS | Clinical Summary ---
Author Organization [facility] Address [address] [place] [address] Care Team Providers Care Exceptional Student Education Teacher Name Role Phone Heraclio Cleveladn DO Primary Care Provider [phone] Heraclio Cleveland DO Unavailable Source Comments [facility],non-owned Affiliates and Associated Physician Practices is amultiple site organization consisting of ambulatory clinics and hospital sitesin [place], [place], [place] and [place]. This disclosure is being madepursuant to the Care Everywhere program and may not contain all information available regarding this patient. Last updated 18.[facility] Allergies Active Allergy Reactions Criticality Noted Date [...] age to complete this topic Care Teams Exceptional Student Education Teacher Relationship Specialty Start Date End Date Heraclio Cleveland DO PCP - General Internal Medicine 10/12/16 Heraclio Cleveland DO Internal Medicine 10/12/16
--- OUTSIDE RECORDS SUMMARY | 2024-09-25 10:44 | XMS_ITS | Clinical Summary ---
[facility] Address [address] [place] [address] [place] [address] Care Team Providers Care Manager Eligibility Name Role Phone Heraclio Cleveland DO Primary [...] 0 Active fluticasone propionate (FLONASE) 50 mcg/spray [place], Suspension nasal inhaler fluticasone propionate 50 mcg/actuation [...] on file Legal Sex Female 8:28 AM MUCK MINER BLASTING Gender Identity Not on file Sexual Orientation [...] of 3 - 19+ 3-dose series) 2003 PAP SMEAR 2005 CERVICAL CANCER SCREENING 2014 HPV/Cotest (30-65) 2014 PAP SMEAR 2014 INFLUENZA VACCINE (#1) 2024 BREAST CANCER SCREENING 2024 HPV VACCINES Aged Out No longer eligi ble based on patient's age to complete this topic Care Teams Manager Eligibility Relationship Specialty Start Date End Date Heraclio Cleveland DO [address] [facility] [address] [place] [address] PCP - General Internal Medicine 08/29/19
--- OUTSIDE RECORDS SUMMARY | 2024-09-25 10:44 | XMS_ITS ---
Author Organization [facility] [employer] Address [address] [place] [address] Care Team Providers Care Patient Service Technician Pst Name Role Phone Heraclio Cleveland DO Primary Care Provider Edith Barrios Unavailable [phone] Allergies Allergen (clinical drug ingredient) Drug/Non Drug [...] Oxazepam (BZO) N 0 - 300 ng/ml 0-ludikwlogn-8,4-mrjjaedh-6,3-diphenylpyrrolidine (GENEVIEVE P) N 0 - 300 ng/ml Methamphetamine (MET) N 0 - 1000 ng/ml Methylenedioxymethamphetamine (MDMA) N 0 - 500 ng/ml Morphine (MOP 300/VSN9466) N 0 - 300 ng/ml Methadone (MTD) [...] less (1 point) Section Notes: Lives in [place] with 2 kids. Grew up in [place], has 1 sister. 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 Vital Signs Blood pressure systolic 113 mm Hg 07/07/19 25 Blood pressure diastolic 79 mm Hg 025 Heart Rate 83 /min 07/07/2024 Height 63 in 07/07/2024 Weight 185.0 lbs 07/07/2024 BMI 32.77 kg/m2 07/07/2024 Height-cm 160.02 cm 07/07/2024 Weight-kg 83.91 kg 07/07/2024 Encounters Encounter Location Date Provider Diagnosis [facility] [address] [place] [address] 07/07/2024 Edith Molina Attention-deficit hyperactivity disorder, combined [...] c Fatigue - Recently started modafinil by wool hat flanger - Mosaic Tile Maker encouraged continuing Adderall with modafinil Plan: - Continue modafinil as prescribed by wool hat flanger Follow-up in 6 weeks, sooner if concerns [...] c Fatigue - Recently started modafinil by wool hat flanger - Mosaic Tile Maker encouraged continuing Adderall with modafinil Plan: - Continue modafinil as prescribed by wool hat flanger Follow-up in 6 weeks, sooner if concerns [...] c Fatigue - Recently started modafinil by wool hat flanger - Mosaic Tile Maker encouraged continuing Adderall with modafinil Plan: - Continue modafinil as prescribed by wool hat flanger Follow-up in 6 weeks, sooner if concerns [...] c Fatigue - Recently started modafinil by wool hat flanger - Mosaic Tile Maker encouraged continuing Adderall with modafinil Plan: - Continue modafinil as prescribed by wool hat flanger Follow-up in 6 weeks, sooner if concerns [...] c Fatigue - Recently started modafinil by wool hat flanger - Mosaic Tile Maker encouraged continuing Adderall with modafinil Plan: - Continue modafinil as prescribed by wool hat flanger Follow-up in 6 weeks, sooner if concerns [...] c Fatigue - Recently started modafinil by wool hat flanger - Mosaic Tile Maker encouraged continuing Adderall with modafinil Plan: - Continue modafinil as prescribed by wool hat flanger Follow-up in 6 weeks, sooner if concerns [...] Follow Up: 6 Weeks, Reason: Provider Name:Edith gonzalez, 09/29/2024 08:30:00 AM, [address] [facility] [address] [facility] [address], [place], [address], Progress Notes * Sarai MOYERDOB:[birth year] (38 yo F)Acc No.[id number]:07/07/2024 Patient: Eder BACA Sarai Provider: Michael Molina :1985 A ge:38 Y S ex:Female Date:07/07/2024 Phone: Address:[address] [place], [place] [id number] Pcp:Heraclio Cleveland DO Subjective: * Chief Complaints: [...] y/o female, , 2 kids, 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 Started Adderall for ADHD last visit, reports today t hat i s going pretty good. Recently started on modafinil by wool hat flanger to help with sleep, he encouraged her [...] tool used for adult depression screening: [facility] P ast Psychiatric Hospitalizations: [...] hallucinations, delusions, psychosis, involuntary movements. Rhianna Gaines [facility] for details. ? P atient not [...] 2 diabetes mellitus without complication, unspecified whether longwall foreman insulin use. M aternal Grandmother: diagnosed with [...] (1 point). 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 Safety issues A re there any firearms in the house? N o. A dvance Care Planning A re you your own decision-maker Y es, D o you have Power of Clerk for Health or Medical? N o. S ocial History: H ousehold M arital Status: D ivorced, N umber of Adults in household: 1 ,?Number of Children in Household: 2 , L evel of Education: N ot Finished College. L meredith in [place] with 2 kids. Grew up in [place], has 1 sister. 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 * Medications: T akingModafinil [...] c Fatigue - Recently started modafinil by wool hat flanger - Mosaic Tile Maker encouraged continuing Adderall with modafinil Plan: - Continue modafinil as prescribed by wool hat flanger Follow-up in 6 weeks, sooner if concerns [...] N 0 - 300 ng/ml * 2 -ethylidene-1,6-gxqubrfy-0,3-diphenylpyrrolidine (EDDP) N 0 - 300 ng/ml * M ethamphetamine (MET) N 0 - 1000 ng/ml * M ethylenedioxymethamphetamine (MDMA) N 0 - 500 ng/ml * M orphine (MOP 300/KCO5216) N 0 - 300 ng/ml * M ethadone (MTD) N 0 - 300 ng/ml * P hencyclidine (PCP) N 0 - 25 ng/ml * P ropoxyphene (PPX) N 0 - 300 ng/ml * N ortriptyline (TCA) N 0 - 1000 ng/ml * O xycodone N 0 - 300 ng/ml * Procedure Codes: 9 6127 BEHAV ASSMT W/SCORE & DOCD/STAND [id number] Pt not markos d/t act dig [id number] DRUG TST PRSMV READ INSTRMNT ASSTD DIR OPT [id number] VISIT COMPLEXITY INHERENT TO ONGOING CARE RELATED [...] Weeks * Billing Information: * Visit Code: 93382 OFFICE OUTPATIENT VISIT 25 MINUTES DETAILED HISTORY AND EXAM/MODERATE MEDICAL DECISION MAKING. * Procedure Codes: 31262 BEHAV ASSMT W/SCORE & DOCD/STAND INSTRUMENT. G9744 Pt [place] markos d/[place]. [address] DRUG TST PRSMV READ INSTRMNT ASSTD DIR OPT OBS. G2211 VISIT COMPLEXITY INHERENT TO ONGOING CARE RELATED TO A PATIENT'S SINGLE, SERIOUS CONDITION OR A COMPLEX CONDITION. * E TOOLSETTER Electronically co-signed by Jevon Ray MD on 07/09/2024 at 08:08 PM SWAGE TOOLSETTER Sign off status: Completed Addendum: * true * Provider: Michael Molina Date: 0 07/07/2024 Generated for Cydney carson/Sylvester/Carlos on: 0 09/25/2024 [...] Screening Findings: P ositve Follow-Up for Depression: [facility] treatment assessment, Patient follow-up to return when [...] Total: (0 to 4) No Anx iety Kenedy-Suicide Severity Rating Scale Suicide Risk (CSRS-screener) in [...]
--- OUTSIDE RECORDS SUMMARY | 2024-09-25 10:45 | XMS_ITS | Referral Summary ---
Author Organization [facility] Address [facility] [place] [address] Care Team Providers Care Cafe Server Name Role Phone Heraclio Cleveland DO Primary Care Provider [phone] Allergies Active Allergy Reactions Criticality Noted Date [...] on file Legal Sex Female 8:29 AM ANALYTICAL CHEMIST Gender Identity Female 10/31/2021 1:29 PM CDT Sexual Orientation Straight 10/31/2021 1: 29 PM CDT Last Filed Vital Signs Vital Sign Reading Time Taken Comments Blood Pressure 114/81 11/11/2021 4:05 PM CDT Pulse 105 11/11/2021 4:05 PM CDT Temperature 36.6 C (97.8 F) 05/15/2019 2:01 PM ANALYTICAL CHEMIST Respiratory Rate - - Oxygen Saturation 96% 11/11/2021 4:05 PM CDT Inhaled Oxygen Concentration - - Weight 118.8 kg (261 lb 12.8 oz) 05/15/2019 2:01 PM ANALYTICAL CHEMIST Height 159.5 cm (5' 2.8 ) 05/15/2019 2:01 PM ANALYTICAL CHEMIST Body Mass Index 46.67 05/15/2019 2:01 PM ANALYTICAL CHEMIST Plan of Treatment Not on file Insurance [facility] H[facility]/PPO Address: [address] [place] [address] Care Teams Cafe Server Relationship Specialty Start Date End Date Heraclio Cleveland DO PCP - General Internal Medicine 12/10/18
--- OUTSIDE RECORDS SUMMARY | 2024-09-25 10:45 | XMS_ITS ---
Author Organization [facility] Address [address] [place] [id number] Care Team Providers Care Thermal Engineer Name Role Phone Heraclio Cleveland Primary Care Provider Unavailab Mely Esquivel Unavailable [phone] Allergies No Known Allergies Results Component Value Reference Range Notes Spirometry Reviewed date: Interpretation:Normal Performing Lab: Notes/Report: Normal SpiroPreBronchodilator_FVC 3.13 SpiroPostBronchodilator_FEF25_75 0 SpiroPreBronchodilator_FEF25_75 2.44 SpiroPreBronchodilator_FEV1 2.48 SpiroPrecentPredictionPost_FEF25_75 0 SpiroPrecentPredictionPost_FEV1 0 SpiroPrecentPredictionPost_FEV1_OVER_FVC 0 SpiroPrecentPredictionPost_FVC 0 SpiroPrecentPredictionPre_FEF25_75 73.7 SpiroPrecentPredictionPre_FEV1 86.4 SpiroPrecentPredictionPre_FEV1_OVER_FVC 94.2 SpiroPrecentPredictionPre_FVC 92.1 SpiroPredicted_FEF25_75 3.31 SpiroPreBronchodilator_FEV1_OVER_FVC 79.27 SpiroPreBronchodilator_PEF 4.15 SpiroPostBronchodilator_FVC 0 SpiroPostBronchodilator_FEV1 0 SpiroPostBronchodilator_FEV1_OVER_FVC 0 SpiroPostBronchodilator_PEF 0 SpiroPredicted_FVC 3.4 SpiroPredicted_FEV1 2.87 SpiroPredicted_FEV1_OVER_FVC 84.18 SpiroPredicted_PEF 6.11 REASON FOR VISIT Asthma follow-up - better control, no interval steroids Medications Medication SIG (Take, Route, Frequency, Duration) Notes Start Date End Date Status Mounjaro 2.5 MG/0.5 ML DIRECTED SUBCUTANEOUSLY ONCE A WEEK *Please review and pick correct strength-formula tion from [employer] options. If intended option is not shown, discontinue and re-order from Quick Search* Not-Taking Vyvanse 60 MG 1 cap(s) orally [...] by mouth at bedtime 200mg nightly Not-Taking ASPIRIN 81 mg 1 tab(s) chewed once a day for 30 day(s) Not-Taking MOUNJARO 2.5 mg/0.5 mL as directed subcutaneously once a week Not-Taking EPINEPHRINE AUTO-INJECTOR 0.3 MG DIRECTED INTRAMUSCULARLY ONCE for 1 DAY *Please review for potential replacement for e-prescription and drug interaction check* Not-Taking ZyrTEC Allergy 10 MG 1 tab(s) orally once a day Not-Taking OMEPRAZOLE 20 mg 1 cap(s) orally once a day for 30 day(s) Not-Taking VYVANSE 60 mg 1 cap(s) orally once a day (in the morning) for 30 day(s) Not-Taking ZYRTEC 10 mg 1 tab(s) orally once a day Not-Taking LISINOPRIL 5 mg 1 tab(s) orally once a day for 30 day(s) takes 15mg daily Not-Taking ZYRTEC 10 mg 1 tab(s) orally once a day Not-Taking TRAZADONE 50MG 1 BY MOUTH AT BEDTIME 200mg nightly *Please review for potential replacement for e-prescription and drug interaction check* Not-Taking ABILIFY 5 mg 1.5 tab(s) orally once a day for 30 days takes 7.5mg daily Not-Taking TOPIRAMATE 25 mg 1 tab(s) orally 2 times a day for 30 day(s) Not-Taking BUSPIRONE 10 mg 1 tab(s) orally 2 times a day for 30 day(s) 20mg three times daily Not-Taking VIIBRYD 40 mg 1 tab(s) orally once a day for 8 week(s) Not-Taking PRILOSEC Not-Taking QELBREE 100 mg 1 cap(s) orally once a day 200 mg Not-Taking TRAZODONE 100 mg 1 by mouth at bedtime 200mg nightly Not-Taking TRELEGY ELLIPTA 200 mcg/62.5mcg/25mcg 1 puff inhaled once a day Not-Taking Doxycycline Monohydrate 100 MG 1 capsule Orally Once a day Not-Taking Topiramate 25 MG 1 tab(s) orally 2 times a day for 30 day(s) Active Viibryd 40 MG 1 tab(s) orally once a day for 8 week(s) Active Abilify 5 MG 1.5 tab(s) orally once a day for 30 days takes 7.5mg daily Active predniSONE 20 MG 1 tablet Orally Once a day Not-Taking Dymista 137-50 MCG/ACT 1 spray(s) intranasally 2 times a day Active Trelegy Ellipta 200-62.5-25 MCG/ACT 1 puff Inhalation Once a day Active ALBUTEROL (EQV-PROAIR HFA) 90 mcg/inh 2 puff(s) inhaled every 6 hours for 30 days Active busPIRone HCl 10 MG 1 tablet Orally Twice a day Active Adderall 10 MG 1 tablet Orally Twice a day Active traZODone HCl 100 MG 1 tablet at bedtime Orally Once a day Active CETIRIZINE HYDROCHLORIDE 10 mg 1 tab(s) orally once a day Active DYMISTA 137 mcg-50 mcg/inh 1 spray(s) intranasally 2 times a day Active EPINEPHRINE AUTO-INJECTOR 0.3 mg as directed intramuscularly once for 1 days Active FASENRA PREFILLED SYRINGE 30 mg/mL inject, as directed subcutaneously every 8 weeks for 365 days Active TRELEGY ELLIPTA 200 mcg/62.5mcg/25mcg 1 puff inhaled once a day Active Social History Tobacco Use: Social History Observation Description Date Details (start date - stop date) Never Smoker NA - NA Smoking Smart Form: Question Answer Notes Are you a: former smoker Tobacco Control (Standard) Question Answer Notes Tobacco use: Nonsmoker Vital Signs Blood pressure systolic 117 mm Hg 09/11/19 25 Blood pressure diastolic 79 mm Hg 025 Height 63 in 09/10/2024 Weight 177.8 lbs 09/10/2024 BMI 31.49 kg/m2 09/10/2024 Oximetry 100 % 09/10/2024 Encounters Encounter Location Date Provider Diagnosis [facility] [address] [id number] 09/10/2024 Mely Jay Allergic rhinitis du e to [...] Treatment Notes Treatment Clinical Notes Section Notes 09/10/2024 Allergic rhinitis due to pollen (ICD-10 - [...] testing before considering immunotherapy in the future. 09/10/2024 Severe persistent asthma, uncomplicated (ICD-10 - J45.50) Spirometry in 2023 showed obstruction with FEV1 74%. Spirometry is normal today. ACT 21. Due to continued symptoms and use of prednisone 2-3 times a year despite high dose therapy with Trelegy and albuterol, started Fasenra. IgE 727, AEC 300, PFTs normal in 2021. Immunodeficiency evaluation was normal after receiving Prevar and titers check. Consider switching biologics and we have discussed Xolair. 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 If symptoms persist, consider adding additional medications including intraocular antihistamine/mast cell stabilizer, PRN 09/10/2024 Allergy to eggs (ICD-10 - Z91.012) History of asthma flares with exposure to lightly cooked egg products. Skin testing to egg negative at her initial visit. We discussed having EpiPen available at all times given history. 09/10/2024 Other pneumonia, unspecified organism (ICD-10 - J18.8) 09/10/2024 Other Plan Of Treatment Medication Medication Name Sig Start Date Stop Date Notes ALBUTEROL (EQV-PROAIR HFA) 90 mcg/inh 2 puff(s) inhaled every 6 hours for 30 days CETIRIZINE HYDROCHLORIDE 10 mg 1 tab(s) orally once a day DYMISTA 137 mcg-50 mcg/inh 1 spray(s) in tranasally 2 times a day EPINEPHRINE AUTO-INJECTOR 0.3 mg as directed intramuscularly once for 1 days FASENRA PREFILLED SYRINGE 30 mg/mL inject, as directed subcutaneously every 8 weeks for 365 days TRELEGY ELLIPTA 200 mcg/62.5mcg/25mcg 1 puff inhaled once a day Treatment Notes Assessment Notes Allergic rhinitis due [...] FEV1 74%. Spirometry is normal today. ACT 21. Due to continued symptoms and use of prednisone 2-3 times a year despite high dose therapy with Trelegy and albuterol, started Fasenra. IgE 727, AEC 300, PFTs normal in 2021. Immunodeficiency evaluation was normal after receiving Prevar and titers check. Consider switching biologics and we have discussed XolairClarissa Moon has severe asthma with an eosinophilic phenotype. [...] Appt Details Follow Up: 8 weeks, Reason: Fasenra Provider Name:Mely hallman, 11/05/2024 08:45:00 AM, [address]22 [facility], [address], [place], [address], Procedure Notes * Category Sub-Category Detail Notes FASENRA (benralizumab) Administration Dosage Subcutaneous administration: : 30 mg (30 units) Frequency Interval: every 4 weeks x 3 Location Arm: Left lower Dosing Time / Lot Number / Expiration Ti me of administration, Jamila Carr 09/10/2024 08:38:45 AM CDT >, Time of administration, Lot Number [id number], , Expiration Date Reaction Local: None Post-procedural check-out: ,Patient was discharged 30 minutes after dosing administration, Vitals taken 30 minutes after dosing administration: Medication Source FASENRA Source: [facility] Pharm[facility] (Insurance-provided) Source Verfication:: Yes Medical necessity for in-off ice administration: The patient or caregiver is not suitable , not competent or is physically unable to administer the FASENRA product FDA-labeled for self-administration for the following reason(s):: needle phobia Progress Notes * Jami MOYER:[birth year] (39 yo F)Acc No.[id number]:09/10/2024 FASENRA 2 Patient: Sarai SPENCER Provider: Angel Jay MD :1985 A ge:39 Y S ex:Female Date:09/10/2024 Address:[address] [place] [address] [address] [phone] Pcp:Heraclio [place] Subjective: * Chief Complaints: * A sthma follow-up - better control, no interval steroids * HPI: * Introduction: I had the pleasure of seeing Angel Moyer, a 39 year old with Factor V Leiden deficiency, Asthma, egg allergy and depression presenting for f/u evaluation of asthma. She was last evaluated 07-16-2024. No interval flares. She continues Trelegy 1 puff daily She is using albuterol every few weeks. She reports continued cough productive of yellow sputum. She reports months of productive sputum. She was evaluated by Dr. Key last week and CXR performed and sputum sample. No interval steroids. , she was e valuated i n urgent care and diagnosed with walking pneumonia. She was also hospitalized at [facility] February 2024 for pneumonia. CXR and CT confirmed pneumonia per her report. She was also diagnosed with pneumonia in September [address] chest for left sided pain. She has received Prevnar. Prior to starting Fasenra, she was treated with s teroids 2-3 times a year for asthma. S he was diagnosed with asthma at 18 months of age. P FTs were performed in 2021 and normal per her report. She has a history of constant congestion [...] Age of carpet? 4 Do you have [id number]-[id number] carpeting? N o What is the age [...] Tablet 1 tablet Orally Twice a day Trelegy Ellipta 200-62.5-25 MCG/ACT Aerosol Powder Breath [...] 1 tablet Orally Twice a day Taking Trelegy Ellipta 200-62.5-25 MCG/ACT [...] aerosol 2 puff(s) inhaled every 6 hours predniSONE 20 MG Tablet 1 tablet Orally [...] 2 puff(s) inhaled every 6 hours Not-Taking/PRN predniSONE 20 MG Tablet 1 tablet Orally [...] *Please review and pick correct strength-formulation from [employer] options. If intended option is not shown, discontinue and re-order from Quick Search*Medication List reviewed and reconciled with the patient * Allergies: N .K.D.A.no[Allergies Verified] Objective: * Vitals: B P:117/79mm Hg, HR:80/min, Pulse Oximetry:100%, ACT:21, Ht: 63 in, Wt: 177.8 lbs, BMI:31.49Index. * Examination: G eneral examination: General appearance: [...] * Treatment: Value Reference Range S piroPreBronchodilator_FVC 3.13 * S piroPreBronchodilator_FEF25_75 2.44 * S piroPreBronchodilator_FEV1 2.48 * S piroPrecentPredictionPre_FEF25_75 73.7 * S piroPrecentPredictionPre_FEV1 86.4 * S piroPrecentPredictionPre_FEV1_OVER_FVC 94.2 * S piroPrecentPredictionPre_FVC 92.1 * S piroPredicted_FEF25_75 3.31 * S piroPreBronchodilator_FEV1_OVER_FVC 79.27 * S piroPreBronchodilator_PEF 4.15 * S piroPredicted_FVC 3.4 * S piroPredicted_FEV1 2.87 * S piroPredicted_FEV1_OVER_FVC 84.18 * S piroPredicted_PEF 6.11 * FEV1 and FVC within normal l imits. Normal FVL. Impression: normal spirometry Notes: Spirometry in 2023 showed obstruction with FEV1 74%. Spirometry is normal today. ACT 21. Dueto continued symptoms and use of prednisone 2-3 times a year despite high dose therapy with Trelegyand albuterol, started Fasenra. IgE 727, AEC 300, PFTs normal in 2021. Immunodeficiency evaluation was normal after receiving Prevar and titers check. Consider switching biologics and we have discussed Xolair. Sarai has severe asthma with an [...] x 3 Location A rm L eft lower Dosing Time / Lot Number / Expiration T lenny of administration, Jamila Carr 09/10/2024 08:38:45 AM CDT >, Time of administration, Lot Number [id number], , Expiration Date . Reaction L ocal N one Post-procedural check-out: , Patient was discharged 30 minutes after dosing administration, Vitals taken 30 minutes after dosing administration:. Medication Source F ASENRA Source [facility] (Insurance-provided) S aniya Verfication: Y rl Medical necessity for in-dental front office assistant: T he patient or caregiver is not suitable, not competent or is physically unable to administer the FASENRA product FDA-labeled for self-administration for the following reason(s): n eedle phobia p ost vitals 111/78, HR 88, RR 14, O2 100%. * Procedure Codes: 9 6160 PT-FOCUSED HLTH RISK [id number] DOC MEDS VERIFIED W/PT OR [id number] CHEMO, ANTI-NEOPL, [id number] RESPIRATORY FLOW VOLUME LOOP * Preventive Medicine: [...] TO ALTERNATIVE / PRIMARY CARE PROVIDER: Shelbi monroe to general physician * Follow Up: 8 weeks (Reason: Fasenra) * Billing Information: * Visit Code: 49587 Office Visit, Est Pt., Level 4. Modifiers: 25 * Procedure Codes: 68900 PT-FOCUSED HLTH RISK ASSMT. G8427 DOC MEDS VERIFIED W/[place]. [address] CHEMO, ANTI-NEOPL, SQ/IM. A4617 Mouthpiece. 883[address] RESPIRATORY FLOW VOLUME LOOP. * Sign off status: Completed true * Provider: Angel Jay MD Date: 0 09/10/2024 Generated for Cydney carson/Sylvester/Carlos on: 0 09/25/2024 10:45 AM CDT History and Physical Notes * HPI (History of Present Illness) Category Sub-Category Detail Notes Category Not es *Introduction I had the pleasure o f seeing Sarai Moyer, a 39 year old with Factor V Leiden deficiency, Asthma, egg allergy and depression presenting for f/u evaluation of asthma. She was last evaluated 07-16-2024. No interval flares. She continues Trelegy 1 puff daily She is using albuterol every few weeks. She reports continued cough productive of yellow sputum. She reports months of productive sputum. She was evaluated by Dr. Key last week and CXR performed and sputum sample. No interval steroids. , she was evaluated in urgent care and diagnosed with walking pneumonia. She was also hospitalized at [facility] February [address]24 for pneumonia. CXR and CT confirmed pneumonia per her report. She was also diagnosed with pneumonia in September [address] chest for left sided pain. She has received Prevnar. Prior to starting Fasenra, she was treated with steroids 2-3 times a year for asthma. She was diagnosed with asthma at 18 months of age. PFTs were performed in 2021 and normal per her report. She has a history of constant congestion [...]
--- OUTSIDE RECORDS SUMMARY | 2024-09-25 10:45 | XMS_ITS | Patient Health Record ---
Author Organization [facility] Address [address] [place] [address] Care Team Providers Care Stenotype Operator Name Role Phone Heraclio Cleveland Primary Care Provider Unavailab le Mely Jay Unavailable [phone] [employer], Provider Unavailable Unavailab le Allergies No Known Allergies Results Component Value Reference Range Notes -Immunoglobulins A/E/G/M, Se rum Reviewed date:04/03/2024 12:25:32 PM Interpretation:Normal Performing Lab:[facility], [address] [place] [id number], Phone - [phone], Director - Janneth Notes/Report: Immunoglobulin G, Qn, Serum 133 539-5781 mg/d L Immunoglobulin A, Qn, Serum 296 87-352 mg/dL Immunoglobulin M, Qn, Serum 88 26-217 mg/dL Immunoglobulin E, Total 534 6-495 IU/mL -Haemophilus influenzae B Ig G Reviewed date:04/03/2024 12:37:02 PM Interpretation:Normal Performing Lab:[facility] [address] [id number], Phone - [phone], Director - Yimi Notes/Report: Haemophilus influenzae B IgG 1.86 NOTE: An anti-Hib level of 0.15 ug/mL is generally accepted as the minimum level for protection. Optimal protection post-vaccination requires a level greater than 1.00 ug/mL. -Tetanus Antitoxoid IgG Ab Reviewed date:04/03/2024 12:25:18 PM Interpretation:Normal [facility]forming Lab:[facility], [address] [place] [address], [place], [place] [id number], Phone - [phone], Director - Yimi Notes/Report: Tetanus Antitoxoid IgG Ab 2.67 <0.10 IU/mL Interpretation: Non-Protective <0.10 Protective >=0.10 Results for this test are for research purposes only by the assay's dialysis biomed technician. The performance characteristics of this product have not been established. Results should not be used as a diagnostic procedure without confirmation of the diagnosis by another medically established diagnostic product or procedure. -Pneumococcal Ab (23 Serotyp e) Reviewed date:04/03/2024 12:25:10 PM Interpretation:Abnormal Performing Lab:[facility], [address] [place] [id number], Phone - [phone], Director - Debra Notes/Report: Pneumo Ab Type 1* 0.3 >1.3 [...] developed and its performance characteristics determined by [facility] [employer]. It has not been cleared or approved by the U.S. Food and Drug Administration. FLAG Interpretation: A = Abnormal, H = High, L = Low -Pneumococcal Ab (23 Serotyp e) Reviewed date:06/04/2024 04:13:38 PM Interpretation:Normal Performing Lab:[facility], [address] [place] [address], [facility] [address], [place] [id number], Phone - [phone], Director - PhDNeil Notes/Report: Pneumo Ab Type 1* 0.3 >1.3 [...] developed and its performance characteristics determined by [facility]. It has not been cleared or approved [...] 3.42 SpiroPredicted_FEV1 2.9 SpiroPredicted_FEV1_OVER_FVC 84.43 SpiroPredicted_PEF 6.13 Spirometry Reviewed date: Interpretation:Normal Performing Lab: Notes/Report: Normal SpiroPreBronchodilator_FVC 3.13 SpiroPostBronchodilator_FEF25_75 0 SpiroPreBronchodilator_FEF25_75 2.44 SpiroPreBronchodilator_FEV1 2.48 SpiroPrecentPredictionPost_F EF25_ 75 0 SpiroPrecentPredictionPost_FEV1 0 SpiroPrecentPredictionPost_F EV1_O VER_FVC 0 SpiroPrecentPredictionPost_FVC 0 SpiroPrecentPredictionPre_FE F25_7 5 73.7 SpiroPrecentPredictionPre_FEV1 86.4 SpiroPrecentPredictionPre_FE V1_OV ER_FVC 94.2 SpiroPrecentPredictionPre_FVC 92.1 SpiroPredicted_FEF25_75 3.31 SpiroPreBronchodilator_FEV1_ OVER_ FVC 79.27 SpiroPreBronchodilator_PEF 4.15 SpiroPostBronchodilator_FVC 0 SpiroPostBronchodilator_FEV1 0 SpiroPostBronchodilator_FEV1 _OVER _FVC 0 SpiroPostBronchodilator_PEF 0 SpiroPredicted_FVC 3.4 SpiroPredicted_FEV1 2.87 SpiroPredicted_FEV1_OVER_FVC 84.18 SpiroPredicted_PEF 6.11 Reason For Referral No Information Medications Medication SIG (Take, Route, Frequency, Duration) Notes Start Date End Date Status traZODone HCl 100 MG 1 by mouth at bedtime 200mg nightly Not-Taking ASPIRIN 81 mg 1 tab(s) chewed once a day for 30 day(s) Not-Taking MOUNJARO 2.5 mg/0.5 mL as directed subcutaneously once a week Not-Taking OMEPRAZOLE 20 mg 1 cap(s) orally once a day for 30 day(s) Not-Taking VYVANSE 60 mg 1 cap(s) orally once a day (in the morning) for 30 day(s) Not-Taking ZYRTEC 10 mg 1 tab(s) orally once a day Not-Taking LISINOPRIL 5 mg 1 tab(s) orally once a day for 30 day(s) takes 15mg daily Not-Taking TRAZADONE 50MG 1 BY MOUTH AT BEDTIME 200mg nightly *Please review for potential replacement for e-prescription and drug interaction check* Not-Taking ZYRTEC 10 mg 1 tab(s) orally once a day Not-Taking TOPIRAMATE 25 mg 1 tab(s) orally 2 times a day for 30 day(s) Not-Taking CETIRIZINE HYDROCHLORIDE 10 mg 1 tab(s) orally once a day Active Topiramate 25 MG 1 tab(s) orally 2 times a day for 30 day(s) Active DYMISTA 137 mcg-50 mcg/inh 1 spray(s) intranasally 2 times a day Active Viibryd 40 MG 1 tab(s) orally once a day for 8 week(s) Active Abilify 5 MG 1.5 tab(s) orally once a day for 30 days takes 7.5mg daily Active Trelegy Ellipta 200-62.5-25 MCG/ACT 1 puff Inhalation Once a day Active ALBUTEROL (EQV-PROAIR HFA) 90 mcg/inh 2 puff(s) inhaled every 6 hours for 30 days Active Dymista 137-50 MCG/ACT 1 spray(s) intranasally 2 times a day Active FASENRA PREFILLED SYRINGE 30 mg/mL inject, as directed subcutaneously every 8 weeks for 365 days Active TRELEGY ELLIPTA 200 mcg/62.5mcg/25mcg 1 puff inhaled once a day Active Mounjaro 2.5 MG/0.5 ML DIRECTED SUBCUTANEOUSLY ONCE A WEEK *Please review and pick correct strength-formula tion from [employer] options. If intended option is not shown, discontinue and re-order from Quick Search* Not-Taking Vyvanse 60 MG 1 cap(s) orally once a day (in the morning) for 30 day(s) Not-Taking Aspirin 81 MG 1 tab(s) chewed once a day for 30 day(s) Not-Taking busPIRone HCl 10 MG 1 tablet Orally Twice a day Active Lisinopril 5 MG 1 tab(s) orally once a day for 30 day(s) takes 15mg daily Not-Taking Omeprazole 20 MG 1 cap(s) orally once a day for 30 day(s) Not-Taking Adderall 10 MG 1 tablet Orally Twice a day Active ABILIFY 5 mg 1.5 tab(s) orally once a day for 30 days takes 7.5mg daily Not-Taking EPINEPHRINE AUTO-INJECTOR 0.3 MG DIRECTED INTRAMUSCULARLY ONCE for 1 DAY *Please review for potential replacement for e-prescription and drug interaction check* Not-Taking traZODone HCl 100 MG 1 tablet at bedtime Orally Once a day Active ZyrTEC Allergy 10 MG 1 tab(s) orally once a day Not-Taking BUSPIRONE 10 mg 1 tab(s) orally 2 times a day for 30 day(s) 20mg three times daily Not-Taking VIIBRYD 40 mg 1 tab(s) orally once a day for 8 week(s) Not-Taking PRILOSEC Not-Taking QELBREE 100 mg 1 cap(s) orally once a day 200 mg Not-Taking EPINEPHRINE AUTO-INJECTOR 0.3 mg as directed intramuscularly once for 1 days Active TRAZODONE 100 mg 1 by mouth at bedtime 200mg nightly Not-Taking TRELEGY ELLIPTA 200 mcg/62.5mcg/25mcg 1 puff inhaled once a day Not-Taking predniSONE 20 MG 1 tablet Orally Once a day Not-Taking Doxycycline Monohydrate 100 MG 1 capsule Orally Once a day Not-Taking Social History Tobacco Use: Social History Observation Description Date Details (start date - stop date) Never Smoker NA - NA Smoking Smart Form: Question Answer Notes Are you a: former smoker Tobacco Control (Standard) Question Answer Notes Tobacco use: Nonsmoker Problems Problem Type SNOMED Code ICD Code Onset Dates Problem Status W/U Status Risk Notes Problem Anxiety disorder (631171619) Anxiety disorder, unspecified (F41.9) Active confirmed Problem Chronic allergic conjunctivitis (49643067) Other chronic allergic conjunctivitis (H10.45) Active confirmed Problem Allergic rhinitis caused by pollen (disorder) (78479648) Allergic rhinitis due to pollen (J30.1) Active confirmed Problem Allergic rhinitis (96557772) Other allergic rhinitis (J30.89) Active confirmed Problem Uncomplicated moderate persistent asthma (135077128) Moderate persistent asthma, uncomplicated (J45.40) Active confirmed Problem Uncomplicated severe persistent asthma (028321398) Severe persistent asthma, uncomplicated (J45.50) Active confirmed Problem Gastro-esophageal reflux disease without esophagitis (445463012) Gastro-esophageal reflux disease without esophagitis (K21.9) Active confirmed Problem Allergic rhinitis caused by animal hair and dander (542103778267182) Allergic rhinitis due to animal (cat) (dog) hair and dander (J30.81) Active confirmed Problem Allergy to eggs (Z91.012) Active confirmed Problem Essential hypertension (35268561) Essential (primary) hypertension (I10) Active confirmed Problem Depression (691463545) Depression, unspecified (F32.A) Active confirmed Problem Eosinophilic asthma (115718967) 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) Active confirmed Vital Signs Respiratory Rate 16 /min 11/07/2023 Oximetry 100 % 09/10/2024 Blood pressure diastolic 79 mm Hg 09/10/2024 Height 63 in 09/10/2024 Blood pressure systolic 117 mm Hg 09/10/2024 Weight 177.8 lbs 09/10/2024 BMI 31.49 kg/m2 09/10/2024 Encounters Encounter Location Date Provider Diagnosis [address] [address] 12/08/2023 Provider GraceZ-Ricardo Allergic rhinitis due to pollen J30.1 ; Severe persistent asthma, uncomplicated J45.50 and Allergy to eggs Z91.012 [place] [address] [facility] [address] [place] [address] 10/10/2023 Mely Jay Allergic rhinitis du e to pollen J30.1 ; Severe persistent asthma, uncomplicated J45.50 ; Eosinophilic asthma J82.83 ; Allergic rhinitis due to animal (cat) (dog) hair and dander J30.81 ; Other allergic rhinitis J30.89 ; Other chronic allergic conjunctivitis H10.45 and Allergy to eggs Z91.012 [place] [address] [employer] [address] [place] [address] 11/07/2023 Mely Jay Allergic rhinitis du e to pollen J30.1 ; Severe persistent asthma, uncomplicated J45.50 ; Eosinophilic asthma J82.83 ; Allergic rhinitis due to animal (cat) (dog) hair and dander J30.81 ; Other allergic rhinitis J30.89 ; Other chronic allergic conjunctivitis H10.45 and Allergy to eggs Z91.012 [place] [address] [employer] [address] [place] [address] 12/05/2023 Mely Jay Allergic rhinitis du e to pollen J30.1 ; Severe persistent asthma, uncomplicated J45.50 ; Eosinophilic asthma J82.83 ; Allergic rhinitis due to animal (cat) (dog) hair and dander J30.81 ; Other allergic rhinitis J30.89 ; Other chronic allergic conjunctivitis H10.45 and Allergy to eggs Z91.012 [facility] [address] [place] [phone] 01/30/2024 Mely Jay Allergic rhinitis du e to pollen J30.1 ; Severe persistent asthma, uncomplicated J45.50 ; Eosinophilic asthma J82.83 ; Allergic rhinitis due to animal (cat) (dog) hair and dander J30.81 ; Other allergic rhinitis J30.89 ; Other chronic allergic conjunctivitis H10.45 and Allergy to eggs Z91.012 [facility] [address] [place] [address] 03/26/2024 Mely Jay Allergic rhinitis du e to pollen J30.1 ; Severe persistent asthma, uncomplicated J45.50 ; Eosinophilic asthma J82.83 ; Allergic rhinitis due to animal (cat) (dog) hair and dander J30.81 ; Other allergic rhinitis J30.89 ; Other chronic allergic conjunctivitis H10.45 ; Allergy to eggs Z91.012 and Other pneumonia, unspecified organism J18.8 [facility] [address] [place] [phone] 05/21/2024 Mely Jay Allergic rhinitis du e to pollen J30.1 ; Severe persistent asthma, uncomplicated J45.50 ; Eosinophilic asthma J82.83 ; Allergic rhinitis due to animal (cat) (dog) hair and dander J30.81 ; Other allergic rhinitis J30.89 ; Other chronic allergic conjunctivitis H10.45 ; Allergy to eggs Z91.012 and Other pneumonia, unspecified organism J18.8 [facility] [address] [place] [address] 07/16/2024 Mely Jay Allergic rhinitis du e to pollen J30.1 ; Severe persistent asthma, uncomplicated J45.50 ; Eosinophilic asthma J82.83 ; Allergic rhinitis due to animal (cat) (dog) hair and dander J30.81 ; Other allergic rhinitis J30.89 ; Other chronic allergic conjunctivitis H10.45 ; Allergy to eggs Z91.012 and Other pneumonia, unspecified organism J18.8 [facility] [address] [place] [phone] 09/10/2024 Mely Jay Allergic rhinitis du e to pollen J30.1 ; Severe persistent asthma, uncomplicated J45.50 ; Eosinophilic asthma J82.83 ; Allergic rhinitis due to animal (cat) (dog) hair and dander J30.81 ; Other allergic rhinitis J30.89 ; Other chronic allergic conjunctivitis H10.45 ; Allergy to eggs Z91.012 and Other pneumonia, unspecified organism J18.8 [facility] [address] [place] [address] 10/01/2023 Mely Jay [facility] [address] [place] [address] 10/[facility] [address] [place] [address] 10/03/2023 Mely Jay [facility] [address] [place] [address] 04/03/2024 Mely Jay [facility] [address] [place] [address] 07/08/2024 Mely Jay [facility] [address] [place] [phone] 11/29/2023 Mely Jay Assessments Encounter Date Diagnosis (ICD Code) Assessment Notes Treatment Notes Treatment Clinical Notes Section Notes 10/10/2023 Allergic rhinitis due to pollen (ICD-10 [...] episodes of pneumonia. We discussed switching to XolairClarissa Moon has severe asthma with an eosinophilic phenotype. The patient has had inadequate control of asthma symptoms after a minimum of 3 months of compliant use of inhaled corticosteriods and long-acting beta2-agonist or inhaled corticosteroids The patient has had an eosinophil count in the past 90 days or 12 months as documented in this medical record, 09/10/2024 Allergic rhinitis due to pollen (ICD-10 [...] record, 09/10/2024 Eosinophilic asthma (ICD-10 - J82.83) 07/16/2024 Eosinophilic asthma (ICD-10 - J82.83) 05/21/2024 Eosinophilic asthma (ICD-10 - J82.83) 03/26/2024 Eosinophilic asthma (ICD-10 - J82.83) 01/30/2024 Eosinophilic asthma (ICD-10 - J82.83) 12/05/2023 Eosinophilic asthma (ICD-10 - J82.83) 11/07/2023 Eosinophilic asthma (ICD-10 - J82.83) 10/10/2023 Eosinophilic asthma (ICD-10 - J82.83) 10/10/2023 Allergic rhinitis due to animal (cat) [...] hair and dander (ICD-10 - J30.81) 09/10/2024 Allergic rhinitis due to animal (cat) (dog) hair and dander (ICD-10 - J30.81) 09/10/2024 Other allergic rhinitis (ICD-10 - J30.89) 07/16/2024 Other allergic rhinitis (ICD-10 - J30.89) 03/26/2024 Other allergic rhinitis (ICD-10 - J30.89) 05/21/2024 Other allergic rhinitis (ICD-10 - J30.89) 01/30/2024 Other allergic rhinitis (ICD-10 - J30.89) 12/05/2023 Other allergic rhinitis (ICD-10 - J30.89) 11/07/2023 Other allergic rhinitis (ICD-10 - J30.89) 10/10/2023 Other allergic rhinitis (ICD-10 - J30.89) 10/10/2023 Other chronic allergic conjunctivitis (ICD-10 - [...] including intraocular antihistamine/mast cell stabilizer, PRN 09/10/2024 Other chronic allergic conjunctivitis (ICD-10 - [...] available at all times given history. 05/21/2024 Allergy to eggs (ICD-10 - Z91.012) [...] unspecified organism (ICD-10 - J18.8) 09/10/2024 Other pneumonia, unspecified organism (ICD-10 - J18.8) 10/10/2023 Other 11/07/2023 Other 12/05/2023 Other 01/30/2024 Other 03/26/2024 Other 05/21/2024 Other 07/16/2024 Other 09/10/2024 Other Plan Of Treatment Next Appt Details Provider Name:Mely hallman, 11/05/2024 08:45:00 AM, [address] [facility], [address], [place], [address], Insurance Providers Payer Name Payer Address Payer Phone Subscriber Number Group Number Insured Name Patient Relationship to Insured Coverage Start Date Coverage End Date [facility] [address] [address] [place], [place] [phone] [id number] Sarai Marie Self - patient is the insured 4 Medical (General) History Medical History History ICD [...]
--- OUTSIDE RECORDS SUMMARY | 2024-09-25 10:45 | XMS_ITS ---
Author Organization [facility] [email or web address] [facility] Address [facility] [address] [facility] [address] [place] [address] Care Team Providers Care Director Translation Name Role Phone Heraclio Cleveland DO Primary Care Provider Edith Barrios Unavailable [phone] REASON FOR VISIT New Refill Request Medications Medication SIG (Take, Route, Frequency, Duration) Notes Start Date End Date Status Amphetamine-Dextroamphet ER 10 MG 1 capsule in the morning Orally Once a day for 30 days 09/01/2024 Active Social History Sex Assigned At : Social History Observation Description Sex Assigned At Female Encounters Encounter Location Date Provider Diagnosis [facility] [employer] [place] [id number] [facility] [address] [facility] [address] [place] [address] 09/01/2024 Edith Molina Attention-deficit hyperactivity disorder, combined [...] days 09/01/2024 Next Appt Details Provider Name:Edith gonzalez, 09/29/2024 08:30:00 AM, [address], [address], [place], [address], Progress Notes * Sarai MOYERDOB:[birth year] (39 yo F)Acc No.[id number]:09/01/2024 Patient: Sarai SPENCER :1985 A ge:39 Y S ex:Female Phone: Address:[address] [facility] [address] * Refills Refill Amphetamine-Dextroamphet ER Capsule Extended Release 24 Hour, 10 MG, Orally, 30 Capsule, 1 capsule in the morning, Once a day, 30 days, Refills=0 * true * Date: Generated for Cydney carson/Sylvester/Arnolitting on: 0 09/25/2024 10:44 AM CDT
--- OUTSIDE RECORDS SUMMARY | 2024-09-25 10:45 | XMS_ITS ---
Author Organization [facility] Address [address] [place] [address] Care Team Providers Care Clay Shop Supervisor Name Role Phone Heraclio Cleveland Primary Care Provider Unavailab Mely Esquivel Unavailable [phone] Allergies No Known Allergies Results Component Value [...] review and pick correct strength-formula tion from [employer] options. If intended option is not shown, [...] 07/16/2024 Encounters Encounter Location Date Provider Diagnosis [facility] [address] [address] 07/16/2024 Mely Jay Allergic rhinitis du e [...] Reason: Fasenra,Spirometry/Flow Volume Loop Provider Name:Mely hallman, 11/05/2024 08:45:00 AM, [address] [facility], [address], [address], Procedure Notes * Category Sub-Category Detail Notes FASENRA (benralizumab) Administration Dosage Subcutaneous administration: : 30 mg (30 units) Frequency Interval: every 8 weeks Location Arm: Left upper Dosing Time / Lot Number / Expiration Ti me of administration, Jenn Chacon 07/16/2024 09:28:43 AM HIGH SCHOOL ADMISSIONS REPRESENTATIVE >, Lot [id number], Expiration Aivm1961/02 Reaction Local: None Post-procedural check-out: Patient was d ischarged 30 minutes after dosing administration BP: 119/85 HR: 84 02:99 Medication Source FASENRA Source: Spec ialty Pharmacy (Insurance-provided) Source Verfication:: Who pulled drug (pl ease type name in notes)? JENN/LEE Progress Notes * Sarai MOYERDOB:[birth year] (38 yo F)Acc No.[id number]:07/16/2024 FASENRA 2 Patient: Sarai SPENCER Provider: Angel Jay MD :1985 A ge:38 Y S ex:Female Date:07/16/2024 Address:[address] [place] [address] [facility] Pcp:Heraclio Cleveland Subjective: * Chief Complaints: [...] walking pneumonia. She was also hospitalized at [facility] February [address] and CT [...] Age of carpet? 4 Do you have alrk-sm-isrh carpeting? N o What is the age [...] *Please review and pick correct strength-formulation from [employer] options. If intended option is not shown, [...] of administration, Jenn Chacon 07/16/2024 09:28:43 AM HIGH SCHOOL ADMISSIONS REPRESENTATIVE >, Lot [id number], Expiration Tvpv4620/02. Reaction L ocal N one Post-procedural check-out: P atient was discharged 30 minutes after dosing administration BP: 119/85 H R: 84 02:99.? Medication Source F ASENRA Source S pecialty Pharmacy (Insurance-provided) S ource Verfication: W ho pulled drug (please type name in notes)? JENN/LEE * Procedure Codes: 9 6160 PT-FOCUSED HLTH RISK [id number] DOC MEDS VERIFIED W/PT [place] CO80106 CHEMO, ANTI-NEOPL, SQ/[id number] RESPIRATORY FLOW VOLUME LOOP * Preventive Medicine: [...] Loop) * Billing Information: * Visit Code: 72212 Office Visit, Est Pt., Level 4. Modifiers: 25 * Procedure Codes: 27937 PT-FOCUSED HLTH RISK ASSMT. G8427 DOC MEDS VERIFIED W/[place]. [address] CHEMO, ANTI-NEOPL, SQ/IM. A4617 Mouthpiece. 95985 RESPIRATORY FLOW VOLUME LOOP. * SCHOOL ADMISSIONS REPRESENTATIVE Sign off status: Completed true * Provider: Angel Jay MD Date: 0 07/16/2024 Generated for Cydney carson/Sylvester/Arnolitting on: 0 09/25/2024 10:44 AM CDT History [...] walking pneumonia. She was also hospitalized at [facility] February [address] pneumonia[address] CXR and CT [...]
--- OUTSIDE RECORDS SUMMARY | 2024-09-25 10:45 | XMS_ITS | Clinical Summary ---
Author Organization [facility] Address [facility] [place] [address] Care Team Providers Care Division Service Manager Name Role Phone Heraclio Cleveland DO Primary Care Provider [phone] Allergies Active Allergy Reactions Criticality Noted Date [...] on file Legal Sex Female 8:29 AM COUNTER MANAGER Gender Identity Female 10/31/2021 1:29 PM CDT Sexual Orientation Straight 10/31/2021 1: 29 PM CDT Obstetrics History Last Filed Vital Signs Vital Sign Reading Time Taken Comments Blood Pressure 114/81 11/11/2021 4:05 PM CDT Pulse 105 11/11/2021 4:05 PM CDT Temperature 36.6 C (97.8 F) 05/15/2019 2:01 PM COUNTER MANAGER Respiratory Rate - - Oxygen Saturation 96% 11/11/2021 4:05 PM CDT Inhaled Oxygen Concentration - - Weight 118.8 kg (261 lb 12.8 oz) 05/15/2019 2:01 PM COUNTER MANAGER Height 159.5 cm (5' 2.8 ) 05/15/2019 2:01 PM COUNTER MANAGER Body Mass Index 46.67 05/15/2019 2:01 PM COUNTER MANAGER Plan of Treatment Health Maintenance Due Date [...] patient's age to complete this topic Insurance [facility] H[facility]/PPO Address: [address] [address] [place] [address] [facility] CMR Care Teams Division Service Manager Relationship Specialty Start Date End Date Heraclio Cleveland DO PCP - General Internal Medicine 12/10/18
== END 2024-09-25 10:03 | disposition home or self-care (01) ==
PROVIDERS: PCP Internal Medicine; Visit Provider Physician Assistant
DX: J18.9 Pneumonia, unspecified organism (principal)
CPT/HCPCS: 71250

== ENCOUNTER 2024-10-19 12:53 | Emergency (ER) | payer OTHER, SELFPAY ==
--- NOTE | ~2024-10-19 | XR_ITS ---
XR chest 1V portable Ordering provider: Raciel Carr MD History: 39 years Female with . cough and SOB . Comparison: September 04, 2024 FINDINGS: MEDIASTINUM: The cardiac silhouette is not enlarged. LUNGS: No effusions or pneumothorax. Bibasilar opacification suggestive of of atelectasis versus pneu monia. OTHER: No free air under the diaphragm. IMPRESSION: Bilateral basal pneumonia. Reviewed, dictated and finalized at location A. IMPRESSION: Bilateral basal pneumonia.
[2024-10-19 12:54] VITALS: BP 135/65; PULSE 86; RESP 18; TEMP 36.5; O2SAT 100
--- OUTSIDE RECORDS SUMMARY | 2024-10-19 12:55 | XMS_ITS ---
Author Organization [facility] ([address]) Address [address] [address] Care Team Providers Care Production Department Supervisor Name Role Phone Heraclio Cleveland Primary Care Provider UnavailMely Bernabe Unavailable [phone] Allergies No Known Allergies Results Component Value [...] review and pick correct strength-formula tion from [employer] options. If intended option is not shown, [...] 07/16/2024 Encounters Encounter Location Date Provider Diagnosis [facility] [address] [address] 07/16/2024 Mely Jay Allergic rhinitis du e [...] Provider Name:Mely hallman, 11/05/2024 08:45:00 AM, 2022 [facility], [address] [place] [address], [phone], Procedure Notes * Category Sub-Category Detail Notes FASENRA (benralizumab) Administration Dosage Subcutaneous administration: : 30 mg (30 units) Frequency Interval: every 8 weeks Location Arm: Left upper Dosing Time / Lot Number / Expiration Ti me of administration, Nury Chacon 07/16/2024 09:28:43 AM INSPECTOR WREATH >, Lot [id number], Expiration [id number]/02 Reaction Local: None Post-procedural check-out: Patient was d ischarged 30 minutes after dosing administration BP: 119/85 HR: 84 02:99 Medication Source FASENRA Source: [facility] Pharm[facility] (Insurance-provided) Source Verfication:: Who pulled drug (pl ease type name in notes)? NURY/LEE Progress Notes * Sarai MOYERDOB:[birth year] (38 yo F)Acc No.[id number]:07/16/2024 FASENRA 2 Patient: Sarai SPENCER Provider: Angel Jay MD :1985 A ge:38 Y S ex:Female Date:07/16/2024 Address:[address] [place] [address] Jennifer [facility] Pcp:Heraclio Cleveland Subjective: * Chief Complaints: * [...] walking pneumonia. She was also hospitalized at [facility] February [address] pneumonia[address] CXR and CT [...] Age of carpet? 4 Do you have xkmg-lj-popf carpeting? N o What is the age [...] Number / Expiration T lenny of administration, Nury Chacon 07/16/2024 09:28:43 AM INSPECTOR WREATH >, Lot [id number], Expiration [id number]. Reaction L ocal N one Post-procedural check-out: P atient was discharged 30 minutes after dosing administration BP: 119/85 H R: 84 02:99.? Medication Source F ASENRA Source S pecialty Pharmacy (Insurance-provided) S ource Verfication: W ho pulled drug (please type name in notes)? NURY/LEE * Procedure Codes: 9 6160 PT-FOCUSED HLTH RISK ENALIR8898 DOC MEDS VERIFIED W/PT OR [id number] CHEMO, ANTI-NEOPL, SQ/BBD3004 [id number] RESPIRATORY FLOW VOLUME LOOP * Preventive Medicine: [...] TO ALTERNATIVE / PRIMARY CARE PROVIDER: R pauloal to general physician * Follow Up: 8 weeks (Reason: Fasenra,Spirometry/Flow Volume Loop) * Billing Information: * Visit Code: 98812 Office Visit, Est Pt., Level 4. Modifiers: 25 * Procedure Codes: 29106 PT-FOCUSED HLTH RISK ASSMT. G8427 DOC MEDS VERIFIED W/[place]. [address] CHEMO, ANTI-NEOPL, SQ/IM. A4617 Mouthpiece. 49617 RESPIRATORY FLOW VOLUME LOOP. * ECTOR WREATH Sign off status: Completed true * Provider: Angel Jay MD Date: 0 07/16/2024 Generated for Reneei alli/Sylvester/eTransmitting on: 0 10/19/2024 12:55 PM CDT History and Physical Notes * HPI [...] walking pneumonia. She was also hospitalized at [facility] February [address] pneumonia[address] CXR and CT [...]
--- OUTSIDE RECORDS SUMMARY | 2024-10-19 12:55 | XMS_ITS ---
Author Organization [facility] ([address]) Address [address] [place] [address] Care Team Providers Care Talent Buyer Name Role Phone Heraclio Cleveland Primary Care Provider Unavailab Mely Esquivel Unavailable [phone] REASON FOR VISIT Needs call back from office Encounters Encounter Location Date Provider Diagnosis [facility] - [address] [address] 10/06/2024 Mely Jay Plan Of Treatment Next Appt Details Provider Name:Mely hallman, 11/05/2024 08:45:00 AM, [address] [facility], [address], [place], [address], Progress Notes * Sarai MOYERDOB:[birth year] (39 yo F)Acc No.[id number]:10/06/2024 Patient: Eder MOESarai RENE :1985 A ge:39 Y S ex:Female Address:[address] [place], [address] * true * Date: Generated for Printi ng/Faxing/eTransmitting on: 0 10/19/2024 12:54 PM CDT
--- OUTSIDE RECORDS SUMMARY | 2024-10-19 12:55 | XMS_ITS | Clinical Summary ---
Author Organization [facility] Address [facility] [place] [address] Care Team Providers Care Claims Assistant Name Role Phone Heraclio Cleveland DO Primary Care Provider [phone]- [phone] Allergies Active Allergy Reactions Criticality Noted Date [...] on file Legal Sex Female 8:29 AM PARCEL WRAPPER Gender Identity Female 10/31/2021 1:29 PM CDT Sexual Orientation Straight 10/31/2021 1: 29 PM CDT Obstetrics History Last Filed Vital Signs Vital Sign Reading Time Taken Comments Blood Pressure 114/81 11/11/2021 4:05 PM CDT Pulse 105 11/11/2021 4:05 PM CDT Temperature 36.6 C (97.8 F) 05/15/2019 2:01 PM PARCEL WRAPPER Respiratory Rate - - Oxygen Saturation 96% 11/11/2021 4:05 PM CDT Inhaled Oxygen Concentration - - Weight 118.8 kg (261 lb 12.8 oz) 05/15/2019 2:01 PM PARCEL WRAPPER Height 159.5 cm (5' 2.8 ) 05/15/2019 2:01 PM PARCEL WRAPPER Body Mass Index 46.67 05/15/2019 2:01 PM PARCEL WRAPPER Plan of Treatment Health Maintenance Due Date Last Done Comments Breast Cancer Screening-Mammogram 1985 Cervical Cancer Screening 1984 Depression Screening 1984 Hepatitis C Screening 1984 DTaP/Tdap/Td Vaccine (1 - Tdap) 1995 Varicella Vaccines (1 of 2 - 13+ 2-dose series) 1997 Hepatitis B Screening 2002 Regular Well Visit/Exam 18-64 2002 Pneumococcal vaccine <65 (1 of 2 - PCV) 2003 Influenza Vaccine (Season Ended) 2025 HPV Vaccines Aged Out No longer eligi ble based on patient's age to complete this topic Insurance [facility] CMR Care Teams Claims Assistant Relationship Specialty Start Date End Date Heraclio Cleveland DO PCP - General Internal Medicine 12/10/18
--- OUTSIDE RECORDS SUMMARY | 2024-10-19 12:55 | XMS_ITS | Clinical Summary ---
Author Organization [facility] Address [address] [place] [address] Care Team Providers Care Ophthalmic Dispenser Name Role Phone Heraclio Cleveland DO Primary Care Provider [phone]- [phone] Heraclio Cleveland DO Unavailable [phone] Source Comments [facility],non-owned Affiliates and Associated Physician Practices is amultiple site organization consisting of ambulatory clinics and hospital sitesin [place], [place], [place] and [place]. This disclosure is being madepursuant to the Care Everywhere program and may not contain all information available regarding this patient. Last updated 18.[facility] Involvio Allergies Active Allergy Reactions Criticality Noted Date Comments Albumin 10/12/2016 Medications * Be aware that medications may not be up to date on this document. Alwaysverify current medications with the patient. lisinopril (PRINIVIL; ZESTRIL) 10 MG tablet Take 10 mg by mouth once daily Active budesonide-formo terol (SYMBICORT) 160-4.5 MCG/ACT inhaler Inhale 2 Puffs [...] daily as needed for Anxiety Active albuterol (PROVENTIL;REGULO GEMA) (5 MG/ML) 0.5% nebulizer solution Inhale 2.5 mg by mouth 4 times daily as needed for Shortness of Breath or Wheezing Active Amphetamine-Dext roamphetamine (ADDERALL PO) Active albuterol HFA (VENTOLIN HFA) 108 (90 BASE) MCG/ACT inhalerIndicatio ns:Acute bronchitis, unspecified organism Inhale 2 puffs by mouth every 6 hours as needed 1 Inhaler 5 7 Active norethindrone-et hinyl estradiol-iron (ESTROSTEP FE) -/-30/1-35 MG-MCG tablet Take 1 tablet by mouth once daily Active ARIPiprazole (ABILIFY) 5 MG tablet Take 5 mg by mouth once daily Active Active Problems No known active problems Social History Tobacco Use Types Packs/Day Years Used Date Smoking Tobacco: Former Cigarettes Q uit: 2010 Smokeless Tobacco: Never Comments No Sex and Gender Information Value Date Recorded Sex Assigned at Not on file Legal Sex Female 8:50 AM CDT Gender Identity Not on file Sexual Orientation [...] Done Comments LIPID TESTING 1985 MAMMOGRAM 1984 HIV SCREENING 1999 HEPATITIS C SCREENING 08/16/2002 DTAP/TDAP/TD VACCINES (1 - Tdap) 2003 HEPATITIS B VACCINE (1 of 3 - 19+ 3-dose series) 2003 COVID-19 VACCINE (1 - 2023-2 5 season) 2024 DEPRESSION SCREENING 06/25/2024 INFLUENZA VACCINE (Season Ended) 2025 ZOSTER VACCINE (1 of 2) 2034 HIB [...] patient's age to complete this topic Insurance [employer] Care Teams Ophthalmic Dispenser Relationship Specialty Start Date End Date Heraclio Cleveland DO PCP - General Internal Medicine 10/12/16 Heraclio Cleveland DO Internal Medicine 10/12/16
--- OUTSIDE RECORDS SUMMARY | 2024-10-19 12:55 | XMS_ITS | Data Portability ---
Author Organization [place] [facility], Main Office Address [address] [place] [address] Assessment No assessment recorded. Plan of Treatment [...] rage: negative mg/dl) negati ve Not Available Z_[facility] [place] [facility], [address], [address], 05/05/2022 16:45:07 05/05/20 22 05/05/2022 urina lysis , dipst ick Urobilinogen (reference range: 0.2-1 mg/dl) 0.2 Not Available Z_[facility] c_[address], [address], 05/05/2022 16:45:07 05/05/20 22 05/05/2022 urina lysis , dipst ick Protein (reference range: negative mg/dl) Negati ve Not Available Z_[facility]_[address], [address], 05/05/2022 16:45:07 05/05/20 22 05/05/2022 urina lysis , dipst ick pH (reference range: 5-7) 5.5 Not Available [address], [address], [address], 05/05/2022 16:45:07 05/05/20 22 05/05/2022 urina lysis , dipst ick Blood (reference range: negative Jorge/ l) Hemoly zed: Trace Not Available [address], [address], [address], 05/05/2022 16:45:07 05/05/20 22 05/05/2022 urina lysis , dipst ick Specific [place] (reference range: 1.005-1.030) 1.025 Not Available [address], [address], [address], 05/05/2022 16:45:07 07/07/19 23 07/07/2022 urina lysis , dipst ick Leukocytes (reference range: negative maria luisa/ l) Negati ve Not Available [address] [address], [place], [address], 07/07/2022 16:12:36 07/07/19 23 07/07/2022 urina lysis , dipst ick Nitrite (reference rage: negative mg/dl) negati ve Not Available [address], [address], 07/07/2022 16:12:36 07/07/19 23 07/07/2022 urina lysis , dipst ick Urobilinogen (reference range: 0.2-1 mg/dl) 0.2 Not Available [address], [address], 07/07/2022 16:12:36 07/07/19 23 07/07/2022 urina lysis , dipst ick Protein (reference range: negative mg/dl) Negati ve Not Available [address], [address], 07/07/2022 16:12:36 07/07/19 23 07/07/2022 urina lysis , dipst ick pH (reference range: 5-7) 7.5 Not Available Z_[address], [address], 07/07/2022 16:12:36 07/07/19 23 07/07/2022 urina lysis , dipst ick Blood (reference range: negative Jorge/ l) Negati ve Not Available [address] [address], [place], [address], 07/07/2022 16:12:36 07/07/19 23 07/07/2022 urina lysis , dipst ick Specific [place] (reference range: 1.005-1.030) 1.020 Not Available [address], [address], 07/07/2022 16:12:36 07/07/19 23 07/07/2022 urina lysis , dipst ick Ketone (reference range: negative mg/dl) Negati ve Not Available [address] [address], [place], [address], 07/07/2022 16:12:36 07/07/19 23 07/07/2022 urina lysis , dipst ick Bilirubin (reference range: negative mg/dl) Negati ve Not Available [address], [address], 07/07/2022 16:12:36 07/07/19 23 07/07/2022 urina lysis , dipst ick Glucose (reference range: negative mg/dl) Negati ve Not Available [address], [place] [address], [place], [address], 07/07/2022 16:12:36 07/07/19 23 07/07/2022 urina lysis , dipst ick Appearance Clear Not Available _[address], [place] [address], [place], [address], 07/07/2022 16:12:36 07/07/19 23 07/07/2022 urina lysis , dipst ick Color Yellow Not Available [address], [address], 07/07/2022 16:12:36 06/21/20 22 06/21/2022 US, renal No observ ation record ed. [id number] [facility] [address] [place], [address], 08/23/2022 15:57:40 Result Notes None recorded. Problems Name Problem SNOMED Code Status Onset Date Resolution Date Notes Provider Name and Address Organization Details Recorded Time Ureteric stone 75892920 Active 2021 Not Available [employer] 15:55:34 Acute urinary tract infection 145970692 Active 2021 Not Available [facility] 3 15:55:34 Acute cholecystitis 85894481 Active Not Available [facility] 3 15:55:35 Problem Notes None recorded. Procedures Surgical History Date Name Laterality Status Provider Name and Address Organization Details Recorded Time section completed Not Available [facility] 08/23/2022 15:54:13 Imaging Results Imaging Date Name Status LastModified by Organiz ation Details LastModified Time 06/21/2022 US, renal completed [id number] 26 [facility] [address] [place], [address], 08/23/2022 15:57:40 Procedure Notes None recorded. Medical Equipment None Reported. Allergies Allergen ID Allergen Name Allergen Category Reaction Reaction Severity Criticality Documentation Date Start Date Code Code System Note Provider Name and Address Organization Details Recorded Time 32056 shellfish derived food,medi cation Not available Not available Not available 08/23/2022 15796 UNK Not Available [facility] 3 15:57:38 02645 house dust allergeni c extract environme nt,medica tion Not available Not available Not available 08/23/2022 96179 9 RxNorm Not Available [facility] 3 15:57:38 97872 egg extract food,medi cation Not available Not available Not available 08/23/2022 42862 15 RxNorm Not Available [facility] 3 15:57:38 Medications Name Sig Start Date [...] % 98 % 84 /min 98.2 [degF] 741828. 86 g 134 mm[Hg] 91 mm[Hg] Not Available [facility] 3 15:55:06 Date Recorded Body mass index (BMI) Body height Oxygen saturation Oxygen saturation in Arterial blood by Pulse oximetry Heart rate Body temperature Body weight Provider Name and Address Organization Details Last Updated DateTime 3 54.2 kg/m2 160.02 cm 99 % 99 % 86 /min 97.7 [degF] 564801. 27 g Not Available [facility] 3 15:55:06 Social History Question Answer Notes LastModified by Organizat ion Details LastModified Time Tobacco Smoking Status Former Smoker Not Available [facility] 08/23/2022 15:54:06 What Is Your Level Of Alcohol Consumption? None [id number] Information not available 08/23/2022 What Is Your Level Of Caffeine Consumption? 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 6-10yearssinc elastcigarett e [id number] 026 Information not available 08/23/2022 What Was The Date Of Your Most Recent Tobacco Screening? 05/05/2022 [id number] 026 Information not available 08/23/2022 Do You Use Any Illicit Or Recreational Drugs? No [id number].[id number] 026 Information not available 08/23/2022 Has Tobacco Cessation Counseling Been Provided? No [id number].[id number] 026 Information not available 08/23/2022 Do You Or Have You Ever Used Any Other Forms Of Tobacco Or Nicotine? No [id number].[id number] 026 Information not available 08/23/2022 Sex: Unknown Functional Status None recorded. Mental Status None recorded. Family History Relationship Description Onset Age of this Age Resolved Age Notes LastModified by Organization Details LastModified Time Father Diabetes mellitus [id number] [id number] Not available 08/23/2022 15:54:13 Father Hypertensive disorder [id number].923 [id number] Not available 08/23/2022 15:54:14 Mother Diabetes mellitus [id number].493 [id number] Not available 08/23/2022 15:54:14 Mother Kidney stone MIGRATION.0 30 [id number] Not available 08/23/2022 15:54:14 Mother Hypertensive disorder [id number].619 [id number] Not available 08/23/2022 15:54:14 Sister Kidney stone MIGRATION.0 30 [id number] Not available 08/23/2022 15:54:14 Notes:Both parents have [...] SNOMED-CT Code Diagnosis ICD10 Code Diagnosis Note [id number] [facility] [address] [address] 05/05/2022 00:00:00 05/05/2022 17:03:51 [id number] [facility] [address] [address] 07/07/2022 00:00:00 07/07/2022 16:29:53 Health Concerns Section Related Observation LastModified by Organization Detai ls LastModified Time None Recorded Concern Status LastModified by Organization Details LastModified Time None Recorded Advance Directives Directive None Recorded Payers None recorded. OBGyn Episode No OBEpisode recorded.
--- OUTSIDE RECORDS SUMMARY | 2024-10-19 12:55 | XMS_ITS | Patient Health Record ---
Author Organization [facility] Address [address] [facility] [address] [place] [address] Care Team Providers Care Track Vehicle Repairer Name Role Phone Heraclio Cleveland DO Primary Care Provider Edith Barrios Unavailable [phone] Jevon Ray Unavailable [phone] Cleo Peters Unavailable [phone] Allergies Allergen (clinical drug ingredient) Drug/Non Drug Allergy documented on EMR Reaction Allergy Type Onset Date Status Eggs or Egg-derived Products Unknown Drug Allergy Active Results Component Value Reference Range Notes NEED PHYSICIAN SIGNATURE Reviewed date:10/13/2024 12:42:56 PM Interpretation: Performing Lab: Notes/Report: Validity Testing Reviewed date:10/13/2024 12:43:10 PM Interpretation: Performing Lab: Notes/Report: Screening Reviewed date:10/13/2024 12:43:03 PM Interpretation: Performing Lab: Notes/Report: Adderall Reviewed date:10/13/2024 12:42:36 PM Interpretation: Performing Lab: Notes/Report: Aripiprazole Reviewed date:10/13/2024 12:42:27 PM Interpretation: Performing Lab:[address] [place] [address], [address] [place] [address], [facility], Director - [id number] Notes/Report: An exception occurred while processing this report and so it has incomplete data. Please contact [employer] for assistance. Aripiprazole NEGATIVE 50.0 ng/mL Not Medicated Consistent PDF Report CE_OUT_RAW_COMM ON_SRC_ORU Test, Urine Reviewed date:01/31/2024 10:13:50 AM Interpretation: Performing Lab: Notes/Report: Test, Urine neg Stimulants Reviewed date:10/13/2024 12:42:44 PM Interpretation: Performing Lab: Notes/Report: Phentermine NEGATIVE 100.0 ng/mL Not Medicated Consistent Methylphenidate NEGATIVE 50.0 ng/mL Not Medicate d Consistent Methamphetamine NEGATIVE 100.0 ng/mL Not Medicate d Consistent Amphetamine NEGATIVE 100.0 ng/mL Medicated Inconsistent UDT Reviewed date:09/29/2024 09:19:30 AM Interpretation: Performing Lab: Notes/Report: THC N 0 - 50 ng/ml Cocaine N 0 - 300 ng/ml Amphetamine N 0 - 1000 ng/ml Buprenorphine (BUP) N 0 - 10 ng/ml Secobarbital (Bar) N 0 - 300 ng/ml Oxazepam (BZO) N 0 - 300 ng/ml 3-wqxagbleuj-3,1-eslaagul-1, 3-diphen ylpyrrolidine (EDDP) N 0 - 300 ng/ml Methamphetamine (MET) N 0 - 1000 ng/ml Methylenedioxymethamphetamine (MDMA) N 0 - 500 ng/ml Morphine (MOP 300/[id number]) N 0 - 300 ng/ml Methadone (MTD) N 0 - 300 ng/ml Phencyclidine (PCP) N 0 - 25 ng/ml Nortriptyline (TCA) N 0 - 1000 ng/ml Oxycodone N 0 - 300 ng/ml x N 0 - 300 ng/ml UDT Reviewed date:07/07/2024 02:12:54 PM Interpretation: Performing Lab: Notes/Report: THC N 0 - 50 ng/ml Cocaine N 0 - 300 ng/ml Amphetamine N 0 - 1000 ng/ml Buprenorphine (BUP) N 0 - 10 ng/ml Secobarbital (Bar) N 0 - 300 ng/ml Oxazepam (BZO) N 0 - 300 ng/ml 9-ueunmhwaqt-1,6-wfexlxrd-3, 3-diphen ylpyrrolidine (EDDP) N 0 - 300 ng/ml Methamphetamine (MET) N 0 - 1000 ng/ml Methylenedioxymethamphetamine (MDMA) N 0 - 500 ng/ml Morphine (MOP 300/[id number]) N 0 - 300 ng/ml Methadone (MTD) [...] Oxazepam (BZO) p 0 - 300 ng/ml 5-hkvvydhmkd-7,7-vibtngmv-6, 3-diphen ylpyrrolidine (EDDP) n 0 - 300 ng/ml Methamphetamine (MET) n 0 - 1000 ng/ml Methylenedioxymethamphetamine (MDMA) n 0 - 500 ng/ml Morphine (MOP 300/[id number]) n 0 - 300 ng/ml Methadone (MTD) [...] Oxazepam (BZO) neg 0 - 300 ng/ml 5-dctesljrgz-4,4-fxlirdpb-9, 3-diphen ylpyrrolidine (EDDP) neg 0 - 300 ng/ml Methamphetamine (MET) neg 0 - 1000 ng/ml Methylenedioxymethamphetamine (MDMA) neg 0 - 500 ng/ml Morphine (MOP 300/[id number]) neg 0 - 300 ng/ml Methadone (MTD) neg 0 - 300 ng/ml Phencyclidine (PCP) neg 0 - 25 ng/ml Nortriptyline (TCA) neg 0 - 1000 ng/ml Oxycodone neg 0 - 300 ng/ml x neg 0 - 300 ng/ml Reason For Referral No Information Medications Medication SIG (Take, Route, Frequency, Duration) Notes Start Date End Date Status Amphetamine-Dextroamphet ER 10 MG 1 capsule in the morning Orally Once a day for 30 days 09/29/2024 Active Modafinil 100 MG 1 tablet in the morn ing Orally Once a day Active Ondansetron 4 MG DISSOLVE 1 TABLET IN MOUTH EVERY 8 HOURS NEEDED FOR NAUSEA AND VOMITING Oral for 6 Days Active Fasenra 30 MG/ML Subcutaneous for 30 Days Active Trelegy Ellipta 200-62.5-25 MCG/ACT Inhalation for 30 Days Active Topiramate 25 MG Oral for 30 Days Active SUMAtriptan Succinate 50 MG Oral for 30 Days Active Albuterol Sulfate HFA 108 (90 Base) MCG/ACT INHALE 2 PUFFS BY MOUTH EVERY 6 HOURS FOR 30 DAYS Inhalation for 25 Days Active ARIPiprazole 5 MG 1 tablet Oral Once a day for 90 days Active busPIRone HCl 10 MG 2 tablets Oral three times a day for 90 days Active traZODone HCl 100 MG 2 tablet at bedtime Oral Once a day for 90 days As needed Active Vilazodone HCl 40 MG 1 tablet with food Oral Once a day for 90 days Active Social History Tobacco Use: Social History Observation Description Date Details (start date - stop date) Former Smoker 11/23/2002 - 11/23/2009 Sex Assigned At : Social History Observation Description Sex Assigned At Female Tobacco Control (Standard) Question Answer Notes Tobacco use: Former smoker When did you start smoking? 11/23/2002 When did you stop smoking? 11/23/2009 How [...] less (1 point) Section Notes: Lives in [place] with 2 kids. Grew up in [place], has 1 sister. 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 Lives in [place] with 2 kids. Grew up in [place], has 1 sister. 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 Lives in [place] with 2 kids. Grew up in [place], has 1 sister. 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 Lives in [place] with 2 kids. Grew up in [place], has 1 sister. 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 Lives in [place] with 2 kids. Grew up in [place], has 1 sister. 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 Lives in [place] with 2 kids. Grew up in [place], has 1 sister. 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 Lives in [place] with 2 kids. Grew up in [place], has 1 sister. 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 Problems Problem Type SNOMED Code ICD Code Onset Dates Problem Status W/U Status Risk Notes Problem Moderate recurrent major depression (69514174) Major depressive disorder, recurrent, moderate (F33.1) Active confirmed Problem Recurrent major depression in remission (85806499) Major depressive disorder, recurrent, in partial remission (F33.41) Active confirmed Problem Generalized anxiety disorder (00151875) Generalized anxiety disorder (F41.1) Active confirmed Problem Attention deficit hyperactivity disorder, combined type (78601132) Attention-deficit hyperactivity disorder, combined type (F90.2) Active confirmed Problem Chronic insomnia (257731141) Chronic insomnia (F51.04) Active confirmed Problem Chronic fatigue syndrome (40125317) Chronic fatigue syndrome (G93.32) Active confirmed Problem Panic disorder (877425597) Panic attacks (F41.0) Active confirmed Vital Signs Heart Rate 80 /min 09/29/2024 Height-cm 160.02 cm 09/29/2024 Blood pressure diastolic 80 mm Hg 09/29/2024 Weight-kg 81.19 kg 09/29/2024 Height 63 in 09/29/2024 Blood pressure systolic 110 mm Hg 09/29/2024 Weight 179 lbs 09/29/2024 BMI 31.7 kg/m2 09/29/2024 Encounters Encounter Location Date Provider Diagnosis [facility] [place] [facility] [address] [facility] [address] [place] [address] 01/31/2024 Cleo Peters Major depressive disorder, recurrent, moderate F33.1 ; Generalized anxiety disorder F41.1 ; Attention-deficit hyperactivity disorder, combined type F90.2 ; Chronic insomnia F51.04 ; Panic attacks F41.0 and Chronic fatigue syndrome G93.32 [facility], [place] [address] [facility] [address] [place] [address] 02/26/2024 Jevon Ray ADHD (attention deficit hyperactivity disorder), combined type F90.[address] [facility] [address] [place] [address] 03/03/2024 Cleo Peters Major depressive disorder, recurrent, moderate F33.1 ; Attention-deficit hyperactivity disorder, combined type F90.2 ; Generalized anxiety disorder F41.1 ; Chronic insomnia F51.04 ; Panic attacks F41.0 and Chronic fatigue syndrome G93.32 [facility], [address] [address] 03/31/2024 Cleo Peters Major depressive disorder, recurrent, mild F33.0 ; Attention-deficit hyperactivity disorder, combined type F90.2 ; Generalized anxiety disorder F41.1 ; Chronic insomnia F51.04 ; Panic attacks F41.0 and Chronic fatigue syndrome G93.32 [facility], [address] [address] 04/23/2024 Cleo Peters Major depressive disorder, recurrent, mild F33.0 ; Attention-deficit hyperactivity disorder, combined type F90.2 ; Generalized anxiety disorder F41.1 ; Chronic insomnia F51.04 ; Panic attacks F41.0 and Chronic fatigue syndrome G93.32 [place] [address] [facility] [address] [place] [address] 05/27/2024 Edith Molina Attention-deficit hyperactivity disorder, combined type F90.2 ; Major depressive disorder, recurrent, mild F33.0 ; Generalized anxiety disorder F41.1 ; Panic attacks F41.0 ; Chronic insomnia F51.04 and Chronic fatigue syndrome G93.32 [facility], [place] [address] [facility] [address] [place] [address] 07/07/2024 Edith Molnia Attention-deficit hyperactivity disorder, combined type F90.2 ; Major depressive disorder, recurrent, mild F33.0 ; Generalized anxiety disorder F41.1 ; Panic attacks F41.0 ; Chronic fatigue syndrome G93.32 and Chronic insomnia F51.04 [facility] [address] [place] [address] 08/04/2024 Edith Molina Major depressive disorder, recurrent, mild F33.0 ; Attention-deficit hyperactivity disorder, combined type F90.2 ; Generalized anxiety disorder F41.1 ; Panic attacks F41.0 ; Chronic fatigue syndrome G93.32 and Chronic insomnia F51.04 [facility] [address] [place] [address] 09/29/2024 Edith Oakleyjose Generalized anxiety disorder F41.1 ; Major depressive disorder, recurrent, in partial remission F33.41 ; Attention-deficit hyperactivity disorder, combined type F90.2 ; Chronic insomnia F51.04 ; Chronic fatigue syndrome G93.32 ; Panic attacks F41.0 ; Encounter for screening for cardiovascular disorders Z13.6 and Encounter for screening for depression Z13.31 [place] [address] [place] [address] 02/04/2024 Cleo Peters Attention-deficit hyperactivity disorder, combined type F90.2 [facility], [facility] [address] [place] [address] 02/04/2024 Cleo Peters [facility], [place] [address] [place] [address] 02/05/2024 Cleo Peters [facility], [facility] [address] [place] [address] 02/08/2024 Cleo Peters [facility], [facility] [address] [place] [address] 02/15/2024 Cleo Peters [facility], [facility] [address] [place] [address] 01/31/2024 Cleo Peters [facility], [place] [address] [place] [address] 02/05/2024 Cleo Peters [facility], [facility] [address] [place] [address] 02/05/2024 Cleo Mejiasunshinekevin [facility], [facility] [address] [place] [address] 04/09/2024 Cleo Mejiasunshinekevin [facility], [facility] [address] [place] [address] 04/09/2024 Cleo Peters [facility], [facility] [address] [facility] [address] [place] [address] 05/28/2024 Edith Molina [facility], [facility] [address] [facility] [address] [place] [address] 05/28/2024 Edith Molina [facility], [facility] [address] [facility] [address] [place] [address] 09/01/2024 Edith Jesse Attention-deficit hyperactivity disorder, combined type F90.2 [place] [address] [facility] [facility] [address] [facility] [address] [place] [address] 09/29/2024 Edithalfredo Molina Attention-deficit hyperactivity disorder, combined type F90.2 [...] cont vilazodone 40mg daily cont therapy 03/03/2024 Attention-defici t hyperactivity disorder, combined type (ICD-10 - F90.2) [...] daytime sleepiness. Plan: - follow up with gauge machine operator and any recommeneded testing/provid ers recommended - monitor fatigue follow up 6 weeks, sooner if concerns arise 05/27/2024 Attention-defici t hyperactivity disorder, combined type (ICD-10 - F90.2) [...] daytime sleepiness. Plan: - follow up with gauge machine operator and any recommeneded testing/provid ers recommended - monitor fatigue follow up 6 [...] c Fatigue - Recently started modafinil by gauge machine operator - Territory Account Representative encouraged continuing Adderall with modafinil Plan: - Continue modafinil as prescribed by gauge machine operator Follow-up in 6 weeks, sooner if concerns arise 07/07/2024 Attention-defici t hyperactivity disorder, combined type (ICD-10 - F90.2) [...] c Fatigue - Recently started modafinil by gauge machine operator - Territory Account Representative encouraged continuing Adderall with modafinil Plan: - Continue modafinil as prescribed by gauge machine operator Follow-up in 6 weeks, sooner if concerns [...] slightly, has pulmonology appointment next month - Territory Account Representative encouraged continuing Adderall with modafinil Plan: - Continue treatment plan with gauge machine operator Follow-up in 2 months, sooner if concerns arise 09/01/2024 Attention-defici t hyperactivity disorder, combined type (ICD-10 - F90.2) 09/29/2024 Major depressive disorder, recurrent, in partial remission (ICD-10 - F33.41) 09/29/2024 Generalized anxiety disorder (ICD-10 - F41.1) 09/29/2024 Attention-defici t hyperactivity disorder, combined type (ICD-10 - F90.2) 09/29/2024 Attention-defici t hyperactivity disorder, combined type (ICD-10 - F90.2) 08/04/2024 Attention-defici t hyperactivity disorder, combined type (ICD-10 - F90.2) [...] slightly, has pulmonology appointment next month - Territory Account Representative encouraged continuing Adderall with modafinil Plan: - Continue treatment plan with gauge machine operator Follow-up in 2 months, sooner if concerns [...] c Fatigue - Recently started modafinil by gauge machine operator - Territory Account Representative encouraged continuing Adderall with modafinil Plan: - Continue modafinil as prescribed by gauge machine operator Follow-up in 6 weeks, sooner if concerns [...] daytime sleepiness. Plan: - follow up with gauge machine operator and any recommeneded testing/provid ers recommended - monitor fatigue follow up 6 weeks, sooner if concerns arise 04/23/2024 Attention-defici t hyperactivity disorder, combined type (ICD-10 - F90.2) [...] 20mg TID meds, therapy as above 03/31/2024 Attention-defici t hyperactivity disorder, combined type (ICD-10 - F90.2) [...] 20mg TID meds, therapy as above 01/31/2024 Attention-defici t hyperactivity disorder, combined type (ICD-10 - F90.2) increase qelbree to 400mg qam help rule in/out with [facility] testing per policy 01/31/2024 Chronic insomnia (ICD-10 - F51.04) cont trazodone 200mg qhs prn practice good sleep hygiene 02/04/2024 Attention-defici t hyperactivity disorder, combined type (ICD-10 - F90.2) [...] daytime sleepiness. Plan: - follow up with gauge machine operator and any recommeneded testing/provid ers recommended - monitor fatigue follow up 6 [...] c Fatigue - Recently started modafinil by gauge machine operator - Territory Account Representative encouraged continuing Adderall with modafinil Plan: - Continue modafinil as prescribed by gauge machine operator Follow-up in 6 weeks, sooner if concerns [...] slightly, has pulmonology appointment next month - Territory Account Representative encouraged continuing Adderall with modafinil Plan: - Continue treatment plan with gauge machine operator Follow-up in 2 months, sooner if concerns arise 09/29/2024 Chronic insomnia (ICD-10 - F51.04) 09/29/2024 Chronic fatigue syndrome (ICD-10 - G93.32) 08/04/2024 Panic attacks (ICD-10 - F41.0) Depression [...] slightly, has pulmonology appointment next month - Territory Account Representative encouraged continuing Adderall with modafinil Plan: - Continue treatment plan with gauge machine operator Follow-up in 2 months, sooner if concerns [...] c Fatigue - Recently started modafinil by gauge machine operator - Territory Account Representative encouraged continuing Adderall with modafinil Plan: - Continue modafinil as prescribed by gauge machine operator Follow-up in 6 weeks, sooner if concerns [...] daytime sleepiness. Plan: - follow up with gauge machine operator and any recommeneded testing/provid ers recommended - monitor fatigue follow up 6 [...] daytime sleepiness. Plan: - follow up with gauge machine operator and any recommeneded testing/provid ers recommended - monitor fatigue follow up 6 [...] c Fatigue - Recently started modafinil by gauge machine operator - Territory Account Representative encouraged continuing Adderall with modafinil Plan: - Continue modafinil as prescribed by gauge machine operator Follow-up in 6 weeks, sooner if concerns [...] slightly, has pulmonology appointment next month - Territory Account Representative encouraged continuing Adderall with modafinil Plan: - Continue treatment plan with gauge machine operator Follow-up in 2 months, sooner if concerns arise 09/29/2024 Panic attacks (ICD-10 - F41.0) 08/04/2024 Chronic insomnia (ICD-10 - F51.04) Depression [...] slightly, has pulmonology appointment next month - Territory Account Representative encouraged continuing Adderall with modafinil Plan: - Continue treatment plan with gauge machine operator Follow-up in 2 months, sooner if concerns arise 09/29/2024 Encounter for screening for cardiovascular disorders (ICD-10 - Z13.6) 04/23/2024 Chronic fatigue syndrome (ICD-10 - G93.32) impacts other sx 09/29/2024 Encounter for screening for depression (ICD-10 - Z13.31) 01/31/2024 Other 08/04/2024 Other no refills needed [...] slightly, has pulmonology appointment next month - Territory Account Representative encouraged continuing Adderall with modafinil Plan: - Continue treatment plan with gauge machine operator Follow-up in 2 months, sooner if concerns arise 09/29/2024 Other Sarai Marie, a female patient with a history of anxiety, depression, and ADHD, presents for follow-up with overall improvement in mood and anxiety symptoms. Anxiety Assessment: Patient reports anxiety as not too, too bad with overall improvement. Current management includes buspirone for anxiety symptoms. Work-related stress due to staffing shortages at her job at [employer] is noted as a primary stressor. Plan: - Continue buspirone 10 mg, 2 tablets three times a day for anxiety - Encourage ongoing stress-reduction techniques - Follow up in 3 months or sooner if symptoms worsen Depression Assessment: Patient reports mood as pretty good with overall improvement. Current management includes aripiprazole. No reported side effects or concerns. Denies thoughts of self-harm. Plan: - Continue aripiprazole 5 mg, one tablet once daily - Continue vilazodone 40 mg daily - Adjust prescription to reflect correct dosing instructions - Follow up in 3 months or sooner if symptoms worsen Attention Deficit Hyperactivity Disorder (ADHD) Assessment: Patient reports being productive and focusing okay with current Adderall management. No significant side effects or concerns noted. Plan: - Continue Adderall Extended Release 10 mg, one capsule in the morning for ADHD - Renew prescription for 30-day supply due to controlled substance regulations - Follow up in 3 months or sooner if symptoms worsen Sleep Disturbance Assessment: Patient reports improved sleep with current trazodone regimen. Notes being a little tired, but nowhere near where I was before, indicating significant improvement in previous fatigue symptoms. Plan: - Continue trazodone 100 mg, 2 tablets at bedtime for sleep - Monitor for ongoing fatigue symptoms - Follow up in 3 months or sooner if sleep disturbances recur Plan Of Treatment Next Appt Details Provider Name:Edith gonzalez, 12/29/2024 08:30:00 AM, [address], [facility] [address], [place], [address], Insurance Providers Payer Name Payer Address Payer Phone Subscriber Number Group Number Insured Name Patient Relationship to Insured Coverage Start Date Coverage End Date [facility] [id number] [place] [address] [id number] Sarai Marie Self - patient is the insured Medical (General) History Medical History History ICD Code chronic fatigue syndrome asthma hx DVT hx seizures Past Psychiatric History: Anxiety Disord er,Major Depressive Episode undefined Gastroesophageal reflux disease K21.9 Surgical History Surgery Date(Month/Year) c sections 2008- galbladder removal 2012 gastric bypass 05/2023 Hospitalization History Reason Date(Month/Year) pneumonia 2022
--- OUTSIDE RECORDS SUMMARY | 2024-10-19 12:55 | XMS_ITS ---
Author Organization [facility] [place] ([address]) Address [address] [place] [address] Care Team Providers Care Fishing Guide Name Role Phone Heraclio Cleveland Primary Care Provider UnavailMely Bernabe Unavailable [phone] Allergies No Known Allergies Results Component Value [...] review and pick correct strength-formula tion from [place] options. If intended option is not shown, [...] 09/10/2024 Encounters Encounter Location Date Provider Diagnosis [facility] 2022 [facility] [address] [place] [address] 09/10/2024 Mely Jay Allergic rhinitis du e [...] Provider Name:Mely hallman, 11/05/2024 08:45:00 AM, 2022 [facility], [address], [place], [address], Procedure Notes * Category Sub-Category Detail Notes FASENRA (benralizumab) Administration Dosage Subcutaneous administration: : 30 mg (30 units) Frequency Interval: every 4 weeks x 3 Location Arm: Left lower Dosing Time / Lot Number / Expiration Ti me of administration, Jamila Carr 09/10/2024 08:38:45 AM CDT >, Time of administration, Lot Number [id number], , Expiration Date Reaction Local: None Post-procedural [...] * Jami MOYER:[birth year] (39 yo F)Acc No.[id number]:09/10/2024 FASENRA 2 Patient: Sarai SPENCER Provider: Angel Jay MD :1985 A ge:39 Y S ex:Female Date:09/10/2024 Address:[address] [place] [address] [facility] Pcp:Heraclio Cleveland Subjective: * Chief Complaints: * [...] walking pneumonia. She was also hospitalized at [facility] February [address] CXR and CT [...] Age of carpet? 4 Do you have fbxl-gt-opxt carpeting? N o What is the age [...] CDT >, Time of administration, Lot Number [id number], , Expiration Date . Reaction L ocal N one Post-procedural check-out: , Patient was discharged 30 minutes after dosing administration, Vitals taken 30 minutes after dosing administration:. Medication Source F ASENRA Source [facility] (Insurance-provided) S ource Verfication: Y rl Medical necessity for in-housing management officer: T he patient or caregiver is not suitable, not competent or is physically unable to administer the FASENRA product FDA-labeled for self-administration for the following reason(s): n eedle phobia p ost vitals 111/78, HR 88, RR 14, O2 100%. * Procedure Codes: 9 6160 PT-FOCUSED HLTH RISK [id number] DOC MEDS VERIFIED W/PT OR [id number] CHEMO, ANTI-NEOPL, [id number] RESPIRATORY FLOW VOLUME LOOP * Preventive Medicine: [...] Fasenra) * Billing Information: * Visit Code: 36853 Office Visit, Est Pt., Level 4. Modifiers: 25 * Procedure Codes: 90471 PT-FOCUSED HLTH RISK ASSMT. G8427 DOC MEDS VERIFIED W/[place]. [address] CHEMO, ANTI-NEOPL, SQ/IM. A4617 Mouthpiece. 18656 RESPIRATORY FLOW VOLUME LOOP. * Sign off status: Completed true * Provider: Angel Jay MD Date: 0 09/10/2024 Generated for Cydney carson/Sylvester/Arnolitting on: 0 10/19/2024 12:55 PM CDT History [...] walking pneumonia. She was also hospitalized at [facility] February [address] pneumonia[address] CXR and CT [...]
--- OUTSIDE RECORDS SUMMARY | 2024-10-19 12:55 | XMS_ITS | Referral Summary ---
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 Gender Identity Female 10/31/2021 1:29 PM CDT Sexual Orientation Straight 10/31/2021 1: 29 PM CDT Last Filed Vital Signs Vital Sign Reading Time Taken Comments Blood Pressure 114/81 11/11/2021 4:05 PM CDT Pulse 105 11/11/2021 4:05 PM CDT Temperature 36.6 C (97.8 F) 05/15/2019 2:01 PM BUTTON CLAMPER Respiratory Rate - - Oxygen Saturation 96% 11/11/2021 4:05 PM CDT Inhaled Oxygen Concentration - - Weight 118.8 kg (261 lb 12.8 oz) 05/15/2019 2:01 PM BUTTON CLAMPER Height 159.5 cm (5' 2.8 ) 05/15/2019 2:01 PM BUTTON CLAMPER Body Mass Index 46.67 05/15/2019 2:01 PM BUTTON CLAMPER Plan of Treatment Not on file Insurance [facility] Care Teams Hourly Shift Manager Relationship Specialty Start Date End Date Heraclio Cleveland DO PCP - General Internal Medicine 12/10/18
--- OUTSIDE RECORDS SUMMARY | 2024-10-19 12:55 | XMS_ITS | Clinical Summary ---
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
--- OUTSIDE RECORDS SUMMARY | 2024-10-19 12:56 | XMS_ITS | Patient Health Record ---
Author Organization [facility] [place] ([address]) Address [address] [place] [address] Care Team Providers Care Mobile Sales Assistant Name Role Phone Megha Heraclio Primary Care Provider Unavailab le Mely Jay Unavailable [phone] [facility], Provider Unavailable Unavailab le Allergies No Known [...] 3.4 SpiroPredicted_FEV1 2.87 SpiroPredicted_FEV1_OVER_FVC 84.18 SpiroPredicted_PEF 6.11 -Pneumococcal Ab (23 Serotyp e) Reviewed date:06/04/2024 04:13:38 PM Interpretation:Normal Performing Lab:[facility], [address] [id number], Phone - [phone], Director - PhDBCNeil Notes/Report: Pneumo Ab Type [...] developed and its performance characteristics determined by [employer]. It has not been cleared or approved by the U.S. Food and Drug Administration. FLAG Interpretation: A = Abnormal, H = High, L = Low -Immunoglobulins A/E/G/M, Se rum Reviewed date:04/03/2024 12:25:32 PM Interpretation:Normal [facility]forming [facility], [address] [place], [place] [id number], Phone - [phone], Director - [facility] Notes/Report: Immunoglobulin G, Qn, Serum 118 706-5026 mg/d L Immunoglobulin A, Qn, Serum 296 87-352 mg/dL Immunoglobulin M, Qn, Serum 88 26-217 mg/dL Immunoglobulin E, Total 534 6-495 IU/mL -Haemophilus influenzae B Ig G Reviewed date:04/03/2024 12:37:02 PM Interpretation:Normal Performing Lab:[facility] [id number], Phone - [phone], Director - MAIvet Notes/Report: Haemophilus influenzae B IgG 1.86 NOTE: An anti-Hib level of 0.15 ug/mL is generally accepted as the minimum level for protection. Optimal protection post-vaccination requires a level greater than 1.00 ug/mL. -Tetanus Antitoxoid IgG Ab Reviewed date:04/03/2024 12:25:18 PM Interpretation:Normal Performing Lab:[address] [id number], Phone - [phone], Director - Yimi Notes/Report: Tetanus Antitoxoid IgG Ab 2.67 <0.10 IU/mL Interpretation: Non-Protective <0.10 Protective >=0.10 Results for this test are for research purposes only by the assay's plaster lather. The performance characteristics of this product have not been established. Results should not be used as a diagnostic procedure without confirmation of the diagnosis by another medically established diagnostic product or procedure. -Pneumococcal Ab (23 Serotyp e) Reviewed date:04/03/2024 12:25:10 PM Interpretation:Abnormal Performing Lab:[facility], [address] [place] [id number], Phone - [phone], Director - PhDBCNeil Notes/Report: Pneumo Ab Type [...] developed and its performance characteristics determined by [employer] [facility]. It has not been cleared or approved by the U.S. Food and Drug Administration. FLAG Interpretation: A = Abnormal, H = High, L = Low Reason For Referral No Information Medications Medication [...] W/U Status Risk Notes Problem Anxiety disorder (988208536) Anxiety disorder, unspecified (F41.9) Active confirmed Problem Chronic allergic conjunctivitis (05522122) Other chronic allergic conjunctivitis (H10.45) Active confirmed Problem Allergic rhinitis caused by pollen (disorder) (92552241) Allergic rhinitis due to pollen (J30.1) Active confirmed Problem Allergic rhinitis (51262255) Other allergic rhinitis (J30.89) Active confirmed Problem Uncomplicated moderate persistent asthma (700913301) Moderate persistent asthma, uncomplicated (J45.40) Active confirmed Problem Uncomplicated severe persistent asthma (971184968) Severe persistent asthma, uncomplicated (J45.50) Active confirmed Problem Gastro-esophageal reflux disease without esophagitis (779851705) Gastro-esophageal reflux disease without esophagitis (K21.9) Active confirmed Problem Allergic rhinitis caused by animal hair and dander (801956206911234) Allergic rhinitis due to animal (cat) (dog) hair and dander (J30.81) Active confirmed Problem Allergy to egg protein (finding) (968303534) Allergy to eggs (Z91.012) Active confirmed Problem Essential hypertension (41690583) Essential (primary) hypertension (I10) Active confirmed Problem Depression (898697058) Depression, unspecified (F32.A) Active confirmed Problem Eosinophilic asthma (434140863) 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) Active confirmed Vital Signs Respiratory Rate 16 /min 11/07/2023 Oximetry 100 % 09/10/2024 Blood pressure diastolic 79 mm Hg 09/10/2024 Height 63 in 09/10/2024 Blood pressure systolic 117 mm Hg 09/10/2024 Weight 177.8 lbs 09/10/2024 BMI 31.49 kg/m2 09/10/2024 Encounters Encounter Location Date Provider Diagnosis [address] [address] 12/08/2023 Provider [facility] Allergic rhinitis due to pollen J30.1 ; Severe persistent asthma, uncomplicated J45.50 and Allergy to eggs Z91.[address] [address] 11/07/2023 Mely Jay Allergic rhinitis du e to pollen J30.1 ; Severe persistent asthma, uncomplicated J45.50 ; Eosinophilic asthma J82.83 ; Allergic rhinitis due to animal (cat) (dog) hair and dander J30.81 ; Other allergic rhinitis J30.89 ; Other chronic allergic conjunctivitis H10.45 and Allergy to eggs Z91.[address] [address] 12/05/2023 Mely Jay Allergic rhinitis du e to pollen J30.1 ; Severe persistent asthma, uncomplicated J45.50 ; Eosinophilic asthma J82.83 ; Allergic rhinitis due to animal (cat) (dog) hair and dander J30.81 ; Other allergic rhinitis J30.89 ; Other chronic allergic conjunctivitis H10.45 and Allergy to eggs Z91.012 [address] [place] [address] 01/30/2024 Mely Jay Allergic rhinitis du e to pollen J30.1 ; Severe persistent asthma, uncomplicated J45.50 ; Eosinophilic asthma J82.83 ; Allergic rhinitis due to animal (cat) (dog) hair and dander J30.81 ; Other allergic rhinitis J30.89 ; Other chronic allergic conjunctivitis H10.45 and Allergy to eggs Z91.012 [facility] [address] [place] [address] 03/26/2024 Mely Jay Allergic rhinitis du e to pollen J30.1 ; Severe persistent asthma, uncomplicated J45.50 ; Eosinophilic asthma J82.83 ; Allergic rhinitis due to animal (cat) (dog) hair and dander J30.81 ; Other allergic rhinitis J30.89 ; Other chronic allergic conjunctivitis H10.45 ; Allergy to eggs Z91.012 and Other pneumonia, unspecified organism J18.8 [facility] [address] [place] [address] 05/21/2024 Mely Jay Allergic rhinitis du e to pollen J30.1 ; Severe persistent asthma, uncomplicated J45.50 ; Eosinophilic asthma J82.83 ; Allergic rhinitis due to animal (cat) (dog) hair and dander J30.81 ; Other allergic rhinitis J30.89 ; Other chronic allergic conjunctivitis H10.45 ; Allergy to eggs Z91.012 and Other pneumonia, unspecified organism J18.8 [facility] [address] [place] [address] 07/16/2024 Mely Jay Allergic rhinitis du e to pollen J30.1 ; Severe persistent asthma, uncomplicated J45.50 ; Eosinophilic asthma J82.83 ; Allergic rhinitis due to animal (cat) (dog) hair and dander J30.81 ; Other allergic rhinitis J30.89 ; Other chronic allergic conjunctivitis H10.45 ; Allergy to eggs Z91.012 and Other pneumonia, unspecified organism J18.8 [facility] [address] [place] [address] 09/10/2024 Mely Jay Allergic rhinitis du e to pollen J30.1 ; Severe persistent asthma, uncomplicated J45.50 ; Eosinophilic asthma J82.83 ; Allergic rhinitis due to animal (cat) (dog) hair and dander J30.81 ; Other allergic rhinitis J30.89 ; Other chronic allergic conjunctivitis H10.45 ; Allergy to eggs Z91.012 and Other pneumonia, unspecified organism J18.[address] [address] 04/03/2024 Mely Jay [address] [address] 07/08/2024 Mely Jay [address] [address] 10/06/2024 Mely Jay [facility] 2022 [facility] [address] [place] [address] 11/29/2023 Mely Jay Assessments Encounter Date Diagnosis (ICD Code) Assessment Notes Treatment Notes Treatment Clinical Notes Section Notes 11/07/2023 Allergic rhinitis due to pollen (ICD-10 [...] J82.83) 11/07/2023 Eosinophilic asthma (ICD-10 - J82.83) 11/07/2023 Allergic rhinitis due to animal (cat) [...] 11/07/2023 Other allergic rhinitis (ICD-10 - J30.89) 11/07/2023 Other chronic allergic conjunctivitis (ICD-10 - [...] Other pneumonia, unspecified organism (ICD-10 - J18.8) 11/07/2023 Other 12/05/2023 Other 01/30/2024 Other 03/26/2024 Other 05/21/2024 Other 07/16/2024 Other 09/10/2024 Other Plan Of Treatment Next Appt Details Provider Name:Mely hallman, 11/05/2024 08:45:00 AM, [facility], [address], [place], [address], Insurance Providers Payer Name Payer Address Payer Phone Subscriber Number Group Number Insured Name Patient Relationship to Insured Coverage Start Date Coverage End Date R [address] [address] [place], [place] [phone] [id number] Sarai Marie Self - patient is the insured Medical (General) History Medical History History ICD Code ADHD Migraines insomnia Anxiety disorder, unspecified F41.9 Essential (primary) hypertension I10 Depression, unspecified F32.A Moderate persistent asthma, uncomplicate d J45.40 Gastro-esophageal reflux disease without esophagitis K21.9 Surgical History Surgery Date(Month/Year) C section 2013 Csection 2005 cholecystectomy 2013 gastric bypass 06/06/23 Hospitalization History Reason Date(Month/Year) pneumonia 02/2024 pneumonia 2022 Asthma 1986
[2024-10-19 13:49] VITALS: O2SAT 99
--- OUTSIDE RECORDS SUMMARY | 2024-10-19 13:58 | XMS_ITS | Clinical Summary ---
Author Organization [facility] Address [facility] [place] [address] Care Team Providers Care Lumber Marker Name Role Phone Heraclio Cleveland DO Primary Care Provider +1- [phone] Allergies Active Allergy Reactions Criticality Noted Date [...] on file Legal Sex Female 8:29 AM FOXING PAINTER Gender Identity Female 10/31/2021 1:29 PM CDT Sexual Orientation Straight 10/31/2021 1: 29 PM CDT Obstetrics History Last Filed Vital Signs Vital Sign Reading Time Taken Comments Blood Pressure 114/81 11/11/2021 4:05 PM CDT Pulse 105 11/11/2021 4:05 PM CDT Temperature 36.6 C (97.8 F) 05/15/2019 2:01 PM FOXING PAINTER Respiratory Rate - - Oxygen Saturation 96% 11/11/2021 4:05 PM CDT Inhaled Oxygen Concentration - - Weight 118.8 kg (261 lb 12.8 oz) 05/15/2019 2:01 PM FOXING PAINTER Height 159.5 cm (5' 2.8 ) 05/15/2019 2:01 PM FOXING PAINTER Body Mass Index 46.67 05/15/2019 2:01 PM FOXING PAINTER Plan of Treatment Health Maintenance Due Date [...] patient's age to complete this topic Insurance [facility] HMO/PPO Address: [address] [address] [place] [address] [facility] C[facility] Care Teams Lumber Marker Relationship Specialty Start Date End Date Heraclio Cleveland DO PCP - General Internal Medicine 12/10/18
--- OUTSIDE RECORDS SUMMARY | 2024-10-19 13:58 | XMS_ITS | Referral Summary ---
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 SALES ASSISTANT Gender Identity Female 10/31/2021 1:29 PM CDT Sexual Orientation Straight 10/31/2021 1: 29 PM CDT Last Filed Vital Signs Vital Sign Reading Time Taken Comments Blood Pressure 114/81 11/11/2021 4:05 PM CDT Pulse 105 11/11/2021 4:05 PM CDT Temperature 36.6 C (97.8 F) 05/15/2019 2:01 PM LICENSED INVESTMENT SALES ASSISTANT Respiratory Rate - - Oxygen Saturation 96% 11/11/2021 4:05 PM CDT Inhaled Oxygen Concentration - - Weight 118.8 kg (261 lb 12.8 oz) 05/15/2019 2:01 PM LICENSED INVESTMENT SALES ASSISTANT Height 159.5 cm (5' 2.8 ) 05/15/2019 2:01 PM LICENSED INVESTMENT SALES ASSISTANT Body Mass Index 46.67 05/15/2019 2:01 PM LICENSED INVESTMENT SALES ASSISTANT Plan of Treatment Not on file Insurance [facility] Care Teams Investment Banking Manager Relationship Specialty Start Date End Date Heraclio Cleveland DO PCP - General Internal Medicine 12/10/18
--- OUTSIDE RECORDS SUMMARY | 2024-10-19 13:58 | XMS_ITS | Clinical Summary ---
Author Organization [facility] Address [address] [place] [address] Care Team Providers Care Bill Collector Name Role Phone Heraclio Cleveland DO Primary Care Provider +1- [phone] Heraclio Cleveland DO Unavailable [phone] Source Comments [facility],non-owned Affiliates and Associated Physician Practices is amultiple site organization consisting of ambulatory clinics and hospital sitesin [place], [place], [place] and [place]. This disclosure is being madepursuant to the Care Everywhere program and may not contain all information available regarding this patient. Last updated 18.[facility] [employer] Allergies Active Allergy Reactions Criticality Noted Date [...] complete this topic Insurance [employer] Care Teams Bill Collector Relationship Specialty Start Date End Date Heraclio Cleveland DO PCP - General Internal Medicine 10/12/16 Heraclio Cleveland DO Internal Medicine 10/12/16
--- OUTSIDE RECORDS SUMMARY | 2024-10-19 13:58 | XMS_ITS | Clinical Summary ---
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
[2024-10-19 14:55] VITALS: O2SAT 100
[2024-10-19] MEDS: ALBUTEROL SULFATE NEB 2.5 MG/3 ML INH 5 MG INHALATION (14:55)
[2024-10-19 14:56] VITALS: PULSE 80; RESP 18
[2024-10-19 15:06] VITALS: PULSE 90; RESP 20
--- NOTE | 2024-10-19 15:06 | ED_ITS ---
HPI - General Adult General Chief complaint: Upper Respiratory Infection Stated complaint: pain with inspiration Time Seen by Provider: 10/19/24 13:52 History of Present Illness HPI narrative: 39-year-old female presents to the emergency department for evaluation cough congestion that is been worsening since Sunday. Patient states since she has had right-sided chest wall tenderness that is worth with deep inspiration and coughing. Patient does have a prior history of smoking. Does not smoke for approximately 15 years. Related Data Home Medications ?Medication ?Instructions ?Recorded ?Confirmed ?Last Taken ?Type epinephrine 0.3 mg/0.3 mL 0.3 ml IM ONCE PRN 10/04/22 09/03/24 Unknown History injection, auto-injector hypersensitivity reaction vilazodone 40 mg tablet 40 mg PO DAILY 12/07/22 09/03/24 Unknown History trazodone 100 mg tablet 100 mg PO HS 12/13/23 09/03/24 Unknown History benralizumab 30 mg/mL subcutaneous 30 mg subcut .Q2mo 02/07/24 09/03/24 Unknown History syringe (Fasenra) cetirizine 10 mg tablet (Zyrtec) 10 mg PO DAILY 03/13/24 09/03/24 Unknown History dextroamphetamine-amphetamine ER 10 mg PO DAILY 06/03/24 09/03/24 Unknown History 10 mg 24hr capsule,extend release (Adderall XR) aripiprazole 5 mg tablet (Abilify) 5 mg PO DAILY 09/03/24 09/03/24 Unknown History Allergies Allergy/AdvReac Type Severity Reaction Status Date / Time egg Allergy Severe anaphalaxis Verified 10/19/24 13:50 DUST Allergy Intermediate wheezing Uncoded 10/19/24 13:50 MILDEW Allergy Mild Wheezing Uncoded 10/19/24 13:50 MOLD Allergy Mild Wheezing Uncoded 10/19/24 13:50 SMOKE Allergy Mild Wheezing Uncoded 10/19/24 13:50 Review of Systems Review of Systems: All systems reviewed & are unremarkable except as noted in HPI and below PMFSH Past Medical History Medical History Hypersomnolence Attention deficit Factor V Leiden Morbid obesity with BMI of 50.0-59.9, adult Cholecystectomy planned Allergies Asthma Depression Migraine Back pain DVT (deep venous thrombosis) Surgical History Surgical History Gastric bypass status for obesity Hx of cholecystectomy Previous section 2008, 2012 Family History Family History Father Hypertension Diabetes mellitus Mother Hypertension Diabetes mellitus Other Breast cancer Social History Social History Social History: Caffeine-daily the patient is single and she has 2 children. She works at [employer]. code status full code Smoking packs per day: 0.5 Smoking cigarettes per day: 10.0 Years smoked: 5 Smoking pack-years: 2.50 Smoking status: Former smoker Tobacco type: cigarettes Second hand tobacco smoke exposure: Yes Smoking end date: 06/25/13 Alcohol intake: never Alcohol use details: rarely Substance use: never Substance use type: does not use Do You Feel Safe in your Home?: Yes Lack of Transportation: No Lack of Food: Never True Current Housing: I Have Housing Concerned About Future Housing: No Difficulty Paying Gas/Electric Bills: No Difficulty Paying for Meds: No Currently Unemployed: No Education: High School Diploma/GED Difficulty w/ Childcare or Family Care: No Gender identity (if verbalized by the patient): Female Spiritual care concerns: No Exam Narrative: APPEARANCE: Well appearing, no pain, no distress, well-nourished. HEAD: normocephalic, atraumatic. EYES: PERRLA/EOMI, conjunctivae clear. NOSE: Normal no drainage EARS:TMS clear with good light reflex. THROAT: Pharynx clear, no exudate. NECK: Supple. No adenopathy, no masses. RESPIRATORY: Airway patent, respirations nonlabored. Clear to auscultation bilaterally, no rales, rhonchi, wheezing. CARDIOVASCULAR: Regular rate and rhythm without murmurs rubs or gallops. ABDOMINAL: Soft, nontender, nondistended, normal bowel sounds MUSCULOSKELETAL: Moves all extremities. Strength/ROM intact, No edema, No calf tenderness. NEURO: Alert. Cranial nerves II through XII intact. Grossly intact SKIN: Warm, dry. Normal Color Course Vital Signs Vital signs: Vital Signs Temperature 97.7 F 10/19/24 12:54 Pulse Rate 86 10/19/24 12:54 Respiratory Rate 18 10/19/24 12:54 Blood Pressure 135/65 10/19/24 12:54 Pulse Oximetry 100 10/19/24 12:54 Oxygen Delivery Room Air 10/19/24 12:54 Temperature 97.7 F 10/19/24 12:54 Pulse Rate 96 10/19/24 15:31 Respiratory Rate 15 10/19/24 15:31 Blood Pressure 125/60 10/19/24 15:31 Pulse Oximetry 100 10/19/24 15:31 Oxygen Delivery Room Air 10/19/24 14:55 Fraction of Inspired Oxygen 21 10/19/24 14:55 Medical Decision Making MDM Narrative Medical decision making narrative: 39-year-old female presents emergency department for evaluation for cough congestion body aches and fatigue. Patient is no longer a eyes smoker. Patient was negative for influenza RSV and for COVID, chest x-ray was concerning for bibasilar pneumonia. Patient did feel improved after breathing treatment. Patient was started on Augmentin and a Zithromax and provided albuterol inhaler and Tessalon Perles. Patient was comfortable the plan for discharge and close follow-up. Differential Diagnosis Differential Diagnosis: COVID, RSV, influenza, pneumonia Vital Signs Vital Signs: Vital Signs Temperature 97.7 F 10/19/24 12:54 Pulse Rate 86 10/19/24 12:54 Respiratory Rate 18 10/19/24 12:54 Blood Pressure 135/65 10/19/24 12:54 Pulse Oximetry 100 10/19/24 12:54 Oxygen Delivery Room Air 10/19/24 12:54 Temperature 97.7 F 10/19/24 12:54 Pulse Rate 96 10/19/24 15:31 Respiratory Rate 15 10/19/24 15:31 Blood Pressure 125/60 10/19/24 15:31 Pulse Oximetry 100 10/19/24 15:31 Oxygen Delivery Room Air 10/19/24 14:55 Fraction of Inspired Oxygen 10/19/24 14:55 Lab Data Labs: Lab Results 10/19/24 Range/Units 15:32 Influenza A (RT-PCR) Negative (Negative) Influenza B (RT-PCR) Negative (Negative) RSV (RT-PCR) Negative (Negative) SARS-CoV-2 RNA (RT-PCR) Negative (Negative) Discharge Plan Discharge Clinical Impression: Pneumonia Patient Disposition: Home Condition: Stable Instructions: Antibiotic Form, Pneumonia (ED) Additional Instructions: Antibiotic as directed until completed. Albuterol as needed for shortness of breath and Tessalon Perles as needed for cough. Have close follow-up with your primary care physician. Patient Language: Mexican Prescriptions: New azithromycin 250 mg tablet See Rx Instructions .ROUTE .COMPLEX Qty: 6 0RF Rx Instructions: For 250 mg dose pack: take 500 mg today (day 1), then 250 mg for 4 days (days 2-5) benzonatate 100 mg capsule 100 mg PO TID PRN (Reason: cough) Qty: 14 0RF albuterol sulfate 90 mcg/actuation HFA aerosol inhaler 1 puff inhalation QID Qty: 6.7 0RF amoxicillin-pot clavulanate 875-125 mg tablet 1 tablet PO Q12H 7 Days Qty: 14 0RF No Action Fasenra 30 mg/mL syringe 30 mg subcut .Q2mo Rx Instructions: Prescribed by Dr. Altamirano: Email Marketing Specialist ondansetron 4 mg tablet,disintegrating 4 mg PO Q8H PRN (Reason: nausea and vomiting) Qty: 20 2RF trazodone 100 mg tablet 100 mg PO HS dextroamphetamine-amphetamine [Adderall XR] 10 mg capsule,extended release 24hr 10 mg PO DAILY multivitamin Tablet 1 tablet PO DAILY Qty: 30 0RF buspirone 10 mg tablet 20 mg PO TID Qty: 90 0RF aripiprazole [Abilify] 5 mg tablet 5 mg PO DAILY albuterol sulfate 90 mcg/actuation HFA aerosol inhaler 2 puff INHALATION Q4-6H PRN (Reason: shortness of breath or wheezing) Qty: 8.5 2RF epinephrine 0.3 mg/0.3 mL auto-injector 0.3 ml IM ONCE PRN (Reason: hypersensitivity reaction) vilazodone 40 mg tablet 40 mg PO DAILY cetirizine [Zyrtec] 10 mg Tablet 10 mg PO DAILY sumatriptan succinate 50 mg tablet 50 mg PO DAILY PRN (Reason: Migraine Headache) Qty: 9 5RF omeprazole 20 mg capsule,delayed release(DR/EC) 20 mg PO DAILY Qty: 90 2RF azelastine-fluticasone 137-50 mcg/spray spray,non-aerosol See Rx Instructions .ROUTE .COMPLEX Qty: 23 0RF Dose Instruction: USE 1 SPRAY INTRANASALLY TWICE DAILY NEEDED Rx Instructions: USE 1 SPRAY INTRANASALLY TWICE DAILY NEEDED topiramate [Topamax] 25 mg tablet 25 mg PO BID Qty: 60 5RF modafinil 100 mg tablet 100 mg PO BID 30 Days Qty: 60 5RF Trelegy Ellipta 100-62.5-25 mcg blister with device See Rx Instructions .ROUTE .COMPLEX Qty: 60 0RF Dose Instruction: INHALE 1 PUFF EVERY 24 HOURS RINSE AND SPIT AFTER USE Rx Instructions: INHALE 1 PUFF EVERY 24 HOURS RINSE AND SPIT AFTER USE Follow-up/Referrals: Heraclio Cleveland, [Primary Care Provider] -
[2024-10-19] MEDS: AMOXICILLIN/CLAVULANATE K 875-125 MG TAB 1 TABLET PO (15:29)
[2024-10-19] MEDS: AZITHROMYCIN 250 MG TABLET 500 MG PO (15:29)
[2024-10-19 15:31] VITALS: BP 125/60; PULSE 96; RESP 15; O2SAT 100
[2024-10-19 16:13] LABS: Influenza A QL RT-PCR Negative (Negative); Influenza B QL RT-PCR Negative (Negative); RSV RNA, RT-PCR Negative (Negative); SARS-CoV-2 RNA PCR Negative (Negative)
[2024-10-19] MEDS: KETOROLAC 30 MG/ML VIAL (*BKC) IM (16:37)
== END 2024-10-19 16:40 | disposition home or self-care (01) ==
PROVIDERS: Emergency Provider Emergency Medicine; PCP Internal Medicine
DX: J18.9 Pneumonia, unspecified organism (principal); Z20.822 Contact with and (suspected) exposure to COVID-19; D68.51 Activated protein C resistance; J45.909 Unspecified asthma, uncomplicated; F98.8 Other specified behavioral and emotional disorders with onset usually occurring in childhood and adolescence; F32.A Depression, unspecified; Z86.718 Personal history of other venous thrombosis and embolism; Z87.891 Personal history of nicotine dependence; Z98.84 Bariatric surgery status; Z79.899 Other long term (current) drug therapy
CPT/HCPCS: 71045; 87637; 94640; 96372; 99283; A9270; J1885

== ENCOUNTER 2024-10-23 13:26 | Emergency (ER) | payer OTHER, SELFPAY ==
--- NOTE | ~2024-10-23 | CT_ITS ---
EXAMINATION: CTA chest PE protocol DATE: 10/23/2024 18:16 CDT INDICATION: Right-sided chest wall pain TECHNIQUE: Computed tomographic angiography (CTA) of the chest was performed with 100 mL Omnipaque-35 0 intravenous contrast. The dose-length product was 274.92 mGy-cm. Maximum intensity projection 3D-re constructions of the aorta and other arteries were constructed by the technologist on a separate work station. COMPARISON: 09/25/2024 FINDINGS/OBSERVATIONS: PULMONARY ARTERIES: No filling defect is identified within the main or proximal pulmonary artery. The main pulmonary artery is not enlarged. THORACIC AORTA: No aneurysmal dilatation or dissection is present. The great vessels are intact LUNGS: Redemonstration of patchy left lower lobe consolidation with interval development of small rey ateral pleural effusions, right greater than left with adjacent consolidation in the right lung base. MEDIASTINUM: No morphologically suspicious or pathologically enlarged lymph nodes are identified with in the mediastinum or bilateral axilla. BONES OF THE CHEST: No acute fracture. No significant degenerative disease. No lytic or blastic lesions. HEART: The heart is of normal size, without pericardial effusion. IMPRESSION: No pulmonary embolus. No thoracic aortic dissection. Redemonstration of patchy left lower lobe consolidation with interval development of small bilateral pleural effusions, right greater than left. Interval development of right lower lobe consolidation, when compared with most recent examination da salma 09/25/2024 Reviewed, dictated and finalized at location A. IMPRESSION: No pulmonary embolus. No thoracic aortic dissection. Redemonstration of patchy left lower lobe consolidation with interval developme nt of small bilateral pleural effusions, right greater than left. Interval development of right lower lobe consolidation, when compared with most recent examination dated 09/25/2024
[2024-10-23 13:32] VITALS: BP 129/74; PULSE 91; RESP 16; TEMP 36.7; O2SAT 99
--- NOTE | 2024-10-23 13:40 | ECG_ITS ---
Test Date: 2024-10-23 14:25:52 Measurements Intervals [place] Rate: 107 P: 61 NC: 135 QRS: 26 QRSD: 94 T: 10 QT: 264 QTc: 352 Interpretive Statements SINUS TACHYCARDIA NONSPECIFIC ST & T-WAVE ABNORMALITY ABNORMAL RHYTHM ECG Compared to ECG 03/13/2024 00:49:58 T-wave abnormality now present Electronically Signed On 10-24-2024 18:59:26 CDT by Ena He
--- NOTE | 2024-10-23 13:41 | ED_ITS ---
HPI - General Adult General Chief complaint: Unspecified Stated complaint: Right side pain increase-has Pneumonia/Pleurisy Time Seen by Provider: 10/23/24 13:32 History of Present Illness HPI narrative: 39-year-old female with recent diagnosis of pneumonia presented to the emergency department for evaluation for worsening right-sided chest pain and back pain. Patient states after starting her antibiotics on 10/19 she began having diarrhea. Patient reports worsening right-sided chest pain that is worse with deep inspiration coughing. Related Data Home Medications ?Medication ?Instructions ?Recorded ?Confirmed ?Last Taken ?Type epinephrine 0.3 mg/0.3 mL 0.3 ml IM ONCE PRN 10/04/22 09/03/24 Unknown History injection, auto-injector hypersensitivity reaction vilazodone 40 mg tablet 40 mg PO DAILY 12/07/22 09/03/24 Unknown History trazodone 100 mg tablet 100 mg PO HS 12/13/23 09/03/24 Unknown History benralizumab 30 mg/mL subcutaneous 30 mg subcut .Q2mo 02/07/24 09/03/24 Unknown History syringe (Fasenra) cetirizine 10 mg tablet (Zyrtec) 10 mg PO DAILY 03/13/24 09/03/24 Unknown History dextroamphetamine-amphetamine ER 10 mg PO DAILY 06/03/24 09/03/24 Unknown History 10 mg 24hr capsule,extend release (Adderall XR) aripiprazole 5 mg tablet (Abilify) 5 mg PO DAILY 09/03/24 09/03/24 Unknown History Allergies Allergy/AdvReac Type Severity Reaction Status Date / Time egg Allergy Severe anaphalaxis Verified 10/23/24 13:27 DUST Allergy Intermediate wheezing Uncoded 10/23/24 13:27 MILDEW Allergy Mild Wheezing Uncoded 10/23/24 13:27 MOLD Allergy Mild Wheezing Uncoded 10/23/24 13:27 SMOKE Allergy Mild Wheezing Uncoded 10/23/24 13:27 Review of Systems 2 Review of Systems: All systems reviewed & are unremarkable except as noted in HPI and below PMFSH Past Medical History Medical History Hypersomnolence Attention deficit Factor V Leiden Morbid obesity with BMI of 50.0-59.9, adult Cholecystectomy planned Allergies Asthma Depression Migraine Back pain DVT (deep venous thrombosis) Surgical History Surgical History Gastric bypass status for obesity Hx of cholecystectomy Previous section 2008, 2012 Family History Family History Father Hypertension Diabetes mellitus Mother Hypertension Diabetes mellitus Other Breast cancer Social History Social History Social History: Caffeine-daily the patient is single and she has 2 children. She works at [email or web address]. code status full code Smoking packs per day: 0.5 Smoking cigarettes per day: 10.0 Years smoked: 5 Smoking pack-years: 2.50 Smoking status: Former smoker Tobacco type: cigarettes Second hand tobacco smoke exposure: Yes Smoking end date: 06/25/13 Alcohol intake: never Alcohol use details: rarely Substance use: never Substance use type: does not use Do You Feel Safe in your Home?: Yes Lack of Transportation: No Lack of Food: Never True Current Housing: I Have Housing Concerned About Future Housing: No Difficulty Paying Gas/Electric Bills: No Difficulty Paying for Meds: No Currently Unemployed: No Education: High School Diploma/GED Difficulty w/ Childcare or Family Care: No Gender identity (if verbalized by the patient): Female Spiritual care concerns: No Exam 2 Narrative: APPEARANCE: Well appearing, no pain, no distress, well-nourished. HEAD: normocephalic, atraumatic. EYES: PERRLA/EOMI, conjunctivae clear. NOSE: Normal no drainage EARS:TMS clear with good light reflex. THROAT: Pharynx clear, no exudate. NECK: Supple. No adenopathy, no masses. RESPIRATORY: Coarse respirations bilaterally CARDIOVASCULAR: Regular rate and rhythm without murmurs rubs or gallops. ABDOMINAL: Soft, nontender, nondistended, normal bowel sounds MUSCULOSKELETAL: Right lateral chest wall pain and tenderness NEURO: Alert. Cranial nerves II through XII intact. Grossly intact SKIN: Warm, dry. Normal Color Course Vital Signs Vital signs: Vital Signs Temperature 98.0 F 10/23/24 13:32 Pulse Rate 91 10/23/24 13:32 Respiratory Rate 16 10/23/24 13:32 Blood Pressure 129/74 10/23/24 13:32 Pulse Oximetry 99 10/23/24 13:32 Oxygen Delivery Room Air 10/23/24 13:32 Temperature 98.0 F 10/23/24 13:32 Pulse Rate 89 10/23/24 13:53 Respiratory Rate 16 10/23/24 14:25 Blood Pressure 129/74 10/23/24 13:32 Pulse Oximetry 99 10/23/24 14:25 Oxygen Delivery Room Air 10/23/24 13:32 Medical Decision Making MDM Narrative Medical decision making narrative: 39-year-old female presenting to the emergency department for evaluation for right lower posterior lung pain. Patient was recently diagnosed with pneumonia. Patient is currently afebrile does have a leukocytosis of 14.6 and a stable hemoglobin of 12.4. Patient potassium was 2.9 and this was replaced orally with [address] was negative for pulmonary embolism. Patient did feel improved with treatment. Differential Diagnosis Differential Diagnosis: Pneumonia, pulmonary embolism, pleural effusion, pneumothorax Vital Signs Vital Signs: Vital Signs Temperature 98.0 F 10/23/24 13:32 Pulse Rate 91 10/23/24 13:32 Respiratory Rate 16 10/23/24 13:32 Blood Pressure 129/74 10/23/24 13:32 Pulse Oximetry 99 10/23/24 13:32 Oxygen Delivery Room Air 10/23/24 13:32 Temperature 98.0 F 10/23/24 13:32 Pulse Rate 89 10/23/24 13:53 Respiratory Rate 16 10/23/24 14:25 Blood Pressure 129/74 10/23/24 13:32 Pulse Oximetry 99 10/23/24 14:25 Oxygen Delivery Room Air 10/23/24 13:32 Lab Data Lab results reviewed: Yes I reviewed the patient's lab results. 10/23/24 14:23 10/23/24 14:23 Labs: Lab Results 10/23/24 10/23/24 10/23/24 Range/Units 14:23 14:35 17:30 WBC 14.6 H (4.5-10.0) K/mm3 RBC 4.27 (4.2-5.4) M/mm3 Hgb 12.4 (12.0-15.0) g/dL Hct 39.6 (37.0-47.0) % MCV 92.7 (80-100) fl MCH 29.0 (26-34) pg MCHC 31.3 L (32-36) g/dl RDW 13.2 (11.5-14.5) % Plt Count 286 (150-375) k/mm3 MPV 8.8 (7.4-10.4) fl Immature Gran % (Auto) 0.4 (0-0.5) % Neut % (Auto) 50.6 (45.5-73.1) % Lymph % (Auto) 42.7 (18.3-44.2) % [place] % (Auto) 6.0 (2.6-8.5) % Eos % (Auto) 0.0 (0-4.4) % Baso % (Auto) 0.3 (0.2-1.2) % Lymph # (Auto) 6.21 H (0.9-3.2) K/mm3 [place]ley # (Auto) 0.9 H (0.1-0.6) K/mm3 Eos # (Auto) 0.0 (0-0.3) K/mm3 Baso # (Auto) 0.0 (0.0-0.1) K/mm3 Abs Immat Gran (auto) 0.06 H (0.00-0.031) K/mm3 Absolute Neuts (auto) 7.4 H (1.3-6.7) K/mm3 Absolute Nucleated RBC 0.000 (0.0-0.012) K/mm3 Band Neutrophils % Not Reportable Nucleated RBC % 0.0 (0.0-0.2) % Atypical Lymphocytes Present Platelet Estimate Adequate (Adequate) Hypochromasia 1+ Schistocytes None seen PT 14.0 (11.1-14.7) Seconds INR 1.0 APTT 27.2 (22.3-36.8) Seconds Sodium 142 (137-145) mmol/L Potassium 2.9 L (3.4-5.0) mmol/L Chloride 112 H (98-107) mmol/L Carbon Dioxide 20 L (22-30) mmol/L Anion Gap 10 (4-12) mmol/L BUN 4 L (7-17) mg/dL Creatinine 0.61 L (0.7-1.0) mg/dL Estim Creat Clear Calc 103 ml/min Estimated GFR > 60 (59 - ) Glucose 130 H (65-110) mg/dL Calcium 8.2 L (8.4-10.2) mg/dL Total Bilirubin 0.2 (0.2-1.3) mg/dL AST 22 (14-36) U/L ALT 16 (6-35) U/L Alkaline Phosphatase 98 (38-126) U/L Total Protein 7.0 (6.3-8.2) g/dL Albumin 3.8 (3.5-5.1) g/dL Urine Color Yellow (Yellow) Urine Appearance Clear (Clear) Urine pH 7.0 (5.0-9.0) Ur Specific [place] 1.005 (1.001-1.035) Urine Protein Negative (Negative) mg/dL Urine Glucose (UA) Negative (Negative) mg/dL Urine Ketones Negative (Negative) mg/dL Ur Blood (Man) 2+ H (Negative) Urine Nitrate Negative (Negative) Urine Bilirubin Negative (Negative) Urine Urobilinogen 0.2 (<2.0) mg/dL Leukocyte Esterase Rfl Negative (Negative) GUILLE/UL Urine RBC 3-5 H (0-2) /hpf Urine WBC 0-5 (0-3) /hpf Ur Squamous Epith Cells None seen (Few) /hpf Urine Bacteria None seen /hpf Urine Casts 0-2 POC Urine HCG, Qual Negative (Negative) Urine Test Negative Imaging Data Radiologist's impression: Impressions Chest CTA 10/23/24 18:16 IMPRESSION: No pulmonary embolus. No thoracic aortic dissection. Redemonstration of patchy left lower lobe consolidation with interval development of small bilateral pleural effusions, right greater than left. Interval development of right lower lobe consolidation, when compared with most recent examination dated 09/25/2024 Discharge Plan Discharge Clinical Impression: Pneumonia, Acute chest wall pain Patient Disposition: Home Condition: Stable Instructions: Antibiotic Form Patient Language: Malian Prescriptions: New hydrocodone-acetaminophen 5-325 mg tablet 1 tablet PO Q12H PRN (Reason: pain) Qty: 14 0RF No Action Fasenra 30 mg/mL syringe 30 mg subcut .Q2mo Rx Instructions: Prescribed by Dr. Altamirano: Personal Financial Representative ondansetron 4 mg tablet,disintegrating 4 mg PO Q8H PRN (Reason: nausea and vomiting) Qty: 20 2RF trazodone 100 mg tablet 100 mg PO HS dextroamphetamine-amphetamine [Adderall XR] 10 mg capsule,extended release 24hr 10 mg PO DAILY multivitamin Tablet 1 tablet PO DAILY Qty: 30 0RF buspirone 10 mg tablet 20 mg PO TID Qty: 90 0RF aripiprazole [Abilify] 5 mg tablet 5 mg PO DAILY albuterol sulfate 90 mcg/actuation HFA aerosol inhaler 2 puff INHALATION Q4-6H PRN (Reason: shortness of breath or wheezing) Qty: 8.5 2RF epinephrine 0.3 mg/0.3 mL auto-injector 0.3 ml IM ONCE PRN (Reason: hypersensitivity reaction) vilazodone 40 mg tablet 40 mg PO DAILY azithromycin 250 mg tablet See Rx Instructions .ROUTE .COMPLEX Qty: 6 0RF Rx Instructions: For 250 mg dose pack: take 500 mg today (day 1), then 250 mg for 4 days (days 2-5) benzonatate 100 mg capsule 100 mg PO TID PRN (Reason: cough) Qty: 14 0RF albuterol sulfate 90 mcg/actuation HFA aerosol inhaler 1 puff inhalation QID Qty: 6.7 0RF amoxicillin-pot clavulanate 875-125 mg tablet 1 tablet PO Q12H 7 Days Qty: 14 0RF cetirizine [Zyrtec] 10 mg Tablet 10 mg PO DAILY sumatriptan succinate 50 mg tablet 50 mg PO DAILY PRN (Reason: Migraine Headache) Qty: 9 5RF omeprazole 20 mg capsule,delayed release(DR/EC) 20 mg PO DAILY Qty: 90 2RF azelastine-fluticasone 137-50 mcg/spray spray,non-aerosol See Rx Instructions .ROUTE .COMPLEX Qty: 23 0RF Dose Instruction: USE 1 SPRAY INTRANASALLY TWICE DAILY NEEDED Rx Instructions: USE 1 SPRAY INTRANASALLY TWICE DAILY NEEDED topiramate [Topamax] 25 mg tablet 25 mg PO BID Qty: 60 5RF modafinil 100 mg tablet 100 mg PO BID 30 Days Qty: 60 5RF Trelegy Ellipta 100-62.5-25 mcg blister with device See Rx Instructions .ROUTE .COMPLEX Qty: 60 0RF Dose Instruction: INHALE 1 PUFF EVERY 24 HOURS RINSE AND SPIT AFTER USE Rx Instructions: INHALE 1 PUFF EVERY 24 HOURS RINSE AND SPIT AFTER USE Follow-up/Referrals: Yablonsky,Heraclio B., DO [Primary Care Provider] -
[2024-10-23 13:53] VITALS: PULSE 89; RESP 20
[2024-10-23] MEDS: ALBUTEROL SULFATE NEB 2.5 MG/3 ML INH 5 MG INHALATION (13:53)
[2024-10-23] MEDS: HYDROmorphone HCL INJ (*CRX) 2 MG/ML VIAL 0.5 MG IV PUSH (14:21)
[2024-10-23] MEDS: LACTATED RINGERS 1,000 ML 999 ML IV CONT (14:22)
[2024-10-23 14:25] VITALS: RESP 16; O2SAT 99
--- OUTSIDE RECORDS SUMMARY | 2024-10-23 14:26 | XMS_ITS | Patient Health Record ---
Author Organization [facility] [employer] Address [address] [place] [address] Care Team Providers Care Coach Driver Name Role Phone Heraclio Cleveland DO Primary Care Provider Edith Barrios Unavailable [phone] Jevon Ray Unavailable [phone] Cleo Peters Unavailable [phone] Allergies Allergen (clinical drug ingredient) Drug/Non Drug Allergy documented on EMR Reaction Allergy Type Onset Date Status Eggs or Egg-derived Products Unknown Drug Allergy Active Results Component Value Reference Range Notes UDT Reviewed date:09/29/2024 09:19:30 AM Interpretation: Performing Lab: Notes/Report: THC N 0 - 50 ng/ml Cocaine N 0 - 300 ng/ml Amphetamine N 0 - 1000 ng/ml Buprenorphine (BUP) N 0 - 10 ng/ml Secobarbital (Bar) N 0 - 300 ng/ml Oxazepam (BZO) N 0 - 300 ng/ml 4-yqcgdldpzd-9,1-lidoomqa-7, 3-diphen ylpyrrolidine (EDDP) N 0 - 300 ng/ml Methamphetamine (MET) N 0 - 1000 ng/ml Methylenedioxymethamphetamine (MDMA) N 0 - 500 ng/ml Morphine (MOP 300/[id number]) N 0 - 300 ng/ml Methadone (MTD) N 0 - 300 ng/ml Phencyclidine (PCP) N 0 - 25 ng/ml Nortriptyline (TCA) N 0 - 1000 ng/ml Oxycodone N 0 - 300 ng/ml x N 0 - 300 ng/ml Aripiprazole Reviewed date:10/13/2024 12:42:27 PM Interpretation: Performing Lab:1, [facility], [address] [facility], [place], Director - [id number] Notes/Report: An exception occurred while processing this report and so it has incomplete data. Please contact [employer] for assistance. Aripiprazole NEGATIVE 50.0 ng/mL Not Medicated Consistent PDF Report [email or web address] [email or web address] Adderall Reviewed date:10/13/2024 12:42:36 PM Interpretation: Performing Lab: Notes/Report: Stimulants Reviewed date:10/13/2024 12:42:44 PM Interpretation: Performing Lab: Notes/Report: Phentermine NEGATIVE 100.0 ng/mL Not Medicated Consistent Methylphenidate NEGATIVE 50.0 ng/mL Not Medicate d Consistent Methamphetamine NEGATIVE 100.0 ng/mL Not Medicate d Consistent Amphetamine NEGATIVE 100.0 ng/mL Medicated Inconsistent NEED PHYSICIAN SIGNATURE Reviewed date:10/13/2024 12:42:56 PM Interpretation: Performing Lab: Notes/Report: Validity Testing Reviewed date:10/13/2024 12:43:10 PM Interpretation: Performing Lab: Notes/Report: Screening Reviewed date:10/13/2024 12:43:03 PM Interpretation: Performing Lab: Notes/Report: UDT Reviewed date:07/07/2024 02:12:54 PM Interpretation: Performing Lab: Notes/Report: THC N 0 - 50 ng/ml Cocaine N 0 - 300 ng/ml Amphetamine N 0 - 1000 ng/ml Buprenorphine (BUP) N 0 - 10 ng/ml Secobarbital (Bar) N 0 - 300 ng/ml Oxazepam (BZO) N 0 - 300 ng/ml 7-nuuwexmqvl-4,0-jnjnvjfb-0, 3-diphen ylpyrrolidine (EDDP) N 0 - 300 ng/ml Methamphetamine (MET) N 0 - 1000 ng/ml Methylenedioxymethamphetamine (MDMA) N 0 - 500 ng/ml Morphine (MOP 300/[id number]) N 0 - 300 ng/ml Methadone (MTD) [...] Oxazepam (BZO) p 0 - 300 ng/ml 9-pcyfniszej-9,9-shitftgh-6, 3-diphen ylpyrrolidine (EDDP) n 0 - 300 ng/ml Methamphetamine (MET) n 0 - 1000 ng/ml Methylenedioxymethamphetamine (MDMA) n 0 - 500 ng/ml Morphine (MOP 300/TAF1550) n 0 - 300 ng/ml Methadone (MTD) [...] Oxazepam (BZO) neg 0 - 300 ng/ml 0-oyzshhneov-3,6-wktfmqvs-7, 3-diphen ylpyrrolidine (EDDP) neg 0 - 300 ng/ml Methamphetamine (MET) neg 0 - 1000 ng/ml Methylenedioxymethamphetamine (MDMA) neg 0 - 500 ng/ml Morphine (MOP 300/[id number]) neg 0 - 300 ng/ml Methadone (MTD) [...] (1 point) Section Notes: Lives in [place] 2 kids. [place] has 1 sister. 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 Lives in [place] with 2 kids. [place], has 1 sister. 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 Lives in [place] with 2 kids. [place], has 1 sister. 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 Lives in [place] with 2 kids. [place], has 1 sister. 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 Lives in [place] with 2 kids. [place], has 1 sister. 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 Lives in [place] with 2 kids. [place], has 1 sister. 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 Lives in [place] with 2 kids. [place], has 1 sister. 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 Problems Problem Type SNOMED Code ICD Code Onset Dates Problem Status W/U Status Risk Notes Problem Moderate recurrent major depression (23904072) Major depressive disorder, recurrent, moderate (F33.1) Active confirmed Problem Recurrent major depression in remission (18312944) Major depressive disorder, recurrent, in partial remission (F33.41) Active confirmed Problem Generalized anxiety disorder (07987262) Generalized anxiety disorder (F41.1) Active confirmed Problem Attention deficit hyperactivity disorder, combined type (50795911) Attention-deficit hyperactivity disorder, combined type (F90.2) Active confirmed Problem Chronic insomnia (604077735) Chronic insomnia (F51.04) Active confirmed Problem Chronic fatigue syndrome (23445054) Chronic fatigue syndrome (G93.32) Active confirmed Problem Panic disorder (412547755) Panic attacks (F41.0) Active confirmed Vital Signs Heart Rate 80 /min 09/29/2024 Height-cm 160.02 cm 09/29/2024 Blood pressure diastolic 80 mm Hg 09/29/2024 Weight-kg 81.19 kg 09/29/2024 Height 63 in 09/29/2024 Blood pressure systolic 110 mm Hg 09/29/2024 Weight 179 lbs 09/29/2024 BMI 31.7 kg/m2 09/29/2024 Encounters Encounter Location Date Provider Diagnosis [facility] [employer] [facility] [address] [facility] [address] [place] [address] 01/31/2024 Cleo Peters Major depressive disorder, recurrent, moderate F33.1 ; Generalized anxiety disorder F41.1 ; Attention-deficit hyperactivity disorder, combined type F90.2 ; Chronic insomnia F51.04 ; Panic attacks F41.0 and Chronic fatigue syndrome G93.32 [facility], [place] [address] [facility] [address] [place] [address] 02/26/2024 Jevon Ray ADHD (attention deficit hyperactivity disorder), combined type F90.[address] [facility] [address] [place] [address] 03/03/2024 Cleo Peters Major depressive disorder, recurrent, moderate F33.1 ; Attention-deficit hyperactivity disorder, combined type F90.2 ; Generalized anxiety disorder F41.1 ; Chronic insomnia F51.04 ; Panic attacks F41.0 and Chronic fatigue syndrome G93.32 [facility], [address] [address] 03/31/2024 Cleo Peters Major depressive disorder, recurrent, mild F33.0 ; Attention-deficit hyperactivity disorder, combined type F90.2 ; Generalized anxiety disorder F41.1 ; Chronic insomnia F51.04 ; Panic attacks F41.0 and Chronic fatigue syndrome G93.32 [facility], [address] [address] 04/23/2024 Cleo Peters Major depressive disorder, recurrent, mild F33.0 ; Attention-deficit hyperactivity disorder, combined type F90.2 ; Generalized anxiety disorder F41.1 ; Chronic insomnia F51.04 ; Panic attacks F41.0 and Chronic fatigue syndrome G93.32 [place] [address] [facility] [address] [facility] [address] [place] [address] 05/27/2024 Edith Molina Attention-deficit hyperactivity disorder, combined type F90.2 ; Major depressive disorder, recurrent, mild F33.0 ; Generalized anxiety disorder F41.1 ; Panic attacks F41.0 ; Chronic insomnia F51.04 and Chronic fatigue syndrome G93.32 [facility], [place] [address] [facility] [address] [place] [address] 07/07/2024 Edith Molina Attention-deficit hyperactivity disorder, combined type F90.2 ; Major depressive disorder, recurrent, mild F33.0 ; Generalized anxiety disorder F41.1 ; Panic attacks F41.0 ; Chronic fatigue syndrome G93.32 and Chronic insomnia F51.04 [facility] [address] [place] [address] 08/04/2024 dEith Molina Major depressive disorder, recurrent, mild F33.0 ; Attention-deficit hyperactivity disorder, combined type F90.2 ; Generalized anxiety disorder F41.1 ; Panic attacks F41.0 ; Chronic fatigue syndrome G93.32 and Chronic insomnia F51.04 [facility] [address] [place] [address] 09/29/2024 Edith Oakleyjose Generalized anxiety disorder F41.1 ; Major depressive disorder, recurrent, in partial remission F33.41 ; Attention-deficit hyperactivity disorder, combined type F90.2 ; Chronic insomnia F51.04 ; Chronic fatigue syndrome G93.32 ; Panic attacks F41.0 ; Encounter for screening for cardiovascular disorders Z13.6 and Encounter for screening for depression Z13.31 [place] [address] [place] [address] 02/04/2024 Cleo Peters Attention-deficit hyperactivity disorder, combined type F90.2 [facility], [facility] [address] [place] [address] 02/04/2024 Cleo Peters [facility], [place] [address] [place] [address] 02/05/2024 Cleo Peters [facility], [facility] [address] [place] [address] 02/08/2024 Cleo Peters [facility], [facility] [address] [place] [address] 02/15/2024 Cleo Peters [facility], [facility] [address] [place] [address] 01/31/2024 Cleo Peters [facility], [place] [address] [place] [address] 02/05/2024 Cleo Peters [facility], [facility] [address] [place] [address] 02/05/2024 Cleo Mejiasunshinekevin [facility], [facility] [address] [place] [address] 04/09/2024 Cleo Mejiasunshinekevin [facility], [facility] [address] [place] [address] 04/09/2024 Cleo Peters [facility], [facility] [address] [facility] [address] [place] [address] 05/28/2024 Edith Molina [facility], [facility] [address] [facility] [address] [place] [address] 05/28/2024 Edith Molina [facility], [facility] [address] [facility] [address] [facility] [address] [place] [address] 09/01/2024 Edith Jesse Attention-deficit hyperactivity disorder, combined type F90.2 [place] [address] [facility] [address] [facility] [address] [place] [address] 09/29/2024 Edithalfredo Molina Attention-deficit hyperactivity disorder, combined [...] daytime sleepiness. Plan: - follow up with pellet mill operator and any recommeneded testing/provid ers recommended [...] daytime sleepiness. 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 - [employer] encouraged continuing Adderall with modafinil Plan: - Continue modafinil as prescribed by pellet mill operator Follow-up in 6 weeks, sooner if [...] slightly, has pulmonology appointment next month - [employer] encouraged continuing Adderall with modafinil Plan: - Continue treatment plan with pellet mill operator Follow-up in 2 months, sooner if [...] slightly, has pulmonology appointment next month - [employer] encouraged continuing Adderall with modafinil Plan: - Continue treatment plan with pellet mill operator Follow-up in 2 months, sooner if [...] c Fatigue - Recently 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 Plan: - follow up with pellet mill operator and any recommeneded testing/provid ers recommended [...] daytime sleepiness. 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 - [employer] encouraged continuing Adderall with modafinil Plan: - Continue modafinil as prescribed by pellet mill operator Follow-up in 6 weeks, sooner if [...] slightly, has pulmonology appointment next month - [employer] P[employer] encouraged continuing Adderall with modafinil Plan: - Continue treatment plan with pellet mill operator Follow-up in 2 months, sooner if [...] slightly, has pulmonology appointment next month - [employer] P[employer] encouraged continuing Adderall with modafinil Plan: - Continue treatment plan with pellet mill operator Follow-up in 2 months, sooner if [...] c Fatigue - Recently 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 Plan: - follow up with pellet mill operator and any recommeneded testing/provid ers recommended [...] daytime sleepiness. 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 - [employer] encouraged continuing Adderall with modafinil Plan: - Continue modafinil as prescribed by pellet mill operator Follow-up in 6 weeks, sooner if [...] slightly, has pulmonology appointment next month - [employer] encouraged continuing Adderall with modafinil Plan: - Continue treatment plan with pellet mill operator Follow-up in 2 months, sooner if [...] slightly, has pulmonology appointment next month - [employer] P[employer] encouraged continuing Adderall with modafinil Plan: - Continue treatment plan with pellet mill operator Follow-up in 2 months, sooner if [...] slightly, has pulmonology appointment next month - [employer] encouraged continuing Adderall with modafinil Plan: - Continue treatment plan with pellet mill operator Follow-up in 2 months, sooner if [...] to staffing shortages at her job at [employer] is noted as a primary stressor. Plan: [...] Provider Name:Edith gonzalez, 12/29/2024 08:30:00 AM, [address] [facility] [address], [facility] [address], [place], [address], Insurance Providers Payer Name Payer Address Payer Phone Subscriber Number Group Number Insured Name Patient Relationship to Insured Coverage Start Date Coverage End Date [facility] [id number] [place] [address] [id number] Sarai Marie Self - patient is the insured Medical (General) History Medical History History ICD Code chronic fatigue syndrome asthma hx DVT hx seizures Past Psychiatric History: Anxiety Disord er,Major Depressive Episode undefined Gastroesophageal reflux disease K21.9 Surgical History Surgery Date(Month/Year) c sections 2008- galbladder removal 2012 gastric bypass 05/2023 Hospitalization History Reason Date(Month/Year) pneumonia 2022
--- OUTSIDE RECORDS SUMMARY | 2024-10-23 14:26 | XMS_ITS | Clinical Summary ---
[facility] Address [address] [place] [address] [place] [address] Care Team Providers Care Pharmaceutical Sales Representative Name Role Phone Heraclio Cleveland DO Primary [...] 0 Active fluticasone propionate (FLONASE) 50 mcg/spray [place], Suspension nasal inhaler fluticasone propionate 50 mcg/actuation [...] on file Legal Sex Female 8:28 AM WELT MAKER Gender Identity Not on file Sexual Orientation [...] age to complete this topic Care Teams Pharmaceutical Sales Representative Relationship Specialty Start Date End Date Heraclio Cleveland DO [address] [address] PCP - General Internal Medicine 08/29/19
--- OUTSIDE RECORDS SUMMARY | 2024-10-23 14:26 | XMS_ITS | Referral Summary ---
Author Organization [facility] Address [facility] [place] [address] Care Team Providers Care Battery Starter Name Role Phone Heraclio Cleveland DO Primary Care Provider [phone]- [phone] Allergies Active Allergy Reactions Criticality Noted Date [...] on file Legal Sex Female 8:29 AM SOFTWARE ADMINISTRATOR Gender Identity Female 10/31/2021 1:29 PM CDT Sexual Orientation Straight 10/31/2021 1: 29 PM CDT Last Filed Vital Signs Vital Sign Reading Time Taken Comments Blood Pressure 114/81 11/11/2021 4:05 PM CDT Pulse 105 11/11/2021 4:05 PM CDT Temperature 36.6 C (97.8 F) 05/15/2019 2:01 PM SOFTWARE ADMINISTRATOR Respiratory Rate - - Oxygen Saturation 96% 11/11/2021 4:05 PM CDT Inhaled Oxygen Concentration - - Weight 118.8 kg (261 lb 12.8 oz) 05/15/2019 2:01 PM SOFTWARE ADMINISTRATOR Height 159.5 cm (5' 2.8 ) 05/15/2019 2:01 PM SOFTWARE ADMINISTRATOR Body Mass Index 46.67 05/15/2019 2:01 PM SOFTWARE ADMINISTRATOR Plan of Treatment Not on file Insurance [facility] HMO/PPO Address: [address] [address] [place] [address] [facility] Care Teams Battery Starter Relationship Specialty Start Date End Date Heraclio Cleveland DO PCP - General Internal Medicine 12/10/18
--- OUTSIDE RECORDS SUMMARY | 2024-10-23 14:26 | XMS_ITS | Clinical Summary ---
Author Organization [facility] Address [facility] [place] [address] Care Team Providers Care Implementation Technician Name Role Phone Heraclio Cleveland DO Primary Care Provider [phone]- [phone] Allergies Active Allergy Reactions Criticality Noted Date [...] on file Legal Sex Female 8:29 AM CASINO CASHIER MANAGER Gender Identity Female 10/31/2021 1:29 PM CDT Sexual Orientation Straight 10/31/2021 1: 29 PM CDT Obstetrics History Last Filed Vital Signs Vital Sign Reading Time Taken Comments Blood Pressure 114/81 11/11/2021 4:05 PM CDT Pulse 105 11/11/2021 4:05 PM CDT Temperature 36.6 C (97.8 F) 05/15/2019 2:01 PM CASINO CASHIER MANAGER Respiratory Rate - - Oxygen Saturation 96% 11/11/2021 4:05 PM CDT Inhaled Oxygen Concentration - - Weight 118.8 kg (261 lb 12.8 oz) 05/15/2019 2:01 PM CASINO CASHIER MANAGER Height 159.5 cm (5' 2.8 ) 05/15/2019 2:01 PM CASINO CASHIER MANAGER Body Mass Index 46.67 05/15/2019 2:01 PM CASINO CASHIER MANAGER Plan of Treatment Health Maintenance Due [...] patient's age to complete this topic Insurance [facility] HMO/PPO Address: [address] [address] [place] [address] [facility] CMR Care Teams Implementation Technician Relationship Specialty Start Date End Date Heraclio Cleveland DO PCP - General Internal Medicine 12/10/18
--- OUTSIDE RECORDS SUMMARY | 2024-10-23 14:26 | XMS_ITS ---
Author Organization [facility] [place] ([address]) Address [address] [place] [address] Care Team Providers Care Canine Deputy Name Role Phone Heraclio Cleveland Primary Care Provider Unavailab Mely Esquivel Unavailable [phone] REASON FOR VISIT Needs call back from office Encounters Encounter Location Date Provider Diagnosis [facility] - [address] [address] 10/06/2024 Mely Jay Plan Of Treatment Next Appt Details Provider Name:Mely hallman, 11/05/2024 08:45:00 AM, [address] [facility] [address], [place], [address], Progress Notes * Sarai MOYERDOB:[birth year] (39 yo F)Acc No.[id number]:10/06/2024 Patient: Eder MOESarai RENE :1985 A ge:39 Y S ex:Female Address:[address] [place], [address] * true * Date: Generated for Printi ng/Faxing/eTransmitting on: 0 10/23/2024 02:26 PM CDT
--- OUTSIDE RECORDS SUMMARY | 2024-10-23 14:26 | XMS_ITS | Clinical Summary ---
Author Organization [facility] Address [address] [place] [place] [address] Care Team Providers Care Washer Meat Name Role Phone Heraclio Cleveland DO Primary Care Provider [phone]- [phone] Heraclio Cleveland DO Unavailable [phone] Source Comments [facility],non-owned Affiliates and Associated Physician Practices is amultiple site organization consisting of ambulatory clinics and hospital sitesin [place], [place], [place] and [place]. This disclosure is being madepursuant to the Care Everywhere program and may not contain all information available regarding this patient. Last updated 18.[facility] [employer] Allergies Active Allergy Reactions Criticality Noted Date [...] age to complete this topic Insurance [facility] Address: [facility] [id number] [place] [address] Care Teams Washer Meat Relationship Specialty Start Date End Date Heraclio Cleveland DO PCP - General Internal Medicine 10/12/16 Heraclio Cleveland DO Internal Medicine 10/12/16
--- OUTSIDE RECORDS SUMMARY | 2024-10-23 14:27 | XMS_ITS | Patient Health Record ---
Author Organization [facility] [employer] [place] ([address]) Address [address] [address] Care Team Providers Care Driver Messenger Name Role Phone Heraclio Cleveland Primary Care Provider Unavailab le Mely Jay Unavailable [phone] [employer], Provider Unavailable Unavailab le Allergies No Known Allergies Results Component Value Reference Range Notes -Pneumococcal Ab (23 Serotyp e) Reviewed date:06/04/2024 04:13:38 PM Interpretation:Normal Performing Lab:[facility], [address] [place] [id number], Phone - [phone], Director - PhDBCNeil Notes/Report: Pneumo Ab Type [...] developed and its performance characteristics determined by [employer]. It has not been cleared or approved [...] 6.11 -Pneumococcal Ab (23 Serotyp e) Reviewed date:04/03/2024 12:25:10 PM Interpretation:Abnormal Performing Lab:[facility], [address] [place] [address], [address] [id number], Phone - [phone], Director - PhDBCNeil Notes/Report: Pneumo Ab Type [...] developed and its performance characteristics determined by [employer]. It has not been cleared or approved by the U.S. Food and Drug Administration. FLAG Interpretation: A = Abnormal, H = High, L = Low -Tetanus Antitoxoid IgG Ab Reviewed date:04/03/2024 12:25:18 PM Interpretation:Normal Performing Lab:[facility] [address] [id number], Phone - [phone], Director - Yimi Notes/Report: Tetanus Antitoxoid IgG Ab 2.67 <0.10 IU/mL Interpretation: Non-Protective <0.10 Protective >=0.10 Results for this test are for research purposes only by the assay's black jack dealer. The performance characteristics of this product have not been established. Results should not be used as a diagnostic procedure without confirmation of the diagnosis by another medically established diagnostic product or procedure. -Haemophilus influenzae B Ig G Reviewed date:04/03/2024 12:37:02 PM Interpretation:Normal Performing Lab:[facility] [place], [address] [place] [id number], Phone - [phone], Director - Yimi Notes/Report: Haemophilus influenzae B IgG 1.86 NOTE: An anti-Hib level of 0.15 ug/mL is generally accepted as the minimum level for protection. Optimal protection post-vaccination requires a level greater than 1.00 ug/mL. -Immunoglobulins A/E/G/M, Se rum Reviewed date:04/03/2024 12:25:32 PM Interpretation:Normal Performing Lab:[facility], [address] [place] [id number], Phone - [phone], Director - Janneth Notes/Report: Immunoglobulin G, Qn, Serum 343 943-0415 mg/d L Immunoglobulin A, Qn, Serum 296 87-352 mg/dL Immunoglobulin M, Qn, Serum 88 26-217 mg/dL Immunoglobulin E, Total 534 6-495 IU/mL Reason For Referral No Information Medications Medication [...] W/U Status Risk Notes Problem Anxiety disorder (889620008) Anxiety disorder, unspecified (F41.9) Active confirmed Problem Chronic allergic conjunctivitis (37288821) Other chronic allergic conjunctivitis (H10.45) Active confirmed Problem Allergic rhinitis caused by pollen (disorder) (98119689) Allergic rhinitis due to pollen (J30.1) Active confirmed Problem Allergic rhinitis (23529805) Other allergic rhinitis (J30.89) Active confirmed Problem Uncomplicated moderate persistent asthma (843220561) Moderate persistent asthma, uncomplicated (J45.40) Active confirmed Problem Uncomplicated severe persistent asthma (683541763) Severe persistent asthma, uncomplicated (J45.50) Active confirmed Problem Gastro-esophageal reflux disease without esophagitis (567151987) Gastro-esophageal reflux disease without esophagitis (K21.9) Active confirmed Problem Allergic rhinitis caused by animal hair and dander (101305238128920) Allergic rhinitis due to animal (cat) (dog) hair and dander (J30.81) Active confirmed Problem Allergy to egg protein (finding) (045426180) Allergy to eggs (Z91.012) Active confirmed Problem Essential hypertension (64324747) Essential (primary) hypertension (I10) Active confirmed Problem Depression (968259599) Depression, unspecified (F32.A) Active confirmed Problem Eosinophilic asthma (796568652) 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) Active confirmed Vital Signs Respiratory Rate 16 /min 11/07/2023 Oximetry 100 % 09/10/2024 Blood pressure diastolic 79 mm Hg 09/10/2024 Height 63 in 09/10/2024 Blood pressure systolic 117 mm Hg 09/10/2024 Weight 177.8 lbs 09/10/2024 BMI 31.49 kg/m2 09/10/2024 Encounters Encounter Location Date Provider Diagnosis [address] [address] 04/03/2024 Mely Jay [address] [address] 07/08/2024 Mely Jay [address] [address] 10/06/2024 Mely Jay [address] [address] 11/29/2023 Mely Jay [address] [employer] [address] [address] 11/07/2023 Mely Jay Allergic rhinitis du e to pollen J30.1 ; Severe persistent asthma, uncomplicated J45.50 ; Eosinophilic asthma J82.83 ; Allergic rhinitis due to animal (cat) (dog) hair and dander J30.81 ; Other allergic rhinitis J30.89 ; Other chronic allergic conjunctivitis H10.45 and Allergy to eggs Z91.012 [facility] [address] [place], [place] [address] [address] [address] 12/05/2023 Mely Jay Allergic rhinitis du e to pollen J30.1 ; Severe persistent asthma, uncomplicated J45.50 ; Eosinophilic asthma J82.83 ; Allergic rhinitis due to animal (cat) (dog) hair and dander J30.81 ; Other allergic rhinitis J30.89 ; Other chronic allergic conjunctivitis H10.45 and Allergy to eggs Z91.012 [facility] [address] [place] [address] 01/30/2024 Mely Jay Allergic rhinitis du e to pollen J30.1 ; Severe persistent asthma, uncomplicated J45.50 ; Eosinophilic asthma J82.83 ; Allergic rhinitis due to animal (cat) (dog) hair and dander J30.81 ; Other allergic rhinitis J30.89 ; Other chronic allergic conjunctivitis H10.45 and Allergy to eggs Z91.012 [facility] [address] [place] [address] 03/26/2024 Mely Jay Allergic rhinitis du e to pollen J30.1 ; Severe persistent asthma, uncomplicated J45.50 ; Eosinophilic asthma J82.83 ; Allergic rhinitis due to animal (cat) (dog) hair and dander J30.81 ; Other allergic rhinitis J30.89 ; Other chronic allergic conjunctivitis H10.45 ; Allergy to eggs Z91.012 and Other pneumonia, unspecified organism J18.8 [facility] [address] [place] [address] 05/21/2024 Mely Jay Allergic rhinitis du e to pollen J30.1 ; Severe persistent asthma, uncomplicated J45.50 ; Eosinophilic asthma J82.83 ; Allergic rhinitis due to animal (cat) (dog) hair and dander J30.81 ; Other allergic rhinitis J30.89 ; Other chronic allergic conjunctivitis H10.45 ; Allergy to eggs Z91.012 and Other pneumonia, unspecified organism J18.8 [facility] [address] [place] [address] [facility] [address] [address] 07/16/2024 Mely Jay Allergic rhinitis du e to pollen J30.1 ; Severe persistent asthma, uncomplicated J45.50 ; Eosinophilic asthma J82.83 ; Allergic rhinitis due to animal (cat) (dog) hair and dander J30.81 ; Other allergic rhinitis J30.89 ; Other chronic allergic conjunctivitis H10.45 ; Allergy to eggs Z91.012 and Other pneumonia, unspecified organism J18.8 [facility] [address] [facility] [address] [place] [address] 09/10/2024 Mely Jay Allergic rhinitis du e to pollen J30.1 ; Severe persistent asthma, uncomplicated J45.50 ; Eosinophilic asthma J82.83 ; Allergic rhinitis due to animal (cat) (dog) hair and dander J30.81 ; Other allergic rhinitis J30.89 ; Other chronic allergic conjunctivitis H10.45 ; Allergy to eggs Z91.012 and Other pneumonia, unspecified organism J18.[address] [address] 12/08/2023 Provider Rommel Allergic rhinitis due to pollen J30.1 ; Severe persistent asthma, uncomplicated J45.50 and Allergy to eggs Z91.012 Assessments Encounter Date Diagnosis (ICD Code) Assessment [...] 07/16/2024 Other allergic rhinitis (ICD-10 - J30.89) 09/10/2024 Other allergic rhinitis (ICD-10 - J30.89) 05/21/2024 Other allergic rhinitis (ICD-10 - J30.89) 03/26/2024 Other allergic rhinitis (ICD-10 - J30.89) 01/30/2024 Other allergic rhinitis (ICD-10 - J30.89) 11/07/2023 Other allergic rhinitis (ICD-10 - J30.89) 12/05/2023 [...] EpiPen available at all times given history. 12/05/2023 Allergy to eggs (ICD-10 - Z91.012) History of asthma flares with exposure to lightly cooked egg products. Skin testing to egg negative at her initial visit. We discussed having EpiPen available at all times given history. 12/08/2023 Allergy to eggs (ICD-10 - Z91.012) 11/07/2023 Allergy to eggs (ICD-10 - Z91.012) [...] Provider Name:Mely hallman, 11/05/2024 08:45:00 AM, [facility], [address], [place], [address], Insurance Providers Payer Name Payer Address Payer Phone Subscriber Number Group Number Insured Name Patient Relationship to Insured Coverage Start Date Coverage End Date R [address] [address] [place], [place] [id number] [phone] [id number] Sarai Marie Self - patient is the [...]
--- OUTSIDE RECORDS SUMMARY | 2024-10-23 14:27 | XMS_ITS | Data Portability ---
Author Organization [place] [facility], Main Office Address [address] [place] [address] Assessment No assessment recorded. Plan of Treatment [...] rage: negative mg/dl) negati ve Not Available [facility], [address], [address], 05/05/2022 16:45:07 05/05/20 22 05/05/2022 urina lysis , dipst ick Urobilinogen (reference range: 0.2-1 mg/dl) 0.2 Not Available Z_[facility] c_[address], [address], 05/05/2022 16:45:07 05/05/20 22 05/05/2022 urina lysis , dipst ick Protein (reference range: negative mg/dl) Negati ve Not Available Z_[facility]_[address], [address], 05/05/2022 16:45:07 05/05/20 22 05/05/2022 urina lysis , dipst ick pH (reference range: 5-7) 5.5 Not Available [address], [address], [address], 05/05/2022 16:45:07 05/05/20 22 05/05/2022 urina lysis , dipst ick Blood (reference range: negative Jorge/ l) Hemoly zed: Trace Not Available [address], [address], [address], 05/05/2022 16:45:07 05/05/20 22 05/05/2022 urina lysis , dipst ick Specific Wedron (reference range: 1.005-1.030) 1.025 Not Available [address], [address], [address], 05/05/2022 16:45:07 07/07/19 23 07/07/2022 urina lysis , dipst ick Leukocytes (reference range: negative maria luisa/ l) Negati ve Not Available [place] [address], [place], [address], 07/07/2022 16:12:36 07/07/19 23 07/07/2022 urina lysis , dipst ick Nitrite (reference rage: negative mg/dl) negati ve Not Available [address], [address], 07/07/2022 16:12:36 07/07/19 23 07/07/2022 urina lysis , dipst ick Urobilinogen (reference range: 0.2-1 mg/dl) 0.2 Not Available [address], [address], 07/07/2022 16:12:36 07/07/19 23 07/07/2022 urina lysis , dipst ick Protein (reference range: negative mg/dl) Negati ve Not Available [address], [address], 07/07/2022 16:12:36 07/07/19 23 07/07/2022 urina lysis , dipst ick pH (reference range: 5-7) 7.5 Not Available Z_[address], [address], 07/07/2022 16:12:36 07/07/19 23 07/07/2022 urina lysis , dipst ick Blood (reference range: negative Jorge/ l) Negati ve Not Available [address] [address], [place], [address], 07/07/2022 16:12:36 07/07/19 23 07/07/2022 urina lysis , dipst ick Specific Wedron (reference range: 1.005-1.030) 1.020 Not Available [address], [address], 07/07/2022 16:12:36 07/07/19 23 07/07/2022 urina lysis , dipst ick Ketone (reference range: negative mg/dl) Negati ve Not Available [address] [address], [place], [address], 07/07/2022 16:12:36 07/07/19 23 07/07/2022 urina lysis , dipst ick Bilirubin (reference range: negative mg/dl) Negati ve Not Available [address], [address], 07/07/2022 16:12:36 07/07/19 23 07/07/2022 urina lysis , dipst ick Glucose (reference range: negative mg/dl) Negati ve Not Available [address], [place] [address], [place], [address], 07/07/2022 16:12:36 07/07/19 23 07/07/2022 urina lysis , dipst ick Appearance Clear Not Available _[address], [place] [address], [place], [address], 07/07/2022 16:12:36 07/07/19 23 07/07/2022 urina lysis , dipst ick Color Yellow Not Available [address], [address], 07/07/2022 16:12:36 06/21/20 22 06/21/2022 US, renal No observ ation record ed. [id number] [facility] [address] [place], [address], 08/23/2022 15:57:40 Result Notes None recorded. Problems Name Problem SNOMED Code Status Onset Date Resolution Date Notes Provider Name and Address Organization Details Recorded Time Ureteric stone 96174961 Active 2021 Not Available [facility] 15:55:34 Acute urinary tract infection 548636980 Active 2021 Not Available [facility] 3 15:55:34 Acute cholecystitis 22663373 Active Not Available [facility] 3 15:55:35 Problem Notes None recorded. Procedures Surgical History Date Name Laterality Status Provider Name and Address Organization Details Recorded Time section completed Not Available [facility] 08/23/2022 15:54:13 Imaging Results Imaging Date Name Status LastModified by Organiz ation Details LastModified Time 06/21/2022 US, renal completed [id number] 300 26 [facility] [address] [place], [address], 08/23/2022 15:57:40 Procedure Notes None recorded. Medical Equipment None Reported. Allergies Allergen ID Allergen Name Allergen Category Reaction Reaction Severity Criticality Documentation Date Start Date Code Code System Note Provider Name and Address Organization Details Recorded Time 59874 shellfish derived food,medi cation Not available Not available Not available 08/23/2022 30718 UNK Not Available [facility] 3 15:57:38 41424 house dust allergeni c extract environme nt,medica tion Not available Not available Not available 08/23/2022 38106 9 RxNorm Not Available [facility] 3 15:57:38 53899 egg extract food,medi cation Not available Not available Not available 08/23/2022 99778 15 RxNorm Not Available [facility] 3 15:57:38 Medications Name Sig Start [...] % 98 % 84 /min 98.2 [degF] 898244. 86 g 134 mm[Hg] 91 mm[Hg] Not Available [facility] 3 15:55:06 Date Recorded Body mass index (BMI) Body height Oxygen saturation Oxygen saturation in Arterial blood by Pulse oximetry Heart rate Body temperature Body weight Provider Name and Address Organization Details Last Updated DateTime 3 54.2 kg/m2 160.02 cm 99 % 99 % 86 /min 97.7 [degF] 479188. 27 g Not Available [facility] 3 15:55:06 Social History Question Answer Notes LastModified by Organizat ion Details LastModified Time Tobacco Smoking Status Former Smoker Not Available [facility] 08/23/2022 15:54:06 What Is Your Level Of Alcohol Consumption? None [id number].[id number] 026 Information not available 08/23/2022 What Is Your Level Of Caffeine Consumption? 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 6-10yearssinc elastcigarett e MIGRATION.2783802 026 Information not available 08/23/2022 What Was The Date Of Your Most Recent Tobacco Screening? 05/05/2022 MIGRATION.4926558 026 Information not available 08/23/2022 Do You Use Any Illicit Or Recreational Drugs? No MIGRATION.6057956 026 Information not available 08/23/2022 Has Tobacco Cessation Counseling Been Provided? No MIGRATION.4357931 026 Information not available 08/23/2022 Do You Or Have You Ever Used Any Other Forms Of Tobacco Or Nicotine? No MIGRATION.6493764 026 Information not available 08/23/2022 Sex: Unknown Functional Status None recorded. Mental Status None recorded. Family History Relationship Description Onset Age of this Age Resolved Age Notes LastModified by Organization Details LastModified Time Father Diabetes mellitus MIGRATION.505 [id number] Not available 08/23/2022 15:54:13 Father Hypertensive disorder MIGRATION.132 2378009 Not available 08/23/2022 15:54:14 Mother Diabetes mellitus MIGRATION.419 2777376 Not available 08/23/2022 15:54:14 Mother Kidney stone MIGRATION.0 30 2636813 Not available 08/23/2022 15:54:14 Mother Hypertensive disorder MIGRATION.543 4741172 Not available 08/23/2022 15:54:14 Sister Kidney stone MIGRATION.0 30 8697783 Not available 08/23/2022 15:54:14 Notes:Both parents have [...] SNOMED-CT Code Diagnosis ICD10 Code Diagnosis Note [id number] MD VY Macario_GMG [facility] [address] [place] [address] 05/05/2022 00:00:00 05/05/2022 17:03:51 [id number] MD VY Macario_FABBY [facility] [address] [address] 07/07/2022 00:00:00 07/07/2022 16:29:53 Health Concerns Section Related Observation LastModified by Organization Detai ls LastModified Time None Recorded Concern Status LastModified by Organization Details LastModified Time None Recorded Advance Directives Directive None Recorded Payers None recorded. OBGyn Episode No OBEpisode recorded.
--- OUTSIDE RECORDS SUMMARY | 2024-10-23 14:27 | XMS_ITS ---
Author Organization [facility] [employer] [place] ([address]) Address [address] [place] [address] Care Team Providers Care Hair Machine Operator Name Role Phone Heraclio [place] Primary Care Provider UnavailMely Bernabe Unavailable [phone] Allergies No Known Allergies Results Component Value [...] review and pick correct strength-formula tion from [employer] options. If intended option is not shown, [...] 09/10/2024 Encounters Encounter Location Date Provider Diagnosis [facility] [address] [facility] [address] [place] [address] 09/10/2024 Mely Jay Allergic rhinitis du e [...] Provider Name:Mely hallman, 11/05/2024 08:45:00 AM, 2022 [facility], [address], [place], [address], Procedure Notes * Category Sub-Category Detail Notes FASENRA (benralizumab) Administration Dosage Subcutaneous administration: : 30 mg (30 units) Frequency Interval: every 4 weeks x 3 Location Arm: Left lower Dosing Time / Lot Number / Expiration Ti me of administration, Jamila Carr 09/10/2024 08:38:45 AM CDT >, Time of administration, Lot Number [id number], , Expiration Date Reaction Local: None Post-procedural [...] * Jami MOYER:[birth year] (39 yo F)Acc No.[id number]:09/10/2024 FASENRA 2 Patient: Sarai SPENCER Provider: Angel Jay MD :1985 A ge:39 Y S ex:Female Date:09/10/2024 Address:[address] [place] [address] [facility] Pcp:Heraclio [place] Subjective: * Chief [...] walking pneumonia. She was also hospitalized at [place] February [address] pneumonia[address] CXR and CT [...] Age of carpet? 4 Do you have vami-ve-usvs carpeting? N o What is the age [...] CDT >, Time of administration, Lot Number [id number], , Expiration Date . Reaction L ocal N one Post-procedural check-out: , Patient was discharged 30 minutes after dosing administration, Vitals taken 30 minutes after dosing administration:. Medication Source F ASENRA Source [facility] (Insurance-provided) S ource Verfication: Y rl Medical necessity for in-office services manager: T he patient or caregiver is not suitable, not competent or is physically unable to administer the FASENRA product FDA-labeled for self-administration for the following reason(s): n eedle phobia p ost vitals 111/78, HR 88, RR 14, O2 100%. * Procedure Codes: 9 6160 PT-FOCUSED HLTH RISK [id number] DOC MEDS VERIFIED W/PT OR [id number] CHEMO, ANTI-NEOPL, SQ/AWM1718 [id number] RESPIRATORY FLOW VOLUME LOOP * Preventive Medicine: [...] Fasenra) * Billing Information: * Visit Code: 18553 Office Visit, Est Pt., Level 4. Modifiers: 25 * Procedure Codes: 22020 PT-FOCUSED HLTH RISK ASSMT. G8427 DOC MEDS VERIFIED W/[place]. [address] CHEMO, ANTI-NEOPL, SQ/IM. A4617 Mouthpiece. [address]28[address] RESPIRATORY FLOW VOLUME LOOP. * Sign off status: Completed true * Provider: Angel Jay MD Date: 0 09/10/2024 Generated for Cydney carson/Sylvester/Carlos on: 0 10/23/2024 02:26 PM CDT History and Physical Notes * [...] walking pneumonia. She was also hospitalized at [place] February [address] for pneumonia[address] CXR and CT [...]
--- OUTSIDE RECORDS SUMMARY | 2024-10-23 14:27 | XMS_ITS ---
Author Organization [facility] [employer] [facility] [employer] [place] ([address]) Address [address] [place] [address] Care Team Providers Care Medical Case Worker Name Role Phone Heraclio [place] Primary Care Provider UnavailMely Bernabe Unavailable [phone] Allergies No Known Allergies Results Component Value [...] review and pick correct strength-formula tion from [employer] options. If intended option is not shown, [...] 07/16/2024 Encounters Encounter Location Date Provider Diagnosis [facility] [address] [address] 07/16/2024 Mely Jay Allergic rhinitis du e [...] 11/05/2024 08:45:00 AM, 2022 [facility], [address] [place] [address], [address], Procedure Notes * Category Sub-Category Detail Notes FASENRA (benralizumab) Administration Dosage Subcutaneous administration: : 30 mg (30 units) Frequency Interval: every 8 weeks Location Arm: Left upper Dosing Time / Lot Number / Expiration Ti me of administration, Nury Chacon 07/16/2024 09:28:43 AM SHEAR HELPER >, Lot [id number], Expiration [id number] Reaction Local: None Post-procedural check-out: Patient was d ischarged 30 minutes after dosing administration BP: 119/85 HR: 84 02:99 Medication Source FASENRA Source: [facility] (Insurance-provided) Source Verfication:: Who pulled drug (pl ease type name in notes)? NURY/LEE Progress Notes * Sarai MOYERDOB:[birth year] (38 yo F)Acc No.[id number]:07/16/2024 FASENRA 2 Patient: Sarai SPENCER Provider: Angel Jay MD :1985 A ge:38 Y S ex:Female Date:07/16/2024 Address:[address] [place] [address] Jennifer [facility] Pcp:Heraclio [place] Subjective: * Chief Complaints: * [...] walking pneumonia. She was also hospitalized at [place] February [address] for pneumonia[address] CXR and CT [...] Age of carpet? 4 Do you have evbk-tn-pevk carpeting? N o What is the age [...] of pneumonia. We discussed switching to Xolair. Sraai has severe asthma with an eosinophilic phenotype. [...] of administration, Nury Chacon 07/16/2024 09:28:43 AM SHEAR HELPER >, Lot [id number], Expiration [id number]. Reaction L ocal N one Post-procedural check-out: P atient was discharged 30 minutes after dosing administration BP: 119/85 H R: 84 02:99.? Medication Source F ASENRA Source S [facility] (Insurance-provided) S ource Verfication: W ho pulled drug (please type name in notes)? NURY/LEE * Procedure Codes: 9 6160 PT-FOCUSED HLTH RISK RWAKUR4321 DOC MEDS VERIFIED W/PT OR PX89285 CHEMO, ANTI-NEOPL, SQ/GIO3886 [id number] RESPIRATORY FLOW VOLUME LOOP * Preventive Medicine: [...] Loop) * Billing Information: * Visit Code: 50318 Office Visit, Est Pt., Level 4. Modifiers: 25 * Procedure Codes: 84139 PT-FOCUSED HLTH RISK ASSMT. G8427 DOC MEDS VERIFIED W/[place]. [address] CHEMO, ANTI-NEOPL, SQ/IM. A4617 Mouthpiece. 32460 RESPIRATORY FLOW VOLUME LOOP. * R HELPER Sign off status: Completed true * Provider: Angel Jay MD Date: 0 07/16/2024 Generated for Reneei alli/Sylvester/eTransmitting on: 0 10/23/2024 02:26 PM CDT History [...] walking pneumonia. She was also hospitalized at [place] February [address] for pneumonia. CXR and CT [...]
[2024-10-23 14:40] LABS: Basophils Percent Auto 0.3 % (0.2-1.2); Hematocrit 39.6 % (37.0-47.0); Hemoglobin 12.4 g/dL (12.0-15.0); Immature Granulocyte Absolute 0.06 K/mm3 (0.00-0.031); Immature Granulocyte Percent A 0.4 % (0-0.5); Lymphocytes Absolute Auto 6.21 K/mm3 (0.9-3.2); Lymphocytes Percent Auto 42.7 % (18.3-44.2); Mean Corpuscular HGB Conc 31.3 g/dl (32-36); Mean Corpuscular Volume 92.7 fl (80-100); Mean Platelet Volume 8.8 fl (7.4-10.4); Monocytes Absolute Auto 0.9 K/mm3 (0.1-0.6); Neutrophils Absolute Auto 7.4 K/mm3 (1.3-6.7); Neutrophils Percent Auto 50.6 % (45.5-73.1); Platelet Count Result 286 k/mm3 (150-375); Red Blood Count 4.27 M/mm3 (4.2-5.4); Red Cell Distribution Width 13.2 % (11.5-14.5); White Blood Count 14.6 K/mm3 (4.5-10.0)
[2024-10-23 14:45] LABS: Add Urine Microscopic? YES; Appearance Urine Clear (Clear); Bacteria Urine None Seen /hpf; Bilirubin Urine Negative (Negative); Blood Urine 2+ (Negative); Color Urine Yellow (Yellow); Glucose Urine UA Negative (Negative); Ketones Urine Negative (Negative); Leukocyte Esterase Ur Negative LEU/UL (Negative); Nitrate Urine Negative (Negative); Non Pathogenic Casts 0-2; Protein Urine Negative (Negative); Specific Grav Ur 1.005 (1.001-1.035); Squamous Epithelial Cell Urine None Seen /hpf (Few); Urobilinogen Urine 0.2 mg/dL (<2.0); WBC Urine 0-5 /hpf (0-3)
[2024-10-23 14:52] LABS: Partial Thromboplastin Time 27.2 Seconds (22.3-36.8)
[2024-10-23 14:53] LABS: Alanine Aminotransferase 16 U/L (6-35); Albumin Level 3.8 g/dL (3.5-5.1); Alkaline Phosphatase 98 U/L (38-126); Anion Gap 10 mmol/L (4-12); Aspartate Amino Transferase 22 U/L (14-36); Bilirubin,Total 0.2 mg/dL (0.2-1.3); Blood Urea Nitrogen 4 mg/dL (7-17); Calcium 8.2 mg/dL (8.4-10.2); Carbon Dioxide 20 mmol/L (22-30); Chloride 112 mmol/L (98-107); Estimated CRCL calculation 103 ml/min; Estimated Glomerular Filt Rate > 60; Glucose 130 mg/dL (65-110); Potassium 2.9 mmol/L (3.4-5.0); Sodium 142 mmol/L (137-145)
[2024-10-23 15:12] LABS: Atypical Lymphocytes Present; Hypochromasia 1+; Platelet Estimate Adequate (Adequate); Schistocytes None Seen
[2024-10-23 17:24] LABS: Pregnancy On Board Control Positive; Urine Pregnancy Test Negative
[2024-10-23 17:34] LABS: BEDSIDEPREGUCG Negative (Negative)
[2024-10-23] MEDS: HYDROcodone/acetaminophen (*CRX) 5-325 MG TABLET 1 TAB PO (19:04)
[2024-10-23] MEDS: POTASSIUM CHLORIDE 20 MEQ PACKET (FOR LIQUID) 40 MEQ PO (19:04)
== END 2024-10-23 19:14 | disposition home or self-care (01) ==
PROVIDERS: Emergency Provider Emergency Medicine; PCP Internal Medicine
DX: J18.9 Pneumonia, unspecified organism (principal); R07.89 Other chest pain; D68.51 Activated protein C resistance; J45.909 Unspecified asthma, uncomplicated; F32.A Depression, unspecified; Z98.84 Bariatric surgery status; Z86.718 Personal history of other venous thrombosis and embolism; Z87.891 Personal history of nicotine dependence; Z90.49 Acquired absence of other specified parts of digestive tract; Z79.899 Other long term (current) drug therapy; R94.31 Abnormal electrocardiogram [ECG] [EKG]; R00.0 Tachycardia, unspecified
CPT/HCPCS: 36415; 71275; 80053; 81001; 81025; 85025; 85610; 85730; 93005; 94640; 96361; 96374; 99284; A9270; J1171; J7120; Q9967

== ENCOUNTER 2024-10-27 14:29 | Outpatient (CLI) | payer OTHER, SELFPAY ==
--- OUTSIDE RECORDS SUMMARY | 2024-10-27 15:06 | XMS_ITS | Clinical Summary ---
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
--- OUTSIDE RECORDS SUMMARY | 2024-10-27 15:06 | XMS_ITS | Clinical Summary ---
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 Gender Identity Female 10/31/2021 1:29 PM CDT Sexual Orientation Straight 10/31/2021 1: 29 PM CDT Obstetrics History Last Filed Vital Signs Vital Sign Reading Time Taken Comments Blood Pressure 114/81 11/11/2021 4:05 PM CDT Pulse 105 11/11/2021 4:05 PM CDT Temperature 36.6 C (97.8 F) 05/15/2019 2:01 PM DEPUTY SHERIFF BUILDING GUARD Respiratory Rate - - Oxygen Saturation 96% 11/11/2021 4:05 PM CDT Inhaled Oxygen Concentration - - Weight 118.8 kg (261 lb 12.8 oz) 05/15/2019 2:01 PM DEPUTY SHERIFF BUILDING GUARD Height 159.5 cm (5' 2.8 ) 05/15/2019 2:01 PM DEPUTY SHERIFF BUILDING GUARD Body Mass Index 46.67 05/15/2019 2:01 PM DEPUTY SHERIFF BUILDING GUARD Plan of Treatment Health Maintenance Due Date [...] patient's age to complete this topic Insurance [facility] CMR Care Teams Sand Operator Relationship Specialty Start Date End Date Heraclio Cleveland DO PCP - General Internal Medicine 12/10/18
--- OUTSIDE RECORDS SUMMARY | 2024-10-27 15:06 | XMS_ITS | Clinical Summary ---
Author Organization [facility] Address [address] [facility] [place] [address] Care Team Providers Care Machine Clothing Man Name Role Phone Heraclio Cleveland DO Primary Care Provider [phone]- [phone] Heraclio Cleveland DO Unavailable [phone] Source Comments [facility],non-owned Affiliates and Associated Physician Practices is amultiple site organization consisting of ambulatory clinics and hospital sitesin [place], [place], [place] and [place]. This disclosure is being madepursuant to the Care Everywhere program and may not contain all information available regarding this patient. Last updated 18.[facility] [place] Allergies Active Allergy Reactions Criticality Noted Date [...] complete this topic Insurance [employer] Care Teams Machine Clothing Man Relationship Specialty Start Date End Date Heraclio Cleveland DO PCP - General Internal Medicine 10/12/16 Heraclio Cleveland DO Internal Medicine 10/12/16
--- OUTSIDE RECORDS SUMMARY | 2024-10-27 15:06 | XMS_ITS | Referral Summary ---
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 Gender Identity Female 10/31/2021 1:29 PM CDT Sexual Orientation Straight 10/31/2021 1: 29 PM CDT Last Filed Vital Signs Vital Sign Reading Time Taken Comments Blood Pressure 114/81 11/11/2021 4:05 PM CDT Pulse 105 11/11/2021 4:05 PM CDT Temperature 36.6 C (97.8 F) 05/15/2019 2:01 PM PSYCHOPAEDIC NURSE Respiratory Rate - - Oxygen Saturation 96% 11/11/2021 4:05 PM CDT Inhaled Oxygen Concentration - - Weight 118.8 kg (261 lb 12.8 oz) 05/15/2019 2:01 PM PSYCHOPAEDIC NURSE Height 159.5 cm (5' 2.8 ) 05/15/2019 2:01 PM PSYCHOPAEDIC NURSE Body Mass Index 46.67 05/15/2019 2:01 PM PSYCHOPAEDIC NURSE Plan of Treatment Not on file Insurance [facility] HMO/PPO Address: [address] [address] [place] [address] [facility] Care Teams Animal Care Provider Relationship Specialty Start Date End Date Heraclio Cleveland DO PCP - General Internal Medicine 12/10/18
[2024-10-27 19:51] LABS: Anion Gap 10 mmol/L (4-12); Blood Urea Nitrogen 5 mg/dL (7-17); Calcium 8.7 mg/dL (8.4-10.2); Carbon Dioxide 22 mmol/L (22-30); Chloride 108 mmol/L (98-107); Estimated Glomerular Filt Rate > 60; Glucose 151 mg/dL (65-110); Potassium 3.2 mmol/L (3.4-5.0); Sodium 140 mmol/L (137-145)
== END 2024-10-27 14:30 | disposition home or self-care (01) ==
LOC: ANHGOSHLAB 14:30
PROVIDERS: PCP Internal Medicine; Visit Provider Nurse Practitioner
DX: E87.6 Hypokalemia (principal)
CPT/HCPCS: 36415; 80048

== ENCOUNTER 2024-12-24 14:12 | Outpatient (CLI) | payer OTHER, SELFPAY ==
--- NOTE | ~2024-12-24 | XR_ITS ---
EXAMINATION: XR chest 2V DATE: 12/24/2024 14:46 INDICATION: Acute cough TECHNIQUE: frontal and lateral views of the chest were obtained. COMPARISON: Chest radiograph dated 10/19/[address] dated 10/23/2024 FINDINGS: Again seen are patchy airspace opacities in the bilateral lower lung zones consistent with pneumonia. No pleural effusion or pneumothorax. The cardiomediastinal silhouette is normal. 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 Mild to moderate thoracic spondylosis. A couple small round renal stones projecting over the upper pole the left kidney which can be seen on CT the abdomen dated 10/03/2023. IMPRESSION: 1. Patchy airspace opacities in bilateral lower lungs consistent with pneumonia. 2. Left nephrolithiasis. Reviewed, dictated and finalized at location A. IMPRESSION: 1. Patchy airspace opacities in bilateral lower lungs consistent with pneumonia . 2. Left nephrolithiasis.
== END 2024-12-24 14:13 | disposition home or self-care (01) ==
PROVIDERS: PCP Nurse Practitioner; Visit Provider Nurse Practitioner
DX: R05.1 Acute cough (principal); R91.8 Other nonspecific abnormal finding of lung field; N20.0 Calculus of kidney
CPT/HCPCS: 71046

== ENCOUNTER 2024-12-31 14:54 | Outpatient (CLI) | payer OTHER, SELFPAY ==
--- OUTSIDE RECORDS SUMMARY | 2024-12-31 15:02 | XMS_ITS | Clinical Summary ---
Author Organization [facility] Address [address] [facility] [place] [address] Care Team Providers Care Solar Technician Name Role Phone Heraclio Cleveland DO Primary Care Provider [phone]- [phone] Heraclio Cleveland DO Unavailable [phone] [facility],non-owned Affiliates and Associated Physician Practices is amultiple site organization consisting of ambulatory clinics and hospital sitesin [place], [place], [place] and [place]. This disclosure is being madepursuant to the Care Everywhere program and may not contain all informatio navailable regarding this patient. Last updated 18.[facility] [place] Allergies Active Allergy Reactions Criticality Noted Date [...] 7 Active norethindrone-et hinyl estradiol-iron (ESTROSTEP FE) -20/-30/1-35 MG-MCG tablet Take 1 tablet by mouth [...] 6:26 PM CDT Height 160 cm (5' 3) 02/13/2020 6:26 PM CDT Body Mass Index 46.06 02/13/2020 6:26 PM CDT Plan of Treatment Health Maintenance Due Date Last Done Comments LIPID TESTING 1984 MAMMOGRAM 1984 HIV SCREENING 1999 HEPATITIS C SCREENING 08/16/2002 DTAP/TDAP/TD VACCINES (1 - Tdap) 2003 HEPATITIS B VACCINE (1 of 3 - 19+ 3-dose series) 2003 COVID-19 VACCINE (1 2023-2 5 season) 2024 DEPRESSION SCREENING 06/25/2024 [...] complete this topic Insurance [employer] Care Teams Solar Technician Relationship Specialty Start Date End Date Heraclio Cleveland DO PCP - General Internal Medicine 10/12/16 Heraclio Cleveland DO Internal Medicine 10/12/16
--- OUTSIDE RECORDS SUMMARY | 2024-12-31 15:02 | XMS_ITS | Patient Health Record ---
Author Organization [facility] [employer] Address [address] [place] [address] Care Team Providers Care Canary Raiser Name Role Phone Heraclio Cleveland DO Primary Care Provider Edith Barrios Unavailable [phone] Jevon Ray Unavailable [phone] Cleo Peters Unavailable [phone] Tunde Melara Unavailable [phone] Allergies Allergen (clinical drug ingredient) Drug/Non Drug Allergy documented on EMR Reaction Allergy Type Onset Date Status Eggs or Egg-derived Products Unknown Drug Allergy Active Results Component Value Reference Range Notes Screening Reviewed date:10/13/2024 12:43:03 PM Interpretation: Performing Lab: Notes/Report: Validity Testing Reviewed date:10/13/2024 12:43:10 PM Interpretation: Performing Lab: Notes/Report: NEED PHYSICIAN SIGNATURE Reviewed date:10/13/2024 12:42:56 PM Interpretation: Performing Lab: Notes/Report: Stimulants Reviewed date:10/13/2024 12:42:44 PM Interpretation: Performing Lab: Notes/Report: Phentermine NEGATIVE 100.0 ng/mL Not Medicated Consistent Methylphenidate NEGATIVE 50.0 ng/mL Not Medicate d Consistent Methamphetamine NEGATIVE 100.0 ng/mL Not Medicate d Consistent Amphetamine NEGATIVE 100.0 ng/mL Medicated Inconsistent Adderall Reviewed date:10/13/2024 12:42:36 PM Interpretation: Performing Lab: Notes/Report: Aripiprazole Reviewed date:10/13/2024 12:42:27 PM Interpretation: Performing Lab:1, [facility], [address] [place] [address], [place], Director - [id number] Notes/Report: An exception occurred while processing this report and so it has incomplete data. Please contact [employer] for assistance. Aripiprazole NEGATIVE 50.0 ng/mL Not Medicated Consistent PDF Report CE_[email or web address] [email or web address] UDT Reviewed date:12/24/2024 03:29:55 PM Interpretation: Performing Lab: Notes/Report: THC NEG 0 - 50 ng/ml Cocaine NEG 0 - 300 ng/ml Amphetamine NEG 0 - 1000 ng/ml Buprenorphine (BUP) NEG 0 - 10 ng/ml Secobarbital (Bar) NEG 0 - 300 ng/ml Oxazepam (BZO) NEG 0 - 300 ng/ml 6-lcmsasvplt-3,2-pxogbfsy-0, 3-diphen ylpyrrolidine (EDDP) NEG 0 - 300 ng/ml Methamphetamine (MET) NEG 0 - 1000 ng/ml Methylenedioxymethamphetamine (MDMA) NEG 0 - 500 ng/ml Morphine (MOP 300/[id number]) NEG 0 - 300 ng/ml Methadone (MTD) NEG 0 - 300 ng/ml Phencyclidine (PCP) NEG 0 - 25 ng/ml Nortriptyline (TCA) NEG 0 - 1000 ng/ml Oxycodone NEG 0 - 300 ng/ml x NEG 0 - 300 ng/ml UDT Reviewed date:09/29/2024 09:19:30 AM Interpretation: Performing Lab: Notes/Report: THC N 0 - 50 ng/ml Cocaine N 0 - 300 ng/ml Amphetamine N 0 - 1000 ng/ml Buprenorphine (BUP) N 0 - 10 ng/ml Secobarbital (Bar) N 0 - 300 ng/ml Oxazepam (BZO) N 0 - 300 ng/ml 3-nymbrhvfdv-6,9-joxxdjkk-3, 3-diphen ylpyrrolidine (EDDP) N 0 - 300 ng/ml Methamphetamine (MET) N 0 - 1000 ng/ml Methylenedioxymethamphetamine (MDMA) N 0 - 500 ng/ml Morphine (MOP 300/[id number]) N 0 - 300 ng/ml Methadone (MTD) [...] Oxazepam (BZO) p 0 - 300 ng/ml 2-pkmypjftjh-6,4-qnlwgrfk-7, 3-diphen ylpyrrolidine (EDDP) n 0 - 300 ng/ml Methamphetamine (MET) n 0 - 1000 ng/ml Methylenedioxymethamphetamine (MDMA) n 0 - 500 ng/ml Morphine (MOP 300/[id number]) n 0 - 300 ng/ml Methadone (MTD) [...] Oxazepam (BZO) neg 0 - 300 ng/ml 7-yurkxielkp-5,1-zcuorych-9, 3-diphen ylpyrrolidine (EDDP) neg 0 - 300 ng/ml Methamphetamine (MET) neg 0 - 1000 ng/ml Methylenedioxymethamphetamine (MDMA) neg 0 - 500 ng/ml Morphine (MOP 300/[id number]) neg 0 - 300 ng/ml Methadone (MTD) neg 0 - 300 ng/ml Phencyclidine (PCP) neg 0 - 25 ng/ml Nortriptyline (TCA) neg 0 - 1000 ng/ml Oxycodone neg 0 - 300 ng/ml x neg 0 - 300 ng/ml Test, Urine Reviewed date:01/31/2024 10:13:50 AM Interpretation: Performing Lab: Notes/Report: Test, Urine neg UDT Reviewed date:07/07/2024 02:12:54 PM Interpretation: Performing Lab: Notes/Report: THC N 0 - 50 ng/ml Cocaine N 0 - 300 ng/ml Amphetamine N 0 - 1000 ng/ml Buprenorphine (BUP) N 0 - 10 ng/ml Secobarbital (Bar) N 0 - 300 ng/ml Oxazepam (BZO) N 0 - 300 ng/ml 6-dvsdraqdpq-1,9-ysvredwp-3, 3-diphen ylpyrrolidine (EDDP) N 0 - 300 ng/ml Methamphetamine (MET) N 0 - 1000 ng/ml Methylenedioxymethamphetamine (MDMA) N 0 - 500 ng/ml Morphine (MOP 300/GIN7380) N 0 - 300 ng/ml Methadone (MTD) N 0 - 300 ng/ml Phencyclidine (PCP) N 0 - 25 ng/ml Nortriptyline (TCA) N 0 - 1000 ng/ml Oxycodone N 0 - 300 ng/ml x N 0 - 300 ng/ml Reason For Referral No Information Medications Medication SIG (Take, Route, Frequency, Duration) Notes Start Date End Date Status SUMAtriptan Succinate 50 MG Oral; Duration: 30 Days Active Trelegy Ellipta 200-62.5-25 MCG/ACT Inhalation; Duration: 30 Days Active Topiramate 25 MG Oral; Duration: 30 Days Active Modafinil 100 MG 1 tablet in the morning Orally Once a day Active Fasenra 30 MG/ML Subcutaneous; Duration: 30 Days Not-Taking Ondansetron 4 MG DISSOLVE 1 TABLET IN MOUTH EVERY 8 HOURS NEEDED FOR NAUSEA AND VOMITING Oral; Duration: 6 Days Active traZODone HCl 100 MG 2 tablet at bedtime Oral Once a day; Duration: 90 days As needed Active busPIRone HCl 10 MG 2 tablets Oral three times a day; Duration: 90 days 03/24/2025 Active Amphetamine-Dextroamphet ER 10 MG 1 capsule in the morning Orally Once a day; Duration: 30 days 12/24/2024 Active Albuterol Sulfate HFA 108 (90 Base) MCG/ACT INHALE 2 PUFFS BY MOUTH EVERY 6 HOURS FOR 30 DAYS Inhalation; Duration: 25 Days Active ARIPiprazole 5 MG 1 tablet Oral Once a day; Duration: 90 days Active Trintellix 20 MG 1 tablet Orally Once a day; Duration: 30 days 12/24/2024 Active Social History Tobacco Use: Social History Observation Description Date Details (start date - stop date) Former Smoker 11/24/2003 - 03/02/2011 Sex Assigned At : Social History Observation Description Sex Assigned At Female Tobacco Control (Standard) Question Answer Notes Tobacco use: Former smoker When did you start smoking? 11/24/2003 When did you stop smoking? 03/02/2011 How long has it been since you [...] less (1 point) Section Notes: Lives in [place] with 2 kids. Grew up in [place], has 1 sister. 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 Lives in [place] with 2 kids. Grew up in [place], has 1 sister. 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 Lives in [place] with 2 kids. Grew up in [place], has 1 sister. 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 Lives in [place] with 2 kids. Grew up in [place], has 1 sister. 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 Lives in [place] with 2 kids. Grew up in [place], has 1 sister. 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 Lives in [place] with 2 kids. Grew up in [place], has 1 sister. 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 Lives in [place] with 2 kids. Grew up in [place], has 1 sister. 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 Lives in [place] with 2 kids. Grew up in [place], has 1 sister. 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 Problems Problem Type SNOMED Code ICD Code Onset Dates Problem Status W/U Status Risk Notes Problem Moderate recurrent major depression (12448754) Major depressive disorder, recurrent, moderate (F33.1) Active confirmed Problem Recurrent major depression in remission (25310230) Major depressive disorder, recurrent, in partial remission (F33.41) Active confirmed Problem Generalized anxiety disorder (18976300) Generalized anxiety disorder (F41.1) Active confirmed Problem Attention deficit hyperactivity disorder, combined type (83284339) Attention-deficit hyperactivity disorder, combined type (F90.2) Active confirmed Problem Chronic insomnia (621554939) Chronic insomnia (F51.04) Active confirmed Problem Chronic fatigue syndrome (72785286) Chronic fatigue syndrome (G93.32) Active confirmed Problem Panic disorder (909982844) Panic attacks (F41.0) Active confirmed Vital Signs Heart Rate 96 /min 12/24/2024 Height-cm 160.02 cm 12/24/2024 Blood pressure diastolic 73 mm Hg 12/24/2024 Weight-kg 75.57 kg 12/24/2024 Height 63 in 12/24/2024 Blood pressure systolic 117 mm Hg 12/24/2024 Weight 166.6 lbs 12/24/2024 BMI 29.51 kg/m2 12/24/2024 Encounters Encounter Location Date Provider Diagnosis [facility] [employer] [facility] [address] [facility] [address] [address] 01/31/2024 Cleo Peters Major depressive disorder, recurrent, moderate F33.1 ; Generalized anxiety disorder F41.1 ; Attention-deficit hyperactivity disorder, combined type F90.2 ; Chronic insomnia F51.04 ; Panic attacks F41.0 and Chronic fatigue syndrome G93.32 [facility] [employer] [facility] [address] [facility] [address] [address] 02/26/2024 Jevon Ray ADHD (attention deficit hyperactivity disorder), combined type F90.2 [facility] [employer] [facility] [address] [facility] [address] [facility] [address] [place] [address] 03/03/2024 Cleo Peters Major depressive disorder, recurrent, moderate F33.1 ; Attention-deficit hyperactivity disorder, combined type F90.2 ; Generalized anxiety disorder F41.1 ; Chronic insomnia F51.04 ; Panic attacks F41.0 and Chronic fatigue syndrome G93.[address] [facility] [address] [place] [address] 03/31/2024 Cleo Peters Major depressive disorder, recurrent, mild F33.0 ; Attention-deficit hyperactivity disorder, combined type F90.2 ; Generalized anxiety disorder F41.1 ; Chronic insomnia F51.04 ; Panic attacks F41.0 and Chronic fatigue syndrome G93.[address] [address] 04/23/2024 Cleo Peters Major depressive disorder, recurrent, mild F33.0 ; Attention-deficit hyperactivity disorder, combined type F90.2 ; Generalized anxiety disorder F41.1 ; Chronic insomnia F51.04 ; Panic attacks F41.0 and Chronic fatigue syndrome G93.[address] [address] 05/27/2024 Edith Molina Attention-deficit hyperactivity disorder, combined type F90.2 ; Major depressive disorder, recurrent, mild F33.0 ; Generalized anxiety disorder F41.1 ; Panic attacks F41.0 ; Chronic insomnia F51.04 and Chronic fatigue syndrome G93.[address] [address] 07/07/2024 Edith Molina Attention-deficit hyperactivity disorder, combined type F90.2 ; Major depressive disorder, recurrent, mild F33.0 ; Generalized anxiety disorder F41.1 ; Panic attacks F41.0 ; Chronic fatigue syndrome G93.32 and Chronic insomnia F51.[address] [address] 08/04/2024 Edith Molina Major depressive disorder, recurrent, mild F33.0 ; Attention-deficit hyperactivity disorder, combined type F90.2 ; Generalized anxiety disorder F41.1 ; Panic attacks F41.0 ; Chronic fatigue syndrome G93.32 and Chronic insomnia F51.[address] [address] 09/29/2024 Edith Molina Generalized anxiety disorder F41.1 ; Major depressive disorder, recurrent, in partial remission F33.41 ; Attention-deficit hyperactivity disorder, combined type F90.2 ; Chronic insomnia F51.04 ; Chronic fatigue syndrome G93.32 ; Panic attacks F41.0 ; Encounter for screening for cardiovascular disorders Z13.6 and Encounter for screening for depression Z13.31 [facility], [facility] [address] [place] [address] 12/24/2024 Edith Molina Major depressive disorder, recurrent, moderate F33.1 ; Generalized anxiety disorder F41.1 ; Attention-deficit hyperactivity disorder, combined type F90.2 ; Chronic insomnia F51.04 ; Encounter for screening for depression Z13.31 and Encounter for screening for cardiovascular disorders Z13.6 [facility], [facility] [address] [place] [address] 02/04/2024 Cleo Peters Attention-deficit hyperactivity disorder, combined type F90.2 [facility], [facility] [address] [place] [address] 02/04/2024 Cleo [employer] [facility] [employer], [facility] [address] [place] [address] 02/05/2024 Cleo [employer] [facility] [employer], [facility] [address] [place] [address] 02/08/2024 Cleo [employer] [facility] [employer], [facility] [address] [place] [address] 02/15/2024 Cleo [employer] [facility] [employer], [facility] [address] [place] [address] 01/31/2024 Cleo Peters [facility] [employer], [facility] [address] [place] [address] 02/05/2024 Cleo [employer] [facility] [employer], [facility] [address] [place] [address] 02/05/2024 Cleo [employer] [facility] [employer], [facility] [address] [place] [address] 04/09/2024 Cleo [employer] [facility] [employer], [facility] [address] [place] [address] 04/09/2024 Cleo [employer] [facility] [employer], [facility] [address] [place] [address] 05/28/2024 Edith Molina [facility], [address] [address] 05/28/2024 Edith Molina [address] [address] 09/01/2024 Edith Molina Attention-deficit hyperactivity disorder, combined type F90.[address] [address] 09/29/2024 Edith Molina Attention-deficit hyperactivity disorder, combined type F90.[address] [address] 10/28/2024 Edith Molina Attention-deficit hyperactivity disorder, combined type F90.[address] [address] 11/28/2024 Edith Molina Attention-deficit hyperactivity disorder, combined type F90.[address] [address] 12/24/2024 Tunde Melara Assessments Encounter Date Diagnosis (ICD Code) Assessment [...] daytime sleepiness. Plan: - follow up with it data architect and any recommeneded testing/provid ers recommended - [...] daytime sleepiness. Plan: - follow up with it data architect and any recommeneded testing/provid ers recommended - [...] c Fatigue - Recently started modafinil by it data architect - Touch Up Painter encouraged continuing Adderall with modafinil Plan: - Continue modafinil as prescribed by it data architect Follow-up in 6 weeks, sooner if [...] c Fatigue - Recently started modafinil by it data architect - Touch Up Painter encouraged continuing Adderall with modafinil Plan: - Continue modafinil as prescribed by it data architect Follow-up in 6 weeks, sooner if [...] slightly, has pulmonology appointment next month - Touch Up Painter encouraged continuing Adderall with modafinil Plan: - Continue treatment plan with it data architect Follow-up in 2 months, sooner if concerns arise 09/01/2024 Attention-defici t hyperactivity disorder, combined type (ICD-10 - F90.2) 09/29/2024 Major depressive disorder, recurrent, in partial remission (ICD-10 - F33.41) 09/29/2024 Generalized anxiety disorder (ICD-10 - F41.1) 09/29/2024 Attention-defici t hyperactivity disorder, combined type (ICD-10 - F90.2) 10/28/2024 Attention-defici t hyperactivity disorder, combined type (ICD-10 - F90.2) 11/28/2024 Attention-defici t hyperactivity disorder, combined type (ICD-10 - F90.2) 12/24/2024 Major depressive disorder, recurrent, moderate (ICD-10 - F33.1) Electronic Prior Authorization was requested for Trintellix 20 MG Tablet. Provider can order medication once approval received. 12/24/2024 Generalized anxiety disorder (ICD-10 - F41.1) 12/24/2024 Attention-defici t hyperactivity disorder, combined type (ICD-10 [...] slightly, has pulmonology appointment next month - Touch Up Painter encouraged continuing Adderall with modafinil Plan: - Continue treatment plan with it data architect Follow-up in 2 months, sooner if [...] c Fatigue - Recently started modafinil by it data architect - Touch Up Painter encouraged continuing Adderall with modafinil Plan: - Continue modafinil as prescribed by it data architect Follow-up in 6 weeks, sooner if [...] daytime sleepiness. Plan: - follow up with it data architect and any recommeneded testing/provid ers recommended - [...] daytime sleepiness. Plan: - follow up with it data architect and any recommeneded testing/provid ers recommended - [...] c Fatigue - Recently started modafinil by it data architect - Touch Up Painter encouraged continuing Adderall with modafinil Plan: - Continue modafinil as prescribed by it data architect Follow-up in 6 weeks, sooner if [...] slightly, has pulmonology appointment next month - Touch Up Painter encouraged continuing Adderall with modafinil Plan: - Continue treatment plan with it data architect Follow-up in 2 months, sooner if concerns arise 09/29/2024 Chronic insomnia (ICD-10 - F51.04) 12/24/2024 Chronic insomnia (ICD-10 - F51.04) 12/24/2024 Encounter for screening for depression (ICD-10 - Z13.31) 09/29/2024 Chronic fatigue syndrome (ICD-10 - G93.32) [...] slightly, has pulmonology appointment next month - Touch Up Painter encouraged continuing Adderall with modafinil Plan: - Continue treatment plan with it data architect Follow-up in 2 months, sooner if [...] c Fatigue - Recently started modafinil by it data architect - Touch Up Painter encouraged continuing Adderall with modafinil Plan: - Continue modafinil as prescribed by it data architect Follow-up in 6 weeks, sooner if [...] daytime sleepiness. Plan: - follow up with it data architect and any recommeneded testing/provid ers recommended - [...] daytime sleepiness. Plan: - follow up with it data architect and any recommeneded testing/provid ers recommended - [...] c Fatigue - Recently started modafinil by it data architect - Touch Up Painter encouraged continuing Adderall with modafinil Plan: - Continue modafinil as prescribed by it data architect Follow-up in 6 weeks, sooner if [...] slightly, has pulmonology appointment next month - Touch Up Painter encouraged continuing Adderall with modafinil Plan: - Continue treatment plan with it data architect Follow-up in 2 months, sooner if concerns arise 09/29/2024 Panic attacks (ICD-10 - F41.0) 12/24/2024 Encounter for screening for cardiovascular disorders (ICD-10 - Z13.6) 08/04/2024 Chronic insomnia (ICD-10 - F51.04) Depression [...] slightly, has pulmonology appointment next month - Touch Up Painter encouraged continuing Adderall with modafinil Plan: - Continue treatment plan with it data architect Follow-up in 2 months, sooner if [...] slightly, has pulmonology appointment next month - Touch Up Painter encouraged continuing Adderall with modafinil Plan: - Continue treatment plan with it data architect Follow-up in 2 months, sooner if concerns arise 09/29/2024 Marina Marie, a female patient with a history of anxiety, depression, and ADHD, presents for follow-up with overall improvement in mood and anxiety symptoms. Anxiety Assessment: Patient reports anxiety as not too, too bad with overall improvement. Current management includes buspirone for anxiety symptoms. Work-related stress due to staffing shortages at her job at [employer] is noted as a primary stressor. Plan: [...] months or sooner if sleep disturbances recur 12/24/2024 Marina Marie, female, presents with worsening depression, financial stressors, and occasional suicidal thoughts without intent due to children. Major Depressive Disorder Assessment: Patient reports worsening depression with occasional suicidal thoughts, but no intent due to her children. She describes feeling stuck in a rut with lack of motivation. Current medications include aripiprazole, vilazodone, Adderall, buspirone, trazodone, and modafinil. Previous trials of Paxil caused involuntary muscle movements, and fluoxetine exacerbated depression. Vilazodone initially provided relief but is now less effective. Patient denies work-related issues but mentions financial stressors related to child support. Plan: - Initiate medication switch from vilazodone to Trintellix: Week 1: Start Trintellix 5mg daily, continue vilazodone 40mg daily Week 2: Increase Trintellix to 10mg daily, decrease vilazodone to 20mg daily Week 3: Continue Trintellix 10mg daily, decrease vilazodone to 10mg daily or 20mg every other day, then discontinue if tolerated - Continue current medications: - Aripiprazole - Adderall - Buspirone - Trazodone - Modafinil - Follow-up appointment in 4 weeks Anxiety Assessment: Patient reports occasional anxiety, particularly when depressed, but denies severe symptoms or panic attacks. Currently managed with buspirone. Plan: - Continue buspirone Attention Deficit Hyperactivity Disorder (ADHD) Assessment: Patient reports okay focus with current Adderall treatment, but notes it's not great. Continues to experience fatigue, which is variably managed with modafinil prescribed by it data architect. Plan: - Continue Adderall - Continue modafinil as prescribed by it data architect Plan Of Treatment Next Appt Details Provider Name:Edith Short lisa, 01/21/2025 09:30:00 AM, [facility], [facility] [address], [place], [address], Insurance Providers Payer Name Payer Address Payer Phone Subscriber Number Group Number Insured Name Patient Relationship to Insured Coverage Start Date Coverage End Date [facility] [address] [address] [place] [address] [phone] [id number] Sarai Marie Self - patient is the insured Medical (General) History Medical History History ICD Code chronic fatigue syndrome asthma hx DVT hx seizures Past Psychiatric History: Anxiety Disord er,Major Depressive Episode undefined Gastroesophageal reflux disease K21.9 Surgical History Surgery Date(Month/Year) c sections 2008- galbladder removal 2012 gastric bypass 05/2023 Hospitalization History Reason Date(Month/Year) pneumonia 2022
--- OUTSIDE RECORDS SUMMARY | 2024-12-31 15:02 | XMS_ITS | Clinical Summary ---
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 OIL TREATER Gender Identity Female 10/31/2021 1:29 PM CDT Sexual Orientation Straight 10/31/2021 1: 29 PM CDT Obstetrics History Last Filed Vital Signs Vital Sign Reading Time Taken Comments Blood Pressure 114/81 11/11/2021 4:05 PM CDT Pulse 105 11/11/2021 4:05 PM CDT Temperature 36.6 C (97.8 F) 05/15/2019 2:01 PM CRUDE OIL TREATER Respiratory Rate - - Oxygen Saturation 96% 11/11/2021 4:05 PM CDT Inhaled Oxygen Concentration - - Weight 118.8 kg (261 lb 12.8 oz) 05/15/2019 2:01 PM CRUDE OIL TREATER Height 159.5 cm (5' 2.8) 05/15/2019 2:01 PM CRUDE OIL TREATER Body Mass Index 46.67 05/15/2019 2:01 PM CRUDE OIL TREATER Plan of Treatment Not on file Procedures Procedure Name Priority Date/Time Associated Diagnosis Comments SWEAT CHLORIDE Routine 11/03/2024 9:29 AM CDT from Last 3 Months Results * Sweat chloride (11/03/2024 9:29 AM CDT) Sweat Cl site 1 11 <=30 mmol/L Comment: Interpretive Data All ages: <30 mmol/L: Cystic Fibrosis Unlikely 30-59 mmol/L: Indeterminate >=60 mmol/L: Indicative of Cystic Fibrosis Reference: J.Pediatr 2017; 181S:S4-15 Current interpretive data was last revised on 2016. Volume sweat site 1 39.0 mcL [facility] Sweat Cl site 2 <10 <=30 mmol/L [facility] Volume sweat site 2 31.0 mcL [facility] Fluid 11/03/2024 9:29 AM CDT 11/03/2024 10:26 AM CDT Annita Key MD LAB BODY FLUIDS AND STOOLS ORDERABLES Final Result [facility] Department [place] [address] from Last 3 Months Insurance [facility] H[facility]/PPO Address: [address] [address] [place] [address] [facility]/PPO Address: [address] [address] Care Teams Coat Joiner Relationship Specialty Start Date End Date Heraclio Cleveland DO PCP - General Internal Medicine 12/10/18
--- OUTSIDE RECORDS SUMMARY | 2024-12-31 15:02 | XMS_ITS | Clinical Summary ---
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 Gender Identity Not on file Sexual Orientation [...] 9:02 AM CDT Height 160 cm (5' 3) 11/14/2019 9:02 AM CDT Body Mass Index 47.39 11/14/2019 9:02 AM CDT Plan of Treatment Health Maintenance Due Date Last Done Comments DTAP/TDAP/TD VACCINES (1 - Tdap) 2003 HEPATITIS B VACCINES (1 of 3 - 19+ 3-dose series) 2003 HPV/Cotest (21-29) 2005 CERVICAL CANCER SCREENING 2014 HPV/Cotest (30-65) 2014 PAP SMEAR 2014 BREAST CANCER SCREENING 2024 INFLUENZA VACCINE (#1) 2025 HPV VACCINES Aged Out No longer eligi ble based on patient's age to complete this topic Care Teams Bridge Welder Relationship Specialty Start Date End Date Heraclio Cleveland DO [address] [facility] [address] [place] [address] PCP - General Internal Medicine 08/29/19
--- OUTSIDE RECORDS SUMMARY | 2024-12-31 15:02 | XMS_ITS | Data Portability ---
Author Organization [facility], Main Office Address [address] [place] [address] Assessment No assessment recorded. Plan of Treatment [...] rage: negative mg/dl) negati ve Not Available [facility] [address], [address], 05/05/2022 16:45:07 05/05/20 22 05/05/2022 urina lysis , dipst ick Urobilinogen (reference range: 0.2-1 mg/dl) 0.2 Not Available Z_[facility] c_[address], [address], 05/05/2022 16:45:07 05/05/20 22 05/05/2022 urina lysis , dipst ick Protein (reference range: negative mg/dl) Negati ve Not Available [facility] [address] [place], [address], 05/05/2022 16:45:07 05/05/20 22 05/05/2022 urina lysis , dipst ick pH (reference range: 5-7) 5.5 Not Available [address], [address], [address], 05/05/2022 16:45:07 05/05/20 22 05/05/2022 urina lysis , dipst ick Blood (reference range: negative Jorge/ l) Hemoly zed: Trace Not Available [address], [address], [address], 05/05/2022 16:45:07 05/05/20 22 05/05/2022 urina lysis , dipst ick Specific [place] (reference range: 1.005-1.030) 1.025 Not Available [address], [address], [address], 05/05/2022 16:45:07 07/07/19 23 07/07/2022 urina lysis , dipst ick Leukocytes (reference range: negative maria luisa/ l) Negati ve Not Available [place] [address], [place], [address], 07/07/2022 16:12:36 07/07/19 23 07/07/2022 urina lysis , dipst ick Nitrite (reference rage: negative mg/dl) negati ve Not Available [address], [address], 07/07/2022 16:12:36 07/07/19 23 07/07/2022 urina lysis , dipst ick Urobilinogen (reference range: 0.2-1 mg/dl) 0.2 Not Available [address], [address], 07/07/2022 16:12:36 07/07/19 23 07/07/2022 urina lysis , dipst ick Protein (reference range: negative mg/dl) Negati ve Not Available [address], [address], 07/07/2022 16:12:36 07/07/19 23 07/07/2022 urina lysis , dipst ick pH (reference range: 5-7) 7.5 Not Available [address], [address], 07/07/2022 16:12:36 07/07/19 23 07/07/2022 urina lysis , dipst ick Blood (reference range: negative Jorge/ l) Negati ve Not Available [address], [address], 07/07/2022 16:12:36 07/07/19 23 07/07/2022 urina lysis , dipst ick Specific [place] (reference range: 1.005-1.030) 1.020 Not Available [address], [address], 07/07/2022 16:12:36 07/07/19 23 07/07/2022 urina lysis , dipst ick Ketone (reference range: negative mg/dl) Negati ve Not Available [address], [place] [address], [place], [address], 07/07/2022 16:12:36 07/07/19 23 07/07/2022 urina lysis , dipst ick Bilirubin (reference range: negative mg/dl) Negati ve Not Available [address], [address], 07/07/2022 16:12:36 07/07/19 23 07/07/2022 urina lysis , dipst ick Glucose (reference range: negative mg/dl) Negati ve Not Available [address], [place] [address], [place], [address], 07/07/2022 16:12:36 07/07/19 23 07/07/2022 urina lysis , dipst ick Appearance Clear Not Available Z_[address], [place] [address], [place], [address], 07/07/2022 16:12:36 07/07/19 23 07/07/2022 urina lysis , dipst ick Color Yellow Not Available [address], [address], 07/07/2022 16:12:36 06/21/20 22 06/21/2022 US, renal No observ ation record ed. [id number] [facility] [address] [place], [address], 08/23/2022 15:57:40 Result Notes None recorded. Problems Name Problem SNOMED Code Status Onset Date Resolution Date Notes Provider Name and Address Organization Details Recorded Time Ureteric stone 56019574 Active 2021 Not Available [facility] 03/01/202 3 15:55:34 Acute urinary tract infection 375260505 Active 2021 Not Available [facility] 15:55:34 Acute cholecystitis 14280766 Active Not Available [facility] 15:55:35 Problem Notes None recorded. Procedures Surgical History Date Name Laterality Status Provider Name and Address Organization Details Recorded Time section completed Not Available [facility] 08/23/2022 15:54:13 Imaging Results None recorded. Procedure Notes None recorded. Medical Equipment None Reported. Allergies Allergen ID Allergen Name Allergen Category Reaction Reaction Severity Criticality Documentation Date Start Date Code Code System Note Provider Name and Address Organization Details Recorded Time 90227 shellfish derived food,medi cation Not available Not available Not available 08/23/2022 55253 UNK Not Available [facility] 3 15:57:38 40508 house dust allergeni c extract environme nt,medica tion Not available Not available Not available 08/23/2022 40873 9 RxNorm Not Available [facility] 3 15:57:38 07267 egg extract food,medi cation Not available Not available Not available 08/23/2022 97585 15 RxNorm Not Available [facility] 15:57:38 Medications Name Sig Start Date [...] % 99 % 86 /min 97.7 [degF] 049276. 27 g Not Available [facility] 15:55:06 Date Recorded Body mass index (BMI) Body height Oxygen saturation Oxygen saturation in Arterial blood by Pulse oximetry Heart rate Body temperature Body weight Systolic And Diastolic Provider Name and Address Organization Details Last Updated DateTime 2 54.4 kg/m2 160.02 cm 98 % 98 % 84 /min 98.2 [degF] 724637. 86 g 134/91 mm[Hg] Not Available [facility] 15:55:06 Social History Question Answer Notes LastModified by [employer] Details LastModified Time Tobacco Smoking Status Former Smoker Not Available [facility] 08/23/2022 15:54:06 What Is Your Level Of Caffeine Consumption? Moderate [id number] Information not available 08/23/2022 When Did You Quit Smoking? 6-10yearssinc elastcigarett e [id number] Information not available 08/23/2022 What Was The Date Of Your Most Recent Tobacco Screening? 05/05/2022 [id number] Information not available 08/23/2022 Has Tobacco Cessation Counseling Been Provided? No [id number] Information not available 08/23/2022 Sex: Unknown Functional Status Question Answer Note LastModified by [employer] Details LastModified Time Do you use any illicit or recreational drugs? No [id number] Information not available 08/23/2022 Do you or have you ever used any other forms of tobacco or nicotine? No [id number] Information not available 08/23/2022 What is your level of alcohol consumption? 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 Family History Relationship Description Onset Age of this Age Resolved Age Notes LastModified by Organization Details LastModified Time Father Diabetes mellitus [id number] Not available 08/23/2022 15:54:13 Father Hypertensive disorder [id number] Not available 08/23/2022 15:54:14 Mother Diabetes mellitus [id number] Not available 08/23/2022 15:54:14 Mother Kidney stone MIGRATION.0 30 [id number] Not available 08/23/2022 15:54:14 Mother Hypertensive disorder [id number] Not available 08/23/2022 15:54:14 Sister Kidney stone MIGRATION.0 30 [id number] Not available 08/23/2022 15:54:14 Notes:Both parents have [...] SNOMED-CT Code Diagnosis ICD10 Code Diagnosis Note [id number] MD VY Macario_GMJennifer [facility] [address] [address] 05/05/2022 00:00:00 05/05/2022 17:03:51 [id number] MD VY Macario_FABBY [facility] [address] [address] 07/07/2022 00:00:00 07/07/2022 16:29:53 Health Concerns Section Related Observation LastModified by Organization Detai ls LastModified Time None Recorded Concern Status LastModified by Organization Details LastModified Time None Recorded Advance Directives Directive None Recorded Payers Insurance Date Sequence Insurance Name Policy Number Policy Zee Covered Member ID Zee Member ID Guarantor Name 08/15/2023 1 [facility] [id number] Sarai Marie [id number] Sarai Marie OBGyn Episode No OBEpisode recorded.
--- OUTSIDE RECORDS SUMMARY | 2024-12-31 15:02 | XMS_ITS | Referral Summary ---
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 Gender Identity Female 10/31/2021 1:29 PM CDT Sexual Orientation Straight 10/31/2021 1: 29 PM CDT Last Filed Vital Signs Vital Sign Reading Time Taken Comments Blood Pressure 114/81 11/11/2021 4:05 PM CDT Pulse 105 11/11/2021 4:05 PM CDT Temperature 36.6 C (97.8 F) 05/15/2019 2:01 PM REFRIGERATOR REPAIRMAN Respiratory Rate - - Oxygen Saturation 96% 11/11/2021 4:05 PM CDT Inhaled Oxygen Concentration - - Weight 118.8 kg (261 lb 12.8 oz) 05/15/2019 2:01 PM REFRIGERATOR REPAIRMAN Height 159.5 cm (5' 2.8) 05/15/2019 2:01 PM REFRIGERATOR REPAIRMAN Body Mass Index 46.67 05/15/2019 2:01 PM REFRIGERATOR REPAIRMAN Plan of Treatment Not on file Procedures [...] 2016. Volume sweat site 1 39.0 mcL [facility] Sweat Cl site 2 <10 <=30 mmol/L [facility] Volume sweat site 2 31.0 mcL [facility] Fluid 11/03/2024 9:29 AM CDT 11/03/2024 10:26 AM CDT us Annita Key MD LAB BODY FLUIDS AND STOOLS ORDERABLES Final Result [facility] Department [place] [address] from Last 3 Months Insurance [facility] Care Teams Heel Finisher Relationship Specialty Start Date End Date Heraclio Cleveland DO PCP - General Internal Medicine 12/10/18
--- OUTSIDE RECORDS SUMMARY | 2024-12-31 15:03 | XMS_ITS | Patient Health Record ---
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 Name Role Phone Svetlanalui Heraclio Primary Care Provider Unavailab Mely Esquivel Unavailable [phone] Allergies No Known Allergies Results Component Value Reference Range Notes -Immunoglobulins A/E/G/M, Se rum Reviewed date:04/03/2024 12:25:32 PM Interpretation:Normal Performing Lab:[facility], [address] [place] [id number], Phone - [phone], Director - Janneth Notes/Report: Immunoglobulin G, Qn, Serum 858 000-4225 mg/d L Immunoglobulin A, Qn, Serum 296 87-352 mg/dL Immunoglobulin M, Qn, Serum 88 26-217 mg/dL Immunoglobulin E, Total 534 6-495 IU/mL -Haemophilus influenzae B Ig G Reviewed date:04/03/2024 12:37:02 PM Interpretation:Normal Performing Lab:[facility] [address] [id number], Phone - [phone], Director - Yimi Notes/Report: Haemophilus influenzae B IgG 1.86 NOTE: An anti-Hib level of 0.15 ug/mL is generally accepted as the minimum level for protection. Optimal protection post-vaccination requires a level greater than 1.00 ug/mL. -Tetanus Antitoxoid IgG Ab Reviewed date:04/03/2024 12:25:18 PM Interpretation:Normal [facility]forming [facility], [address] [place] [address], [place], [place] [id number], Phone - [phone], Director - Yimi Notes/Report: Tetanus Antitoxoid IgG Ab 2.67 <0.10 IU/mL Interpretation: Non-Protective <0.10 Protective >=0.10 Results for this test are for research purposes only by the assay's professor of english. The performance characteristics of this product have not been established. Results should not be used as a diagnostic procedure without confirmation of the diagnosis by another medically established diagnostic product or procedure. -Pneumococcal Ab (23 Serotyp e) Reviewed date:04/03/2024 12:25:10 PM Interpretation:Abnormal Performing Lab:[facility], [address] [place] [id number], Phone - [phone], Director - Debra Notes/Report: Pneumo Ab Type [...] developed and its performance characteristics determined by [facility]. It has not been cleared or approved [...] e) Reviewed date:06/04/2024 04:13:38 PM Interpretation:Normal Performing Lab:[facility], [address], [address], [place], [place] [id number], Phone - [phone], Director - Roberts ChapelLen Notes/Report: Pneumo Ab Type 1* 0.3 >1.3 [...] developed and its performance characteristics determined by [facility]. It has not been cleared or approved [...] 3.42 SpiroPredicted_FEV1 2.9 SpiroPredicted_FEV1_OVER_FVC 84.43 SpiroPredicted_PEF 6.13 Reason For Referral No Information Medications Medication SIG (Take, Route, Frequency, Duration) Notes Start Date End Date Status predniSONE 20 MG 1 tablet Orally Once a day Not-Taking Topiramate 25 MG 1 tab(s) orally 2 times a day; Duration: 30 day(s) Active Abilify 5 MG 1.5 tab(s) orally once a day; Duration: 30 days takes 7.5mg daily Active ZyrTEC Allergy 10 MG 1 tab(s) orally once a day Not-Taking Viibryd 40 MG 1 tab(s) orally once a day; Duration: 8 week(s) Active EPINEPHRINE AUTO-INJECTOR 0.3 MG DIRECTED INTRAMUSCULARLY ONCE; Duration: 1 DAY *Please review for potential replacement for e-prescription and drug interaction check* Not-Taking Dymista 137-50 MCG/ACT 1 spray(s) intranasally 2 times a day Active traZODone HCl 100 MG 1 by mouth at bedtime 200mg nightly Not-Taking Trelegy Ellipta 200-62.5-25 MCG/ACT 1 puff Inhalation Once a day Active MOUNJARO 2.5 mg/0.5 mL as directed subcutaneously once a week Not-Taking EPINEPHrine 0.3 MG/0.3ML as directed Injection; Duration: 90 days 11/05/2024 Active busPIRone HCl 10 MG 1 tablet Orally Twice a day Active ASPIRIN 81 mg 1 tab(s) chewed once a day; Duration: 30 day(s) Not-Taking ALBUTEROL (EQV-PROAIR HFA) 90 mcg/inh 2 puff(s) inhaled every 6 hours; Duration: 30 days Active traZODone HCl 100 MG 1 tablet at bedtime Orally Once a day Active VYVANSE 60 mg 1 cap(s) orally once a day (in the morning); Duration: 30 day(s) Not-Taking FASENRA PREFILLED SYRINGE 30 mg/mL inject, as directed subcutaneously every 8 weeks; Duration: 365 days Active Adderall 10 MG 1 tablet Orally Twice a day Active OMEPRAZOLE 20 mg 1 cap(s) orally once a day; Duration: 30 day(s) Not-Taking TRELEGY ELLIPTA 200 mcg/62.5mcg/25mcg 1 puff inhaled once a day Active LISINOPRIL 5 mg 1 tab(s) orally once a day; Duration: 30 day(s) takes 15mg daily Not-Taking CETIRIZINE HYDROCHLORIDE 10 mg 1 tab(s) orally once a day Active ZYRTEC 10 mg 1 tab(s) orally once a day Not-Taking DYMISTA 137 mcg-50 mcg/inh 1 spray(s) intranasally 2 times a day Active ZYRTEC 10 mg 1 tab(s) orally once a day Not-Taking EPINEPHRINE AUTO-INJECTOR 0.3 mg as directed intramuscularly once; Duration: 1 days Active TRAZADONE 50MG 1 BY MOUTH AT BEDTIME 200mg nightly *Please review for potential replacement for e-prescription and drug interaction check* Not-Taking TOPIRAMATE 25 mg 1 tab(s) orally 2 times a day; Duration: 30 day(s) Not-Taking ABILIFY 5 mg 1.5 tab(s) orally once a day; Duration: 30 days takes 7.5mg daily Not-Taking VIIBRYD 40 mg 1 tab(s) orally once a day; Duration: 8 week(s) Not-Taking BUSPIRONE 10 mg 1 tab(s) orally 2 times a day; Duration: 30 day(s) 20mg three times daily Not-Taking QELBREE 100 mg 1 cap(s) orally once a day 200 mg Not-Taking PRILOSEC Not-Taking TRELEGY ELLIPTA 200 mcg/62.5mcg/25mcg 1 puff inhaled once a day Not-Taking Mounjaro 2.5 MG/0.5 ML DIRECTED SUBCUTANEOUSLY ONCE A WEEK *Please review and pick correct strength-formula tion from [facility] options. If intended option is not shown, discontinue and re-order from Quick Search* Not-Taking TRAZODONE 100 mg 1 by mouth at bedtime 200mg nightly Not-Taking Aspirin 81 MG 1 tab(s) chewed once a day; Duration: 30 day(s) Not-Taking Doxycycline Monohydrate 100 MG 1 capsule Orally Once a day Not-Taking Vyvanse 60 MG 1 cap(s) orally once a day (in the morning); Duration: 30 day(s) Not-Taking Omeprazole 20 MG 1 cap(s) orally once a day; Duration: 30 day(s) Not-Taking Lisinopril 5 MG 1 tab(s) orally once a day; Duration: 30 day(s) takes 15mg daily Not-Taking Social History Tobacco Use: Social History Observation Description Date Details (start date - stop date) Never Smoker NA - NA Sex Assigned At : Social History Observation Description Sex Assigned At Female Smoking Smart Form: Question Answer Notes Are you a: former smoker Tobacco Control (Standard) Question Answer Notes Tobacco use: Nonsmoker AUDIT-C (Standard) Question Answer Notes Did you have a drink containing alcohol in the p ast year? No Points 0 Interpretation Negative Problems Problem Type SNOMED Code ICD Code Onset Dates Problem Status W/U Status Risk Notes Problem Anxiety disorder (199552893) Anxiety disorder, unspecified (F41.9) Active confirmed Problem Chronic allergic conjunctivitis (28992157) Other chronic allergic conjunctivitis (H10.45) Active confirmed Problem Allergic rhinitis caused by pollen (disorder) (48075376) Allergic rhinitis due to pollen (J30.1) Active confirmed Problem Allergic rhinitis (13860459) Other allergic rhinitis (J30.89) Active confirmed Problem Uncomplicated moderate persistent asthma (028700151) Moderate persistent asthma, uncomplicated (J45.40) Active confirmed Problem Uncomplicated severe persistent asthma (088712355) Severe persistent asthma, uncomplicated (J45.50) Active confirmed Problem Gastro-esophageal reflux disease without esophagitis (791089916) Gastro-esophageal reflux disease without esophagitis (K21.9) Active confirmed Problem Allergic rhinitis caused by animal hair and dander (324960351183455) Allergic rhinitis due to animal (cat) (dog) hair and dander (J30.81) Active confirmed Problem Allergy to egg protein (finding) (234166355) Allergy to eggs (Z91.012) Active confirmed Problem Essential hypertension (96048998) Essential (primary) hypertension (I10) Active confirmed Problem Depression (666788820) Depression, unspecified (F32.A) Active confirmed Problem Eosinophilic asthma (420270930) 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) Active confirmed Vital Signs Blood pressure diastolic 84 mm Hg 11/05/2024 Oximetry 99 % 11/05/2024 Height 63 in 11/05/2024 Blood pressure systolic 120 mm Hg 11/05/2024 Weight 172.8 lbs 11/05/2024 BMI 30.61 kg/m2 11/05/2024 Encounters Encounter Location Date Provider Diagnosis [facility] [address] [address] 01/30/2024 Mely Jay Allergic rhinitis du e to pollen J30.1 ; Severe persistent asthma, uncomplicated J45.50 ; Eosinophilic asthma J82.83 ; Allergic rhinitis due to animal (cat) (dog) hair and dander J30.81 ; Other allergic rhinitis J30.89 ; Other chronic allergic conjunctivitis H10.45 and Allergy to eggs Z91.012 [facility] [address] [address] 03/26/2024 Mely Jay Allergic rhinitis du e to pollen J30.1 ; Severe persistent asthma, uncomplicated J45.50 ; Eosinophilic asthma J82.83 ; Allergic rhinitis due to animal (cat) (dog) hair and dander J30.81 ; Other allergic rhinitis J30.89 ; Other chronic allergic conjunctivitis H10.45 ; Allergy to eggs Z91.012 and Other pneumonia, unspecified organism J18.8 [facility] [address] [place] [phone] 05/21/2024 Mely Jay Allergic rhinitis du e to pollen J30.1 ; Severe persistent asthma, uncomplicated J45.50 ; Eosinophilic asthma J82.83 ; Allergic rhinitis due to animal (cat) (dog) hair and dander J30.81 ; Other allergic rhinitis J30.89 ; Other chronic allergic conjunctivitis H10.45 ; Allergy to eggs Z91.012 and Other pneumonia, unspecified organism J18.8 [facility] [address] [place] [phone] 07/16/2024 Mely Jay Allergic rhinitis du e to pollen J30.1 ; Severe persistent asthma, uncomplicated J45.50 ; Eosinophilic asthma J82.83 ; Allergic rhinitis due to animal (cat) (dog) hair and dander J30.81 ; Other allergic rhinitis J30.89 ; Other chronic allergic conjunctivitis H10.45 ; Allergy to eggs Z91.012 and Other pneumonia, unspecified organism J18.8 [facility] [address] [place] [phone] 09/10/2024 Mely Jay Allergic rhinitis du e to pollen J30.1 ; Severe persistent asthma, uncomplicated J45.50 ; Eosinophilic asthma J82.83 ; Allergic rhinitis due to animal (cat) (dog) hair and dander J30.81 ; Other allergic rhinitis J30.89 ; Other chronic allergic conjunctivitis H10.45 ; Allergy to eggs Z91.012 and Other pneumonia, unspecified organism J18.8 [facility] [address] [place] [phone] 11/05/2024 Mely Jay Allergic rhinitis du e to pollen J30.1 ; Severe persistent asthma, uncomplicated J45.50 ; Eosinophilic asthma J82.83 ; Allergic rhinitis due to animal (cat) (dog) hair and dander J30.81 ; Other allergic rhinitis J30.89 ; Other chronic allergic conjunctivitis H10.45 ; Allergy to eggs Z91.012 and Other pneumonia, unspecified organism J18.8 - [place] [address] [place] [address] 12/19/2024 Mely Albertm [facility] - [place] [address] [place] [address] 04/03/2024 Mely Albertm [facility] [place] [address] [place] [address] 07/08/2024 Mely Monsonurm [facility] - [place] [address] [place] [address] 10/06/2024 [facility] [address] [place] [address] 11/05/2024 Mely [facility] [address] [place] [address] 11/05/2024 Mely Albertm [facility] [address] [place] [address] 11/06/2024 Mely Albertm [facility] [address] [place] [address] 12/15/2024 Mely Jay Assessments Encounter Date Diagnosis (ICD Code) Assessment Notes Treatment Notes Treatment Clinical Notes Section Notes 01/30/2024 Allergic rhinitis due to pollen (ICD-10 [...] months as documented in this medical record, 11/05/2024 Allergic rhinitis due to pollen (ICD-10 - [...] testing before considering immunotherapy in the future. 11/05/2024 Severe persistent asthma, uncomplicated (ICD-10 - J45.50) Records requested from [facility]. Spirometry in 2023 showed obstruction with FEV1 74%. Spirometry was normal. ACT 20. Due to continued symptoms and use of prednisone 2-3 times a year despite high dose therapy with Trelegy and albuterol, she started Fasenra. IgE 727, AEC 300, PFTs normal in 2021. Immunodeficiency evaluation was normal after receiving Prevar and titers rechecked. Since no change in frequency of prednisone with Fasenra, plan to switch to Xolair. Most recent IgE 534 in (03-26-2024) We discussed black box warning for anaphylaxis. Malignancy and cardiovascular risks discussed. 11/05/2024 Eosinophilic asthma (ICD-10 - J82.83) 09/10/2024 Eosinophilic asthma (ICD-10 - J82.83) 07/16/2024 Eosinophilic asthma (ICD-10 - J82.83) 05/21/2024 Eosinophilic asthma (ICD-10 - J82.83) 03/26/2024 Eosinophilic asthma (ICD-10 - J82.83) 01/30/2024 Eosinophilic asthma (ICD-10 - J82.83) 01/30/2024 Allergic rhinitis due to animal (cat) [...] (dog) hair and dander (ICD-10 - J30.81) 11/05/2024 Allergic rhinitis due to animal (cat) (dog) hair and dander (ICD-10 - J30.81) 11/05/2024 Other allergic rhinitis (ICD-10 - J30.89) 09/10/2024 Other allergic rhinitis (ICD-10 - J30.89) 07/16/2024 Other allergic rhinitis (ICD-10 - J30.89) 03/26/2024 Other allergic rhinitis (ICD-10 - J30.89) 05/21/2024 Other allergic rhinitis (ICD-10 - J30.89) 01/30/2024 Other allergic rhinitis (ICD-10 - J30.89) 03/26/2024 Other chronic allergic conjunctivitis (ICD-10 - [...] medications including intraocular antihistamine/mast cell stabilizer, PRN 11/05/2024 Other chronic allergic conjunctivitis (ICD-10 - H10.45) [...] medications including intraocular antihistamine/mast cell stabilizer, PRN 11/05/2024 Allergy to eggs (ICD-10 - Z91.012) History of asthma flares with exposure to lightly cooked egg products. Skin testing to egg negative at her initial visit. We discussed having EpiPen available at all times given history. 09/10/2024 Allergy to eggs (ICD-10 - Z91.012) [...] Other pneumonia, unspecified organism (ICD-10 - J18.8) 11/05/2024 Other pneumonia, unspecified organism (ICD-10 - J18.8) 09/10/2024 Other pneumonia, unspecified organism (ICD-10 - J18.8) 01/30/2024 Other 03/26/2024 Other 05/21/2024 Other 07/16/2024 Other 09/10/2024 Other 11/05/2024 Other Plan Of Treatment No Information Insurance Providers Payer Name Payer Address Payer Phone Subscriber Number Group Number Insured Name Patient Relationship to Insured Coverage Start Date Coverage End Date [facility] [address] [address] [place], [place] [phone] [id number] Sarai Marie Self - patient is the insured Medical (General) History Medical History History ICD Code ADHD Migraines insomnia Anxiety disorder, unspecified F41.9 Essential (primary) hypertension I10 Depression, unspecified F32.A Moderate persistent asthma, uncomplicate d J45.40 Gastro-esophageal reflux disease without esophagitis K21.9 Surgical History Surgery Date(Month/Year) C section 2013 Csection 2006 cholecystectomy 2013 gastric bypass 06/06/23 Hospitalization History Reason Date(Month/Year) Asthma 1986 pneumonia 02/2024 pneumonia 2022
[2024-12-31 21:11] LABS: Anion Gap 8 mmol/L (4-12); Blood Urea Nitrogen 8 mg/dL (7-17); Calcium 8.9 mg/dL (8.4-10.2); Carbon Dioxide 21 mmol/L (22-30); Chloride 110 mmol/L (98-107); Estimated Glomerular Filt Rate > 60; Glucose 109 mg/dL (65-110); Potassium 3.1 mmol/L (3.4-5.0); Sodium 139 mmol/L (137-145)
== END 2024-12-31 14:55 | disposition home or self-care (01) ==
LOC: ANHGOSHLAB 14:56
PROVIDERS: PCP Nurse Practitioner; Visit Provider Nurse Practitioner
DX: E87.6 Hypokalemia (principal)
CPT/HCPCS: 36415; 80048

== ENCOUNTER 2025-01-23 12:45 | Emergency (ER) | payer OTHER, SELFPAY ==
--- NOTE | ~2025-01-23 | CT_ITS ---
EXAMINATION: CT abdomen pelvis wo con DATE: 01/23/2025 14:01 INDICATION: Left flank pain. Nephrolithiasis. TECHNIQUE: Computed tomography (CT) of the abdomen and pelvis was performed without intravenous contr ast. Automated exposure control and iterative reconstruction technique were employed. The dose-length product was 221.05 mGy-cm. COMPARISON: 10/03/2023 FINDINGS: Numerous centrilobular nodules, groundglass opacities and regions of more confluent consolidation in the right middle, bilateral lower lobes and to lesser extent the lingula consistent with multifocal p neumonia. Heart size is normal. No pericardial or pleural effusion. Postoperative change of prior gas tric bypass procedure with antecolic Altaf limb extending to the jejunojejunal anastomosis in the left abdomen. Cholecystectomy clips the gallbladder fossa. Liver, spleen, pancreas and right adrenal glan d are normal. 1.5 cm low-attenuation left adrenal adenoma. No change in a couple 5 mm and 6 mm nonobs tructing stones at the upper pole of the left kidney. No hydronephrosis in either kidney with no righ t-sided urolithiasis or left ureteral stones. There is unchanged tiny phlebolith positioned slightly caudal to the left ureterovesicular junction. Bladder, uterus and bilateral adnexa are unremarkable. Bowels including the appendix are normal. No free intraperitoneal gas or fluid. No pathologically enl arged abdominal or pelvic lymphadenopathy. Unchanged small bone island at L1. Mild thoracic spondylos is. IMPRESSION: 1. Bilateral nonobstructing left renal stones. No ureteral stones, hydronephrosis or other acute intr a-abdominal/pelvic process. 2. Similar but more advanced pattern of numerous centrilobular nodules throughout the bilateral lower lungs most suggestive of pneumonia however this is been present on multiple studies dating back to suggesting chronic atypical pneumonia such as AUGIE or other inflammatory etiologies including hypersensitivity pneumonitis. The complete sparing of the visualized mid lung zones would argue agai nst metastases. If this has not been previously worked up would consider pulmonology consultation. Reviewed, dictated and finalized at location A. IMPRESSION: 1. Bilateral nonobstructing left renal stones. No ureteral stones, hydronephros is or other acute intra-abdominal/pelvic process. 2. Similar but more advanced pattern of numerous centrilobular nodules througho ut the bilateral lower lungs most suggestive of pneumonia however this is been present on multiple studies dating back to 12/07/2022 suggesting chronic atypica l pneumonia such as AUGIE or other inflammatory etiologies including hypersensiti vity pneumonitis. The complete sparing of the visualized mid lung zones would a rgue against metastases. If this has not been previously worked up would consid er pulmonology consultation.
--- OUTSIDE RECORDS SUMMARY | 2025-01-23 12:47 | XMS_ITS | Patient Health Record ---
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 Name Role Phone Megha Heraclio Primary Care Provider Unavailab Mely Esquivel Unavailable [phone] Allergies No Known Allergies Results Component Value [...] 3.4 SpiroPredicted_FEV1 2.87 SpiroPredicted_FEV1_OVER_FVC 84.18 SpiroPredicted_PEF 6.11 -Immunoglobulins A/E/G/M, Se rum Reviewed date:04/03/2024 12:25:32 PM Interpretation:Normal Performing Lab:[facility], [address] [place] [id number], Phone - [phone], Director - Janneth Notes/Report: Immunoglobulin G, Qn, Serum 479 475-9780 mg/d L Immunoglobulin A, Qn, Serum 296 87-352 mg/dL Immunoglobulin M, Qn, Serum 88 26-217 mg/dL Immunoglobulin E, Total 534 6-495 IU/mL -Haemophilus influenzae B Ig G Reviewed date:04/03/2024 12:37:02 PM Interpretation:Normal Performing Lab:[facility] [id number], Phone - [phone], Director - ALIvet Notes/Report: Haemophilus influenzae B IgG 1.86 NOTE: An anti-Hib level of 0.15 ug/mL is generally accepted as the minimum level for protection. Optimal protection post-vaccination requires a level greater than 1.00 ug/mL. -Tetanus Antitoxoid IgG Ab Reviewed date:04/03/2024 12:25:18 PM Interpretation:Normal Performing Lab:[address] [id number], Phone - [phone], [facility]/Report: Tetanus Antitoxoid IgG Ab 2.67 <0.10 IU/mL Interpretation: Non-Protective <0.10 Protective >=0.10 Results for this test are for research purposes only by the assay's hammerer. The performance characteristics of this product have not been established. Results should not be used as a diagnostic procedure without confirmation of the diagnosis by another medically established diagnostic product or procedure. -Pneumococcal Ab (23 Serotyp e) Reviewed date:04/03/2024 12:25:10 PM Interpretation:Abnormal Performing Lab:[facility], [address] [place] [id number], Phone - [phone], Director - PhDBCNeil Notes/Report: Pneumo Ab Type [...] developed and its performance characteristics determined by [employer]. It has not been cleared or approved by the U.S. Food and Drug Administration. FLAG Interpretation: A = Abnormal, H = High, L = Low -Pneumococcal Ab (23 Serotyp e) Reviewed date:06/04/2024 04:13:38 PM Interpretation:Normal Performing Lab:[facility], [address] [place] [address], [facility] [address] [place], [place] [id number], Phone - [phone], Director - PhDNeil Notes/Report: Pneumo Ab Type [...] developed and its performance characteristics determined by [employer]. It has not been cleared or [...] directed intramuscularly once; Duration: 1 days Active Xolair 300 MG/2ML Inject 300mg with 75mg for total of 375mg Subcutaneous every 2 weeks; Duration: 28 days Xolair 75mg PFS should be on file, provided verbally 01/08/2025 Active TRAZADONE 50MG 1 BY MOUTH AT [...] review and pick correct strength-formula tion from [employer] options. If intended option is not shown, [...] W/U Status Risk Notes Problem Anxiety disorder (868747653) Anxiety disorder, unspecified (F41.9) Active confirmed Problem Chronic allergic conjunctivitis (22015854) Other chronic allergic conjunctivitis (H10.45) Active confirmed Problem Allergic rhinitis caused by pollen (disorder) (84347401) Allergic rhinitis due to pollen (J30.1) Active confirmed Problem Allergic rhinitis (55650056) Other allergic rhinitis (J30.89) Active confirmed Problem Uncomplicated moderate persistent asthma (521741530) Moderate persistent asthma, uncomplicated (J45.40) Active confirmed Problem Uncomplicated severe persistent asthma (500286016) Severe persistent asthma, uncomplicated (J45.50) Active confirmed Problem Gastro-esophageal reflux disease without esophagitis (365451787) Gastro-esophageal reflux disease without esophagitis (K21.9) Active confirmed Problem Allergic rhinitis caused by animal hair and dander (438416770234752) Allergic rhinitis due to animal (cat) (dog) hair and dander (J30.81) Active confirmed Problem Allergy to egg protein (finding) (061754055) Allergy to eggs (Z91.012) Active confirmed Problem Essential hypertension (91540566) Essential (primary) hypertension (I10) Active confirmed Problem Depression (396987285) Depression, unspecified (F32.A) Active confirmed Problem Eosinophilic asthma (302116318) 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) Active confirmed Vital Signs Blood pressure diastolic 84 mm Hg 11/05/2024 Oximetry 99 % 11/05/2024 Height 63 in 11/05/2024 Blood pressure systolic 120 mm Hg 11/05/2024 Weight 172.8 lbs 11/05/2024 BMI 30.61 kg/m2 11/05/2024 Encounters Encounter Location Date Provider Diagnosis [facility] [address] [place] [address] [employer] [address] [address] 11/05/2024 Mely Jay Allergic rhinitis du e to pollen J30.1 ; Severe persistent asthma, uncomplicated J45.50 ; Eosinophilic asthma J82.83 ; Allergic rhinitis due to animal (cat) (dog) hair and dander J30.81 ; Other allergic rhinitis J30.89 ; Other chronic allergic conjunctivitis H10.45 ; Allergy to eggs Z91.012 and Other pneumonia, unspecified organism J18.8 [facility] [employer] [address] [address] 09/10/2024 Mely Jay Allergic rhinitis du e to pollen J30.1 ; Severe persistent asthma, uncomplicated J45.50 ; Eosinophilic asthma J82.83 ; Allergic rhinitis due to animal (cat) (dog) hair and dander J30.81 ; Other allergic rhinitis J30.89 ; Other chronic allergic conjunctivitis H10.45 ; Allergy to eggs Z91.012 and Other pneumonia, unspecified organism J18.8 [facility] [address] [place], [place] [address] [address] [address] 07/16/2024 Mely Jay Allergic rhinitis du e to pollen J30.1 ; Severe persistent asthma, uncomplicated J45.50 ; Eosinophilic asthma J82.83 ; Allergic rhinitis due to animal (cat) (dog) hair and dander J30.81 ; Other allergic rhinitis J30.89 ; Other chronic allergic conjunctivitis H10.45 ; Allergy to eggs Z91.012 and Other pneumonia, unspecified organism J18.8 [facility] [address] [place] [address] [employer] [address] [address] 05/21/2024 Mely Jay Allergic rhinitis du e to pollen J30.1 ; Severe persistent asthma, uncomplicated J45.50 ; Eosinophilic asthma J82.83 ; Allergic rhinitis due to animal (cat) (dog) hair and dander J30.81 ; Other allergic rhinitis J30.89 ; Other chronic allergic conjunctivitis H10.45 ; Allergy to eggs Z91.012 and Other pneumonia, unspecified organism J18.8 [facility] [address] [place] [address] [employer] [address] [address] 03/26/2024 Mely Jay Allergic rhinitis du e to pollen J30.1 ; Severe persistent asthma, uncomplicated J45.50 ; Eosinophilic asthma J82.83 ; Allergic rhinitis due to animal (cat) (dog) hair and dander J30.81 ; Other allergic rhinitis J30.89 ; Other chronic allergic conjunctivitis H10.45 ; Allergy to eggs Z91.012 and Other pneumonia, unspecified organism J18.8 [facility] [address] [place], [place] [address] [address] [address] 01/30/2024 Mely Jay Allergic rhinitis du e to pollen J30.1 ; Severe persistent asthma, uncomplicated J45.50 ; Eosinophilic asthma J82.83 ; Allergic rhinitis due to animal (cat) (dog) hair and dander J30.81 ; Other allergic rhinitis J30.89 ; Other chronic allergic conjunctivitis H10.45 and Allergy to eggs Z91.012 [facility] [address] [place] [address] 11/06/2024 Mely Pierre [facility] [address] [place] [address] 11/05/2024 Mely Pierre [facility] [place] [address] [place] [address] 11/05/2024 Mely Peirre [facility] [place] [address] [place] [address] 10/06/2024 Mely Pierre [facility] [place] [address] [place] [address] 07/08/2024 Mely Pierre [facility] [place] [address] [place] [address] 04/03/2024 Mely Pierre [facility] [address] [place] [address] 01/08/2025 Mely Pierre [facility] [place] [address] [place] [address] 12/19/2024 Mely Pierre [facility] [address] [place] [address] 12/15/2024 Mely Pierre Assessments Encounter Date Diagnosis (ICD Code) Assessment [...] 09/10/2024 Other 11/05/2024 Other Plan Of Treatment Next Appt Details Provider Name:Mely hallman, 02/18/2025 02:45:00 PM, 2022 [facility], [facility] [address], [address], Insurance Providers Payer Name Payer Address Payer Phone Subscriber Number Group Number Insured Name Patient Relationship to Insured Coverage Start Date Coverage End Date [facility] [address] [address] [place], [place] [id number] Sarai Marie Self - patient is the [...]
--- OUTSIDE RECORDS SUMMARY | 2025-01-23 12:47 | XMS_ITS | Referral Summary ---
Author Organization [facility] Address [address] [place] [address] Care Team Providers Care Gridcap Machine Operator Name Role Phone Heraclio Cleveland DO Primary Care Provider [phone]- [phone] Encounters Date Type Department Care Team Description 11/03/2024 9:05 [place] [address] from Last 3 Months Allergies [...] on file Legal Sex Female 8:29 AM SENIOR SOFTWARE DEVELOPMENT MANAGER Gender Identity Female 10/31/2021 1:29 PM CDT Sexual Orientation Straight 10/31/2021 1: 29 PM CDT Last Filed Vital Signs Vital Sign Reading Time Taken Comments Blood Pressure 114/81 11/11/2021 4:05 PM CDT Pulse 105 11/11/2021 4:05 PM CDT Temperature 36.6 C (97.8 F) 05/15/2019 2:01 PM SENIOR SOFTWARE DEVELOPMENT MANAGER Respiratory Rate - - Oxygen Saturation 96% 11/11/2021 4:05 PM CDT Inhaled Oxygen Concentration - - Weight 118.8 kg (261 lb 12.8 oz) 05/15/2019 2:01 PM SENIOR SOFTWARE DEVELOPMENT MANAGER Height 159.5 cm (5' 2.8) 05/15/2019 2:01 PM SENIOR SOFTWARE DEVELOPMENT MANAGER Body Mass Index 46.67 05/15/2019 2:01 PM SENIOR SOFTWARE DEVELOPMENT MANAGER Plan of Treatment Not on file Procedures [...] 2016. Volume sweat site 1 39.0 mcL [facility] Sweat Cl site 2 <10 <=30 mmol/L [facility] Volume sweat site 2 31.0 mcL [facility] Fluid 11/03/2024 9:29 AM CDT 11/03/2024 10:26 AM CDT us Annita Key MD LAB BODY FLUIDS AND STOOLS ORDERABLES Final Result [facility] Department [place] [address] from Last 3 Months Insurance [facility]O Address: [address] [facility] [address] [place] [address] [facility]/PPO Address: [facility] [address] [place] [address] Care Teams Gridcap Machine Operator Relationship Specialty Start Date End Date Heraclio Cleveland DO PCP - General Internal Medicine 12/10/18
--- OUTSIDE RECORDS SUMMARY | 2025-01-23 12:47 | XMS_ITS | Patient Health Record ---
Author Organization [facility] As [place] Address [address] [place] [address] Care Team Providers Care Health Records Technology Teacher Name Role Phone Heraclio Cleveland DO Primary Care Provider Edith Barrios Unavailable [phone] Jevon Ray Unavailable [phone] Cleo Peters Unavailable [phone] Tunde Melara Unavailable [phone] Allergies Allergen (clinical drug ingredient) Drug/Non Drug Allergy documented on EMR Reaction Allergy Type Onset Date Status Eggs or Egg-derived Products Unknown Drug Allergy Active Results Component Value Reference Range Notes Aripiprazole Reviewed date:10/13/2024 12:42:27 PM Interpretation: Performing Lab:, [facility], [address] [place] [address], Director - [id number] Notes/Report: An exception occurred while processing this report and so it has incomplete data. Please contact [employer] for assistance. Aripiprazole NEGATIVE 50.0 ng/mL Not Medicated Consistent PDF Report [email or web address] Adderall Reviewed date:10/13/2024 12:42:36 PM Interpretation: Performing Lab: Notes/Report: Stimulants Reviewed date:10/13/2024 12:42:44 PM Interpretation: Performing Lab: Notes/Report: Phentermine NEGATIVE 100.0 ng/mL Not Medicated Consistent Methylphenidate NEGATIVE 50.0 ng/mL Not Medicate d Consistent Methamphetamine NEGATIVE 100.0 ng/mL Not Medicate d Consistent Amphetamine NEGATIVE 100.0 ng/mL Medicated Inconsistent UDT Reviewed date:12/24/2024 03:29:55 PM Interpretation: Performing Lab: Notes/Report: THC NEG 0 - 50 ng/ml Cocaine NEG 0 - 300 ng/ml Amphetamine NEG 0 - 1000 ng/ml Buprenorphine (BUP) NEG 0 - 10 ng/ml Secobarbital (Bar) NEG 0 - 300 ng/ml Oxazepam (BZO) NEG 0 - 300 ng/ml 5-nwgujhyomd-7,8-shlcczkt-1, 3-diphen ylpyrrolidine (EDDP) NEG 0 - 300 ng/ml Methamphetamine (MET) NEG 0 - 1000 ng/ml Methylenedioxymethamphetamine (MDMA) NEG 0 - 500 ng/ml Morphine (MOP 300/[id number]) NEG 0 - 300 ng/ml Methadone (MTD) [...] Oxazepam (BZO) N 0 - 300 ng/ml 3-fyaupakbqd-9,2-lsjelljn-3, 3-diphen ylpyrrolidine (EDDP) N 0 - 300 ng/ml Methamphetamine (MET) N 0 - 1000 ng/ml Methylenedioxymethamphetamine (MDMA) N 0 - 500 ng/ml Morphine (MOP 300/[id number]) N 0 - 300 ng/ml Methadone (MTD) [...] Oxazepam (BZO) p 0 - 300 ng/ml 4-krjwzokdfm-3,2-yxoisglu-0, 3-diphen ylpyrrolidine (EDDP) n 0 - 300 ng/ml Methamphetamine (MET) n 0 - 1000 ng/ml Methylenedioxymethamphetamine (MDMA) n 0 - 500 ng/ml Morphine (MOP 300/[id number]) n 0 - 300 ng/ml Methadone (MTD) n 0 - 300 ng/ml Phencyclidine (PCP) n 0 - 25 ng/ml Nortriptyline (TCA) n 0 - 1000 ng/ml Oxycodone n 0 - 300 ng/ml NEED PHYSICIAN SIGNATURE Reviewed date:10/13/2024 12:42:56 PM [...] Oxazepam (BZO) N 0 - 300 ng/ml 4-vrywotecbv-3,0-etoyswho-6, 3-diphen ylpyrrolidine (EDDP) N 0 - 300 ng/ml Methamphetamine (MET) N 0 - 1000 ng/ml Methylenedioxymethamphetamine (MDMA) N 0 - 500 ng/ml Morphine (MOP 300/[id number]) N 0 - 300 ng/ml Methadone (MTD) N 0 - 300 ng/ml Phencyclidine (PCP) N 0 - 25 ng/ml Nortriptyline (TCA) N 0 - 1000 ng/ml Oxycodone N 0 - 300 ng/ml x N 0 - 300 ng/ml UDT Reviewed date:01/31/2024 10:13:50 AM Interpretation: Performing Lab: Notes/Report: THC neg 0 - 50 ng/ml Cocaine neg 0 - 300 ng/ml Amphetamine neg 0 - 1000 ng/ml Buprenorphine (BUP) neg 0 - 10 ng/ml Secobarbital (Bar) neg 0 - 300 ng/ml Oxazepam (BZO) neg 0 - 300 ng/ml 7-wajuzzpftx-9,5-ayvmihli-4, 3-diphen ylpyrrolidine (EDDP) neg 0 - 300 ng/ml Methamphetamine (MET) neg 0 - 1000 ng/ml Methylenedioxymethamphetamine (MDMA) neg 0 - 500 ng/ml Morphine (MOP 300/CKA8573) neg 0 - 300 ng/ml Methadone (MTD) [...] Succinate 50 MG Oral; Duration: 30 Days Acti ve Topiramate 25 MG Oral; Duration: 30 Days Active Trelegy Ellipta 200-62.5-25 MCG/ACT Inhalation; Duration: 30 Days Active Ondansetron 4 MG DISSOLVE 1 TABLET IN MOUTH EVERY 8 HOURS NEEDED FOR NAUSEA AND VOMITING Oral; Duration: 6 Days Active Modafinil 100 MG 1 tablet in the morn ing Orally Once a day Active traZODone HCl 100 MG 2 tablet at bedtime Oral Once a day As needed Active Amphetamine-Dextroamphet ER 10 MG 1 capsule in the morning Orally Once a day; Duration: 30 days 01/21/2025 Active ARIPiprazole 5 MG 1 tablet Oral Once a day Active busPIRone HCl 10 MG 2 tablets Oral three times a day Active Potassium Chloride ER 10 MEQ TAKE 1 CAPSULE BY MOUTH ONCE DAILY Oral; Duration: 90 Days Active Fasenra 30 MG/ML Subcutaneous; Durati on: 30 Days Not-Taking Trintellix 20 MG 1 tablet Orally Once a day; Duration: 30 days 12/24/2024 Active Albuterol Sulfate HFA 108 (90 Base) MCG/ACT INHALE 2 PUFFS BY MOUTH EVERY 6 HOURS FOR 30 DAYS Inhalation; Duration: 25 Days Active Social History Tobacco Use: Social History Observation Description Date Details (start date - stop date) Former Smoker 12/03/2003 - 12/07/2010 Sex Assigned At : Social History Observation Description Sex Assigned At Female Tobacco Control (Standard) Question Answer Notes Tobacco use: Former smoker When did you start smoking? 12/03/2003 When did you stop smoking? 12/07/2010 How long has it been since you [...] less (1 point) Section Notes: Lives in [place] with 2 kids. Grew up in [place], has 1 sister. 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 Lives in [place] with 2 kids. Grew up in [place], has 1 sister. 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 Lives in [place] with 2 kids. Grew up in [place], has 1 sister. 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 Lives in [place] with 2 kids. Grew up in [place], has 1 sister. 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 Lives in [place] with 2 kids. Grew up in [place], has 1 sister. 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 Lives in [place] with 2 kids. Grew up in [place], has 1 sister. 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 Lives in [place] with 2 kids. Grew up in [place], has 1 sister. 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 Lives in [place] with 2 kids. Grew up in [place], has 1 sister. 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 Lives in [place] with 2 kids. Grew up in [place], has 1 sister. 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 Problems Problem Type SNOMED Code ICD Code Onset Dates Problem Status W/U Status Risk Notes Problem Moderate recurrent major depression (03085896) Major depressive disorder, recurrent, moderate (F33.1) Active confirmed Problem Recurrent major depression in remission (79187823) Major depressive disorder, recurrent, in partial remission (F33.41) Active confirmed Problem Generalized anxiety disorder (46726248) Generalized anxiety disorder (F41.1) Active confirmed Problem Attention deficit hyperactivity disorder, combined type (05058421) Attention-deficit hyperactivity disorder, combined type (F90.2) Active confirmed Problem Chronic insomnia (739189749) Chronic insomnia (F51.04) Active confirmed Problem Chronic fatigue syndrome (50150470) Chronic fatigue syndrome (G93.32) Active confirmed Problem Panic disorder (431421802) Panic attacks (F41.0) Active confirmed Vital Signs Heart Rate 96 /min 12/24/2024 Height-cm 160.02 cm 12/24/2024 Blood pressure diastolic 73 mm Hg 12/24/2024 Weight-kg 75.57 kg 12/24/2024 Height 63 in 12/24/2024 Blood pressure systolic 117 mm Hg 12/24/2024 Weight 166.6 lbs 12/24/2024 BMI 29.51 kg/m2 12/24/2024 Encounters Encounter Location Date Provider Diagnosis [facility] [address] [facility] [address] [facility] [address] [place] [address] 01/21/2025 Edith Molina Major depressive disorder, recurrent, moderate F33.1 ; Generalized anxiety disorder F41.1 ; Attention-deficit hyperactivity disorder, combined type F90.2 and Chronic insomnia F51.04 [facility] [address] [facility] [address] [place] [address] 01/31/2024 Cleo Peters Major depressive disorder, recurrent, moderate F33.1 ; Generalized anxiety disorder F41.1 ; Attention-deficit hyperactivity disorder, combined type F90.2 ; Chronic insomnia F51.04 ; Panic attacks F41.0 and Chronic fatigue syndrome G93.32 [facility] [address] [place] [address] 02/26/2024 Jevon Ray ADHD (attention deficit hyperactivity disorder), combined type F90.2 [place] [id number] [facility] [address] [address] 03/03/2024 Cleo Peters Major depressive disorder, recurrent, moderate F33.1 ; Attention-deficit hyperactivity disorder, combined type F90.2 ; Generalized anxiety disorder F41.1 ; Chronic insomnia F51.04 ; Panic attacks F41.0 and Chronic fatigue syndrome G93.32 [place] [address] [facility] [address] [address] 03/31/2024 Cleo Peters Major depressive disorder, recurrent, mild F33.0 ; Attention-deficit hyperactivity disorder, combined type F90.2 ; Generalized anxiety disorder F41.1 ; Chronic insomnia F51.04 ; Panic attacks F41.0 and Chronic fatigue syndrome G93.[address] [address] 04/23/2024 Cleo Peters Major depressive disorder, recurrent, mild F33.0 ; Attention-deficit hyperactivity disorder, combined type F90.2 ; Generalized anxiety disorder F41.1 ; Chronic insomnia F51.04 ; Panic attacks F41.0 and Chronic fatigue syndrome G93.32 [place] [address] [facility] [address] [address] 05/27/2024 Edith Molina Attention-deficit hyperactivity disorder, combined type F90.2 ; Major depressive disorder, recurrent, mild F33.0 ; Generalized anxiety disorder F41.1 ; Panic attacks F41.0 ; Chronic insomnia F51.04 and Chronic fatigue syndrome G93.32 [place] [address] [facility] [address] [address] 07/07/2024 Edith Molina Attention-deficit hyperactivity disorder, combined type F90.2 ; Major depressive disorder, recurrent, mild F33.0 ; Generalized anxiety disorder F41.1 ; Panic attacks F41.0 ; Chronic fatigue syndrome G93.32 and Chronic insomnia F51.04 [place] [address] [facility] [address] [address] 08/04/2024 Edith Molina Major depressive disorder, recurrent, mild F33.0 ; Attention-deficit hyperactivity disorder, combined type F90.2 ; Generalized anxiety disorder F41.1 ; Panic attacks F41.0 ; Chronic fatigue syndrome G93.32 and Chronic insomnia F51.04 [facility] [address] [place] [address] 09/29/2024 Edith Molina Generalized anxiety disorder F41.1 ; Major depressive disorder, recurrent, in partial remission F33.41 ; Attention-deficit hyperactivity disorder, combined type F90.2 ; Chronic insomnia F51.04 ; Chronic fatigue syndrome G93.32 ; Panic attacks F41.0 ; Encounter for screening for cardiovascular disorders Z13.6 and Encounter for screening for depression Z13.31 [facility] [address] [place] [address] 12/24/2024 Edith Molina Major depressive disorder, recurrent, moderate F33.1 ; Generalized anxiety disorder F41.1 ; Attention-deficit hyperactivity disorder, combined type F90.2 ; Chronic insomnia F51.04 ; Encounter for screening for depression Z13.31 and Encounter for screening for cardiovascular disorders Z13.6 [facility] [address] [place] [address] 02/04/2024 Cleo Peters Attention-deficit hyperactivity disorder, combined type F90.2 [facility], [facility] [address] [place] [address] 02/04/2024 Cleo Peters [facility], [facility] [address] [place] [address] 02/05/2024 Cleo Peters [facility], [facility] [address] [place] [address] 02/08/2024 Cleo Peters [facility], [facility] [address] [place] [address] 02/15/2024 Cleo Peters [facility], [facility] [address] [place] [address] 01/31/2024 Cleo Peters [facility], [facility] [address] [place] [address] 02/05/2024 Cleo Peters [facility], [place] [address] [place] [address] 02/05/2024 Cleo Peters [facility], [facility] [address] [address] 04/09/2024 [facility] [address] [address] 04/09/2024 [facility], [place] [address] [address] 05/28/2024 Edith Adinjose [place] [address] [address] 05/28/2024 Edith Molina [facility], [place] [address] [address] 09/01/2024 Edith Molina Attention-deficit hyperactivity disorder, combined type F90.2 [place] [address] [address] 09/29/2024 Edith Molina Attention-deficit hyperactivity disorder, combined type F90.2 [place] [address] [address] 10/28/2024 Edith Adinjose Attention-deficit hyperactivity disorder, combined type F90.2 [place] [address] [address] 11/28/2024 Edith Adinjose Attention-deficit hyperactivity disorder, combined type F90.2 [place] [address] [address] 12/24/2024 Tunde Melara Assessments Encounter Date Diagnosis [...] daytime sleepiness. Plan: - follow up with warehouse stocker and any recommeneded testing/provid ers recommended - [...] daytime sleepiness. Plan: - follow up with warehouse stocker and any recommeneded testing/provid ers recommended - [...] c Fatigue - Recently started modafinil by warehouse stocker - Court Registry Officer encouraged continuing Adderall with modafinil Plan: - Continue modafinil as prescribed by warehouse stocker Follow-up in 6 weeks, sooner if concerns [...] c Fatigue - Recently started modafinil by warehouse stocker - Court Registry Officer encouraged continuing Adderall with modafinil Plan: - Continue modafinil as prescribed by warehouse stocker Follow-up in 6 weeks, sooner if concerns [...] slightly, has pulmonology appointment next month - Court Registry Officer encouraged continuing Adderall with modafinil Plan: - Continue treatment plan with warehouse stocker Follow-up in 2 months, sooner if concerns [...] 12/24/2024 Generalized anxiety disorder (ICD-10 - F41.1) 01/21/2025 Major depressive disorder, recurrent, moderate (ICD-10 - F33.1) 01/21/2025 Generalized anxiety disorder (ICD-10 - F41.1) 12/24/2024 [...] slightly, has pulmonology appointment next month - Court Registry Officer encouraged continuing Adderall with modafinil Plan: - Continue treatment plan with warehouse stocker Follow-up in 2 months, sooner if concerns [...] c Fatigue - Recently started modafinil by warehouse stocker - Court Registry Officer encouraged continuing Adderall with modafinil Plan: - Continue modafinil as prescribed by warehouse stocker Follow-up in 6 weeks, sooner if concerns [...] daytime sleepiness. Plan: - follow up with warehouse stocker and any recommeneded testing/provid ers recommended - monitor fatigue follow up 6 weeks, sooner if concerns arise 04/23/2024 Attention-defici t hyperactivity disorder, combined type (ICD-10 - F90.2) did not tolerate concerta 18mg qam-elevated heart rate increase qelbree to 600mg qam (also gave sample box) *if need PA again, note: currently already on qelbree, did not tolerate methylphenidate/ concerta, past taken off adderall for tachycardia, also tried atomoxetine in past 100mg-reports ineffective *sent 90 day refills of other meds on 03/31 did not tolerate methylphenidate- tachycardia. attention complaints, discuss option to try qelbree [...] daytime sleepiness. Plan: - follow up with warehouse stocker and any recommeneded testing/provid ers recommended - [...] c Fatigue - Recently started modafinil by warehouse stocker - Court Registry Officer encouraged continuing Adderall with modafinil Plan: - Continue modafinil as prescribed by warehouse stocker Follow-up in 6 weeks, sooner if concerns [...] slightly, has pulmonology appointment next month - Court Registry Officer encouraged continuing Adderall with modafinil Plan: - Continue treatment plan with warehouse stocker Follow-up in 2 months, sooner if concerns arise 09/29/2024 Chronic insomnia (ICD-10 - F51.04) 01/21/2025 Attention-defici t hyperactivity disorder, combined type (ICD-10 - F90.2) 12/24/2024 Chronic insomnia (ICD-10 - F51.04) 12/24/2024 Encounter for screening for depression (ICD-10 - Z13.31) 01/21/2025 Chronic insomnia (ICD-10 - F51.04) 09/29/2024 Chronic [...] slightly, has pulmonology appointment next month - Court Registry Officer encouraged continuing Adderall with modafinil Plan: - Continue treatment plan with warehouse stocker Follow-up in 2 months, sooner if concerns [...] c Fatigue - Recently started modafinil by warehouse stocker - Court Registry Officer encouraged continuing Adderall with modafinil Plan: - Continue modafinil as prescribed by warehouse stocker Follow-up in 6 weeks, sooner if concerns [...] daytime sleepiness. Plan: - follow up with warehouse stocker and any recommeneded testing/provid ers recommended - [...] daytime sleepiness. Plan: - follow up with warehouse stocker and any recommeneded testing/provid ers recommended - [...] c Fatigue - Recently started modafinil by warehouse stocker - Court Registry Officer encouraged continuing Adderall with modafinil Plan: - Continue modafinil as prescribed by warehouse stocker Follow-up in 6 weeks, sooner if concerns [...] slightly, has pulmonology appointment next month - Court Registry Officer encouraged continuing Adderall with modafinil Plan: - Continue treatment plan with warehouse stocker Follow-up in 2 months, sooner if concerns [...] slightly, has pulmonology appointment next month - Court Registry Officer encouraged continuing Adderall with modafinil Plan: - Continue treatment plan with warehouse stocker Follow-up in 2 months, sooner if concerns arise 09/29/2024 Encounter for screening for cardiovascular disorders (ICD-10 - Z13.6) 04/23/2024 Chronic fatigue syndrome (ICD-10 - G93.32) impacts other sx 09/29/2024 Encounter for screening for depression (ICD-10 - Z13.31) 01/21/2025 Other Sarai Marie, female patient with history of gastric bypass surgery, presenting with improved mood on Trintellix and ongoing management of depression, anxiety, and ADHD. Major Depressive Disorder Assessment: Patient reports significant improvement in depressive symptoms since starting Trintellix. She was titrated from a lower dose to the current 10 mg daily. She has reported no side effects from medication switch from previous antidepressant (lasodone). She denies current suicidal ideation. Her energy levels may be affected by recent illness (cold). Plan: - Continue Trintellix 10 mg PO daily in the morning - Monitor for ongoing efficacy and any emerging side effects - Explore medication assistance programs for Trintellix due to non-formulary status and high due-ke-ixubcc costs Anxiety Disorder Assessment: Current anxiety levels not explicitly discussed, but patient continues on anxiolytic medication. Plan: - Continue Buspirone - Continue Aripiprazole 5 mg Attention Deficit Hyperactivity Disorder (ADHD) Assessment: ADHD symptoms not explicitly discussed, but patient continues on stimulant medication. Plan: - Continue Adderall for ADHD Insomnia Assessment: Sleep quality not explicitly discussed, but patient continues on sleep medication. Plan: - Continue Trazodone at bedtime for sleep Hypokalemia Assessment: Patient reports recent diagnosis of low potassium levels, likely related to malabsorption following gastric bypass surgery. She is currently taking daily potassium supplement as prescribed by primary care provider. Plan: - Continue potassium supplementation as prescribed by primary care - Encourage adequate nutritional intake to address potential vitamin deficiencies 01/31/2024 Other 08/04/2024 Other no refills needed [...] slightly, has pulmonology appointment next month - Court Registry Officer encouraged continuing Adderall with modafinil Plan: - Continue treatment plan with warehouse stocker Follow-up in 2 months, sooner if concerns arise 09/29/2024 Marina Marie, a female patient with a history of anxiety, depression, and ADHD, presents for follow-up with overall improvement in mood and anxiety symptoms. Anxiety Assessment: Patient reports anxiety as not too, too bad with overall improvement. Current management includes buspirone for anxiety symptoms. Work-related stress due to staffing shortages at her job at [employer] is noted as a primary stressor. Plan: [...] is variably managed with modafinil prescribed by warehouse stocker. Plan: - Continue Adderall - Continue modafinil as prescribed by warehouse stocker Plan Of Treatment Next Appt Details Provider Name:Edith gonzalez, 02/18/2025 09:30:00 AM, [facility] [address] [facility] [address], [place], [address], Insurance Providers Payer Name Payer Address Payer Phone Subscriber Number Group Number Insured Name Patient Relationship to Insured Coverage Start Date Coverage End Date r [address] [address] [place] [address] [id number] Sarai Marie Self - patient is the insured Medical (General) History Medical History History ICD Code chronic fatigue syndrome asthma hx DVT hx seizures Past Psychiatric History: Anxiety Disord er,Major Depressive Episode undefined Gastroesophageal reflux disease K21.9 Surgical History Surgery Date(Month/Year) c sections galbladder removal 2013 gastric bypass 05/2023 Hospitalization History Reason Date(Month/Year) pneumonia 2022
--- OUTSIDE RECORDS SUMMARY | 2025-01-23 12:47 | XMS_ITS | Clinical Summary ---
Author Organization [facility] Address [facility] [place] [address] Care Team Providers Care Switch Adjuster Name Role Phone Heraclio Cleveland DO Primary Care Provider [phone] Allergies Active Allergy Reactions Criticality Noted Date [...] Team Description 11/03/2024 9:05 [place] [address] from Last 3 Months Surgical History Surgery Date Site/Laterality Comments CHOLECYSTECTOMY SECTION Medical History Medical History Date Comments Asthma Anxiety Depression GERD (gastroesophageal reflux disease) Hypertension ADD (attention deficit disorder) DVT of upper extremity (deep vein thrombosis) (H CC) 02/2019 Bipolar disorder 2021 Morbid obesity (HCC) Family History Medical [...] on file Legal Sex Female 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 Gender Identity Female 10/31/2021 1:29 PM CDT Sexual Orientation Straight 10/31/2021 1: 29 PM CDT Obstetrics History Last Filed Vital Signs Vital Sign Reading Time Taken Comments Blood Pressure 114/81 11/11/2021 4:05 PM CDT Pulse 105 11/11/2021 4:05 PM CDT Temperature 36.6 C (97.8 F) 05/15/2019 2:01 PM PREPARED FOODS ASSOCIATE Respiratory Rate - - Oxygen Saturation 96% 11/11/2021 4:05 PM CDT Inhaled Oxygen Concentration - - Weight 118.8 kg (261 lb 12.8 oz) 05/15/2019 2:01 PM PREPARED FOODS ASSOCIATE Height 159.5 cm (5' 2.8) 05/15/2019 2:01 PM PREPARED FOODS ASSOCIATE Body Mass Index 46.67 05/15/2019 2:01 PM PREPARED FOODS ASSOCIATE Plan of Treatment Not on file Procedures [...] Volume sweat site 1 39.0 mcL [facility] Sweat Cl site 2 <10 <=30 mmol/L [facility] Volume sweat site 2 31.0 mcL [facility] Fluid 11/03/2024 9:29 AM CDT 11/03/2024 10:26 AM CDT Annita Key MD LAB BODY FLUIDS AND STOOLS ORDERABLES Final Result [facility] [place] [address] from Last 3 Months Insurance [facility] Address: [address] [address] [place] [address] [facility] Address: [address] [address] Care Teams Switch Adjuster Relationship Specialty Start Date End Date Heraclio Cleveland DO PCP - General Internal Medicine 12/10/18
--- OUTSIDE RECORDS SUMMARY | 2025-01-23 12:47 | XMS_ITS | Clinical Summary ---
Author Organization [facility] Address [address] [facility] [place] [address] Care Team Providers Care Unemployment Examiner Name Role Phone Heraclio Cleveland DO Primary Care Provider [phone]- [phone] Heraclio Cleveland DO Unavailable [phone] Source Comments [facility],non-owned Affiliates and Associated Physician Practices is amultiple site organization consisting of ambulatory clinics and hospital sitesin [place], [place], [place] and [place]. This disclosure is being madepursuant to the Care Everywhere program and may not contain all informatio navailable regarding this patient. Last updated 18.[facility] [employer] Allergies Active Allergy Reactions Criticality Noted [...] of 3 - 19+ 3-dose series) 2003 HPV VACCINE (1 - 3-dose SCDM series) 2011 COVID-19 VACCINE (1 - 2023-2 5 season) 2024 DEPRESSION SCREENING 06/25/2024 INFLUENZA VACCINE (#1) 2025 ZOSTER VACCINE (1 of 2) 2034 [...] complete this topic Insurance [employer] Care Teams Unemployment Examiner Relationship Specialty Start Date End Date Heraclio Cleveland DO PCP - General Internal Medicine 10/12/16 Heraclio Cleveland DO Internal Medicine 10/12/16
--- OUTSIDE RECORDS SUMMARY | 2025-01-23 12:47 | XMS_ITS ---
Author Organization [facility] [employer] Address [address] [place] [address] Care Team Providers Care Video Game Engineer Name Role Phone Heraclio Cleveland DO Primary Care Provider Edith Barrios Unavailable [phone] Allergies Allergen (clinical drug ingredient) Drug/Non Drug Allergy documented on EMR Reaction Allergy Type Onset Date Status Eggs or Egg-derived Products Unknown Drug Allergy Active REASON FOR VISIT 1 month f/u Medications Medication SIG (Take, Route, Frequency, Duration) Notes Start Date End Date Status traZODone HCl 100 MG 2 tablet at bedtime Oral Once a day As needed Active Potassium Chloride ER 10 MEQ TAKE [...] 30 DAYS Inhalation; Duration: 25 Days Active SUMAtriptan Succinate 50 MG Oral; Duration: 30 Days Acti ve Topiramate 25 MG Oral; Duration: 30 Days Active Trelegy Ellipta 200-62.5-25 MCG/ACT Inhalation; Duration: 30 Days Active ARIPiprazole 5 MG 1 tablet Oral Once a day Active busPIRone HCl 10 MG 2 tablets Oral three times a day Active Ondansetron 4 MG DISSOLVE 1 TABLET IN MOUTH EVERY 8 HOURS NEEDED FOR NAUSEA AND VOMITING Oral; Duration: 6 Days Active Modafinil 100 MG 1 tablet in the morn ing Orally Once a day Active Amphetamine-Dextroamphet ER 10 MG 1 capsule in the morning Orally Once a day; Duration: 30 days 01/21/2025 Active Social History Tobacco Use: Social History [...] less (1 point) Section Notes: Lives in [place] with 2 kids. [place] in [place], has 1 sister. 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 Encounters Encounter Location Date Provider Diagnosis [facility] [employer] [address] [address] 01/21/2025 Edith Molina Major depressive disorder, recurrent, moderate F33.1 ; Generalized anxiety disorder F41.1 ; Attention-deficit hyperactivity disorder, combined type F90.2 and Chronic insomnia F51.04 Assessments Encounter Date Diagnosis (ICD Code) Assessment Notes Treatment Notes Treatment Clinical Notes Section Notes 01/21/2025 Major depressive disorder, recurrent, moderate (ICD-10 - F33.1) 01/21/2025 Generalized anxiety disorder (ICD-10 - F41.1) 01/21/2025 Attention-deficit hyperactivity disorder, combined type (ICD-10 - F90.2) 01/21/2025 Chronic insomnia (ICD-10 - F51.04) 01/21/2025 Marina Tapiassnathalie Moyer, female patient with history of gastric bypass [...] Trintellix due to non-formulary status and high kxi-yf-hyxipq costs Anxiety Disorder Assessment: Current anxiety levels [...] nutritional intake to address potential vitamin deficiencies Plan Of Treatment Medication Medication Name Sig Start Date Stop Date Notes traZODone HCl 100 MG 2 tablet at bedtime Oral Once a day ARIPiprazole 5 MG 1 tablet Oral Once a day busPIRone HCl 10 MG 2 tablets Oral three times a day Amphetamine-Dextroamphet ER 10 MG 1 capsule in the morning Orally Once a day; Duration: 30 days 01/21/2025 Treatment Notes Assessment Notes Other Sarai Moyer, female patient with history of gastric bypass [...] Trintellix due to non-formulary status and high kkp-ze-qdqvvr costs Anxiety Disorder Assessment: Current anxiety levels [...] nutritional intake to address potential vitamin deficiencies Next Appt Details Provider Name:Edith N Han gonzalez, 02/18/2025 09:30:00 AM, [address] [address] [facility] [address], [place], [address], Progress Notes * Sarai MOYERDOB:[birth year] (39 yo F)Acc No.[id number]:01/21/2025 Patient: Angie SPENCERica Provider: Michael Molina :1985 A ge:39 Y S ex:Female Date:01/21/2025 Phone: Address:[address] [place] [address] [facility] Pcp:Heraclio Cleveland DO Subjective: * Chief Complaints: * 1 . 1 month f/u. * HPI: D epression Screening: MARY-7 (2018 Edition) F eeling nervous, anxious, or on edge N ot at all N ot being able to stop or control worrying?Not at all W orrying too much about different things S everal days T rouble relaxing N ot at all B eing so restless that it is hard to sit still S everal days B ecoming easily annoyed or irritable M ore than half the days F eeling afraid as if something awful might happen N ot at all T otal MARY-7 Score 4 I f you checked any problems, how difficult have they made it for you to do your work, take care of things at home, or get along with other people? N ot difficult at all I nterpretation of Total ( 0 to 4) No Anxiety [place]-Suicide Severity Rating Scale: Suicide Risk (CSRS-screener) i n the past one month Have you wished you were or wished you could go to sleep and not wake up? N o i n the past one month Have you actually had any thoughts of killing yourself? N o H ave you ever done anything, started to do anything, or prepared to do anything to end your life? N o D epression screening: PHQ-9 L ittle interest or pleasure in doing things?Several days F eeling down, depressed, or hopeless S everal days T rouble falling or staying asleep, or sleeping too much S everal days F eeling tired or having little energy S everal P oor appetite or overeating N ot at all F eeling bad about yourself or that you are a failure, or have let yourself or your family down M ore than half the days T rouble concentrating on things, such as reading the newspaper or watching television S ever M oving or speaking so slowly that other people could have noticed; or the opposite, being so fidgety or restless that you have been moving around a lot more than usual N ot at all T houghts that you would be better off or of hurting yourself in some way N ot at all H istory of Presenting Problem: This note is transcribed using speech recognition software. It is a reflection of a visit with the patient. It might have some inaccuracy, including medication names and transcribing errors, though efforts have been made to correct them. History of Present Illness Sarai Moyer, a patient with a history of gastric bypass surgery and psychiatric conditions, presents for follow-up reporting improved mood and overall well- being. She states, I'm feeling a lot better than I was. The patient has recently started taking Trintellix 10 mg daily for depression, transitioning from lasodone, and reports no significant side effects from the medication change. She notes, I seem a lot less depressed. Sarai mentions experiencing a recent cold, which has caused some fatigue, but she attributes this to the illness rather than her psychiatric medications. She is currently taking her Trintellix in the morning as prescribed. The patient reports that her appetite is okay, but she is consciously trying to eat more due to concerns about vitamin deficiencies related to her gastric bypass surgery. A recent medical issue has emerged, with Sarai noting, My potassium was really low, so I'm taking a potassium supplement now. This supplement was added after repeated low potassium levels were detected in lab tests. She attributes this to reduced absorption following her gastric bypass surgery. Regarding her psychiatric medications, Sarai is adhering to her prescribed regimen, which includes buspirone, aripiprazole, Trintellix, trazodone for sleep, and Adderall for ADHD. However, she expresses concern about the cost of Trintellix, as it is not covered by her insurance and remains expensive even with a coupon card. Medications and Supplements Patient is taking Trintellix 10 mg in the morning for depression, reporting improved mood and no significant side effects. Buspirone 10 mg is taken 2-3 times daily. Aripiprazole 5 mg and Adderall 10 mg capsule for ADHD are also part of the regimen. Trazodone is taken at bedtime for sleep. A potassium supplement has been recently added due to low potassium levels, taken daily. The patient switched from lasodone to Trintellix, with the transition reported as smooth. Trintellix is currently non-formulary, resulting in higher tqk-wb-iddacq costs even with a coupon card. Social History - Diet: Patient reports trying to increase food intake due to vitamin deficiencies - Medical History: History of gastric bypass surgery Medical History - Depression - Anxiety - Attention-Deficit/Hyperactivity Disorder (ADHD) - Vitamin deficiencies related to gastric bypass surgery - Hypokalemia (low potassium) Review of Systems General: Positive for fatigue. Negative for fever, chills. Respiratory: Positive for cold symptoms. Gastrointestinal: Positive for decreased appetite. Psychiatric: Negative for suicidal thoughts. Positive for improved mood, less depression. * Medical History: C hronic fatigue syndrome, Asthma, hx DVT, Hx seizures, Past Psychiatric History: Anxiety Disorder,Major Depressive Episode, Gastroesophageal reflux disease. * Surgical History: c sections 2008-, galbladder removal 2012, gastric bypass 05/2023. * Hospitalization/Major Diagno stic Procedure: p neumonia 2022. * Family History: Jones judypatrice Grandfather: Alcohol Abuse, diagnosed with Essential hypertension. P aternal Grandmother: Bipolar Disorder, diagnosed with Essential hypertension. M atechelsie Grandfather: Alcohol Abuse, diagnosed with Essential hypertension. S ister: Major Depressive Episode. S on: ADHD. D aughter: Anxiety Disorder,Major Depressive Episode. F ather: diagnosed with Essential hypertension, Type 2 diabetes mellitus without complication, unspecified whether credit products officer insulin use. M atebryanl Grandmother: diagnosed with Essential hypertension. * Social History: T obacco Use: T obacco Control (Standard) T obacco use: F ormer smoker W hen did you start smoking? 0 12/03/2003 W hen did you stop smoking? 0 12/07/2010 H ow long has it been since you last smoked??Greater than 10 years D rug/Alcohol: D rugs H ave you used drugs other than those for medical reasons in the past 12 months? N o AUDIT-C (Standard) D id you have a drink containing alcohol in the past year? Y es H ow often did you have six or more drinks on one occasion in the past year? N ever (0 point) H ow many drinks did you have on a typical day when you were drinking in the past year? 1 or 2 drinks (0 point) H ow often did you have a drink containing alcohol in the past year? 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 Safety issues A re there any firearms in the house? N o Advance Care Planning A re you your own decision-maker Y es D o you have Power of Wrapper Sheeter for Health or Medical? N o S ocial History: H ousehold M arital Status: D ivorced N umber of Adults in household: 1 N umber of Children in Household: 2 L evel of Education: N ot Finished College L meredith in [place] with 2 kids. [place] in [place], has 1 sister. 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 * Medications: T aking ARIPiprazole 5 MG Tablet 1 tablet Oral Once a day , Taking busPIRone HCl 10 MG Tablet 2 tablets Oral three times a day , stop date 03/24/2025, Taking Amphetamine-Dextroamphet ER 10 MG Capsule Extended Release 24 Hour 1 capsule in the morning Orally Once a day , Taking traZODone HCl 100 MG Tablet 2 tablet at bedtime Oral Once a day As needed, Taking Modafinil 100 MG Tablet 1 tablet in the morning Orally Once a day , Taking Ondansetron 4 MG Tablet Disintegrating DISSOLVE 1 TABLET IN MOUTH EVERY 8 HOURS NEEDED FOR NAUSEA AND VOMITING Oral , Taking Trelegy Ellipta 200-62.5-25 MCG/ACT Aerosol Powder Breath Activated Inhalation , Taking Topiramate 25 MG Tablet Oral , Taking SUMAtriptan Succinate 50 MG Tablet Oral , Taking Albuterol Sulfate HFA 108 (90 Base) MCG/ACT Aerosol Solution INHALE 2 PUFFS BY MOUTH EVERY 6 HOURS FOR 30 DAYS Inhalation , Taking Trintellix 20 MG Tablet 1 tablet Orally Once a day , Taking Potassium Chloride ER 10 MEQ Capsule Extended Release TAKE 1 CAPSULE BY MOUTH ONCE DAILY Oral , Not-Taking Fasenra 30 MG/ML Solution Prefilled Syringe Subcutaneous , Medication List reviewed and reconciled with the patient * Allergies: E ggs or Egg-derived Products. Objective: * Vitals: * Examination: G eneral Examination: M ental Status Examination - Mood: Patient reports feeling a lot better than she was and she seems a lot less depressed. - Thought Process: Linear and goal-directed, as evidenced by appropriate responses to questions and ability to provide relevant information about medication changes and side effects. - Cognition: Alert and oriented, able to engage in conversation about current medications and recent medical issues. Laboratory, Imaging, and Diagnostic Test Results - Date: Not specified - Potassium: Low (exact value not provided) - Previous results: - Potassium: Low (exact value not provided, date not specified). Assessment: * Assessment: 1. M ajor depressive disorder, recurrent, moderate - F33.1 (Primary) 2 . G eneralized anxiety disorder - F41.1 3 . A ttention-deficit hyperactivity disorder, combined type - F90.2 4 . C hronic insomnia - F51.04 Plan: * Treatment: 2. G eneralized anxiety disorder Continue busPIRone HCl Tablet, 10 MG, 2 tablets, Oral, three times a day. 3. A ttention-deficit hyperactivity disorder, combined type Refill Amphetamine-Dextroamphet ER Capsule Extended Release 24 Hour, 10 MG, 1 capsule in the morning, Orally, Once a day, 30 days, 30 Capsule, Refills 0. 4. C hronic insomnia Continue traZODone HCl Tablet, 100 MG, 2 tablet at bedtime, Oral, Once a day As needed. 5. O thers Notes: Sarai Moyer, female patient with history of gastric bypass [...] Trintellix due to non-formulary status and high hjk-gk-mdgnfi costs Anxiety Disorder Assessment: Current anxiety levels [...] nutritional intake to address potential vitamin deficiencies * Billing Information: * Visit Code: * Procedure Codes: * Electronic signature of Mark Molina on 01/23/2025 at 12:47 PM CDT Sign off status: Pending * Provider: Michael Molina Date: 01/21/2025 Generated for Cydney carson/Pavel on: 01/23/2025 12:47 PM CDT History and Physical Notes * HPI (History of Present Illness) Category Sub-Category Detail Notes Category Not es History of Presenting Problem Depression screening PHQ-9 Little inte rest or pleasure in doing things: Several days Feeling down, depressed, or hopeless: Se veral days Trouble falling or staying asleep, or sl eeping too much: Several days Feeling tired or having little energy: S everal days Poor appetite or overeating: Not at all Feeling bad about yourself o r that you are a failure, or have let yourself or your family down: More than half the days Trouble concentrating on thi ngs, such [...] yourself in some way: Not at all Depression Screening MARY-7 (2018 Edition) Feelin g nervous, anxious, or on edge: Not at all Not being able to stop or control worryi ng: Not at all Worrying too much about different things : Several days Trouble relaxing: Not at all Being so restless that it is hard to sit still: Several days Becoming easily annoyed or irritable: Mo re than half the days Feeling afraid as if something awful mable ht happen: Not at all Total MARY-7 Score: 4 If you checked any problems, how difficult have they made it for you to do your work, take care of things at home, or get along with other people?: Not difficult at all Interpretation of Total: (0 to 4) No Anx iety [place]-Suicide Severity Rating Scale Suicide Risk (CSRS-screener) in [...] Sub-Category Detail Notes Category Not es General Examination Mental Status Examination - Mood: Patient reports feeling a lot better than she was and she seems a lot less depressed. - Thought Process: Linear and goal-directed, as evidenced by appropriate responses to questions and ability to provide relevant information about medication changes and side effects. - Cognition: Alert and oriented, able to engage in conversation about current medications and recent medical issues. Laboratory, Imaging, and Diagnostic Test Results - Date: Not specified - Potassium: Low (exact value not provided) - Previous results: - Potassium: Low (exact value not provided, date not specified)
--- OUTSIDE RECORDS SUMMARY | 2025-01-23 12:47 | XMS_ITS | Clinical Summary ---
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
[2025-01-23 12:51] VITALS: BP 119/56; PULSE 97; RESP 16; TEMP 36.3; O2SAT 98
--- NOTE | 2025-01-23 13:40 | ED_ITS ---
HPI - General Adult General Chief complaint: Back Pain/Injury Stated complaint: lower L back pain Time Seen by Provider: 01/23/25 13:13 History of Present Illness HPI narrative: 39-year-old female with history of kidney stones presents emergency department for evaluation for acute onset of left flank pain. Patient describes left flank pain that is not radiate to her left lower quadrant. Patient does describe associated nausea with this. Patient does have a history of stones and did have to have a procedure approximately 2 years ago have the stone removed. Patient reports that she has had kidney stones past since then. Related Data Home Medications ?Medication ?Instructions ?Recorded ?Confirmed ?Last Taken ?Type epinephrine 0.3 mg/0.3 mL 0.3 ml IM ONCE PRN 10/04/22 10/27/24 Unknown History injection, auto-injector hypersensitivity reaction vilazodone 40 mg tablet 40 mg PO DAILY 12/07/22 10/27/24 Unknown History trazodone 100 mg tablet 100 mg PO HS 12/13/23 10/27/24 Unknown History benralizumab 30 mg/mL subcutaneous 30 mg subcut .Q2mo 02/07/24 10/27/24 Unknown History syringe (Fasenra) cetirizine 10 mg tablet (Zyrtec) 10 mg PO DAILY 03/13/24 10/27/24 Unknown History dextroamphetamine-amphetamine ER 10 mg PO DAILY 06/03/24 10/27/24 Unknown History 10 mg 24hr capsule,extend release (Adderall XR) aripiprazole 5 mg tablet (Abilify) 5 mg PO DAILY 09/03/24 10/27/24 Unknown History Allergies Allergy/AdvReac Type Severity Reaction Status Date / Time egg Allergy Severe anaphalaxis Verified 10/27/24 14:02 DUST Allergy Intermediate wheezing Uncoded 10/27/24 14:02 MILDEW Allergy Mild Wheezing Uncoded 10/27/24 14:02 MOLD Allergy Mild Wheezing Uncoded 10/27/24 14:02 SMOKE Allergy Mild Wheezing Uncoded 10/27/24 14:02 Review of Systems 2 Review of Systems: All systems reviewed & are unremarkable except as noted in HPI and below PMFSH Past Medical History Medical History Hypersomnolence Attention deficit Factor V Leiden Morbid obesity with BMI of 50.0-59.9, adult Cholecystectomy planned Allergies Asthma Depression Migraine Back pain DVT (deep venous thrombosis) Surgical History Surgical History Gastric bypass status for obesity Hx of cholecystectomy Previous section 2008, 2012 Family History Family History Father Hypertension Diabetes mellitus Mother Hypertension Diabetes mellitus Other Breast cancer Social History Social History Social History: Caffeine-daily the patient is single and she has 2 children. She works at [employer]. code status full code Smoking packs per day: 0.5 Smoking cigarettes per day: 10.0 Years smoked: 5 Smoking pack-years: 2.50 Smoking status: Former smoker Tobacco type: cigarettes Second hand tobacco smoke exposure: Yes Smoking end date: 06/25/13 Alcohol intake: never Alcohol use details: rarely Substance use: never Substance use type: does not use Do You Feel Safe in your Home?: Yes Lack of Transportation: No Lack of Food: Never True Current Housing: I Have Housing Concerned About Future Housing: No Difficulty Paying Gas/Electric Bills: No Difficulty Paying for Meds: No Currently Unemployed: No Education: High School Diploma/GED Difficulty w/ Childcare or Family Care: No Gender identity (if verbalized by the patient): Female Spiritual care concerns: No Exam 2 Narrative: APPEARANCE: Well appearing, no pain, no distress, well-nourished. HEAD: normocephalic, atraumatic. EYES: PERRLA/EOMI, conjunctivae clear. NOSE: Normal no drainage EARS:TMS clear with good light reflex. THROAT: Pharynx clear, no exudate. NECK: Supple. No adenopathy, no masses. RESPIRATORY: Airway patent, respirations nonlabored. Clear to auscultation bilaterally, no rales, rhonchi, wheezing. CARDIOVASCULAR: Regular rate and rhythm without murmurs rubs or gallops. ABDOMINAL: Soft, nontender, nondistended, normal bowel sounds MUSCULOSKELETAL: Moves all extremities. Strength/ROM intact, No edema, No calf tenderness. NEURO: Alert. Cranial nerves II through XII intact. Good gait. Good coordination SKIN: Warm, dry. Normal Color Course Vital Signs Vital signs: Vital Signs Temperature 97.3 F L 01/23/25 12:51 Pulse Rate 97 01/23/25 12:51 Respiratory Rate 16 01/23/25 12:51 Blood Pressure 119/56 L 01/23/25 12:51 Pulse Oximetry 98 01/23/25 12:51 Temperature 97.3 F L 01/23/25 12:51 Pulse Rate 88 01/23/25 15:45 Respiratory Rate 18 01/23/25 15:45 Blood Pressure 116/52 L 01/23/25 15:45 Pulse Oximetry 99 01/23/25 15:45 Medical Decision Making MDM Narrative Medical decision making narrative: 39-year-old female presents emergency department for evaluation for left flank pain. Patient does have an elevated leukocytosis of 14.6 but patient has had prior leukocytosis. Patient hemoglobin is 12.7. Patient's INR is 1.1. Patient has no acute abnormalities on her CMP UA was negative for infection and for hematuria. CT scan does show bilateral nonobstructing left renal stones. No ureteral stones, hydronephrosis or other acute intra-abdominal/pelvic process. Similar but more advanced pattern of numerous centrilobular nodules throughout the bilateral lower lungs most suggestive of pneumonia however this is been present on multiple studies dating back to 12/07/2022 suggesting chronic atypical pneumonia such as AUGIE or other inflammatory etiologies including hypersensitivity pneumonitis. No evidence of kidney stones. Patient will be started on antibiotics for possible pneumonia courage to have close follow-up with her primary care physician for additional outpatient workup. Patient does report that she does have prior history of pneumonia and does have current follow-up with pulmonology. All questions concerns were addressed patient was well-appearing time discharge. Differential Diagnosis Differential Diagnosis: Pneumonia, AUGIE, pneumothorax, renal calculi, ureteral calculi, colitis, diverticulitis Vital Signs Vital Signs: Vital Signs Temperature 97.3 F L 01/23/25 12:51 Pulse Rate 97 01/23/25 12:51 Respiratory Rate 16 01/23/25 12:51 Blood Pressure 119/56 L 01/23/25 12:51 Pulse Oximetry 98 01/23/25 12:51 Temperature 97.3 F L 01/23/25 12:51 Pulse Rate 88 01/23/25 15:45 Respiratory Rate 18 01/23/25 15:45 Blood Pressure 116/52 L 01/23/25 15:45 Pulse Oximetry 99 01/23/25 15:45 Lab Data Lab results reviewed: Yes I reviewed the patient's lab results. 01/23/25 13:43 01/23/25 13:42 Labs: Lab Results 01/23/25 01/23/25 01/23/25 Range/Units 13:42 13:43 13:54 WBC 14.6 H (4.5-10.0) K/mm3 RBC 4.22 (4.2-5.4) M/mm3 Hgb 12.7 (12.0-15.0) g/dL Hct 39.2 (37.0-47.0) % MCV 92.9 (80-100) fl MCH 30.1 (26-34) pg MCHC 32.4 (32-36) g/dl RDW 13.2 (11.5-14.5) % Plt Count 321 (150-375) k/mm3 MPV 8.9 (7.4-10.4) fl Immature Gran % (Auto) 0.8 H (0-0.5) % Neut % (Auto) 63.7 (45.5-73.1) % Lymph % (Auto) 29.0 (18.3-44.2) % Clark % (Auto) 6.2 (2.6-8.5) % Eos % (Auto) 0.0 (0-4.4) % Baso % (Auto) 0.3 (0.2-1.2) % Lymph # (Auto) 4.24 H (0.9-3.2) K/mm3 Clark # (Auto) 0.9 H (0.1-0.6) K/mm3 Eos # (Auto) 0.0 (0-0.3) K/mm3 Baso # (Auto) 0.1 (0.0-0.1) K/mm3 Abs Immat Gran (auto) 0.12 H (0.00-0.031) K/mm3 Absolute Neuts (auto) 9.3 H (1.3-6.7) K/mm3 Absolute Nucleated RBC 0.000 (0.0-0.012) K/mm3 Nucleated RBC % 0.0 (0.0-0.2) % PT 14.5 (11.1-14.7) Seconds INR 1.1 APTT 34.4 (22.3-36.8) Seconds Sodium 137 (137-145) mmol/L Potassium 4.2 (3.4-5.0) mmol/L Chloride 106 (98-107) mmol/L Carbon Dioxide 20 L (22-30) mmol/L Anion Gap 11 (4-12) mmol/L BUN 5 L (7-17) mg/dL Creatinine 0.56 L (0.7-1.0) mg/dL Estim Creat Clear Calc 108 ml/min Estimated GFR > 60 (59 - ) Glucose 83 (65-110) mg/dL Calcium 9.4 (8.4-10.2) mg/dL Total Bilirubin 0.4 (0.2-1.3) mg/dL AST 30 (14-36) U/L ALT 18 (6-35) U/L Alkaline Phosphatase 120 (38-126) U/L Total Protein 8.5 H (6.3-8.2) g/dL Albumin 4.5 (3.5-5.1) g/dL Urine Color Dark yellow (Yellow) Urine Appearance Clear (Clear) Urine pH 6.5 (5.0-9.0) Ur Specific [place] 1.014 (1.001-1.035) Urine Protein Negative (Negative) mg/dL Urine Glucose (UA) Negative (Negative) mg/dL Urine Ketones Negative (Negative) mg/dL Ur Blood (Man) Negative (Negative) Urine Nitrate Negative (Negative) Urine Bilirubin Negative (Negative) Urine Urobilinogen 0.2 (<2.0) mg/dL Leukocyte Esterase Rfl Negative (Negative) GUILLE/UL POC Urine HCG, Qual Negative (Negative) Imaging Data Radiologist's impression: Impressions Abdomen/Pelvis CT 01/23/25 14:05 IMPRESSION: 1. Bilateral nonobstructing left renal stones. No ureteral stones, hydronephrosis or other acute intra-abdominal/pelvic process. 2. Similar but more advanced pattern of numerous centrilobular nodules throughout the bilateral lower lungs most suggestive of pneumonia however this is been present on multiple studies dating back to 12/07/2022 suggesting chronic atypical pneumonia such as AUGIE or other inflammatory etiologies including hypersensitivity pneumonitis. The complete sparing of the visualized mid lung zones would argue against metastases. If this has not been previously worked up would consider pulmonology consultation. Discharge Plan Discharge Clinical Impression: Pneumonia, Acute flank pain Patient Disposition: Home Condition: Stable Instructions: Antibiotic Form, Flank Pain (ED), Pneumonia (ED) Additional Instructions: Tylenol and ibuprofen for pain control. Antibiotics as directed until completed. Have close follow-up with your primary care physician. Patient Language: Hungarian Prescriptions: New azithromycin 250 mg tablet See Rx Instructions .ROUTE .COMPLEX Qty: 6 0RF Rx Instructions: For 250 mg dose pack: take 500 mg today (day 1), then 250 mg for 4 days (days 2-5) amoxicillin-pot clavulanate 875-125 mg tablet 1 tablet PO Q12H 7 Days Qty: 14 0RF No Action Fasenra 30 mg/mL syringe 30 mg subcut .Q2mo Rx Instructions: Prescribed by Dr. Altamirano: Utility Systems Repairer Operator trazodone 100 mg tablet 100 mg PO HS dextroamphetamine-amphetamine [Adderall XR] 10 mg capsule,extended release 24hr 10 mg PO DAILY albuterol sulfate 2.5 mg /3 mL (0.083 %) solution for nebulization 2.5 mg inhalation Q4-6H PRN (Reason: shortness of breath or wheezing) Qty: 180 0RF ondansetron 4 mg tablet,disintegrating 4 mg PO Q8H PRN (Reason: nausea and vomiting) Qty: 30 2RF multivitamin Tablet 1 tablet PO DAILY Qty: 30 0RF buspirone 10 mg tablet 20 mg PO TID Qty: 90 0RF aripiprazole [Abilify] 5 mg tablet 5 mg PO DAILY epinephrine 0.3 mg/0.3 mL auto-injector 0.3 ml IM ONCE PRN (Reason: hypersensitivity reaction) vilazodone 40 mg tablet 40 mg PO DAILY albuterol sulfate 90 mcg/actuation HFA aerosol inhaler 1 puff inhalation QID Qty: 6.7 0RF hydrocodone-acetaminophen 5-325 mg tablet 1 tablet PO Q12H PRN (Reason: pain) Qty: 14 0RF cetirizine [Zyrtec] 10 mg Tablet 10 mg PO DAILY omeprazole 20 mg capsule,delayed release(DR/EC) 20 mg PO DAILY Qty: 90 2RF modafinil 200 mg tablet 200 mg PO .COMPLEX 30 Days Qty: 45 2RF Rx Instructions: Take 200 mg in the morning, take a half a tablet 100 mg i nthe afternoon. topiramate [Topamax] 50 mg tablet 50 mg PO BID Qty: 180 0RF sumatriptan succinate 50 mg tablet 50 mg PO DAILY PRN (Reason: Migraine Headache) Qty: 9 5RF azelastine-fluticasone 137-50 mcg/spray spray,non-aerosol See Rx Instructions .ROUTE .COMPLEX Qty: 23 0RF Dose Instruction: USE 1 SPRAY INTRANASALLY TWICE DAILY NEEDED Rx Instructions: USE 1 SPRAY INTRANASALLY TWICE DAILY NEEDED Trelegy Ellipta 100-62.5-25 mcg blister with device See Rx Instructions .ROUTE .COMPLEX Qty: 60 6RF Dose Instruction: INHALE 1 PUFF EVERY 24 HOURS RINSE AND SPIT AFTER USE Rx Instructions: INHALE 1 PUFF EVERY 24 HOURS RINSE AND SPIT AFTER USE amoxicillin-pot clavulanate 875-125 mg tablet 1 tablet PO BID Qty: 20 0RF azithromycin 250 mg tablet See Rx Instructions PO .COMPLEX Qty: 6 0RF Rx Instructions: For 250 mg dose pack: take 500 mg today (day 1), then 250 mg for 4 days (days 2-5) PO fluconazole 150 mg tablet 150 mg PO ONCE Qty: 2 0RF Rx Instructions: May repeat after 72 hours if needed potassium chloride 10 mEq capsule, extended release 10 meq PO DAILY Qty: 90 1RF modafinil 200 mg tablet 200 mg PO .COMPLEX 30 Days Qty: 45 0RF Rx Instructions: 200 mg orally am, half a pill in afternoon; Take one in the morning, take a half in the afternoon. modafinil 200 mg tablet 200 mg PO BID 30 Days Qty: 60 0RF Rx Instructions: Take one in the morning, repeat in the afternoon. Follow-up/Referrals: Heraclio Cleveland, [Primary Care Provider] -
[2025-01-23] MEDS: ONDANSETRON INJ 4 MG/2 ML VIAL IV PUSH (13:47)
[2025-01-23] MEDS: HYDROmorphone HCL INJ (*CRX) 2 MG/ML VIAL 0.5 MG IV PUSH (13:47)
[2025-01-23 13:48] VITALS: BP 116/63; PULSE 92; RESP 20; O2SAT 100
[2025-01-23 13:55] LABS: Hematocrit 39.2 % (37.0-47.0); Hemoglobin 12.7 g/dL (12.0-15.0); Immature Granulocyte Percent A 0.8 % (0-0.5); Lymphocytes Absolute Auto 4.24 K/mm3 (0.9-3.2); Mean Corpuscular HGB Conc 32.4 g/dl (32-36); Mean Corpuscular Hemoglobin 30.1 pg (26-34); Mean Corpuscular Volume 92.9 fl (80-100); Nucleated Red Blood Cells Absolute Auto 0.000 K/mm3 (0.0-0.012); Nucleated Red Blood Cells Perc 0.0 % (0.0-0.2); Platelet Count Result 321 k/mm3 (150-375); Red Blood Count 4.22 M/mm3 (4.2-5.4); White Blood Count 14.6 K/mm3 (4.5-10.0)
[2025-01-23 13:56] LABS: Appearance Urine Clear (Clear); Glucose Urine UA Negative (Negative); Leukocyte Esterase Ur Negative LEU/UL (Negative); Nitrate Urine Negative (Negative); Specific Grav Ur 1.014 (1.001-1.035)
[2025-01-23 13:59] LABS: BEDSIDEPREGUCG Negative (Negative)
[2025-01-23 14:08] LABS: Alanine Aminotransferase 18 U/L (6-35); Albumin Level 4.5 g/dL (3.5-5.1); Alkaline Phosphatase 120 U/L (38-126); Anion Gap 11 mmol/L (4-12); Aspartate Amino Transferase 30 U/L (14-36); Bilirubin,Total 0.4 mg/dL (0.2-1.3); Blood Urea Nitrogen 5 mg/dL (7-17); Calcium 9.4 mg/dL (8.4-10.2); Carbon Dioxide 20 mmol/L (22-30); Chloride 106 mmol/L (98-107); Estimated CRCL calculation 108 ml/min; Estimated Glomerular Filt Rate > 60; Glucose 83 mg/dL (65-110); Potassium 4.2 mmol/L (3.4-5.0); Sodium 137 mmol/L (137-145); Total Protein 8.5 g/dL (6.3-8.2)
[2025-01-23 14:16] LABS: INR 1.1; Partial Thromboplastin Time 34.4 Seconds (22.3-36.8); Prothrombin Time 14.5 Seconds (11.1-14.7)
--- OUTSIDE RECORDS SUMMARY | 2025-01-23 14:16 | XMS_ITS | Clinical Summary ---
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 Gender Identity Female 10/31/2021 1:29 PM CDT Sexual Orientation Straight 10/31/2021 1: 29 PM CDT Obstetrics History Last Filed Vital Signs Vital Sign Reading Time Taken Comments Blood Pressure 114/81 11/11/2021 4:05 PM CDT Pulse 105 11/11/2021 4:05 PM CDT Temperature 36.6 C (97.8 F) 05/15/2019 2:01 PM JUDICIAL LAW CLERK Respiratory Rate - - Oxygen Saturation 96% 11/11/2021 4:05 PM CDT Inhaled Oxygen Concentration - - Weight 118.8 kg (261 lb 12.8 oz) 05/15/2019 2:01 PM JUDICIAL LAW CLERK Height 159.5 cm (5' 2.8) 05/15/2019 2:01 PM JUDICIAL LAW CLERK Body Mass Index 46.67 05/15/2019 2:01 PM JUDICIAL LAW CLERK Plan of Treatment Not on file Procedures [...] Volume sweat site 1 39.0 mcL [facility] Sweat Cl site 2 <10 <=30 mmol/L [facility] Volume sweat site 2 31.0 mcL [facility] Fluid 11/03/2024 9:29 AM CDT 11/03/2024 10:26 AM CDT Annita Key MD LAB BODY FLUIDS AND STOOLS ORDERABLES Final Result [facility] Department [place] [address] from Last 3 Months Insurance [facility] Care Teams Ventilation Worker Relationship Specialty Start Date End Date Heraclio Cleveland DO PCP - General Internal Medicine 12/10/18
--- OUTSIDE RECORDS SUMMARY | 2025-01-23 14:16 | XMS_ITS | Clinical Summary ---
Author [facility] Address [address] [place] [address] [place] [address] Care Team Providers Care Orchid Hand Name Role Phone Heraclio Cleveland DO [...] 0 Active fluticasone propionate (FLONASE) 50 mcg/spray Sunspot, Suspension nasal inhaler fluticasone propionate 50 mcg/actuation [...] on file Legal Sex Female 8:28 AM DENTAL RESIDENT Gender Identity Not on file Sexual Orientation [...] 2024 INFLUENZA VACCINE (#1) 2025 Care Teams Orchid Hand Relationship Specialty Start Date End Date Heraclio Cleveland DO [address] [address] PCP - General Internal Medicine 08/29/19
--- OUTSIDE RECORDS SUMMARY | 2025-01-23 14:16 | XMS_ITS | Clinical Summary ---
Author Organization [facility] Address [address] [facility] [place] [address] Care Team Providers Care Rn Circulating Name Role Phone Heraclio Cleveland DO Primary Care Provider [phone]- [phone] Heraclio Cleveland DO Unavailable [phone] Source Comments [facility],non-owned Affiliates and Associated Physician Practices is amultiple site organization consisting of ambulatory clinics and hospital sitesin [place] and [place]. This disclosure is being madepursuant to the Care Everywhere program and may not contain all informatio navailable regarding this patient. Last updated 18.[facility] [employer] Allergies Active Allergy Reactions Criticality Noted Date [...] complete this topic Insurance [employer] Care Teams Rn Circulating Relationship Specialty Start Date End Date Heraclio Cleveland DO PCP - General Internal Medicine 10/12/16 Heraclio Cleveland DO Internal Medicine 10/12/16
--- OUTSIDE RECORDS SUMMARY | 2025-01-23 14:16 | XMS_ITS | Referral Summary ---
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 SOLICITOR Gender Identity Female 10/31/2021 1:29 PM CDT Sexual Orientation Straight 10/31/2021 1: 29 PM CDT Last Filed Vital Signs Vital Sign Reading Time Taken Comments Blood Pressure 114/81 11/11/2021 4:05 PM CDT Pulse 105 11/11/2021 4:05 PM CDT Temperature 36.6 C (97.8 F) 05/15/2019 2:01 PM INSURANCE SOLICITOR Respiratory Rate - - Oxygen Saturation 96% 11/11/2021 4:05 PM CDT Inhaled Oxygen Concentration - - Weight 118.8 kg (261 lb 12.8 oz) 05/15/2019 2:01 PM INSURANCE SOLICITOR Height 159.5 cm (5' 2.8) 05/15/2019 2:01 PM INSURANCE SOLICITOR Body Mass Index 46.67 05/15/2019 2:01 PM INSURANCE SOLICITOR Plan of Treatment Not on file Procedures [...] 2016. Volume sweat site 1 39.0 mcL [facility] Sweat Cl site 2 <10 <=30 mmol/L [facility] Volume sweat site 2 31.0 mcL [facility] Fluid 11/03/2024 9:29 AM CDT 11/03/2024 10:26 AM CDT us Annita Key MD LAB BODY FLUIDS AND STOOLS ORDERABLES Final Result [facility] [address] [facility] Department [place] [address] from Last 3 Months Insurance [facility] H[facility]/PPO Address: [address] [facility] [address] [place] [address] [facility] H[facility]/PPO Address: [facility] [address] [place] [address] Care Teams Director [employer] Relationship Specialty Start Date End Date Heraclio Cleveland DO PCP - General Internal Medicine 12/10/18
[2025-01-23 14:19] LABS: Add Urine Microscopic? NO
[2025-01-23] MEDS: AZITHROMYCIN 500 MG TABLET PO (15:15)
[2025-01-23 15:45] VITALS: BP 116/52; PULSE 88; RESP 18; O2SAT 99
== END 2025-01-23 15:47 | disposition home or self-care (01) ==
PROVIDERS: Emergency Provider Emergency Medicine; PCP Internal Medicine
DX: J18.9 Pneumonia, unspecified organism (principal); D68.2 Hereditary deficiency of other clotting factors; J45.909 Unspecified asthma, uncomplicated; F32.A Depression, unspecified; Z98.84 Bariatric surgery status; Z86.718 Personal history of other venous thrombosis and embolism; Z87.442 Personal history of urinary calculi; Z87.891 Personal history of nicotine dependence; Z90.49 Acquired absence of other specified parts of digestive tract; N20.0 Calculus of kidney; R91.8 Other nonspecific abnormal finding of lung field; Z79.899 Other long term (current) drug therapy
CPT/HCPCS: 36415; 74176; 80053; 81003; 81025; 85025; 85610; 85730; 96374; 96375; 99284; A9270; J1171; J2405

== ENCOUNTER 2025-01-29 09:03 | Emergency (ER) | payer OTHER, SELFPAY ==
[2025-01-29] VITALS (8 sets, daily range): BP systolic 112–127; BP diastolic 54–87; PULSE 87–102; RESP 17–23; TEMP 36.4; O2SAT 96–100
--- NOTE | ~2025-01-29 | CT_ITS ---
EXAMINATION: CT abdomen pelvis wo con DATE: 01/29/2025 10:40 INDICATION: Left flank pain TECHNIQUE: Computed tomography (CT) of the abdomen and pelvis was performed without intravenous contr ast. The dose-length product was 384.34 mGy-cm. Automated exposure control and iterative reconstructi on technique were employed. COMPARISON: Comparison to multiple prior studies sequentially, with oldest reviewed study dated 12/2021. FINDINGS: There are bilateral patchy groundglass opacities involving predominantly the lower lungs wi th diffuse distribution. Superimposed reticulonodular opacities are present throughout the affected r egion without evidence of honeycombing. No significant pleural effusion. Status post cholecystectomy. The liver, spleen, pancreas, right adrenal gland are unremarkable. There is a left adrenal mass measuring 2 cm, likely benign. There are changes of gastric bypass surgery. U terus mildly prominent. No abnormal pelvic masses or fluid collections. No renal or ureteral stones. No hydronephrosis. There are cortical calcifications of the left kidney, likely of no clinical signif icance. Bladder wall is mildly thickened, likely due to underdistention. IMPRESSION: 1. Persistent bilateral patchy groundglass opacities with superimposed reticulonodular changes, stabl e or slowly progressive over time. Findings most consistent with chronic interstitial lung disease. D ifferential diagnosis includes nonspecific interstitial pneumonia, chronic hypersensitivity pneumonit is and respiratory bronchiolitis. Recommend clinical correlation with autoimmune serologies, pulmonar y consultation. Consider bronchioloalveolar lavage or lung biopsy. Consider follow-up high resolution CT chest in 3-6 months. 2: No acute osseous abnormality. Reviewed, dictated and finalized at location A. IMPRESSION: 1. Persistent bilateral patchy groundglass opacities with superimposed reticulo nodular changes, stable or slowly progressive over time. Findings most consiste nt with chronic interstitial lung disease. Differential diagnosis includes nons pecific interstitial pneumonia, chronic hypersensitivity pneumonitis and respir atory bronchiolitis. Recommend clinical correlation with autoimmune serologies, pulmonary consultation. Consider bronchioloalveolar lavage or lung biopsy. Con electrical electronics engineers follow-up high resolution CT chest in 3-6 months. 2: No acute osseous abnormality.
--- NOTE | ~2025-01-29 | CT_ITS ---
EXAMINATION: CTA chest PE protocol DATE: 01/29/2025 10:41 INDICATION: Left lower rib/flank pain. TECHNIQUE: Computed tomography (CT) pulmonary angiogram of the chest was performed with 100 mL Omnipa que-350 intravenous contrast. Additional 3D reconstructions utilizing coronal maximum intensity proje ction (MIP) were performed. Automated exposure control and iterative reconstruction technique were em ployed. The dose-length product was 261.47 mGy-cm. COMPARISON: 06/25/2024 FINDINGS: No pulmonary embolism. Ill-defined centrilobular nodules and groundglass opacities with tree-in-bud p attern in the right middle and bilateral lower lobes. Dependently these coalesce into more confluent regions of consolidation consistent with multifocal pneumonia. There is associated scattered mucous p lugging in the bronchi. Tiny left pleural effusion. Heart size is normal. No pericardial effusion. 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 Thoracic aorta is normal in caliber with no dissection. No pathologically enla rged thoracic lymphadenopathy. 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 Mild thoracic spondylosis. IMPRESSION: 1. Multifocal pneumonia in the right middle and bilateral lower lobes. No pulmonary embolism. Reviewed, dictated and finalized at location A. IMPRESSION: 1. Multifocal pneumonia in the right middle and bilateral lower lobes. No pulmo nary embolism.
--- OUTSIDE RECORDS SUMMARY | 2025-01-29 09:08 | XMS_ITS | Patient Health Record ---
Author Organization [facility] [employer] Address [address] [place] [address] Care Team Providers Care Molder Wax Ball Name Role Phone Megha LOYA Heraclio Primary Care Provider Edith Barrios Unavailable [phone] Jevon Ray Unavailable [phone] Cleo Peters Unavailable [phone] Tunde Melara Unavailable [phone] Allergies Allergen (clinical drug ingredient) Drug/Non Drug Allergy documented on EMR Reaction Allergy Type Onset Date Status Eggs or Egg-derived Products Unknown Drug Allergy Active Results Component Value Reference Range Notes Screening Reviewed date:10/13/2024 12:43:03 PM Interpretation: Performing Lab: Notes/Report: Validity Testing Reviewed date:10/13/2024 12:43:10 PM Interpretation: Performing Lab: Notes/Report: NEED PHYSICIAN SIGNATURE Reviewed date:10/13/2024 12:42:56 PM Interpretation: Performing Lab: Notes/Report: Aripiprazole Reviewed date:10/13/2024 12:42:27 PM Interpretation: Performing Lab:, [facility], [address] [place] [address], Director - [id number] Notes/Report: An exception occurred while processing this report and so it has incomplete data. Please contact [email or web address] Support for assistance. Aripiprazole NEGATIVE 50.0 ng/mL [...] Oxazepam (BZO) N 0 - 300 ng/ml 3-qdzmhndtit-9,9-znutluwq-0, 3-diphen ylpyrrolidine (EDDP) N 0 - 300 ng/ml Methamphetamine (MET) N 0 - 1000 ng/ml Methylenedioxymethamphetamine (MDMA) N 0 - 500 ng/ml Morphine (MOP 300/GPE0372) N 0 - 300 ng/ml Methadone (MTD) [...] Oxazepam (BZO) N 0 - 300 ng/ml 5-vvejmcyspi-7,8-vsvdkwdl-7, 3-diphen ylpyrrolidine (EDDP) N 0 - 300 ng/ml Methamphetamine (MET) N 0 - 1000 ng/ml Methylenedioxymethamphetamine (MDMA) N 0 - 500 ng/ml Morphine (MOP 300/BCS8253) N 0 - 300 ng/ml Methadone (MTD) N 0 - 300 ng/ml Phencyclidine (PCP) N 0 - 25 ng/ml Nortriptyline (TCA) N 0 - 1000 ng/ml Oxycodone N 0 - 300 ng/ml x N 0 - 300 ng/ml UDT Reviewed date:12/24/2024 03:29:55 PM Interpretation: Performing Lab: Notes/Report: THC NEG 0 - 50 ng/ml Cocaine NEG 0 - 300 ng/ml Amphetamine NEG 0 - 1000 ng/ml Buprenorphine (BUP) NEG 0 - 10 ng/ml Secobarbital (Bar) NEG 0 - 300 ng/ml Oxazepam (BZO) NEG 0 - 300 ng/ml 0-uobdcdozav-4,9-kxwvoxjs-2, 3-diphen ylpyrrolidine (EDDP) NEG 0 - 300 ng/ml Methamphetamine (MET) NEG 0 - 1000 ng/ml Methylenedioxymethamphetamine (MDMA) NEG 0 - 500 ng/ml Morphine (MOP 300/QWI4962) NEG 0 - 300 ng/ml Methadone (MTD) NEG 0 - 300 ng/ml Phencyclidine (PCP) NEG 0 - 25 ng/ml Nortriptyline (TCA) NEG 0 - 1000 ng/ml Oxycodone NEG 0 - 300 ng/ml x NEG 0 - 300 ng/ml UDT Reviewed date:02/28/2024 02:15:48 PM Interpretation: Performing Lab: Notes/Report: THC n 0 - 50 ng/ml Cocaine n 0 - 300 ng/ml Amphetamine p 0 - 1000 ng/ml Buprenorphine (BUP) n 0 - 10 ng/ml Secobarbital (Bar) n 0 - 300 ng/ml Oxazepam (BZO) p 0 - 300 ng/ml 5-vykwdokwar-8,8-jtifsnej-6, 3-diphen ylpyrrolidine (EDDP) n 0 - 300 ng/ml Methamphetamine (MET) n 0 - 1000 ng/ml Methylenedioxymethamphetamine (MDMA) n 0 - 500 ng/ml Morphine (MOP 300/AHD2932) n 0 - 300 ng/ml Methadone (MTD) [...] Oxazepam (BZO) neg 0 - 300 ng/ml 6-ljkezvenyg-9,8-innjsjbi-6, 3-diphen ylpyrrolidine (EDDP) neg 0 - 300 ng/ml Methamphetamine (MET) neg 0 - 1000 ng/ml Methylenedioxymethamphetamine (MDMA) neg 0 - 500 ng/ml Morphine (MOP 300/SPF4672) neg 0 - 300 ng/ml Methadone (MTD) [...] less (1 point) Section Notes: Lives in [place] with 2 kids. Grew up in [place], has 1 sister. 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 Lives in [place] with 2 kids. Grew up in [place], has 1 sister. 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 Lives in [place] with 2 kids. Grew up in [place], has 1 sister. 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 Lives in [place] with 2 kids. Grew up in [place], has 1 sister. 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 Lives in [place] with 2 kids. Grew up in [place], has 1 sister. 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 Lives in [place] with 2 kids. Grew up in [place], has 1 sister. 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 Lives in [place] with 2 kids. Grew up in [place], has 1 sister. 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 Lives in [place] with 2 kids. Grew up in [place], has 1 sister. 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 Lives in [place] with 2 kids. Grew up in [place], has 1 sister. 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 Problems Problem Type SNOMED Code ICD Code Onset Dates Problem Status W/U Status Risk Notes Problem Moderate recurrent major depression (10161565) Major depressive disorder, recurrent, moderate (F33.1) Active confirmed Problem Recurrent major depression in remission (02528184) Major depressive disorder, recurrent, in partial remission (F33.41) Active confirmed Problem Generalized anxiety disorder (32022141) Generalized anxiety disorder (F41.1) Active confirmed Problem Attention deficit hyperactivity disorder, combined type (65376848) Attention-deficit hyperactivity disorder, combined type (F90.2) Active confirmed Problem Chronic insomnia (878881616) Chronic insomnia (F51.04) Active confirmed Problem Chronic fatigue syndrome (56103805) Chronic fatigue syndrome (G93.32) Active confirmed Problem Panic disorder (971376282) Panic attacks (F41.0) Active confirmed Vital Signs Heart Rate 96 /min 12/24/2024 Height-cm 160.02 cm 12/24/2024 Blood pressure diastolic 73 mm Hg 12/24/2024 Weight-kg 75.57 kg 12/24/2024 Height 63 in 12/24/2024 Blood pressure systolic 117 mm Hg 12/24/2024 Weight 166.6 lbs 12/24/2024 BMI 29.51 kg/m2 12/24/2024 Encounters Encounter Location Date Provider Diagnosis [facility] [address] [facility] 162 [facility] [address] [place] [address] 01/21/2025 Edith Molina Major depressive disorder, recurrent, moderate F33.1 ; Generalized anxiety disorder F41.1 ; Attention-deficit hyperactivity disorder, combined type F90.2 and Chronic insomnia F51.04 [facility] [address] [facility] [address] [place] [address] 01/31/2024 Cleo Peters Major depressive disorder, recurrent, moderate F33.1 ; Generalized anxiety disorder F41.1 ; Attention-deficit hyperactivity disorder, combined type F90.2 ; Chronic insomnia F51.04 ; Panic attacks F41.0 and Chronic fatigue syndrome G93.32 [facility] [address] [place] [address] 02/26/2024 Jevon Ray ADHD (attention deficit hyperactivity disorder), combined type F90.2 [place] [address] [facility] [address] [address] 03/03/2024 Cleo Peters Major depressive disorder, recurrent, moderate F33.1 ; Attention-deficit hyperactivity disorder, combined type F90.2 ; Generalized anxiety disorder F41.1 ; Chronic insomnia F51.04 ; Panic attacks F41.0 and Chronic fatigue syndrome G93.32 [place] [address] [facility] [address] [address] 03/31/2024 Cleo Peters Major depressive disorder, recurrent, mild F33.0 ; Attention-deficit hyperactivity disorder, combined type F90.2 ; Generalized anxiety disorder F41.1 ; Chronic insomnia F51.04 ; Panic attacks F41.0 and Chronic fatigue syndrome G93.[address] [address] 04/23/2024 Cleo Peters Major depressive disorder, recurrent, mild F33.0 ; Attention-deficit hyperactivity disorder, combined type F90.2 ; Generalized anxiety disorder F41.1 ; Chronic insomnia F51.04 ; Panic attacks F41.0 and Chronic fatigue syndrome G93.32 [place] [address] [facility] [address] [address] 05/27/2024 Edith Molina Attention-deficit hyperactivity disorder, combined type F90.2 ; Major depressive disorder, recurrent, mild F33.0 ; Generalized anxiety disorder F41.1 ; Panic attacks F41.0 ; Chronic insomnia F51.04 and Chronic fatigue syndrome G93.32 [place] [address] [facility] [address] [address] 07/07/2024 Edith Molina Attention-deficit hyperactivity disorder, combined type F90.2 ; Major depressive disorder, recurrent, mild F33.0 ; Generalized anxiety disorder F41.1 ; Panic attacks F41.0 ; Chronic fatigue syndrome G93.32 and Chronic insomnia F51.04 [place] [address] [facility] [address] [address] 08/04/2024 Edith Molina Major depressive disorder, recurrent, mild F33.0 ; Attention-deficit hyperactivity disorder, combined type F90.2 ; Generalized anxiety disorder F41.1 ; Panic attacks F41.0 ; Chronic fatigue syndrome G93.32 and Chronic insomnia F51.04 [facility] [address] [place] [address] 09/29/2024 Edith Molina Generalized anxiety disorder F41.1 ; Major depressive disorder, recurrent, in partial remission F33.41 ; Attention-deficit hyperactivity disorder, combined type F90.2 ; Chronic insomnia F51.04 ; Chronic fatigue syndrome G93.32 ; Panic attacks F41.0 ; Encounter for screening for cardiovascular disorders Z13.6 and Encounter for screening for depression Z13.31 [facility] [address] [place] [address] 12/24/2024 Edith Molina Major depressive disorder, recurrent, moderate F33.1 ; Generalized anxiety disorder F41.1 ; Attention-deficit hyperactivity disorder, combined type F90.2 ; Chronic insomnia F51.04 ; Encounter for screening for depression Z13.31 and Encounter for screening for cardiovascular disorders Z13.6 [facility] [address] [place] [address] 02/04/2024 Cleo Peters Attention-deficit hyperactivity disorder, combined type F90.2 [facility], [facility] [address] [place] [address] 02/04/2024 Cloe Peters [facility], [facility] [address] [place] [address] 02/05/2024 Cleo ePters [facility], [facility] [address] [place] [address] 02/08/2024 Cleo Peters [facility], [facility] [address] [place] [address] 02/15/2024 Cleo Peters [facility], [facility] [address] [place] [address] 01/31/2024 Cleo Peters [facility], [facility] [address] [place] [address] 02/05/2024 Cleo Peters [facility], [place] [address] [place] [address] 02/05/2024 Cleo Peters [facility], [facility] [address] [address] 04/09/2024 Cleo [facility] [place] [address] [address] 04/09/2024 Cleo [facility], [place] [address] [address] 05/28/2024 Edith Adinjose [place] [address] [address] 05/28/2024 Edith Molina [facility], [place] [address] [address] 09/01/2024 Edith Molina Attention-deficit hyperactivity disorder, combined type F90.2 [place] [address] [address] 09/29/2024 Edith Molina Attention-deficit hyperactivity disorder, combined type F90.2 [place] [address] [address] 10/28/2024 Edith Adinjose Attention-deficit hyperactivity disorder, combined type F90.2 [place] [address] [address] 11/28/2024 Edith Adinjose Attention-deficit hyperactivity disorder, combined type F90.2 [place] [address] [address] 12/24/2024 Tunde Melara Assessments Encounter Date Diagnosis [...] daytime sleepiness. Plan: - follow up with photographer model and any recommeneded testing/provid ers recommended - [...] daytime sleepiness. Plan: - follow up with photographer model and any recommeneded testing/provid ers recommended - [...] c Fatigue - Recently started modafinil by photographer model - Air Conditioning Unit Assembler encouraged continuing Adderall with modafinil Plan: - Continue modafinil as prescribed by photographer model Follow-up in 6 weeks, sooner if concerns [...] c Fatigue - Recently started modafinil by photographer model - Air Conditioning Unit Assembler encouraged continuing Adderall with modafinil Plan: - Continue modafinil as prescribed by photographer model Follow-up in 6 weeks, sooner if concerns [...] slightly, has pulmonology appointment next month - Air Conditioning Unit Assembler encouraged continuing Adderall with modafinil Plan: - Continue treatment plan with photographer model Follow-up in 2 months, sooner if concerns [...] depressive disorder, recurrent, moderate (ICD-10 - F33.1) 10/28/2024 Attention-defici t hyperactivity disorder, combined type (ICD-10 - F90.2) 09/29/2024 Major depressive disorder, recurrent, in partial remission (ICD-10 - F33.41) 09/29/2024 Generalized anxiety disorder (ICD-10 - F41.1) 09/29/2024 Attention-defici t hyperactivity disorder, combined type (ICD-10 - F90.2) 01/21/2025 Generalized anxiety disorder (ICD-10 - F41.1) [...] slightly, has pulmonology appointment next month - Air Conditioning Unit Assembler encouraged continuing Adderall with modafinil Plan: - Continue treatment plan with photographer model Follow-up in 2 months, sooner if concerns [...] c Fatigue - Recently started modafinil by photographer model - Air Conditioning Unit Assembler encouraged continuing Adderall with modafinil Plan: - Continue modafinil as prescribed by photographer model Follow-up in 6 weeks, sooner if concerns [...] daytime sleepiness. Plan: - follow up with photographer model and any recommeneded testing/provid ers recommended - [...] daytime sleepiness. Plan: - follow up with photographer model and any recommeneded testing/provid ers recommended - [...] c Fatigue - Recently started modafinil by photographer model - Air Conditioning Unit Assembler encouraged continuing Adderall with modafinil Plan: - Continue modafinil as prescribed by photographer model Follow-up in 6 weeks, sooner if concerns [...] slightly, has pulmonology appointment next month - Air Conditioning Unit Assembler encouraged continuing Adderall with modafinil Plan: - Continue treatment plan with photographer model Follow-up in 2 months, sooner if concerns arise 01/21/2025 Attention-defici t hyperactivity disorder, combined type (ICD-10 - F90.2) 12/24/2024 Chronic insomnia (ICD-10 - F51.04) 09/29/2024 Chronic insomnia (ICD-10 - F51.04) 09/29/2024 Chronic fatigue syndrome (ICD-10 - G93.32) 12/24/2024 Encounter for screening for depression (ICD-10 - Z13.31) 08/04/2024 Panic attacks (ICD-10 - F41.0) Depression [...] slightly, has pulmonology appointment next month - Air Conditioning Unit Assembler encouraged continuing Adderall with modafinil Plan: - Continue treatment plan with photographer model Follow-up in 2 months, sooner if concerns arise 01/21/2025 Chronic insomnia (ICD-10 - F51.04) 07/07/2024 Chronic fatigue syndrome (ICD-10 - G93.32) [...] c Fatigue - Recently started modafinil by photographer model - Air Conditioning Unit Assembler encouraged continuing Adderall with modafinil Plan: - Continue modafinil as prescribed by photographer model Follow-up in 6 weeks, sooner if concerns [...] daytime sleepiness. Plan: - follow up with photographer model and any recommeneded testing/provid ers recommended - [...] daytime sleepiness. Plan: - follow up with photographer model and any recommeneded testing/provid ers recommended - [...] c Fatigue - Recently started modafinil by photographer model - Air Conditioning Unit Assembler encouraged continuing Adderall with modafinil Plan: - Continue modafinil as prescribed by photographer model Follow-up in 6 weeks, sooner if concerns [...] slightly, has pulmonology appointment next month - Air Conditioning Unit Assembler encouraged continuing Adderall with modafinil Plan: - Continue treatment plan with photographer model Follow-up in 2 months, sooner if concerns arise 12/24/2024 Encounter for screening for cardiovascular disorders (ICD-10 - Z13.6) 09/29/2024 Panic attacks (ICD-10 - F41.0) 09/29/2024 Encounter for screening for cardiovascular disorders [...] slightly, has pulmonology appointment next month - Air Conditioning Unit Assembler encouraged continuing Adderall with modafinil Plan: - Continue treatment plan with photographer model Follow-up in 2 months, sooner if concerns [...] Trintellix due to non-formulary status and high mtk-lq-gnqbob costs Anxiety Disorder Assessment: Current anxiety levels [...] slightly, has pulmonology appointment next month - Air Conditioning Unit Assembler encouraged continuing Adderall with modafinil Plan: - Continue treatment plan with photographer model Follow-up in 2 months, sooner if concerns arise 09/29/2024 Marina Marie, a female patient with a history of anxiety, depression, and ADHD, presents for follow-up with overall improvement in mood and anxiety symptoms. Anxiety Assessment: Patient reports anxiety as not too, too bad with overall improvement. Current management includes buspirone for anxiety symptoms. Work-related stress due to staffing shortages at her job at [employer] is noted as a primary stressor. Plan: [...] is variably managed with modafinil prescribed by photographer model. Plan: - Continue Adderall - Continue modafinil as prescribed by photographer model Plan Of Treatment Next Appt Details Provider Name:Edith gonzalez, 02/18/2025 09:30:00 AM, [facility] [facility] [address], [facility] [address], [place], [address], Insurance Providers Payer Name Payer Address Payer Phone Subscriber Number Group Number Insured Name Patient Relationship to Insured Coverage Start Date Coverage End Date r [address] [address] [place] [address] [id number] Sarai Marie Self - patient is the insured Medical (General) History Medical History History ICD Code chronic fatigue syndrome asthma hx DVT hx seizures Past Psychiatric History: Anxiety Disord er,Major Depressive Episode undefined Gastroesophageal reflux disease K21.9 Surgical History Surgery Date(Month/Year) c sections galbladder removal 2013 gastric bypass 05/2023 Hospitalization History Reason Date(Month/Year) pneumonia 2022
--- OUTSIDE RECORDS SUMMARY | 2025-01-29 09:08 | XMS_ITS | Clinical Summary ---
Author Organization [facility] Address [address] [place] [address] [place] [address] Care Team Providers Care Wound Care Technician Name Role Phone Heraclio Cleveland DO [...] 0 Active fluticasone propionate (FLONASE) 50 mcg/spray [place], Suspension nasal inhaler fluticasone propionate 50 mcg/actuation [...] on file Legal Sex Female 8:28 AM [employer] Gender Identity Not on file Sexual Orientation [...] 2024 INFLUENZA VACCINE (#1) 2025 Care Teams Wound Care Technician Relationship Specialty Start Date End Date Heraclio Cleveland DO [address] [address] PCP - General Internal Medicine 08/29/19
--- OUTSIDE RECORDS SUMMARY | 2025-01-29 09:08 | XMS_ITS ---
Author Organization [facility] [employer] Address [address] [place] [address] Care Team Providers Care Keeper Helper Name Role Phone Heraclio Cleveland DO Primary Care Provider Edith Barrios Unavailable [phone] Allergies Allergen (clinical drug ingredient) Drug/Non Drug [...] less (1 point) Section Notes: Lives in [place] with 2 kids. Grew up in [place], has 1 sister. 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 Encounters Encounter Location Date Provider Diagnosis [facility] [employer] [address] [address] 01/21/2025 Edith Molina Major depressive disorder, recurrent, [...] Trintellix due to non-formulary status and high dny-qr-booirc costs Anxiety Disorder Assessment: Current anxiety levels [...] Tr[employer]ellix due to non-formulary status and high hwl-dy-zaoltf costs Anxiety Disorder Assessment: Current anxiety levels [...] Name:Edith N Han gonzalez, 02/18/2025 09:30:00 AM, [address] [facility] [address], [facility] [address], [place], [address], Progress Notes * Sarai MOYERDOB:[birth year] (39 yo F)Acc No.[id number]:01/21/2025 Patient: Angie SPENCERica Provider: Michael Molina :1985 A ge:39 Y S ex:Female Date:01/21/2025 Phone: Address:[address] [place] [address] [facility] Pcp:Heraclio Cleveland DO Subjective: * Chief Complaints: [...] Trintellix is currently non-formulary, resulting in higher ngy-tz-gexcuq costs even with a coupon card. Social [...] 2 diabetes mellitus without complication, unspecified whether terminal block assembler insulin use. M atebryanl Grandmother: diagnosed with [...] less (1 point) M iscellaneous: O ccupation: Cover Operator. Safety issues A re there any firearms in the house? N o Advance Care Planning A re you your own decision-maker Y es D o you have Power of Title I Instructional Assistant for Health or Medical? N o S ocial History: H ousehold M arital Status: D ivorced N umber of Adults in household: 1 N umber of Children in Household: 2 L evel of Education: N ot Finished College L meredith in [place] with 2 kids. Grew up in [place], has 1 sister. 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 * Medications: T [...] Trintellix due to non-formulary status and high ufl-nu-lipmhq costs Anxiety Disorder Assessment: Current anxiety levels [...] * Electronic signature of Mark Molina on 01/29/2025 at 09:08 AM CDT Sign off status: Pending * Provider: Michael Mloina Date: 01/21/2025 Generated for Cydney carson/Pavel on: 01/29/2025 09:08 AM CDT History and Physical Notes * [...] Total: (0 to 4) No Anx iety [place]-Suicide Severity Rating Scale Suicide Risk (CSRS-screener) in [...]
--- OUTSIDE RECORDS SUMMARY | 2025-01-29 09:08 | XMS_ITS | Clinical Summary ---
Author Organization [facility] Address [address] [place] [address] Care Team Providers Care Biochemistry Technician Name Role Phone Heraclio Cleveland DO Primary Care Provider [phone] Heraclio Cleveland DO Unavailable [phone] Source Comments [facility],non-owned Affiliates and Associated Physician Practices is amultiple site organization consisting of ambulatory clinics and hospital sitesin [place], [place], [place] and [place]. This disclosure is being madepursuant to the Care Everywhere program and may not contain all informatio navailable regarding this patient. Last updated 18.[facility] [employer] Allergies Active Allergy Reactions Criticality Noted Date [...] complete this topic Insurance [employer]ET[employer] Care Teams Biochemistry Technician Relationship Specialty Start Date End Date Heraclio Cleveland DO PCP - General Internal Medicine 10/12/16 Heraclio Cleveland DO Internal Medicine 10/12/16
--- OUTSIDE RECORDS SUMMARY | 2025-01-29 09:08 | XMS_ITS | Clinical Summary ---
Author Organization [facility] Address [facility] [place] [address] Care Team Providers Care Electrician Substation Supervisor Name Role Phone Heraclio Cleveland DO Primary Care Provider [phone] Allergies Active Allergy Reactions Criticality Noted Date [...] Team Description 11/03/2024 9:05 [place] [address] from Last 3 Months Surgical History Surgery [...] on file Legal Sex Female 8:29 AM OPTIMIZATION MANAGER Gender Identity Female 10/31/2021 1:29 PM CDT Sexual Orientation Straight 10/31/2021 1: 29 PM CDT Obstetrics History Last Filed Vital Signs Vital Sign Reading Time Taken Comments Blood Pressure 114/81 11/11/2021 4:05 PM CDT Pulse 105 11/11/2021 4:05 PM CDT Temperature 36.6 C (97.8 F) 05/15/2019 2:01 PM OPTIMIZATION MANAGER Respiratory Rate - - Oxygen Saturation 96% 11/11/2021 4:05 PM CDT Inhaled Oxygen Concentration - - Weight 118.8 kg (261 lb 12.8 oz) 05/15/2019 2:01 PM OPTIMIZATION MANAGER Height 159.5 cm (5' 2.8) 05/15/2019 2:01 PM OPTIMIZATION MANAGER Body Mass Index 46.67 05/15/2019 2:01 PM OPTIMIZATION MANAGER Plan of Treatment Not on file [...] Volume sweat site 1 39.0 mcL [facility] Sweat Cl site 2 <10 <=30 mmol/L [facility] Volume sweat site 2 31.0 mcL [facility] Fluid 11/03/2024 9:29 AM CDT 11/03/2024 10:26 AM CDT Annita Key MD LAB BODY FLUIDS AND STOOLS ORDERABLES Final Result [facility] Department [place] [address] from Last 3 Months Insurance [facility] Care Teams Electrician Substation Supervisor Relationship Specialty Start Date End Date Heraclio Cleveland DO PCP - General Internal Medicine 12/10/18
--- OUTSIDE RECORDS SUMMARY | 2025-01-29 09:09 | XMS_ITS | Patient Health Record ---
Author Organization [facility] [place] ([address]) Address [address] [place] [address] Care Team Providers Care Platform Loader Name Role Phone Svetlanalui Heraclio Primary Care Provider Unavailab Mely Esquivel Unavailable [phone] Allergies No Known Allergies Results Component Value Reference Range Notes -Immunoglobulins A/E/G/M, Se rum Reviewed date:04/03/2024 12:25:32 PM Interpretation:Normal Performing Lab:[facility] [address] [id number], Phone - [phone], Director - Janneth Notes/Report: Immunoglobulin G, Qn, Serum 493 953-6632 mg/d L Immunoglobulin A, Qn, Serum 296 87-352 mg/dL Immunoglobulin M, Qn, Serum 88 26-217 mg/dL Immunoglobulin E, Total 534 6-495 IU/mL -Haemophilus influenzae B Ig G Reviewed date:04/03/2024 12:37:02 PM Interpretation:Normal Performing Lab:[facility] [address] [id number], Phone - [phone], Director - Yimi Notes/Report: Haemophilus influenzae B IgG 1.86 NOTE: An anti-Hib level of 0.15 ug/mL is generally accepted as the minimum level for protection. Optimal protection post-vaccination requires a level greater than 1.00 ug/mL. -Tetanus Antitoxoid IgG Ab Reviewed date:04/03/2024 12:25:18 PM Interpretation:Normal [facility] [address] [place] [address], [place], [place] [id number], Phone - [phone], Director - Yimi Notes/Report: Tetanus Antitoxoid IgG Ab 2.67 <0.10 IU/mL Interpretation: Non-Protective <0.10 Protective >=0.10 Results for this test are for research purposes only by the assay's groundhand. The performance characteristics of this product have not been established. Results should not be used as a diagnostic procedure without confirmation of the diagnosis by another medically established diagnostic product or procedure. -Pneumococcal Ab (23 Serotyp e) Reviewed date:04/03/2024 12:25:10 PM Interpretation:Abnormal Performing Lab:[facility], [address] [place] [id number], Phone - [phone], Director - Debra Notes/Report: Pneumo Ab Type [...] developed and its performance characteristics determined by [employer]. It has not been cleared or approved by the U.S. Food and Drug Administration. FLAG Interpretation: A = Abnormal, H = High, L = Low -Pneumococcal Ab (23 Serotyp e) Reviewed date:06/04/2024 04:13:38 PM Interpretation:Normal Performing Lab:[facility], [address] [place] [id number], Phone - [phone], Director - PhDNeil Notes/Report: Pneumo Ab Type [...] developed and its performance characteristics determined by [employer]. It has not been cleared or approved [...] review and pick correct strength-formula tion from [employer] options. If intended option is not shown, [...] W/U Status Risk Notes Problem Anxiety disorder (008649752) Anxiety disorder, unspecified (F41.9) Active confirmed Problem Chronic allergic conjunctivitis (76595422) Other chronic allergic conjunctivitis (H10.45) Active confirmed Problem Allergic rhinitis caused by pollen (disorder) (36128038) Allergic rhinitis due to pollen (J30.1) Active confirmed Problem Allergic rhinitis (92558752) Other allergic rhinitis (J30.89) Active confirmed Problem Uncomplicated moderate persistent asthma (235592010) Moderate persistent asthma, uncomplicated (J45.40) Active confirmed Problem Uncomplicated severe persistent asthma (795433914) Severe persistent asthma, uncomplicated (J45.50) Active confirmed Problem Gastro-esophageal reflux disease without esophagitis (503295026) Gastro-esophageal reflux disease without esophagitis (K21.9) Active confirmed Problem Allergic rhinitis caused by animal hair and dander (531720686099132) Allergic rhinitis due to animal (cat) (dog) hair and dander (J30.81) Active confirmed Problem Allergy to egg protein (finding) (226398875) Allergy to eggs (Z91.012) Active confirmed Problem Essential hypertension (53953038) Essential (primary) hypertension (I10) Active confirmed Problem Depression (312451114) Depression, unspecified (F32.A) Active confirmed Problem Eosinophilic asthma (647608832) 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) Active confirmed Vital Signs Blood pressure diastolic 84 mm Hg 11/05/2024 Oximetry 99 % 11/05/2024 Height 63 in 11/05/2024 Blood pressure systolic 120 mm Hg 11/05/2024 Weight 172.8 lbs 11/05/2024 BMI 30.61 kg/m2 11/05/2024 Encounters Encounter Location Date Provider Diagnosis [facility] [address] [facility] [employer] [address] [address] 01/30/2024 Mely Jay Allergic rhinitis du e to pollen J30.1 ; Severe persistent asthma, uncomplicated J45.50 ; Eosinophilic asthma J82.83 ; Allergic rhinitis due to animal (cat) (dog) hair and dander J30.81 ; Other allergic rhinitis J30.89 ; Other chronic allergic conjunctivitis H10.45 and Allergy to eggs Z91.012 [facility] [address] [facility] [employer] [address] [address] 03/26/2024 Mely Jay Allergic rhinitis du e to pollen J30.1 ; Severe persistent asthma, uncomplicated J45.50 ; Eosinophilic asthma J82.83 ; Allergic rhinitis due to animal (cat) (dog) hair and dander J30.81 ; Other allergic rhinitis J30.89 ; Other chronic allergic conjunctivitis H10.45 ; Allergy to eggs Z91.012 and Other pneumonia, unspecified organism J18.8 [facility] [address] [place] [address] [employer] [address] [address] 05/21/2024 Mely Jay Allergic rhinitis du e to pollen J30.1 ; Severe persistent asthma, uncomplicated J45.50 ; Eosinophilic asthma J82.83 ; Allergic rhinitis due to animal (cat) (dog) hair and dander J30.81 ; Other allergic rhinitis J30.89 ; Other chronic allergic conjunctivitis H10.45 ; Allergy to eggs Z91.012 and Other pneumonia, unspecified organism J18.8 [facility] [address] [place] [address] [employer] [address] [address] 07/16/2024 Mely Jay Allergic rhinitis du e to pollen J30.1 ; Severe persistent asthma, uncomplicated J45.50 ; Eosinophilic asthma J82.83 ; Allergic rhinitis due to animal (cat) (dog) hair and dander J30.81 ; Other allergic rhinitis J30.89 ; Other chronic allergic conjunctivitis H10.45 ; Allergy to eggs Z91.012 and Other pneumonia, unspecified organism J18.8 [facility] [address] [place] [address] [employer] [address] [address] 09/10/2024 Mely Jay Allergic rhinitis du e to pollen J30.1 ; Severe persistent asthma, uncomplicated J45.50 ; Eosinophilic asthma J82.83 ; Allergic rhinitis due to animal (cat) (dog) hair and dander J30.81 ; Other allergic rhinitis J30.89 ; Other chronic allergic conjunctivitis H10.45 ; Allergy to eggs Z91.012 and Other pneumonia, unspecified organism J18.8 [facility] [address] [place], [place] [address] [address] [address] 11/05/2024 Mely Jay Allergic rhinitis du e to pollen J30.1 ; Severe persistent asthma, uncomplicated J45.50 ; Eosinophilic asthma J82.83 ; Allergic rhinitis due to animal (cat) (dog) hair and dander J30.81 ; Other allergic rhinitis J30.89 ; Other chronic allergic conjunctivitis H10.45 ; Allergy to eggs Z91.012 and Other pneumonia, unspecified organism J18.8 [facility] [address] [place] [address] 01/08/2025 Mely Pierre [facility] [address] [place] [address] 04/03/2024 Mely Pierre [facility] [address] [place] [address] 07/08/2024 Mely Pierre [facility] [address] [place] [address] 10/06/2024 Mely Pierre [facility] [address] [place] [address] 11/05/2024 Mely Pierre [facility] [address] [place] [address] 11/05/2024 Mely Pierre [facility] [address] [place] [address] 11/06/2024 Mely Pierre [facility] [place] [address] [place] [address] 12/15/2024 Mely Pierre [facility] [place] [address] [place] [address] 12/19/2024 Mely Albertm Assessments Encounter Date Diagnosis (ICD Code) Assessment [...] Provider Name:Mely hallman, 02/18/2025 02:45:00 PM, [address] [facility], [facility] [place] [address], [address], Insurance Providers Payer Name Payer Address Payer Phone Subscriber Number Group Number Insured Name Patient Relationship to Insured Coverage Start Date Coverage End Date [facility] [address] [address] [place], [place] [id number] [phone] [id number] Sarai Marie Self - patient is the [...]
--- NOTE | 2025-01-29 09:36 | ECG_ITS ---
Test Date: 2025-01-29 10:11:28 Measurements Intervals [place] Rate: 85 P: 55 UT: 145 QRS: 36 QRSD: 92 T: 36 QT: 359 QTc: 429 Interpretive Statements SINUS RHYTHM BASELINE ARTIFACT- I, II, AVR, V5 NORMAL ECG Compared to ECG 10/23/2024 14:25:52 HEART RATE HAS DECREASED Electronically Signed On 01-29-2025 10:45:53 CDT by Andrae Hdz D.O.
--- NOTE | 2025-01-29 09:38 | ED.BACK ---
HPI - Back Pain/Injury General Chief Complaint: Back Pain/Injury Stated Complaint: pneumonia pain in left side Time Seen by Provider: 01/29/25 09:09 History of Present Illness HPI Narrative: 39-year-old female with a history of recurrent pneumonia, asthma, factor 5 Leiden, DVT in 2019 not on anticoagulants presents to the emergency department for left rib and flank pain for the past 6 days. Patient states the pain is sharp, worse with movements and deep inspiration. Patient given her 80 of the onset of her flank/rib pain on 01/23/2025 and was diagnosed with pneumonia and nonobstructing nephrolithiasis. She was discharged home on azithromycin on Augmentin which she has been taking as directed. States she recently completed a course of azithromycin and has 1 more pill of Augmentin remaining. She states her symptoms continue to worsen. She followed up with her PCP 2 days ago and was referred to Urology and prescribed tramadol for left flank pain. Patient states her pain is continue to worsen despite tramadol use which prompted her to come to the ED today. She does report a mild productive cough with yellow sputum. She denies chest pain, shortness of breath, abdominal pain, dysuria or hematuria, fever. She notes she had a DVT to her upper extremity and 2019 which was not provoked. At the time she was diagnosed with factor 5 Leiden on anticoagulants for about 6 months. She has not been on anticoagulants since. Denies hemoptysis, recent surgeries or hospitalizations, extremity edema. Related Data Home Medications ?Medication ?Instructions ?Recorded ?Confirmed ?Last Taken ?Type epinephrine 0.3 mg/0.3 mL 0.3 ml IM ONCE PRN 10/04/22 01/27/25 Unknown History injection, auto-injector hypersensitivity reaction trazodone 100 mg tablet 100 mg PO HS 12/13/23 01/27/25 Unknown History cetirizine 10 mg tablet (Zyrtec) 10 mg PO DAILY 03/13/24 01/27/25 Unknown History aripiprazole 5 mg tablet (Abilify) 5 mg PO DAILY 09/03/24 01/27/25 Unknown History vortioxetine 10 mg tablet 10 mg PO DAILY 01/27/25 01/27/25 Unknown History (Trintellix) Allergies Allergy/AdvReac Type Severity Reaction Status Date / Time egg Allergy Severe anaphalaxis Verified 01/29/25 09:16 DUST Allergy Intermediate wheezing Uncoded 01/29/25 09:16 MILDEW Allergy Mild Wheezing Uncoded 01/29/25 09:16 MOLD Allergy Mild Wheezing Uncoded 01/29/25 09:16 SMOKE Allergy Mild Wheezing Uncoded 01/29/25 09:16 Review of Systems Review of Systems: All systems reviewed & are unremarkable except as noted in HPI and below PMFSH Past Medical History Medical History Hypersomnolence Attention deficit Factor V Leiden Morbid obesity with BMI of 50.0-59.9, adult Cholecystectomy planned Allergies Asthma Depression Migraine Back pain DVT (deep venous thrombosis) Surgical History Surgical History Gastric bypass status for obesity Hx of cholecystectomy Previous section 2008, 2012 Family History Family History Father Hypertension Diabetes mellitus Mother Hypertension Diabetes mellitus Other Breast cancer Social History Social History Social History: Caffeine-daily the patient is single and she has 2 children. She works at [employer]. code status full code Smoking packs per day: 0.5 Smoking cigarettes per day: 10.0 Years smoked: 5 Smoking pack-years: 2.50 Smoking status: Former smoker Tobacco type: cigarettes Second hand tobacco smoke exposure: Yes Smoking end date: 06/25/13 Alcohol intake: never Alcohol use details: rarely Substance use: never Substance use type: does not use Do You Feel Safe in your Home?: Yes Lack of Transportation: No Lack of Food: Never True Current Housing: I Have Housing Concerned About Future Housing: No Difficulty Paying Gas/Electric Bills: No Difficulty Paying for Meds: No Currently Unemployed: No Education: High School Diploma/GED Difficulty w/ Childcare or Family Care: No Gender identity (if verbalized by the patient): Female Spiritual care concerns: No Exam Narrative: GENERAL: Uncomfortable HEAD: Normocephalic, atraumatic. EYES: PERRLA and EOMI. ENT: Nares clear, no rhinorrhea or epistaxis. Mucous membranes moist. NECK: Supple. CHEST: Fine crackles in bases bilaterally. No wheezing or rhonchi. Tenderness to the left posterior ribs on palpation with no overlying skin changes crepitus, step-offs or deformities HEART: Regular rate and rhythm. No murmur heard. Normal peripheral pulses. ABDOMEN: Soft, nontender, nondistended, normal active bowel sounds. Mild tenderness over the left CVA region with no overlying skin changes or deformities EXTREMITIES: Normal range of motion. No edema. Negative Homans bilaterally SKIN: Warm, dry, no rash. NEURO: No focal deficits. Alert and oriented x3 Course Vital Signs Vital signs: Vital Signs Temperature 97.6 F 01/29/25 09:13 Pulse Rate 102 H 01/29/25 09:13 Respiratory Rate 18 01/29/25 09:13 Blood Pressure 127/87 01/29/25 09:13 Pulse Oximetry 100 01/29/25 09:13 Oxygen Delivery Room Air 01/29/25 09:13 Temperature 97.6 F 01/29/25 09:13 Pulse Rate 89 01/29/25 12:31 Respiratory Rate 18 01/29/25 12:31 Blood Pressure 114/54 L 01/29/25 12:31 Pulse Oximetry 97 01/29/25 12:31 Oxygen Delivery Room Air 01/29/25 09:13 MDM - Back Pain/Injury MDM Narrative Medical decision making narrative: 39-year-old female with history of DVT, factor 5 Leiden, recurrent pneumonia presents emergency department for worsening left lower left flank pain for the past 6 days. Patient recently diagnosed with pneumonia and prescribed azithromycin and Augmentin which she has been compliant with. Triage vitals with tachycardia 102, otherwise unremarkable. Patient is afebrile and satting 100% on room air. There are fine crackles in the lower bases bilaterally. She does appear uncomfortable. Will provide morphine. CBC with leukocytosis of 12.2. Chemistries with borderline blood sugar of 63. Patient states she has not had much to eat or drink today. She was given orange juice and repeat glucose is now 120. AST mildly elevated at 49, ALT 67 alk-phos is 191. Bilirubin is normal. No right upper quadrant or epigastric abdominal pain. UA with trace ketones and 35 RBCs, no UTI. Lipase is within normal limits. EKG shows normal sinus rhythm with rate of 85 ppm, normal NM interval, normal QRS duration, QTC, no ischemic changes. Troponin is undetectable. Given history of PE and persistent pleuritic pain and flank pain, CTA chest PE along with CT abdomen pelvis without contrast obtained. CTA chest PE shows multifocal pneumonia in the right middle and bilateral lower lobes with no PE. CT abdomen/pelvis IMPRESSION: 1. Persistent bilateral patchy groundglass opacities with superimposed reticulonodular changes, stable or slowly progressive over time. Findings most consistent with chronic interstitial lung disease. Differential diagnosis includes nonspecific interstitial pneumonia, chronic hypersensitivity pneumonitis and respiratory bronchiolitis. Recommend clinical correlation with autoimmune serologies, pulmonary consultation. Consider bronchioloalveolar lavage or lung biopsy. Consider follow-up high resolution CT chest in 3-6 months. 2: No acute osseous abnormality. Patient updated on results. States she feels better after the morphine. Her vital signs remained stable and oxygen remains 96% on room air. I did consider possibility of passed kidney stones as source of patient's pain as her last CT showed a 5 mm and 6 mm nonobstructing left nephrolithiasis in today her CT shows no renal stones. I did discuss on the CT read with radiologist, Dr. Lemons, who states the CT from today shows cortical calcifications in the same area noted as the previous kidney stones. He believes that the area of irregularity is most consistent with cortical calcifications as opposed to kidney stones and they appear stable. I discussed CT findings of the lungs with slice cutting machine operator, Dr. Tong, who reviewed the patient's chart. He notes that the patient was taking Fasenra which may be causing her to be immunosuppressed and the source of her recurrent pneumonia. Patient states she has not received of Fasenra treatment in a month to month and a half and is scheduled to start Xolair in a couple weeks by her project reservoir engineer. Dr. Tong advises that the patient does not start any immunologic 6 until her project reservoir engineer can document that her infiltrates have improved. He advises to obtain a respiratory panel w/ SARS-Cov2, and to have the patient complete the remainder of her Augmentin and start her on a 10 day course of Levaquin. He notes that the patient has an appointment scheduled with her slice cutting machine operator, Dr. Key on 02/11/25 at 1300 which he strongly advised that she attends and to follow up with Dr. Key in 5 days if her symptoms do not improve. Patient was updated on these recommendations. The patient has a history of gastric bypass, will refrain from NSAIDs and provide Cary for pain control. Additionally she was advised to follow-up with her PCP regarding her elevated liver enzymes. Discussed strict ED return precautions. Patient is agreeable with the plan verbalized understanding. Discharged in stable condition. Lab Data 01/29/25 09:52 01/29/25 09:52 Labs: Lab Results 01/29/25 01/29/25 01/29/25 Range/Units 09:52 10:20 11:54 WBC 12.2 H (4.5-10.0) K/mm3 RBC 4.18 L (4.2-5.4) M/mm3 Hgb 12.6 (12.0-15.0) g/dL Hct 38.8 (37.0-47.0) % MCV 92.8 (80-100) fl MCH 30.1 (26-34) pg MCHC 32.5 (32-36) g/dl RDW 13.0 (11.5-14.5) % Plt Count 358 (150-375) k/mm3 MPV 8.7 (7.4-10.4) fl Immature Gran % (Auto) 0.8 H (0-0.5) % Neut % (Auto) 65.9 (45.5-73.1) % Lymph % (Auto) 25.9 (18.3-44.2) % [place] % (Auto) 7.0 (2.6-8.5) % Eos % (Auto) 0.0 (0-4.4) % Baso % (Auto) 0.4 (0.2-1.2) % Lymph # (Auto) 3.16 (0.9-3.2) K/mm3 [place] # (Auto) 0.9 H (0.1-0.6) K/mm3 Eos # (Auto) 0.0 (0-0.3) K/mm3 Baso # (Auto) 0.1 (0.0-0.1) K/mm3 Abs Immat Gran (auto) 0.10 H (0.00-0.031) K/mm3 Absolute Neuts (auto) 8.0 H (1.3-6.7) K/mm3 Absolute Nucleated RBC 0.000 (0.0-0.012) K/mm3 Nucleated RBC % 0.0 (0.0-0.2) % PT 14.0 (11.1-14.7) Seconds INR 1.1 APTT 30.0 (22.3-36.8) Seconds Sodium 138 (137-145) mmol/L Potassium 4.5 (3.4-5.0) mmol/L Chloride 108 H (98-107) mmol/L Carbon Dioxide 20 L (22-30) mmol/L Anion Gap 10 (4-12) mmol/L BUN 7 (7-17) mg/dL Creatinine 0.56 L (0.7-1.0) mg/dL Estim Creat Clear Calc 108 ml/min Estimated GFR > 60 (59 - ) Glucose 63 L (65-110) mg/dL POC Capillary Glucose (65-105) mg/dl Calcium 9.0 (8.4-10.2) mg/dL Total Bilirubin 0.2 (0.2-1.3) mg/dL AST 49 H (14-36) U/L ALT 67 H (6-35) U/L Alkaline Phosphatase 191 H (38-126) U/L Troponin I < 0.012 (0.000-0.034) ng/mL NT-Pro-B Natriuret Pep 55 (19.9-100) pg/mL Total Protein 7.6 (6.3-8.2) g/dL Albumin 4.1 (3.5-5.1) g/dL Lipase 91 (23-300) U/L Urine Color Yellow (Yellow) Urine Appearance Turbid H (Clear) Urine pH 8.0 (5.0-9.0) Ur Specific [place]ett 1.019 (1.001-1.035) Urine Protein Negative (Negative) mg/dL Urine Glucose (UA) Negative (Negative) mg/dL Urine Ketones Trace H (Negative) mg/dL Ur Blood (Man) Negative (Negative) Urine Nitrate Negative (Negative) Urine Bilirubin Negative (Negative) Urine Urobilinogen 1.0 (<2.0) mg/dL Leukocyte Esterase Rfl Negative (Negative) GUILLE/UL Urine RBC 3-5 H (0-2) /hpf Urine WBC 0-5 (0-3) /hpf Ur Squamous Epith Cells Occasional (Few) /hpf Urine Bacteria None seen /hpf Urine Casts 0-2 POC Urine HCG, Qual Negative (Negative) Chlamy pneumoniae PCR Pending Adenovirus (PCR) Pending B. pertussis DNA (PCR) Pending B.parapertussis DNA PCR Pending Coronavirus OC43 (PCR) Pending Coronavirus HKU1 (PCR) Pending Coronavirus 229E (PCR) Pending Coronavirus NL63 (PCR) Pending Human Metapneumovir PCR Pending Influenza A (H1) PCR Pending Influ A (H1/09) PCR Pending Influenza A (H3) PCR Pending Influenza Type A (PCR) Pending Influenza Type B (PCR) Pending M. pneumoniae (PCR) Pending Parainfluenza 1 (PCR) Pending Parainfluenza 2 (PCR) Pending Parainfluenza 3 (PCR) Pending Parainfluenza 4 (PCR) Pending RSV (PCR) Pending Entero/Rhino (PCR) Pending SARS-CoV-2 (PCR) Pending 01/29/25 Range/Units 12:05 WBC (4.5-10.0) K/mm3 RBC (4.2-5.4) M/mm3 Hgb (12.0-15.0) g/dL Hct (37.0-47.0) % MCV (80-100) fl MCH (26-34) pg MCHC (32-36) g/dl RDW (11.5-14.5) % Plt Count (150-375) k/mm3 MPV (7.4-10.4) fl Immature Gran % (Auto) (0-0.5) % Neut % (Auto) (45.5-73.1) % Lymph % (Auto) (18.3-44.2) % [place] % (Auto) (2.6-8.5) % Eos % (Auto) (0-4.4) % Baso % (Auto) (0.2-1.2) % Lymph # (Auto) (0.9-3.2) K/mm3 [place] # (Auto) (0.1-0.6) K/mm3 Eos # (Auto) (0-0.3) K/mm3 Baso # (Auto) (0.0-0.1) K/mm3 Abs Immat Gran (auto) (0.00-0.031) K/mm3 Absolute Neuts (auto) (1.3-6.7) K/mm3 Absolute Nucleated RBC (0.0-0.012) K/mm3 Nucleated RBC % (0.0-0.2) % PT (11.1-14.7) Seconds INR APTT (22.3-36.8) Seconds Sodium (137-145) mmol/L Potassium (3.4-5.0) mmol/L Chloride (98-107) mmol/L Carbon Dioxide (22-30) mmol/L Anion Gap (4-12) mmol/L BUN (7-17) mg/dL Creatinine (0.7-1.0) mg/dL Estim Creat Clear Calc ml/min Estimated GFR (59 - ) Glucose (65-110) mg/dL POC Capillary Glucose 120 H (65-105) mg/dl Calcium (8.4-10.2) mg/dL Total Bilirubin (0.2-1.3) mg/dL AST (14-36) U/L ALT (6-35) U/L Alkaline Phosphatase (38-126) U/L Troponin I (0.000-0.034) ng/mL NT-Pro-B Natriuret Pep (19.9-100) pg/mL Total Protein (6.3-8.2) g/dL Albumin (3.5-5.1) g/dL Lipase (23-300) U/L Urine Color (Yellow) Urine Appearance (Clear) Urine pH (5.0-9.0) Ur Specific Pickett (1.001-1.035) Urine Protein (Negative) mg/dL Urine Glucose (UA) (Negative) mg/dL Urine Ketones (Negative) mg/dL Ur Blood (Man) (Negative) Urine Nitrate (Negative) Urine Bilirubin (Negative) Urine Urobilinogen (<2.0) mg/dL Leukocyte Esterase Rfl (Negative) GUILLE/UL Urine RBC (0-2) /hpf Urine WBC (0-3) /hpf Ur Squamous Epith Cells (Few) /hpf Urine Bacteria /hpf Urine Casts POC Urine HCG, Qual (Negative) Chlamy pneumoniae PCR Adenovirus (PCR) B. pertussis DNA (PCR) B.parapertussis DNA PCR Coronavirus OC43 (PCR) Coronavirus HKU1 (PCR) Coronavirus 229E (PCR) Coronavirus NL63 (PCR) Human Metapneumovir PCR Influenza A (H1) PCR Influ A (H1/09) PCR Influenza A (H3) PCR Influenza Type A (PCR) Influenza Type B (PCR) M. pneumoniae (PCR) Parainfluenza 1 (PCR) Parainfluenza 2 (PCR) Parainfluenza 3 (PCR) Parainfluenza 4 (PCR) RSV (PCR) Entero/Rhino (PCR) SARS-CoV-2 (PCR) Discharge Plan Discharge Clinical Impression: Multifocal pneumonia, Pleurisy, Elevated liver enzymes Patient Disposition: Home Condition: Stable Instructions: Antibiotic Form, Community Acquired Pneumonia (DC) Additional Instructions: Please finish the course of Augmentin and start the course of Levaquin as discussed. Take hydrocodone as needed for pain. Follow-up closely with her slice cutting machine operator in 5 days if you do not improve. Make sure to attend her appointment with her slice cutting machine operator on 02/11/2025 at 1:00 p.m.. Do not start any immunosuppressants including the Xolair until your project reservoir engineer has documented that there is improvement in the pneumonia in your lungs. Additionally you were found have elevated liver enzymes. Please follow-up with your primary care provider regarding this. Return to the emergency department if you develop chest pain, shortness of breath, fever of 100.4 or greater, or other concerning symptoms. Patient Language: Croatian Prescriptions: New levofloxacin 750 mg tablet 750 mg PO DAILY Qty: 10 0RF hydrocodone-acetaminophen 5-325 mg tablet 1 tablet PO Q8H PRN (Reason: pain) Qty: 14 0RF No Action trazodone 100 mg tablet 100 mg PO HS albuterol sulfate 2.5 mg /3 mL (0.083 %) solution for nebulization 2.5 mg inhalation Q4-6H PRN (Reason: shortness of breath or wheezing) Qty: 180 0RF ondansetron 4 mg tablet,disintegrating 4 mg PO Q8H PRN (Reason: nausea and vomiting) Qty: 30 2RF Trintellix 10 mg tablet 10 mg PO DAILY tramadol 50 mg tablet 50 mg PO Q6H PRN (Reason: pain) Qty: 14 0RF multivitamin Tablet 1 tablet PO DAILY Qty: 30 0RF buspirone 10 mg tablet 20 mg PO TID Qty: 90 0RF aripiprazole [Abilify] 5 mg tablet 5 mg PO DAILY epinephrine 0.3 mg/0.3 mL auto-injector 0.3 ml IM ONCE PRN (Reason: hypersensitivity reaction) albuterol sulfate 90 mcg/actuation HFA aerosol inhaler 1 puff inhalation QID Qty: 6.7 0RF cetirizine [Zyrtec] 10 mg Tablet 10 mg PO DAILY azithromycin 250 mg tablet See Rx Instructions .ROUTE .COMPLEX Qty: 6 0RF Rx Instructions: For 250 mg dose pack: take 500 mg today (day 1), then 250 mg for 4 days (days 2-5) amoxicillin-pot clavulanate 875-125 mg tablet 1 tablet PO Q12H 7 Days Qty: 14 0RF omeprazole 20 mg capsule,delayed release(DR/EC) 20 mg PO DAILY Qty: 90 2RF topiramate [Topamax] 50 mg tablet 50 mg PO BID Qty: 180 0RF sumatriptan succinate 50 mg tablet 50 mg PO DAILY PRN (Reason: Migraine Headache) Qty: 9 5RF azelastine-fluticasone 137-50 mcg/spray spray,non-aerosol See Rx Instructions .ROUTE .COMPLEX Qty: 23 0RF Dose Instruction: USE 1 SPRAY INTRANASALLY TWICE DAILY NEEDED Rx Instructions: USE 1 SPRAY INTRANASALLY TWICE DAILY NEEDED Trelegy Ellipta 100-62.5-25 mcg blister with device See Rx Instructions .ROUTE .COMPLEX Qty: 60 6RF Dose Instruction: INHALE 1 PUFF EVERY 24 HOURS RINSE AND SPIT AFTER USE Rx Instructions: INHALE 1 PUFF EVERY 24 HOURS RINSE AND SPIT AFTER USE potassium chloride 10 mEq capsule, extended release 10 meq PO DAILY Qty: 90 1RF modafinil 200 mg tablet 200 mg PO BID 30 Days Qty: 60 0RF Rx Instructions: Take one in the morning, repeat in the afternoon. Follow-up/Referrals: Annita Key MD [Physician] - Heraclio Cleveland DO [Primary Care Provider] -
[2025-01-29 09:59] LABS: Hematocrit 38.8 % (37.0-47.0); Hemoglobin 12.6 g/dL (12.0-15.0); Immature Granulocyte Percent A 0.8 % (0-0.5); Lymphocytes Absolute Auto 3.16 K/mm3 (0.9-3.2); Mean Corpuscular HGB Conc 32.5 g/dl (32-36); Mean Corpuscular Hemoglobin 30.1 pg (26-34); Mean Corpuscular Volume 92.8 fl (80-100); Nucleated Red Blood Cells Absolute Auto 0.000 K/mm3 (0.0-0.012); Nucleated Red Blood Cells Perc 0.0 % (0.0-0.2); Platelet Count Result 358 k/mm3 (150-375); Red Blood Count 4.18 M/mm3 (4.2-5.4); White Blood Count 12.2 K/mm3 (4.5-10.0)
[2025-01-29 10:03] LABS: Add Urine Microscopic? YES; Appearance Urine Turbid (Clear); Glucose Urine UA Negative (Negative); Leukocyte Esterase Ur Negative LEU/UL (Negative); Nitrate Urine Negative (Negative); Non Pathogenic Casts 0-2; Specific Grav Ur 1.019 (1.001-1.035)
[2025-01-29 10:16] LABS: INR 1.1; Partial Thromboplastin Time 30.0 Seconds (22.3-36.8); Prothrombin Time 14.0 Seconds (11.1-14.7)
[2025-01-29 10:19] LABS: Alanine Aminotransferase 67 U/L (6-35); Albumin Level 4.1 g/dL (3.5-5.1); Alkaline Phosphatase 191 U/L (38-126); Anion Gap 10 mmol/L (4-12); Aspartate Amino Transferase 49 U/L (14-36); Bilirubin,Total 0.2 mg/dL (0.2-1.3); Blood Urea Nitrogen 7 mg/dL (7-17); Calcium 9.0 mg/dL (8.4-10.2); Carbon Dioxide 20 mmol/L (22-30); Chloride 108 mmol/L (98-107); Estimated CRCL calculation 108 ml/min; Estimated Glomerular Filt Rate > 60; Glucose 63 mg/dL (65-110); Lipase 91 U/L (23-300); Potassium 4.5 mmol/L (3.4-5.0); Sodium 138 mmol/L (137-145); Total Protein 7.6 g/dL (6.3-8.2)
[2025-01-29 10:22] LABS: NT Pro B Type Natriuretic Pept 55 pg/mL (19.9-100); Troponin I < 0.012 ng/mL (0.000-0.034)
[2025-01-29] MEDS: MORPHINE SULFATE (*CRX) 4 MG/ML INJ IV PUSH (10:23)
[2025-01-29 10:24] LABS: BEDSIDEPREGUCG Negative (Negative)
--- OUTSIDE RECORDS SUMMARY | 2025-01-29 10:37 | XMS_ITS | Clinical Summary ---
Author Organization [facility] Address [facility] [place] [address] Care Team Providers Care Fermenter Name Role Phone Heraclio Cleveland DO Primary Care Provider [phone] Allergies Active Allergy Reactions Criticality Noted Date [...] Team Description 11/03/2024 9:05 [place] [address] from Last 3 Months Surgical History Surgery [...] on file Legal Sex Female 8:29 AM APRON MAN Gender Identity Female 10/31/2021 1:29 PM CDT Sexual Orientation Straight 10/31/2021 1: 29 PM CDT Obstetrics History Last Filed Vital Signs Vital Sign Reading Time Taken Comments Blood Pressure 114/81 11/11/2021 4:05 PM CDT Pulse 105 11/11/2021 4:05 PM CDT Temperature 36.6 C (97.8 F) 05/15/2019 2:01 PM APRON MAN Respiratory Rate - - Oxygen Saturation 96% 11/11/2021 4:05 PM CDT Inhaled Oxygen Concentration - - Weight 118.8 kg (261 lb 12.8 oz) 05/15/2019 2:01 PM APRON MAN Height 159.5 cm (5' 2.8) 05/15/2019 2:01 PM APRON MAN Body Mass Index 46.67 05/15/2019 2:01 PM APRON MAN Plan of Treatment Not on file Procedures [...] Volume sweat site 1 39.0 mcL [facility] Sweat Cl site 2 <10 <=30 mmol/L [facility] Volume sweat site 2 31.0 mcL [facility] Fluid 11/03/2024 9:29 AM CDT 11/03/2024 10:26 AM CDT Annita Key MD LAB BODY FLUIDS AND STOOLS ORDERABLES Final Result [facility] Department [place] [address] from Last 3 Months Insurance [facility] [employer] [facility] Care Teams Fermenter Relationship Specialty Start Date End Date Heraclio Cleveland DO PCP - General Internal Medicine 12/10/18
--- OUTSIDE RECORDS SUMMARY | 2025-01-29 10:37 | XMS_ITS | Clinical Summary ---
Author Organization [facility] Address [address] [place] [address] Care Team Providers Care Plug Making Operator Name Role Phone Heraclio Cleveland DO Primary Care Provider [phone] Heraclio Cleveland DO Unavailable [phone] Source Comments [facility],non-owned Affiliates and Associated Physician Practices is amultiple site organization consisting of ambulatory clinics and hospital sitesin [place], [place], [place] and [place]. This disclosure is being madepursuant to the Care Everywhere program and may not contain all informatio navailable regarding this patient. Last updated 18.[facility] Allergies Active Allergy Reactions Criticality Noted Date [...] complete this topic Insurance [employer] Care Teams Plug Making Operator Relationship Specialty Start Date End Date Heraclio Cleveland DO PCP - General Internal Medicine 10/12/16 Heraclio Cleveland DO Internal Medicine 10/12/16
--- OUTSIDE RECORDS SUMMARY | 2025-01-29 10:37 | XMS_ITS | Clinical Summary ---
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
== END 2025-01-29 12:53 | disposition home or self-care (01) ==
PROVIDERS: Emergency Provider Physician Assistant; PCP Internal Medicine
DX: J18.9 Pneumonia, unspecified organism (principal); R09.1 Pleurisy; R74.01 Elevation of levels of liver transaminase levels; D68.51 Activated protein C resistance; J45.909 Unspecified asthma, uncomplicated; F32.A Depression, unspecified; Z98.84 Bariatric surgery status; Z86.718 Personal history of other venous thrombosis and embolism; Z87.891 Personal history of nicotine dependence; Z90.49 Acquired absence of other specified parts of digestive tract; Z79.899 Other long term (current) drug therapy
CPT/HCPCS: 36415; 71275; 74176; 80053; 81001; 81025; 82948; 83690; 83880; 84484; 85025; 85610; 85730; 93005; 96374; 99284; J2270; Q9967

== ENCOUNTER 2025-05-13 13:19 | Outpatient (CLI) | payer OTHER, SELFPAY ==
--- NOTE | ~2025-05-13 | XR_ITS ---
EXAMINATION: XR chest 2V, 05/13/2025 13:24 [employer] HISTORY: cough x 3 days, congestion, chest pain COMPARISON: No comparisons available. Technique: 2 views obtained. Findings: Small right lower lobe infiltrate No pneumothorax. Heart is normal size. Mediastinal and hilar contours are within normal limits. Bony thorax no acute abnormality. Impression: Right lower lobe pneumonia Reviewed, dictated and finalized at location P. [employer] Impression: Right lower lobe pneumonia
== END 2025-05-13 13:20 | disposition home or self-care (01) ==
LOC: GOSHIMG 13:20
PROVIDERS: PCP Nurse Practitioner; Visit Provider Nurse Practitioner
DX: R05.1 Acute cough (principal); J18.9 Pneumonia, unspecified organism
CPT/HCPCS: 71046